=== PATIENT | female | born 1945 | race Caucasian/White ===

== ENCOUNTER 2017-11-14 07:54 | Outpatient (RCR) | payer MEDICARE, SELFPAY ==
[2017-11-13 00:48] VITALS: BP 144/70; PULSE 86; RESP 16; TEMP 36.2; BMI 36.4
[2017-11-14 08:23] VITALS: BP 171/61; PULSE 88; RESP 18; TEMP 36.6; BMI 36.4
--- NOTE | 2017-11-14 08:43 | HP.PCM_ITS ---
(1) Pressure ulcer of right buttock, stage 2 Status: Chronic Current Visit: Yes Code(s): L89.312 - Pressure ulcer of right buttock, stage 2 (2) Perianal fistula Status: Chronic Current Visit: Yes Code(s): K60.3 - Anal fistula (3) Back pain Status: Chronic Current Visit: No Code(s): M54.9 - Dorsalgia, unspecified (4) Chronic kidney disease, stage III (moderate) Status: Chronic Current Visit: No Code(s): N18.3 - Chronic kidney disease, stage 3 (moderate) (5) Obesity Status: Chronic Current Visit: No Code(s): E66.9 - Obesity, unspecified (6) Peripheral neuropathy Status: Chronic Current Visit: No Code(s): G62.9 - Polyneuropathy, unspecified (7) Hypertension Status: Chronic Current Visit: No Qualifiers: Hypertension type: essential hypertension Code(s): I10 - Essential (primary) hypertension (8) Type 2 diabetes mellitus Status: Chronic Current Visit: No Code(s): E11.9 - Type 2 diabetes mellitus without complications History of Present Illness Date of Service: 11/14/17 Chief Complaint: Stage II pressure ulceration of the right buttock History of Wound: This is a 72-year-old female who was recently hospitalized at [facility] for approximately 9 days in treatment for a right kidney stone, right pyelonephritis, right hydronephrosis, and sepsis. She underwent cystoscopy with right retrograde pyelogram and laser ablation of kidney stones with placement of a ureteral stent. During her hospital stay, she developed a stage II pressure ulceration on her right buttock. This had been treated with application of Telfa topically. The patient is known to be diabetic. She is obese, and suffers from hypertension and chronic kidney disease (stage III). Her last hemoglobin A1c, on 05/23/2017, was 6.6. A battery of laboratory diagnostics tests were obtained recently with results which are as follows: Sodium 139, potassium 3.6, chloride 104, BUN 31, creatinine 1.63, glucose 190, hemoglobin A1c 7.0, calcium 8.7, magnesium 2.1, albumin 2.9, total protein 7.5. Significant improvement has been noted in the status of the patient buttock ulceration. She is now completely healed and epithelialized. Past Medical History Past Medical History: Chronic Problems Pressure ulcer of right buttock, stage 2 (Chronic) Perianal fistula (Chronic) Back pain (Chronic) Hydronephrosis, right (Chronic) Chronic kidney disease, stage III (moderate) (Chronic) Obesity (Chronic) Peripheral neuropathy (Chronic) Hypertension (Chronic) Type 2 diabetes mellitus (Chronic) Surgical History: appendectomy, cholecystectomy, gastric bypass - 2003, - - Patient has undergone right ankle surgery and left wrist surgery. In addition, she has recently undergone cystoscopy with right retrograde pyelogram and laser ablation of kidney stones with placement of a ureteral stent. Patient is a Ab0. Allergies/Adverse Reactions: Allergies adhesive Allergy (Verified 06/27/17 22:31) Rash amoxicillin [From Augmentin] Allergy (Verified 06/28/17 00:13) Unknown carvedilol Allergy (Verified 06/28/17 00:13) Unknown ceftriaxone [From Rocephin] Allergy (Verified 06/28/17 00:13) Unknown chlorthalidone Allergy (Verified 07/25/17 09:24) Unknown ciprofloxacin Allergy (Verified 07/25/17 09:24) Rash clavulanic acid [From Augmentin] Allergy (Verified 07/25/17 09:24) Unknown doxycycline Allergy (Verified 07/25/17 09:24) Unknown fexofenadine Allergy (Verified 07/25/17 09:24) Unknown gatifloxacin [From Tequin] Allergy (Verified 07/25/17 09:24) Unknown hydrochlorothiazide Allergy (Verified 07/25/17 09:24) Unknown lisinopril Allergy (Verified 07/25/17 09:24) Unknown losartan Allergy (Verified 07/25/17 09:24) Unknown Penicillins Allergy (Verified 07/25/17 09:24) Rash pramipexole Allergy (Verified 07/25/17 09:24) Unknown Quinolones Allergy (Verified 07/25/17 09:24) Unknown ropinirole Allergy (Verified 07/25/17 09:24) Unknown aspirin Adverse Reaction (Verified 07/25/17 09:24) Vomiting Home Medications: Ambulatory Orders Medication Instructions Recorded Cholecalciferol (Vitamin D3) 1,000 unit PO DAILY 06/28/17 [Vitamin D3] Furosemide 40 mg PO DAILY 06/28/17 Gabapentin [Neurontin] 300 mg PO QODAY 06/28/17 Loratadine 10 mg PO DAILY 06/28/17 Losartan Potassium 50 mg PO DAILY 06/28/17 Nystatin Powder [Mycostatin Powder] 1 applic TOPICAL BID bottle 07/03/17 Oxycodone [Oxyir] 10 mg PO Q8H PRN PRN 07/03/17 Calcium Carb/Vitamin D [Os-Clemente 1 tablet PO DAILY@0800 tablet 07/07/17 500MG + D] Oxycodone [Oxyir] 10 mg PO Q8H PRN #30 tablet 07/07/17 Amlodipine [Norvasc] 5 mg PO DAILY 07/25/17 Diclofenac Sodium [Pennsaid] 2 gm TP 07/25/17 Insulin Glargine [Lantus SoloStar 30 07/25/17 Pen] Metformin HCl [Glucophage] 1,000 mg PO BIDCM 07/25/17 Metoprolol Tartrate [Lopressor 50 mg PO DAILY 07/25/17 (Beta Allie)] Sitagliptin Phosphate [Januvia] 100 mg PO 07/25/17 - Family History Maternal Heart Disease, No pertinent history, - Paternal Heart Disease, No pertinent history Smoking Status: Former smoker Tobacco Use: Non-smoker Review of Systems Constitutional: Denies: Chills, Fever, Weight Change Eyes: Denies: Pain, Vision Change HEENT: Denies: Difficulty Hearing, Difficulty Swallowing, Sinus Congestion Cardiovascular: Denies: Chest Pain, Palpitations Respiratory: Denies: Cough, Shortness of Breath Gastrointestinal: Denies: Diarrhea, Nausea, Vomiting Genitourinary: Denies: Dysuria, Hematuria Endocrine: Denies: Heat/ Cold Intolerance, Polydipsia, Polyuria Hematologic/ Lymphatic: Denies: Easy Bruising, Easy Bleeding - Physical Exam Vital Signs Temp Pulse Resp BP 97.8 F 88 18 171/61 H 11/14/17 08:23 11/14/17 08:23 11/14/17 08:23 11/14/17 08:23 General: Alert, Oriented x3, Cooperative, No apparent distress, Well developed, Well nourished HEENT: Atraumatic, PERRLA, EOMI, Normocephalic Oral: Moist Mucosa Neck: No JVD Lungs: Normal air movement Abdomen: Soft, Non Tender, Non-Distended, Obese Extremities: No clubbing, No cyanosis, No edema Skin: - - Patient's right buttock ulceration is now completely healed and epithelialized. There are no open wounds or ulcerations. There are no excoriations. There is no sign of infection or cellulitis. The small punctate opening is devoid of any drainage or signs of infection. Wound Measurements and Assessment JOSELITO - Nurse 1 - General Ulcer Measurement Start: 11/14/17 08:23 Freq: Status: Active Protocol: Activity Type Activity Date Activity User E-Sign Co-Sign Detail Recorded Client Recorded Date Recorded By Document 11/14/17 08:23 [email or web address] [id number] 11/14/17 08:28 DL 11/14/17 08:23 Wound Center Nurse 1 [Ulcer Assessment Protocol: JOSELITO.WD.LOC] #2 R-BUTTOCK FISTULA -Current Size (cm) - Length 0 -Current Size (cm) - Width 0 -Current Size (cm) - Depth 0 -Total Square Cm 0 -Photo Taken Yes -Exudate Amt None Present (0 %) -Wound Margin Flat & Intact -Granulation Amt None Present (0 %) -Granulation Quality Cut Off -Necrosis Amt None Present (0 %) -Structure Exposed N/A -Texture (Jessica-wound Skin Appearance) Scarring -Moisture (Jessica-wound Skin Appearance No Abnormality ) -Color (Jessica-wound Skin Appearance) Ecchymosis -Temperature (Jessica-wound Skin No Abnormality Appearance) (Pt Warm) -Tenderness on Palpation (Jessica-wound No Skin Appearance) -Ulcer Cleansing Rinsed/ Irrigated with Saline -Foul Odor after Cleansing No #1 R Buttocks -Current Size (cm) - Length 0 -Current Size (cm) - Width 0 -Current Size (cm) - Depth 0 -Total Square Cm 0 -Photo Taken Yes -Exudate Amt None Present (0 %) -Wound Margin Flat & Intact -Granulation Amt None Present (0 %) -Granulation Quality Cut Off -Necrosis Amt None Present (0 %) -Structure Exposed N/A -Texture (Jessica-wound Skin Appearance) Scarring -Moisture (Jessica-wound Skin Appearance No Abnormality ) -Color (Jessica-wound Skin Appearance) Ecchymosis -Temperature (Jessica-wound Skin No Abnormality Appearance) (Pt Warm) -Ulcer Cleansing Rinsed/ Irrigated with Saline -Foul Odor after Cleansing No JOSELITO - Nurse 2 - General Ulcer CM Notes Start: 11/14/17 08:23 Freq: Status: Active Protocol: Activity Type Activity Date Activity User E-Sign Co-Sign Detail Recorded Client Recorded Date Recorded By Document 11/14/17 08:34 [id number] 11/14/17 08:35 11/14/17 08:34 Wound Center Nurse 2 [Procedure/Treatment] #2 R-BUTTOCK FISTULA -Time 08:35 -Correct Patient Yes -Correct Side, Site, Position Yes -Correct Procedure Yes -Procedure Performed No -Post Debridement Size (cm) - Length 0 -Post Debridement Size (cm) - Width 0 -Post Debridement Size (cm) - Depth 0 -Total Square Cm 0 -Wound/Ulcer Outcome Healed- Epithelialized #1 R Buttocks -Time 08:35 -Correct Patient Yes -Correct Side, Site, Position Yes -Correct Procedure Yes -Procedure Performed No -Post Debridement Size (cm) - Length 0 -Post Debridement Size (cm) - Width 0 -Post Debridement Size (cm) - Depth 0 -Total Square Cm 0 -Wound/Ulcer Outcome Healed- Epithelialized [See Physician Procedure note for Specifics] Pain Scale: 0-10 Numeric [Pain] -Is Patient Pain Free? Yes Neurological: Cranial nerves II-XII grossly intact, Neuro grossly intact Psych/Mental Status: Normal Affect, Appropriate, Alert and oriented to time, place, person, mood and affect Debridement Note Post-Debridement Measurements/Treatment WC - Nurse 2 - General Ulcer CM Notes Start: 11/14/17 08:23 Freq: Status: Active Protocol: Activity Type Activity Date Activity User E-Sign Co-Sign Detail Recorded Client Recorded Date Recorded By Document 11/14/17 08:34 [id number] 11/14/17 08:35 11/14/17 08:34 Wound Center Nurse 2 #2 R-BUTTOCK FISTULA -Time 08:35 -Correct Patient Yes -Correct Side, Site, Position Yes -Correct Procedure Yes -Procedure Performed No -Post Debridement Size (cm) - Length 0 -Post Debridement Size (cm) - Width 0 -Post Debridement Size (cm) - Depth 0 -Total Square Cm 0 -Wound/Ulcer Outcome Healed- Epithelialized #1 R Buttocks -Time 08:35 -Correct Patient Yes -Correct Side, Site, Position Yes -Correct Procedure Yes -Procedure Performed No -Post Debridement Size (cm) - Length 0 -Post Debridement Size (cm) - Width 0 -Post Debridement Size (cm) - Depth 0 -Total Square Cm 0 -Wound/Ulcer Outcome Healed- Epithelialized Pain Scale: 0-10 Numeric Is Patient Pain Free? Yes No debridement was completed today Assessment/Plan Active Problems Pressure ulcer of right buttock, stage 2 (Chronic) Perianal fistula (Chronic) Assessment: This is a 72-year-old female with multiple medical problems, including morbid obesity, chronic kidney disease, hypertension, peripheral neuropathy, and diabetes mellitus. During a recent hospital stay, the patient developed a stage II pressure ulceration on her right buttock. There is also an apparent punctate opening between the patient's ulceration in her anus, which appears to represent a tract or fistula, possibly representing a perianal fistula. This may require referral to a general surgeon or a colorectal surgeon. Plan: The patient is now completely healed and epithelialized. Her buttock ulceration is healed. The patient is to be discharged. Offloading measures are to be continued. She has been discouraged from sleeping in a sitting position. The patient has been advised to optimize her nutritional status, and to optimize her glycemic control. She has been advised to avoid friction and shear forces, and to continue offloading measures. Weight loss has been recommended. Optimizing nutrition has been discussed. Optimization of the patient's diabetes mellitus has also been discussed. Patient will follow-up henceforth on an as-needed basis. She and her have been advised to monitor the buttock area, and that if any evidence of drainage from the possible fistula site is noted, that consultation with a general surgeon or a colon and rectal surgeon may be advisable. Influenza vaccine was not administered today. The patient does not smoke. The patient weighs 226 pounds. She stands 5 feet 6 inches tall. Her BMI is 36.5, which places her in an obese class II category. Weight loss has been recommended, and has been advised that the patient collaborate with her primary care physician in terms of weight loss options.
== END 2017-12-13 23:59 ==
LOC: WC 07:54
PROVIDERS: Family Provider Student in an Organized Health Care Education/Training Program; PCP Student in an Organized Health Care Education/Training Program; Visit Provider Surgery
DX: E11.622 Type 2 diabetes mellitus with other skin ulcer (principal); E11.22 Type 2 diabetes mellitus with diabetic chronic kidney disease; I12.9 Hypertensive chronic kidney disease with stage 1 through stage 4 chronic kidney disease, or unspecified chronic kidney disease; N18.3 Chronic kidney disease, stage 3 (moderate); E11.40 Type 2 diabetes mellitus with diabetic neuropathy, unspecified; L97.312 Non-pressure chronic ulcer of right ankle with fat layer exposed; E66.9 Obesity, unspecified; Z68.36 Body mass index [BMI] 36.0-36.9, adult; Z71.3 Dietary counseling and surveillance; Z79.899 Other long term (current) drug therapy; Z79.4 Long term (current) use of insulin; Z87.891 Personal history of nicotine dependence
CPT/HCPCS: 99211; G0463

== ENCOUNTER 2019-07-10 13:29 | Inpatient (IN) | payer MEDICARE, SELFPAY ==
[2019-07-10] VITALS (7 sets, daily range): BP systolic 154–189; BP diastolic 64–80; PULSE 59–75; RESP 18–20; TEMP 36.5–37.1; O2SAT 94–99; BMI 35.5; BMI 39.7; BMI 39.8
--- NOTE | 2019-07-10 13:54 | CT_ITS ---
STUDY: CT BRAIN WITHOUT CONTRAST REASON FOR EXAM: Female, 74 years old. History of fall. RADIATION DOSAGE (If Supplied By Facility): CTDIvol = ( 44.99 ) mGy, DLP = ( 745.49 ) mGycm TECHNIQUE: Transaxial CT imaging of the brain was performed without administration of intravenous contrast material. Individualized dose optimization techniques were used for this CT. COMPARISON: No relevant priors. FINDINGS: Normal soft tissue structures. Normal calvarium. There is mild cerebral atrophy with widening of the extra-axial spaces and ventricular dilatation. There are areas of decreased attenuation within the white matter tracts of the supratentorial brain, consistent with microvascular disease changes. Normal basal ganglia and thalami. Normal brainstem. Normal cerebellum. There is no intracranial hemorrhage. There are no findings of an acute ischemic infarction. Atherosclerotic calcification of the vertebral arteries and cavernous portions of the internal carotid arteries bilaterally. Normal visualized paranasal sinuses. CT/Brain/Head without Contrast IMPRESSION: Chronic involutional changes of the brain. Electronically Signed: Claudio Lewis, at 14:46 EDT , Service support ,
--- NOTE | 2019-07-10 13:55 | RAD_ITS ---
STUDY: X-RAY CHEST REASON FOR EXAM: Female, 74 years old. Weakness. Fall. TECHNIQUE: AP and lateral views of the chest. COMPARISON: None. FINDINGS: Mesentery congestion and mild degree of CHF. There is a 2.3 cm x 1.4 cm nodule in the right middle lobe. There is no demonstrated pleural abnormality. There is mild cardiac enlargement. Normal mediastinum and jonathan. Normal visualized pulmonary arteries. There is atherosclerotic calcification of the aortic arch with tortuosity. There is demineralization of the osseous structures. Normal visualized ribs, clavicles, and shoulders. There is no demonstrated abnormality of the visualized soft tissue structures of the upper abdomen. RAD/Chest PA and Lateral IMPRESSION: Findings suggestive of CHF. 2.3 cm x 1.4 cm right middle lobe nodule. Electronically Signed: Claudio Lewis, at 14:53 EDT , Service support ,
--- NOTE | 2019-07-10 14:18 | ED.DCSUM_ITS ---
History of Present Illness Narrative: 74-year-old female presents with general weakness. She has had progressive weakness for the past several months, she has had multiple falls in her garage when trying to get into the car with her . She typically walks with a cane but is now requiring a fair amount of assistance even for that. She fell today in the garage but denies any associated injuries. She feels quite fatigued but denies any lateralizing weakness, slurred speech, or facial droop. Current severity is moderate. She does have a history of chronic back pain and reports that she had an injection in her lower spine 2 months ago. Since then, she has felt somewhat more fatigued and had more trouble with walking. She denies fever, chills, or night sweats. <Bharat Mccarthy - Last Filed: 07/10/19 14:18> <Graeme Chicas - Last Filed: 07/10/19 17:23> Chief Complaint: Weakness Past Medical History Surgical History: appendectomy, cholecystectomy, gastric bypass - 2003, - - Patient has undergone right ankle surgery and left wrist surgery. In addition, she has recently undergone cystoscopy with right retrograde pyelogram and laser ablation of kidney stones with placement of a ureteral stent. Patient is a Ab0. Smoking Status: Never smoker - Family History Maternal Family History: Reports: Heart Disease, No pertinent history, - Paternal Family History: Reports: Heart Disease, No pertinent history <Bharat Mccarthy - Last Filed: 07/10/19 14:18> <Graeme Chicas - Last Filed: 07/10/19 17:23> - Allergies and Home Meds Allergies/Adverse Reactions: Allergies adhesive Allergy (Verified 07/10/19 13:36) Rash amoxicillin [From Augmentin] Allergy (Verified 07/10/19 13:36) Unknown carvedilol Allergy (Verified 07/10/19 13:36) Unknown ceftriaxone [From Rocephin] Allergy (Verified 07/10/19 13:36) Unknown chlorthalidone Allergy (Verified 07/10/19 13:36) Unknown ciprofloxacin Allergy (Verified 07/10/19 13:36) Rash clavulanic acid [From Augmentin] Allergy (Verified 07/10/19 13:36) Unknown doxycycline Allergy (Verified 07/10/19 13:36) Unknown fexofenadine Allergy (Verified 07/10/19 13:36) Unknown gatifloxacin [From Tequin] Allergy (Verified 07/10/19 13:36) Unknown hydrochlorothiazide Allergy (Verified 07/10/19 13:36) Unknown lisinopril Allergy (Verified 07/10/19 13:36) Unknown losartan Allergy (Verified 07/10/19 13:36) Unknown Penicillins Allergy (Verified 07/10/19 13:36) Rash pramipexole Allergy (Verified 07/10/19 13:36) Unknown Quinolones Allergy (Verified 07/10/19 13:36) Unknown ropinirole Allergy (Verified 07/10/19 13:36) Unknown aspirin Adverse Reaction (Verified 07/10/19 13:36) Vomiting Primary Care Physician: Law Quintana DO [Primary Care Provider] - Review of Systems General: Reports: Malaise. Denies: Chills, Fever, Sweats Eyes: Denies: Visual changes - bilaterally, Diplopia ENT: Denies: Rhinorrhea, Sore throat Cardiovascular: Denies: Chest pain, Palpitations Respiratory: Denies: Dyspnea, Cough, Dyspnea on exertion Gastrointestinal: Denies: Abdominal pain, Nausea, Vomiting, Diarrhea, Melena, Hematochezia Genitourinary: Denies: Dysuria, Hematuria, Frequency Musculoskeletal: Reports: Back pain. Denies: Extremity Pain Skin: Denies: Rash, Wounds Neurological: Reports: Weakness. Denies: Headache, Numbness Hematologic: Denies: Easy bleeding <Bharat Mccarthy - Last Filed: 07/10/19 14:18> Physical Exam Vital Signs/Narrative: Vital Signs Temp Pulse Resp BP Pulse Ox 07/10/19 13:31 98.8 F 60 18 160/64 H 94 General: - - Appears chronically ill Head: Normocephalic, Atraumatic Eyes: Perrl, EOMI ENT: No rhinorrhea, Dry mucous membranes Neck: Supple, Nontender Cardiovascular: Regular rate, Regular rhythm, No murmurs Respiratory: No distress, CTA bilaterally, Chest nontender Abdomen: Soft, Nontender, Nondistended, Normal bowel sounds Back: Nontender, Normal Inspection, - - There is no midline spinal tenderness, erythema, or fluctuance. No rash on her lower spine at the site of the injection. No tenderness. Extremities: Nontender, No edema Skin: Normal color, No rash Neurological: Alert, Oriented x3, Cranial nerves II-XII grossly intact, Normal Strength, Normal Sensation, - - Normal reflexes in the lower extremities. No weakness. Psychological: Normal affect, Normal Mood <Bharat Mccarthy - Last Filed: 07/10/19 14:18> Vital Signs/Narrative: Vital Signs Temp Pulse Resp BP Pulse Ox 07/10/19 15:48 97.7 F L 60 20 H 172/65 H 99 07/10/19 13:31 98.8 F 60 18 160/64 H 94 <Graeme Chicas - Last Filed: 07/10/19 17:23> Diagnostic/Tx/Re-eval Chest X-Ray - ED: Read by Radiologist CHF and lung nodule - Medical Decision Making Patient was endorsed to me by the outgoing physician. Laboratory work-up shows the patient have a leukocytosis as well as to have a urinary tract infection. Patient has multiple medication allergies, so she was given cefepime IV for treatment of urinary tract infection. At this point given the patient's leukocytosis, weakness, frequent falls, and urinary tract infection I believe she requires admission. I will discuss this with the hospitalist. <Graeme Chicas - Last Filed: 07/10/19 17:23> ED Disposition <Bharat Mccarthy - Last Filed: 07/10/19 14:18> <Graeme Chicas - Last Filed: 07/10/19 17:23> - Plan for ED Patient: Disposition: Acute Care Hospital [facility] Diagnosis: UTI (urinary tract infection), Frequent falls, Declining functional status
[2019-07-10 14:21] LABS: Absolute Lymphocyte Count 1.02 X10^3/uL (0.83-4.51); Absolute Neutrophil Count 14.3 X10^3/uL (2.0-7.7); Basophil# 0.05 X10^3/uL; Basophil% 0.3 % (0-1); Eosinophil# 0.16 X10^3/uL; Hematocrit 35.6 % (37-47); Hemoglobin 10.9 g/dL (12.0-15.0); Lymphocyte # 1.02 X10^3/ul (4.0); Lymphocyte % 6.2 % (19-41); Mean Corp Hgb Conc 30.6 g/dL (32-36); Mean Corpuscular Volume 91.5 fL (81-99); Mean Platelet Vol. 10.9 fl (6.2-12.0); Monocyte# 0.73 X10^3/uL; Monocyte% 4.5 % (0-10); NRBC Flagged by Analyzer 0 % (0-5); Neutrophil # 14.31 X10^3/uL (2.7-7.7); Neutrophil % 87.3 % (47-70); Platelet Count 230 K/mm3 (150-450); RBC Distribution Width SD 49.9 fl (35.1-43.9); Red Blood Count 3.89 M/mm3 (4.2-5.4); White Blood Count 16.4 K/mm3 (4.4-11.0)
[2019-07-10 14:28] LABS: International Normalized Ratio 1.1; Prothrombin Time (Protime)PT. 13.9 SECONDS (11.7-14.9)
[2019-07-10 14:42] LABS: Anion Gap 11 (5-15); BUN 44 mg/dL (7-18); Calcium,Total 8.3 mg/dL (8.5-10.1); Chloride 116 mmol/L (98-107); EST Glomerular Filtration Rate 25 mL/min (>60); Est Glom Filt Rate - Afr Amer 30 mL/min (>60); Estimated Creatinine Clearance 22.34 ml/min; Glucose 69 mg/dL (74-106); Potassium 3.9 mmol/L (3.5-5.1); Sodium Level 149 mmol/L (136-145)
[2019-07-10 16:07] LABS: Lactic Acid 1.3 mmol/L (0.4-2.0)
[2019-07-10 16:07] LABS: BNP,B-Type NATRIURETIC PEPTIDE 213.1 pg/mL (0-100)
[2019-07-10 16:14] LABS: Mucous, Urine 0 SEEN /hpf (<or=2+); Red Blood Cells-Urine 0 SEEN /hpf (0-5)
[2019-07-10 16:52] LABS: Color, Urine Yellow (Yellow); Glucose, Dipstick Normal (Normal); Ketone-Dipstick Negative (Negative); Leukocyte Esterase-Dipstick 500 /ul (Negative); Nitrite-Dipstick Positive (Negative); Occult Blood-Urine 10 /ul (Negative); Protein-Dipstick 30 mg/dl (Negative); Specific Gravity, Urine 1.015 (1.002-1.030); Urine Bilirubin Dipstick Negative (Negative); Urine Clarity Clear (Clear); Urine Urobilinogen Normal (Normal)
[2019-07-10 17:02] LABS: White Blood Cells 25-50 SEEN /hpf (0-5)
[2019-07-10 17:03] LABS: Bacteria 1+ /hpf (None Seen); Squamous Epithelial Cells - UA 0-5 SEEN /hpf (5-10)
--- NOTE | 2019-07-10 17:24 | NURSING ---
MED SURG UTI, FREQUENT FALLS [facility]
--- NOTE | 2019-07-10 17:42 | HP.PCM_ITS ---
<Lavelle Soriano - Last Filed: 07/10/19 17:42> Problem List (1) UTI (urinary tract infection) Status: Acute (2) IZA (acute kidney injury) Status: Acute (3) Debility Status: Chronic (4) Pulmonary nodule Status: Chronic (5) Chronic kidney disease, stage III (moderate) Status: Chronic (6) Hypertension Status: Chronic Qualifiers: Hypertension type: essential hypertension (7) Obesity Status: Chronic (8) Peripheral neuropathy Status: Chronic (9) Pressure ulcer of right buttock, stage 2 Status: Chronic (10) Type 2 diabetes mellitus Status: Chronic History of Present Illness Date of Admission: 07/10/19 Chief Complaint: Fall The patient is a 74 year old F with pmhx of DMt2, CKDIII, HTN, HLD, obesity, multiple UTIs, who presents to the ER with fall. The patient states she felt in her normal state of health today, when she inexplicably became weak while walking in the garage. Her tried to help hold her up, however he could not support her and lowered her to the ground. She also fell last week. She denies feeling dizzy or LH. She denies feeling ill. She has no fevers/chills, no cough or SOB, she has no nausea vomiting, diarrhea or abdominal pain, and no burning, urgency, increased frequency, or incontinence. She has some LE edema. She came to the ER and was found to have leukocytosis and + urine and acute kidney injury. Her CXR shows a pulmonary nodue, we do not have prior CXRs on file. [] Past Medical History Past Medical History (Chronic Problems): Chronic Problems Debility (Chronic) Pulmonary nodule (Chronic) Back pain (Chronic) 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, stage 2 (Chronic) Hydronephrosis, right (Chronic) Chronic kidney disease, stage III (moderate) (Chronic) Obesity (Chronic) Peripheral neuropathy (Chronic) Hypertension (Chronic) Type 2 diabetes mellitus (Chronic) Allergies adhesive Allergy (Verified 07/10/19 13:36) Rash amoxicillin [From Augmentin] Allergy (Verified 07/10/19 13:36) Unknown carvedilol Allergy (Verified 07/10/19 13:36) Unknown ceftriaxone [From Rocephin] Allergy (Verified 07/10/19 13:36) Unknown chlorthalidone Allergy (Verified 07/10/19 13:36) Unknown ciprofloxacin Allergy (Verified 07/10/19 13:36) Rash clavulanic acid [From Augmentin] Allergy (Verified 07/10/19 13:36) Unknown doxycycline Allergy (Verified 07/10/19 13:36) Unknown fexofenadine Allergy (Verified 07/10/19 13:36) Unknown gatifloxacin [From Tequin] Allergy (Verified 07/10/19 13:36) Unknown hydrochlorothiazide Allergy (Verified 07/10/19 13:36) Unknown lisinopril Allergy (Verified 07/10/19 13:36) Unknown losartan Allergy (Verified 07/10/19 13:36) Unknown Penicillins Allergy (Verified 07/10/19 13:36) Rash pramipexole Allergy (Verified 07/10/19 13:36) Unknown Quinolones Allergy (Verified 07/10/19 13:36) Unknown ropinirole Allergy (Verified 07/10/19 13:36) Unknown aspirin Adverse Reaction (Verified 07/10/19 13:36) Vomiting Home Medications: Ambulatory Orders Medication Instructions Recorded Amlodipine [Norvasc] 10 mg PO DAILY 07/25/17 Insulin Glargine [Lantus SoloStar 34 units SQ DAILY 07/25/17 Pen] Metoprolol Tartrate [Lopressor 25 mg PO BID 07/25/17 (Beta Allie)] Sitagliptin Phosphate [Januvia] 100 mg PO DAILY 07/25/17 Loratadine 10 mg PO DAILY 07/10/19 Metformin HCl 500 mg PO BIDCM 07/10/19 Oxycodone HCl/Acetaminophen 1 tab PO Q8H PRN PRN 07/10/19 [Oxycodone-Acetaminophen 10-325] Pravastatin Sodium 40 mg PO DAILY 07/10/19 Pregabalin [Lyrica] 50 mg PO 4X/DAY 07/10/19 Surgical History: appendectomy, cholecystectomy, gastric bypass - 2003, - - Patient has undergone right ankle surgery and left wrist surgery. In addition, she has recently undergone cystoscopy with right retrograde pyelogram and laser ablation of kidney stones with placement of a ureteral stent. Patient is a Ab0. Psychiatric History: No pertinent psych hx PODIATRIC SURGEON History: No pertinent PODIATRIC SURGEON history Lives: Spouse/ Significant Other Smoking Status: Never smoker Tobacco Use: Non-smoker Alcohol: None Drugs: None - *Family History Maternal History Items: Heart Disease, Hypertension Paternal History Items: Heart Disease, Hypertension Review of Systems Constitutional: Reports: Weakness. Denies: Chills, Fever, Weight Change, Fatigue HEENT: Denies: Head Aches, Sinus Congestion, Sinus Drainage Cardiovascular: Reports: Edema. Denies: Chest Pain, Chest Pressure, Heaviness, Light Headedness, Palpitations, Syncope Respiratory: Denies: Cough, Shortness of Breath, Shortness of breath at rest, Sputum production Gastrointestinal: Denies: Abdominal Pain, Diarrhea, Nausea, Vomiting Genitourinary: Denies: Dysuria Musculoskeletal: Denies: Joint Pain, Joint Tenderness Skin: Denies: Lesions, Rash, Skin Changes, Wounds Neurological: Denies: Balance problems, Focal weakness, Numbness, Tingling, Seizures Psychiatric: Denies: Anxiety, Depression, Homicidal Ideations, Suicidal Ideations Hematologic/ Lymphatic: Denies: Easy Bruising, Easy Bleeding VTE Information - Inpt Only VTE Present on Admission: No VTE Mechan Device Prophylaxis: None VTE Pharm Prophylaxis ordered?: Yes Patient Problems: Active and Suspected Problems UTI (urinary tract infection) (Acute) Frequent falls (Acute) Declining functional status (Acute) - Physical Exam General: Alert, Oriented x3, Cooperative HEENT: Atraumatic, PERRLA, EOMI, Normocephalic Neck: Supple, No JVD, Negative Carotid Bruits Lungs: Clear to auscultation, Normal air movement Cardiovascular: Regular rate, No murmurs Abdomen: Bowel Sounds Present, Soft, Non Tender, Obese Extremities: Capillary Refill Less than 3 Seconds, Edema - 2-3+ pitting edema BLE up to knees. compressive leggings on proximal legs Skin: No rashes, No breakdown Musculoskeletal: No Tenderness to Palpation of Joints or Extremities Neurological: Cranial nerves II-XII grossly intact Psych/Mental Status: Normal Affect, Appropriate, Alert and oriented to time, place, person, mood and affect Vital Signs Temp Pulse Resp BP Pulse Ox 97.7 F L 60 20 H 172/65 H 99 07/10/19 15:48 07/10/19 15:48 07/10/19 15:48 07/10/19 15:48 07/10/19 15:48 Oxygen Delivery Method Room Air Weight: 220 lb Body Mass Index (BMI) 35.5 Intake and Output for Last 24 Hours 07/08/19 07/09/19 07/10/19 23:59 23:59 23:59 Intake Total 500 / 500 Balance 500 / 500 Laboratory Tests Past 24 Hrs 07/10/19 07/10/19 07/10/19 14:10 14:10 14:10 WBC 16.4 H RBC 3.89 L Hgb 10.9 L Hct 35.6 L MCV 91.5 MCH 28.0 MCHC 30.6 L RDW Std Deviation 49.9 H RDW Coeff of Chrissy 15.0 H Plt Count 230 MPV 10.9 Immature Gran % (Auto) 0.700 Neut % (Auto) 87.3 H Lymph % (Auto) 6.2 L [place] % (Auto) 4.5 Eos % (Auto) 1.0 Baso % (Auto) 0.3 Absolute Neuts (auto) 14.3 H Absolute Lymphs (auto) 1.02 Nucleated RBC % 0 PT 13.9 INR 1.1 Sodium 149 H Potassium 3.9 Chloride 116 H Carbon Dioxide 22.0 Anion Gap 11 BUN 44 H Creatinine 2.10 H Estim Creat Clear Calc 22.34 Est GFR (MDRD) Af Amer 30 L Est GFR (MDRD) Non-Af 25 L BUN/Creatinine Ratio 21.0 H Glucose 69 L Lactic Acid Calcium 8.3 L Troponin I < 0.015 B-Natriuretic Peptide Urine Color Urine Clarity Urine pH Ur Specific [place] Urine Protein Urine Glucose (UA) Urine Ketones Urine Occult Blood Urine Nitrite Urine Bilirubin Urine Urobilinogen Ur Leukocyte Esterase Urine RBC Urine WBC Ur Squamous Epith Cells Urine Bacteria Urine Mucus 07/10/19 07/10/19 07/10/19 14:10 15:20 16:05 WBC RBC Hgb Hct MCV MCH MCHC RDW Std Deviation RDW Coeff of Chrissy Plt Count MPV Immature Gran % (Auto) Neut % (Auto) Lymph % (Auto) [place] % (Auto) Eos % (Auto) Baso % (Auto) Absolute Neuts (auto) Absolute Lymphs (auto) Nucleated RBC % PT INR Sodium Potassium Chloride Carbon Dioxide Anion Gap BUN Creatinine Estim Creat Clear Calc Est GFR (MDRD) Af Amer Est GFR (MDRD) Non-Af BUN/Creatinine Ratio Glucose Lactic Acid 1.3 Calcium Troponin I B-Natriuretic Peptide 213.1 H Urine Color Yellow Urine Clarity Clear Urine pH 5.0 Ur Specific [place] 1.015 Urine Protein 30 H Urine Glucose (UA) Normal Urine Ketones Negative Urine Occult Blood 10 H Urine Nitrite Positive H Urine Bilirubin Negative Urine Urobilinogen Normal Ur Leukocyte Esterase 500 H Urine RBC 0 SEEN Urine WBC 25-50 SEEN Ur Squamous Epith Cells 0-5 SEEN Urine Bacteria 1+ Urine Mucus 0 SEEN Assessment/Plan All Active Problems UTI (urinary tract infection) (Acute) Frequent falls (Acute) Declining functional status (Acute) 1. Acute cystitis - multiple allergies. Multiple prior UTIs and pyelo. Last culture with pansensitive E coli. Start cefepime. Follow cultures. 2. IZA - elevated BUN and Cr. Hold metformin, januvia, gentle IV fluids 3. Debility and fall - no acute musculoskeletal pain, no head strike. PTOT. 2nd fall this week 4. Incidental pulmonary nodule on CXR - consult pulmonary medicine 5. LE edema - KANE wrap. Mildly elevated BNP and some congestion on CXR however she has no respiratory symptoms 6. DMt2 with obesity and peripheral neuropathy - hold metformin, januvia. continue lantus and add SSI. Dietary consult. Lyrica. 7. HTN - stable 8. Chronic low back pain - oxycodone DVT ppx: heparin DC planning: PTOT This patient was seen by Lavelle Soriano PA-C under the supervision of Dr. Johnson. <Teofilo Johnson - Last Filed: 07/10/19 18:12> History of Present Illness The patient is a 74 year old F [] Past Medical History Allergies adhesive Allergy (Verified 07/10/19 13:36) Rash amoxicillin [From Augmentin] Allergy (Verified 07/10/19 13:36) Unknown carvedilol Allergy (Verified 07/10/19 13:36) Unknown ceftriaxone [From Rocephin] Allergy (Verified 07/10/19 13:36) Unknown chlorthalidone Allergy (Verified 07/10/19 13:36) Unknown ciprofloxacin Allergy (Verified 07/10/19 13:36) Rash clavulanic acid [From Augmentin] Allergy (Verified 07/10/19 13:36) Unknown doxycycline Allergy (Verified 07/10/19 13:36) Unknown fexofenadine Allergy (Verified 07/10/19 13:36) Unknown gatifloxacin [From Tequin] Allergy (Verified 07/10/19 13:36) Unknown hydrochlorothiazide Allergy (Verified 07/10/19 13:36) Unknown lisinopril Allergy (Verified 07/10/19 13:36) Unknown losartan Allergy (Verified 07/10/19 13:36) Unknown Penicillins Allergy (Verified 07/10/19 13:36) Rash pramipexole Allergy (Verified 07/10/19 13:36) Unknown Quinolones Allergy (Verified 07/10/19 13:36) Unknown ropinirole Allergy (Verified 07/10/19 13:36) Unknown aspirin Adverse Reaction (Verified 07/10/19 13:36) Vomiting - Physical Exam Vital Signs Temp Pulse Resp BP Pulse Ox 97.7 F L 61 20 H 182/80 H 97 07/10/19 15:48 07/10/19 17:55 07/10/19 17:55 07/10/19 17:55 07/10/19 17:55 Oxygen Delivery Method Room Air Weight: 220 lb Body Mass Index (BMI) 35.5 Intake and Output for Last 24 Hours 07/08/19 07/09/19 07/10/19 23:59 23:59 23:59 Intake Total 500 / 500 Balance 500 / 500 Laboratory Tests Past 24 Hrs 07/10/19 07/10/19 07/10/19 14:10 14:10 14:10 WBC 16.4 H RBC 3.89 L Hgb 10.9 L Hct 35.6 L MCV 91.5 MCH 28.0 MCHC 30.6 L RDW Std Deviation 49.9 H RDW Coeff of Chrissy 15.0 H Plt Count 230 MPV 10.9 Immature Gran % (Auto) 0.700 Neut % (Auto) 87.3 H Lymph % (Auto) 6.2 L [place] % (Auto) 4.5 Eos % (Auto) 1.0 Baso % (Auto) 0.3 Absolute Neuts (auto) 14.3 H Absolute Lymphs (auto) 1.02 Nucleated RBC % 0 PT 13.9 INR 1.1 Sodium 149 H Potassium 3.9 Chloride 116 H Carbon Dioxide 22.0 Anion Gap 11 BUN 44 H Creatinine 2.10 H Estim Creat Clear Calc 22.34 Est GFR (MDRD) Af Amer 30 L Est GFR (MDRD) Non-Af 25 L BUN/Creatinine Ratio 21.0 H Glucose 69 L Lactic Acid Calcium 8.3 L Troponin I < 0.015 B-Natriuretic Peptide Urine Color Urine Clarity Urine pH Ur Specific [place] Urine Protein Urine Glucose (UA) Urine Ketones Urine Occult Blood Urine Nitrite Urine Bilirubin Urine Urobilinogen Ur Leukocyte Esterase Urine RBC Urine WBC Ur Squamous Epith Cells Urine Bacteria Urine Mucus 07/10/19 07/10/19 07/10/19 14:10 15:20 16:05 WBC RBC Hgb Hct MCV MCH MCHC RDW Std Deviation RDW Coeff of Chrissy Plt Count MPV Immature Gran % (Auto) Neut % (Auto) Lymph % (Auto) [place] % (Auto) Eos % (Auto) Baso % (Auto) Absolute Neuts (auto) Absolute Lymphs (auto) Nucleated RBC % PT INR Sodium Potassium Chloride Carbon Dioxide Anion Gap BUN Creatinine Estim Creat Clear Calc Est GFR (MDRD) Af Amer Est GFR (MDRD) Non-Af BUN/Creatinine Ratio Glucose Lactic Acid 1.3 Calcium Troponin I B-Natriuretic Peptide 213.1 H Urine Color Yellow Urine Clarity Clear Urine pH 5.0 Ur Specific [place] 1.015 Urine Protein 30 H Urine Glucose (UA) Normal Urine Ketones Negative Urine Occult Blood 10 H Urine Nitrite Positive H Urine Bilirubin Negative Urine Urobilinogen Normal Ur Leukocyte Esterase 500 H Urine RBC 0 SEEN Urine WBC 25-50 SEEN Ur Squamous Epith Cells 0-5 SEEN Urine Bacteria 1+ Urine Mucus 0 SEEN Assessment/Plan Hospitalist note: I am seeing this patient in conjunction with Lavelle Soriano. I independently seen and examined the patient. History and physical, laboratory data and imaging studies reviewed and I concur with the above admission and treatment plan. Patient presented to the emergency room because of fall. She has been very weak in the last week or so, not able to ambulate as she used to and today, she was in the garage walking and she felt very weak and her lowered her down to the ground. She denies any other symptoms. She denies chest pain or shortness of breath. She denied cough or sputum production. She denied urinary symptoms. She denies fever or chills. She denies abdominal pain, nausea vomiting. She has history of type 2 diabetes mellitus and she has been on Januvia, Lantus and metformin and her blood sugar has been under fair control. She has history of hypertension and she has been on Norvasc and metoprolol. She is history of stage III chronic kidney disease with baseline creatinine of around 1.5 mg/dL, admission creatinine is 2.10 which is up from her baseline. In the emergency department, her blood pressure was elevated, other vital signs were stable. Her routine blood work was remarkable for leukocytosis, sodium of 149, BUN of 44 and creatinine from 2.10. Troponin was negative. Lactic acid was normal. Chest x- ray revealed cardiomegaly, right lower lobe nodule and minimal vascular congestion. Urinalysis revealed clear urine, positive for nitrite and leukocyte esterase, there was 25-50 RBCs and +1 bacteria. She is being admitted for acute cystitis, acute kidney injury double stage III chronic kidney disease, frequent falls, physical debility and functional decline as well as incidental right lung nodule. - Physical Exam General: Alert, Oriented x3, Cooperative, No apparent distress. HEENT: Atraumatic, PERRLA, EOMI. Neck: Supple, No JVD, Negative Carotid Bruits, Trachea Midline, Thyroid Normal. Lungs: Diminished breath sounds bilateral, otherwise clear no rhonchi, No wheeze, No rales. Cardiovascular: Regular rate, Regular Rhythm, Normal S1, Normal S2, PMI Normal. Abdomen: Bowel Sounds Present, Soft, Non Tender, obese, non-Distended, No Hepato-splenomegaly. Extremities: No clubbing, No cyanosis, ++ edema Skin: No rashes, No breakdown Neurological: Global weakness, cranial nerves are intact, neuro grossly intact Assessment and plan: #1 acute cystitis: Admit to MedSurg floor, gentle IV fluids for hydration, close monitoring of volume status, blood culture, urine culture, start IV cefepime, repeat CBC and BMP tomorrow morning, PT OT evaluation and treatment. #2 acute kidney injury on top of stage III chronic kidney disease: Likely because of infection in addition to medication side effects including metformin and Januvia. Baseline creatinine has been around 1.5. Admission creatinine is 2.1. Plan: Gentle IV fluids hydration, input output chart, hold metformin and Januvia, repeat BMP tomorrow morning. #3 hypernatremia: Probably hypovolemic hypernatremia. Plan to treat with IV fluids, repeat BMP tomorrow morning. #4 incidental right lung nodule: It is 2.3 x 1.4 cm. No previous chest x-ray to compare. Patient never smoked. Plan for pulmonary consult. #5 other chronic medical problems: Stable, continue current medications as above. This note was generated with [employer]ation software. It may contain incorrect words, spelling, and punctuation that were not noted in checking the note before signing. Code Visit Inpatient E&M: 71960 Init Hosp L3
[2019-07-10] MEDS: 0.9% Normal Saline 1,000 ML 75 ML IV (18:52)
[2019-07-10] MEDS: Pregabalin 50 MG Capsule PO ×2 (18:53→21:18)
[2019-07-10] MEDS: Insulin Lispro 100 UNIT/ML INSULN.PEN SC (21:11)
[2019-07-10] MEDS: amLODIPine 10 MG Tablet PO (21:12)
[2019-07-10] MEDS: Heparin Injection (Vial) 5,000 UNIT/ML VIAL 5000 UNIT SC (21:12)
[2019-07-10] MEDS: Metoprolol Tartrate 25 MG Tablet PO (21:13)
[2019-07-10] MEDS: Nystatin Powder 15gm Bottle 1 APPLIC TOPICAL (21:13)
[2019-07-10] MEDS: Pravastatin 40 MG Tablet PO (21:14)
[2019-07-10 22:20] LABS: Bedside Glucose 174 mg/dL (70-110)
[2019-07-11] VITALS (15 sets, daily range): BP systolic 125–176; BP diastolic 50–85; PULSE 56–75; RESP 18; TEMP 36.5–37; O2SAT 93–99
[2019-07-11] MEDS: hydrALAZINE 20 MG/ML Vial 10 MG IV ×2 (03:49→16:18)
[2019-07-11] MEDS: oxyCODONE 5 MG Tablet 10 MG PO ×3 (04:13→23:02)
[2019-07-11] MEDS: Nystatin Powder 15gm Bottle 1 APPLIC TOPICAL ×3 (04:14→22:57)
[2019-07-11 06:11] LABS: Anion Gap 9 (5-15); BUN 42 mg/dL (7-18); BUN/Creat Ratio 24.7 RATIO (10-20); Calcium,Total 7.5 mg/dL (8.5-10.1); Chloride 119 mmol/L (98-107); EST Glomerular Filtration Rate 31 mL/min (>60); Est Glom Filt Rate - Afr Amer 38 mL/min (>60); Estimated Creatinine Clearance 27.59 ml/min; Glucose 81 mg/dL (74-106); Potassium 3.9 mmol/L (3.5-5.1); Sodium Level 146 mmol/L (136-145)
[2019-07-11 06:31] LABS: Absolute Lymphocyte Count 1.34 X10^3/uL (0.83-4.51); Absolute Neutrophil Count 9.1 X10^3/uL (2.0-7.7); Basophil# 0.04 X10^3/uL; Basophil% 0.3 % (0-1); Eosinophils% 1.7 % (0-5); Hematocrit 31.7 % (37-47); Hemoglobin 9.7 g/dL (12.0-15.0); Lymphocyte # 1.34 X10^3/ul (4.0); Lymphocyte % 11.6 % (19-41); Mean Corp Hgb Conc 30.6 g/dL (32-36); Mean Corpuscular Hgb 27.3 pg (27.0-32.0); Mean Corpuscular Volume 89.3 fL (81-99); Mean Platelet Vol. 11.1 fl (6.2-12.0); Monocyte% 6.9 % (0-10); NRBC Flagged by Analyzer 0 % (0-5); Neutrophil # 9.14 X10^3/uL (2.7-7.7); Neutrophil % 79.2 % (47-70); Platelet Count 198 K/mm3 (150-450); RBC Distribution Width CV 14.9 % (11.6-14.6); RBC Distribution Width SD 48.4 fl (35.1-43.9); Red Blood Count 3.55 M/mm3 (4.2-5.4); White Blood Count 11.6 K/mm3 (4.4-11.0)
[2019-07-11 06:51] LABS: Bedside Glucose 79 mg/dL (70-110)
--- NOTE | 2019-07-11 07:01 | CT_ITS ---
STUDY: CT CHEST WITHOUT CONTRAST REASON FOR EXAM: Female, 74 years old. Stage III chronic renal disease. Right middle lobe pulmonary nodule RADIATION DOSAGE (If Supplied By Facility): CTDIvol = ( 20.15 ) mGy, DLP = ( 674.64 ) mGycm TECHNIQUE: Transaxial imaging was performed without the administration of intravenous contrast material. Multiplanar coronal and sagittal images were reformatted. Individualized dose optimization techniques were used for this CT. COMPARISON: Comparison is made with prior chest radiograph dated July 10, 2019. FINDINGS: There is a 2.5 cm x 1.3 cm slightly lobulated nodule in the posterior aspect of the right upper lobe. This abuts the minor fissure posteriorly. Increased markings at the lung bases worse on the right side suggestive of bibasilar atelectasis. No significant CHF is seen at this time. There is mild cardiac enlargement. There are calcifications of the coronary arteries. Calcification of the mitral valve annulus and aortic valve. There are multiple small lymph nodes within the mediastinum, which are normal in size and morphology most compatible with reactive lymph hyperplasia. Normal hilar regions. Normal unenhanced pulmonary arteries. There is atherosclerotic calcification of the aortic arch with tortuosity and elongation of the aortic arch and descending thoracic aorta. There are mild degenerative changes of the thoracic spine. There is no demonstrated abnormality of the visualized upper abdomen. CT/Chest without Contrast IMPRESSION: 2.5 cm x 1.3 cm slightly lobulated nodule in the posterior aspect of the right upper lobe abutting the right minor fissure. Increased markings at the lung bases more prominent on the right side suggestive of bibasilar atelectasis. Electronically Signed: Claudio Lewis, at 8:51 EDT , Service support ,
--- NOTE | 2019-07-11 07:40 | PCM.CONS.PUL ---
Reason for Consult Date of Consultation: 07/11/19 Reason for Consultation: Pulmonary nodule History of Present Illness: The patient is a 74-year-old female, with a history as outlined below, who presented to the emergency department on July 10 with complaints of generalized malaise and weakness. The patient has a very limited smoking history of 0.5 packs/day x 2 years, having quit completely decades ago. She did grow up in a smoking household as well. The patient denies a personal history of malignancy. She has never been told of any prior lung abnormalities. Her weight has been stable. Her appetite is good. She denies fevers, chills or night sweats. On presentation to the emergency department, the patient was noted to be afebrile and mildly hypertensive with a blood pressure of 160/64. She was, nevertheless, maintaining appropriate oxygen saturations on room air. Initial laboratory evaluation revealed an elevated white blood cell count to 16,000. Coags were within normal limits. Chemistry profile was notable for acute on chronic kidney disease with a creatinine of 2.10. Glucose was low at 69. Lactate was within normal limits. Troponin was negative. BNP was noted to be 213. Urinalysis obtained was positive for nitrites and leukocyte esterase. 25-50 white blood cells was noted along with 1+ urine bacteria. CT head revealed only chronic involutional changes of the brain. A plain film chest x-ray was obtained and revealed a pulmonary nodule within the right middle lobe measuring approximately 2.3 cm along with mild pulmonary vascular congestion. The patient was subsequently admitted to the medical surgical floor to be treated for acute cystitis. Due to the presence of the pulmonary nodule noted on plain film chest x-ray, I was consulted to evaluate the patient. On review of prior CT imaging studies, a CT abdomen/pelvis completed in October 2014 revealed findings of a right middle lobe pulmonary nodule, which was documented to measure 2.3 x 1.3 cm at that time. A follow-up dedicated chest CT obtained this morning was personally reviewed and revealed stability in the findings within the right middle lobe including a lobulated density measuring 2.5 x 1.3 cm. This lesion appears stable in size with compared to prior CT abdomen/pelvis from 2013. Past Medical History Past Medical History (Chronic Problems): Chronic Problems Debility (Chronic) Pulmonary nodule (Chronic) Back pain (Chronic) 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, stage 2 (Chronic) Hydronephrosis, right (Chronic) Chronic kidney disease, stage III (moderate) (Chronic) Obesity (Chronic) Peripheral neuropathy (Chronic) Hypertension (Chronic) Type 2 diabetes mellitus (Chronic) Allergies adhesive Allergy (Verified 07/10/19 13:36) Rash amoxicillin [From Augmentin] Allergy (Verified 07/10/19 13:36) Unknown carvedilol Allergy (Verified 07/10/19 13:36) Unknown ceftriaxone [From Rocephin] Allergy (Verified 07/10/19 13:36) Unknown chlorthalidone Allergy (Verified 07/10/19 13:36) Unknown ciprofloxacin Allergy (Verified 07/10/19 13:36) Rash clavulanic acid [From Augmentin] Allergy (Verified 07/10/19 13:36) Unknown doxycycline Allergy (Verified 07/10/19 13:36) Unknown fexofenadine Allergy (Verified 07/10/19 13:36) Unknown gatifloxacin [From Tequin] Allergy (Verified 07/10/19 13:36) Unknown hydrochlorothiazide Allergy (Verified 07/10/19 13:36) Unknown lisinopril Allergy (Verified 07/10/19 13:36) Unknown losartan Allergy (Verified 07/10/19 13:36) Unknown Penicillins Allergy (Verified 07/10/19 13:36) Rash pramipexole Allergy (Verified 07/10/19 13:36) Unknown Quinolones Allergy (Verified 07/10/19 13:36) Unknown ropinirole Allergy (Verified 07/10/19 13:36) Unknown aspirin Adverse Reaction (Verified 07/10/19 13:36) Vomiting Home Medications: Ambulatory Orders Medication Instructions Recorded Amlodipine [Norvasc] 10 mg PO DAILY 07/25/17 Insulin Glargine [Lantus SoloStar 34 units SQ DAILY 07/25/17 Pen] Metoprolol Tartrate [Lopressor 25 mg PO BID 07/25/17 (Beta Allie)] Sitagliptin Phosphate [Januvia] 100 mg PO DAILY 07/25/17 Loratadine 10 mg PO DAILY 07/10/19 Metformin HCl 500 mg PO BIDCM 07/10/19 Oxycodone HCl/Acetaminophen 1 tab PO Q8H PRN PRN 07/10/19 [Oxycodone-Acetaminophen 10-325] Pravastatin Sodium 40 mg PO DAILY 07/10/19 Pregabalin [Lyrica] 50 mg PO 4X/DAY 07/10/19 Surgical History: appendectomy, cholecystectomy, gastric bypass - 2003, - - Patient has undergone right ankle surgery and left wrist surgery. In addition, she has recently undergone cystoscopy with right retrograde pyelogram and laser ablation of kidney stones with placement of a ureteral stent. Patient is a Ab0. Psychiatric History: No pertinent psych hx SPA THERAPIST History: No pertinent SPA THERAPIST history Lives: Spouse/ Significant Other Smoking Status: Never smoker Tobacco Use: Non-smoker Alcohol: None Drugs: None - *Family History Maternal History Items: Heart Disease, Hypertension Paternal History Items: Heart Disease, Hypertension Review of Systems Constitutional: Reports: Weakness, Fatigue Eyes: Denies: Blurred vision, Double vision HEENT: Denies: Head Aches, Sinus Congestion, Sinus Drainage Cardiovascular: Denies: Chest Pain, Palpitations Respiratory: Denies: Cough, Shortness of breath at rest, Sputum production Gastrointestinal: Denies: Abdominal Pain, Nausea, Vomiting Genitourinary: Denies: Dysuria Musculoskeletal: Denies: Joint Pain, Joint Tenderness Skin: Denies: Rash, Wounds Neurological: Reports: Balance problems Psychiatric: Denies: Anxiety, Depression, Homicidal Ideations, Suicidal Ideations Hematologic/ Lymphatic: Denies: Easy Bruising, Easy Bleeding Patient Problems: Active and Suspected Problems UTI (urinary tract infection) (Acute) Frequent falls (Acute) Declining functional status (Acute) Objective: The patient's most recent lab work, culture data and imaging studies have all been personally reviewed. - Physical Exam General: Alert, Cooperative, No apparent distress HEENT: Atraumatic, PERRLA, Normocephalic Oral: No Gingival or Mucosal Lesions/ Ulcerations Neck: Supple, No Nodes, Trachea Midline Lungs: No rhonchi, No wheeze, No rales Cardiovascular: Regular rate, Regular Rhythm, Normal S1, Normal S2 Abdomen: Bowel Sounds Present, Soft, Non Tender, Obese Extremities: No clubbing, No cyanosis, Edema Skin: No breakdown Musculoskeletal: No Tenderness to Palpation of Joints or Extremities, No Muscle Wasting Lymphatic: No Cervical, Supraclavicular, or Inguinal Adenopathy Neurological: Cranial nerves II-XII grossly intact, Neuro grossly intact Psych/Mental Status: Alert and oriented to time, place, person, mood and affect Vital Signs Temp Pulse Resp BP Pulse Ox 98.4 F 66 18 176/70 H 95 07/11/19 03:49 07/11/19 04:01 07/11/19 03:49 07/11/19 03:49 07/11/19 03:49 Oxygen Delivery Method Room Air Weight: 246 lb 8 oz Body Mass Index (BMI) 39.7 Intake and Output for Last 24 Hours 07/09/19 07/10/19 07/11/19 23:59 23:59 23:59 Intake Total 550 / 850 300 / 300 Output Total 400 / 400 Balance 550 / 650 -100 / -100 Laboratory Tests Past 24 Hrs 07/10/19 07/10/19 07/10/19 14:10 14:10 14:10 WBC 16.4 H Corrected WBC RBC 3.89 L Hgb 10.9 L Hct 35.6 L MCV 91.5 MCH 28.0 MCHC 30.6 L RDW Std Deviation 49.9 H RDW Coeff of Chrissy 15.0 H Plt Count 230 MPV 10.9 Immature Gran % (Auto) 0.700 Neut % (Auto) 87.3 H Lymph % (Auto) 6.2 L [place] % (Auto) 4.5 Eos % (Auto) 1.0 Baso % (Auto) 0.3 Absolute Neuts (auto) 14.3 H Absolute Lymphs (auto) 1.02 Total Counted Neutrophils % (Manual) Band Neutrophils % Lymphocytes % (Manual) Monocytes % (Manual) Eosinophils % (Manual) Basophils % (Manual) Metamyelocytes % Myelocytes % Promyelocytes % Blast Cells % Plasma Cell % (Manual) Other Cells % Nucleated RBC % 0 Nucleated RBCs/100 WBC Differential Comment Diff Path Review Hypersegmented Neuts Atypical Lymphocytes Reactive Lymphocytes Smudge Cells Toxic Granulation Toxic Vacuolation Dohle Bodies Zandra Rods Platelet Estimate Plt Morphology Comment RBC Morphology Polychromasia Hypochromasia Poikilocytosis Basophilic Stippling Anisocytosis Microcytosis Macrocytosis Spherocytes Sickle Cells Target Cells Tear Drop Cells Ovalocytes Stomatocytes [place] Bodies [place] Cells Bite Cells Crenated Cell Acanthocytes (Spur) Rouleaux Schistocytes PT 13.9 INR 1.1 Sodium 149 H Potassium 3.9 Chloride 116 H Carbon Dioxide 22.0 Anion Gap 11 BUN 44 H Creatinine 2.10 H Estim Creat Clear Calc 22.34 Est GFR (MDRD) Af Amer 30 L Est GFR (MDRD) Non-Af 25 L BUN/Creatinine Ratio 21.0 H Glucose 69 L Lactic Acid Calcium 8.3 L Troponin I < 0.015 B-Natriuretic Peptide Urine Color Urine Clarity Urine pH Ur Specific [place] Urine Protein Urine Glucose (UA) Urine Ketones Urine Occult Blood Urine Nitrite Urine Bilirubin Urine Urobilinogen Ur Leukocyte Esterase Urine RBC Urine WBC Ur Squamous Epith Cells Urine Bacteria Urine Mucus 07/10/19 07/10/19 07/10/19 14:10 15:20 16:05 WBC Corrected WBC RBC Hgb Hct MCV MCH MCHC RDW Std Deviation RDW Coeff of Chrissy Plt Count MPV Immature Gran % (Auto) Neut % (Auto) Lymph % (Auto) [place] % (Auto) Eos % (Auto) Baso % (Auto) Absolute Neuts (auto) Absolute Lymphs (auto) Total Counted Neutrophils % (Manual) Band Neutrophils % Lymphocytes % (Manual) Monocytes % (Manual) Eosinophils % (Manual) Basophils % (Manual) Metamyelocytes % Myelocytes % Promyelocytes % Blast Cells % Plasma Cell % (Manual) Other Cells % Nucleated RBC % Nucleated RBCs/100 WBC Differential Comment Diff Path Review Hypersegmented Neuts Atypical Lymphocytes Reactive Lymphocytes Smudge Cells Toxic Granulation Toxic Vacuolation Dohle Bodies Zandra Rods Platelet Estimate Plt Morphology Comment RBC Morphology Polychromasia Hypochromasia Poikilocytosis Basophilic Stippling Anisocytosis Microcytosis Macrocytosis Spherocytes Sickle Cells Target Cells Tear Drop Cells Ovalocytes Stomatocytes [place] Bodies [place] Cells Bite Cells Crenated Cell Acanthocytes (Spur) Rouleaux Schistocytes PT INR Sodium Potassium Chloride Carbon Dioxide Anion Gap BUN Creatinine Estim Creat Clear Calc Est GFR (MDRD) Af Amer Est GFR (MDRD) Non-Af BUN/Creatinine Ratio Glucose Lactic Acid 1.3 Calcium Troponin I B-Natriuretic Peptide 213.1 H Urine Color Yellow Urine Clarity Clear Urine pH 5.0 Ur Specific [place] 1.015 Urine Protein 30 H Urine Glucose (UA) Normal Urine Ketones Negative Urine Occult Blood 10 H Urine Nitrite Positive H Urine Bilirubin Negative Urine Urobilinogen Normal Ur Leukocyte Esterase 500 H Urine RBC 0 SEEN Urine WBC 25-50 SEEN Ur Squamous Epith Cells 0-5 SEEN Urine Bacteria 1+ Urine Mucus 0 SEEN 07/11/19 07/11/19 07/11/19 05:25 05:25 06:24 WBC Cancelled 11.6 H Corrected WBC Cancelled RBC Cancelled 3.55 L Hgb Cancelled 9.7 L Hct Cancelled 31.7 L MCV Cancelled 89.3 MCH Cancelled 27.3 MCHC Cancelled 30.6 L RDW Std Deviation Cancelled 48.4 H RDW Coeff of Chrissy Cancelled 14.9 H Plt Count Cancelled 198 MPV Cancelled 11.1 Immature Gran % (Auto) Cancelled 0.300 Neut % (Auto) Cancelled 79.2 H Lymph % (Auto) Cancelled 11.6 L [place] % (Auto) Cancelled 6.9 Eos % (Auto) Cancelled 1.7 Baso % (Auto) Cancelled 0.3 Absolute Neuts (auto) Cancelled 9.1 H Absolute Lymphs (auto) Cancelled 1.34 Total Counted Cancelled Neutrophils % (Manual) Cancelled Band Neutrophils % Cancelled Lymphocytes % (Manual) Cancelled Monocytes % (Manual) Cancelled Eosinophils % (Manual) Cancelled Basophils % (Manual) Cancelled Metamyelocytes % Cancelled Myelocytes % Cancelled Promyelocytes % Cancelled Blast Cells % Cancelled Plasma Cell % (Manual) Cancelled Other Cells % Cancelled Nucleated RBC % Cancelled 0 Nucleated RBCs/100 WBC Cancelled Differential Comment Cancelled Diff Path Review Cancelled Hypersegmented Neuts Cancelled Atypical Lymphocytes Cancelled Reactive Lymphocytes Cancelled Smudge Cells Cancelled Toxic Granulation Cancelled Toxic Vacuolation Cancelled Dohle Bodies Cancelled Zandra Rods Cancelled Platelet Estimate Cancelled Plt Morphology Comment Cancelled RBC Morphology Cancelled Polychromasia Cancelled Hypochromasia Cancelled Poikilocytosis Cancelled Basophilic Stippling Cancelled Anisocytosis Cancelled Microcytosis Cancelled Macrocytosis Cancelled Spherocytes Cancelled Sickle Cells Cancelled Target Cells Cancelled Tear Drop Cells Cancelled Ovalocytes Cancelled Stomatocytes Cancelled [place] Bodies Cancelled [place] Cells Cancelled Bite Cells Cancelled Crenated Cell Cancelled Acanthocytes (Spur) Cancelled Rouleaux Cancelled Schistocytes Cancelled PT INR Sodium 146 H Potassium 3.9 Chloride 119 H Carbon Dioxide 18.0 L Anion Gap 9 BUN 42 H Creatinine 1.70 H Estim Creat Clear Calc 27.59 Est GFR (MDRD) Af Amer 38 L Est GFR (MDRD) Non-Af 31 L BUN/Creatinine Ratio 24.7 H Glucose 81 Lactic Acid Calcium 7.5 L Troponin I B-Natriuretic Peptide Urine Color Urine Clarity Urine pH Ur Specific [place] Urine Protein Urine Glucose (UA) Urine Ketones Urine Occult Blood Urine Nitrite Urine Bilirubin Urine Urobilinogen Ur Leukocyte Esterase Urine RBC Urine WBC Ur Squamous Epith Cells Urine Bacteria Urine Mucus POC Glucose 07/11/19 07/10/19 06:44 21:10 POC Glucose 79 174 H Clinical Impression(s) from Imaging Studies Brain CT 07/10/19 13:54 IMPRESSION: Chronic involutional changes of the brain. Electronically Signed: Claudio Lewis, at 14:46 EDT , Service support , Chest X-Ray 07/10/19 13:55 IMPRESSION: Findings suggestive of CHF. 2.3 cm x 1.4 cm right middle lobe nodule. Electronically Signed: Claudio Lewis, at 14:53 EDT , Service support , Assessment/Plan All Active Problems UTI (urinary tract infection) (Acute) Frequent falls (Acute) Declining functional status (Acute) RECOMMENDATIONS: 1. Orders for dedicated chest CT completed this morning. Imaging studies were personally reviewed. The patient's nodule appears similar in size and characteristic to that noted and CT abdomen/pelvis from 2013. The patient would be considered low risk. I do not feel that any additional inpatient work-up needs to be completed at this time. The patient can follow-up in the pulmonary medicine clinic following discharge, at which time, we will arrange to have a PET scan completed. 2. Outpatient follow-up in the pulmonary medicine clinic within 2 weeks of discharge. IMPRESSIONS: 1. Pulmonary nodule The patient had chest imaging performed in the emergency department in the form of a plain film chest x-ray which revealed the presence of a right-sided pulmonary nodule. The patient has an extremely limited, remote smoking history. She denies a personal history of malignancy. I did personally review a CT abdomen/pelvis from 2013 which did reveal the presence of a right-sided pulmonary nodule as well. I placed an order for noncontrasted chest CT this morning which was completed. That imaging study demonstrated the presence of a 2.5 x 1.3 cm nodule within the right mid lung, which appears grossly stable in appearance and size when compared to prior CT abdomen/pelvis from 2014. I strongly suspect that this lesion is likely benign given its lack of enlargement over the last 5 years. However, I did recommend that the patient should follow-up in the pulmonary medicine clinic upon discharge from the hospital, at which time, a PET scan can be completed for further evaluation. The patient requires no additional inpatient work-up from my perspective. She can be scheduled for a follow-up office visit within 2 weeks of her discharge from the hospital. 2. Acute cystitis Defer management to primary hospital team. 3. Acute kidney injury/anemia/obesity/diabetes mellitus/neuropathy/hyperlipidemia Complicates care, management, recovery and prognosis. Continue to hold nephrotoxic medications. Continue basal and sliding scale insulin coverage. This note was generated with Currently dictation software. It may contain incorrect words, spelling, and punctuation that were not noted in checking the note before signing. Code Visit Inpatient E&M: 85480 Init Hosp L3
[2019-07-11] MEDS: 0.9% NaCl Peripheral Flush Adult/Peds IV (08:55)
[2019-07-11] MEDS: Glucerna Shake 120 ML LIQUID PO ×2 (08:55→12:11)
[2019-07-11] MEDS: Pregabalin 50 MG Capsule PO ×4 (08:55→22:56)
[2019-07-11] MEDS: Loratadine 10 MG Tablet PO (09:26)
[2019-07-11] MEDS: Metoprolol Tartrate 25 MG Tablet PO ×2 (09:26→22:56)
[2019-07-11] MEDS: Heparin Injection (Vial) 5,000 UNIT/ML VIAL 5000 UNIT SC ×2 (09:27→22:56)
[2019-07-11] MEDS: Acetaminophen 325 MG Tablet 650 MG PO ×2 (09:35→17:51)
[2019-07-11 11:30] LABS: Bedside Glucose 134 mg/dL (70-110)
--- NOTE | 2019-07-11 11:55 | CASEMGMT ---
GERRY WEBER NOTE: To room to talk with pt and who is at bedside. Pt sitting up in recliner chair. A/0x3. Discussed discharge planning and PT/OT evals. Pt and made aware PT/OT recommending pt go to a SNF. Pt is agreeable and states her 1st choice is TCU, as she has been there in the past. Pt given a list of SNF's in the area that are in network with [facility] and asked her for 2nd and 3rd choices as well. JULIO Erika, made aware pt is agreeable to a SNF, that 1st preference is TCU and she is reviewing list for 2nd and 3rd choices. While in room talking with pt and , they began sharing with GERRY WEBER that their 47-yr-old daughter was just recently diagnosed with a brain tumor and went on Hospice last week. RN CM actively listened as they shared how difficult it has been for them and emotional support provided. They thanked RN GUS for listening and for the support. Erika KIM, made aware of pt's daughters recent diagnoses and hospice. Laura POTTER RN CM
--- NOTE | 2019-07-11 12:53 | PN_ITS ---
<Nithya White - Last Filed: 07/11/19 13:09> Patient Problems: Active and Suspected Problems UTI (urinary tract infection) (Acute) Frequent falls (Acute) Declining functional status (Acute) Subjective: Patient seen and examined. Denies fever, chills. Denies urinary symptoms, abdominal pain or flank pain. Reports generalized weakness. - Physical Exam General: Alert, Oriented x3, Cooperative HEENT: Atraumatic, PERRLA, EOMI, Normocephalic Neck: Supple, No JVD, Negative Carotid Bruits Lungs: Clear to auscultation, Normal air movement Cardiovascular: Regular rate, Regular Rhythm, Normal S1, Normal S2, No murmurs Abdomen: Bowel Sounds Present, Soft, Non Tender, Non-Distended, Obese Extremities: No clubbing, No cyanosis, Capillary Refill Less than 3 Seconds, Edema - Bilateral lower extremities Skin: No rashes, No breakdown Musculoskeletal: No Tenderness to Palpation of Joints or Extremities Neurological: Cranial nerves II-XII grossly intact, Neuro grossly intact Psych/Mental Status: Normal Affect, Appropriate Vital Signs Temp Pulse Resp BP Pulse Ox 98.6 F 56 L 18 125/63 H 97 07/11/19 12:19 07/11/19 12:19 07/11/19 12:19 07/11/19 12:19 07/11/19 12:19 Oxygen Delivery Method Room Air Weight: 246 lb 7.629 oz Body Mass Index (BMI) 39.7 Intake and Output for Last 24 Hours 07/09/19 07/10/19 07/11/19 23:59 23:59 23:59 Intake Total 550 / 850 1225 / 1225 Output Total 400 / 400 Balance 550 / 650 825 / 825 Laboratory Tests Past 24 Hrs 07/10/19 07/10/19 07/10/19 14:10 14:10 14:10 WBC 16.4 H Corrected WBC RBC 3.89 L Hgb 10.9 L Hct 35.6 L MCV 91.5 MCH 28.0 MCHC 30.6 L RDW Std Deviation 49.9 H RDW Coeff of Chrissy 15.0 H Plt Count 230 MPV 10.9 Immature Gran % (Auto) 0.700 Neut % (Auto) 87.3 H Lymph % (Auto) 6.2 L [place] % (Auto) 4.5 Eos % (Auto) 1.0 Baso % (Auto) 0.3 Absolute Neuts (auto) 14.3 H Absolute Lymphs (auto) 1.02 Total Counted Neutrophils % (Manual) Band Neutrophils % Lymphocytes % (Manual) Monocytes % (Manual) Eosinophils % (Manual) Basophils % (Manual) Metamyelocytes % Myelocytes % Promyelocytes % Blast Cells % Plasma Cell % (Manual) Other Cells % Nucleated RBC % 0 Nucleated RBCs/100 WBC Differential Comment Diff Path Review Hypersegmented Neuts Atypical Lymphocytes Reactive Lymphocytes Smudge Cells Toxic Granulation Toxic Vacuolation Dohle Bodies Zandra Rods Platelet Estimate Plt Morphology Comment RBC Morphology Polychromasia Hypochromasia Poikilocytosis Basophilic Stippling Anisocytosis Microcytosis Macrocytosis Spherocytes Sickle Cells Target Cells Tear Drop Cells Ovalocytes Stomatocytes [place] Bodies [place] Cells Bite Cells Crenated Cell Acanthocytes (Spur) Rouleaux Schistocytes PT 13.9 INR 1.1 Sodium 149 H Potassium 3.9 Chloride 116 H Carbon Dioxide 22.0 Anion Gap 11 BUN 44 H Creatinine 2.10 H Estim Creat Clear Calc 22.34 Est GFR (MDRD) Af Amer 30 L Est GFR (MDRD) Non-Af 25 L BUN/Creatinine Ratio 21.0 H Glucose 69 L Lactic Acid Calcium 8.3 L Troponin I < 0.015 B-Natriuretic Peptide Urine Color Urine Clarity Urine pH Ur Specific [place] Urine Protein Urine Glucose (UA) Urine Ketones Urine Occult Blood Urine Nitrite Urine Bilirubin Urine Urobilinogen Ur Leukocyte Esterase Urine RBC Urine WBC Ur Squamous Epith Cells Urine Bacteria Urine Mucus 07/10/19 07/10/19 07/10/19 14:10 15:20 16:05 WBC Corrected WBC RBC Hgb Hct MCV MCH MCHC RDW Std Deviation RDW Coeff of Chrissy Plt Count MPV Immature Gran % (Auto) Neut % (Auto) Lymph % (Auto) [place] % (Auto) Eos % (Auto) Baso % (Auto) Absolute Neuts (auto) Absolute Lymphs (auto) Total Counted Neutrophils % (Manual) Band Neutrophils % Lymphocytes % (Manual) Monocytes % (Manual) Eosinophils % (Manual) Basophils % (Manual) Metamyelocytes % Myelocytes % Promyelocytes % Blast Cells % Plasma Cell % (Manual) Other Cells % Nucleated RBC % Nucleated RBCs/100 WBC Differential Comment Diff Path Review Hypersegmented Neuts Atypical Lymphocytes Reactive Lymphocytes Smudge Cells Toxic Granulation Toxic Vacuolation Dohle Bodies Zadnra Rods Platelet Estimate Plt Morphology Comment RBC Morphology Polychromasia Hypochromasia Poikilocytosis Basophilic Stippling Anisocytosis Microcytosis Macrocytosis Spherocytes Sickle Cells Target Cells Tear Drop Cells Ovalocytes Stomatocytes [place] Bodies [place] Cells Bite Cells Crenated Cell Acanthocytes (Spur) Rouleaux Schistocytes PT INR Sodium Potassium Chloride Carbon Dioxide Anion Gap BUN Creatinine Estim Creat Clear Calc Est GFR (MDRD) Af Amer Est GFR (MDRD) Non-Af BUN/Creatinine Ratio Glucose Lactic Acid 1.3 Calcium Troponin I B-Natriuretic Peptide 213.1 H Urine Color Yellow Urine Clarity Clear Urine pH 5.0 Ur Specific [place] 1.015 Urine Protein 30 H Urine Glucose (UA) Normal Urine Ketones Negative Urine Occult Blood 10 H Urine Nitrite Positive H Urine Bilirubin Negative Urine Urobilinogen Normal Ur Leukocyte Esterase 500 H Urine RBC 0 SEEN Urine WBC 25-50 SEEN Ur Squamous Epith Cells 0-5 SEEN Urine Bacteria 1+ Urine Mucus 0 SEEN 07/11/19 07/11/19 07/11/19 05:25 05:25 06:24 WBC Cancelled 11.6 H Corrected WBC Cancelled RBC Cancelled 3.55 L Hgb Cancelled 9.7 L Hct Cancelled 31.7 L MCV Cancelled 89.3 MCH Cancelled 27.3 MCHC Cancelled 30.6 L RDW Std Deviation Cancelled 48.4 H RDW Coeff of Chrissy Cancelled 14.9 H Plt Count Cancelled 198 MPV Cancelled 11.1 Immature Gran % (Auto) Cancelled 0.300 Neut % (Auto) Cancelled 79.2 H Lymph % (Auto) Cancelled 11.6 L [place] % (Auto) Cancelled 6.9 Eos % (Auto) Cancelled 1.7 Baso % (Auto) Cancelled 0.3 Absolute Neuts (auto) Cancelled 9.1 H Absolute Lymphs (auto) Cancelled 1.34 Total Counted Cancelled Neutrophils % (Manual) Cancelled Band Neutrophils % Cancelled Lymphocytes % (Manual) Cancelled Monocytes % (Manual) Cancelled Eosinophils % (Manual) Cancelled Basophils % (Manual) Cancelled Metamyelocytes % Cancelled Myelocytes % Cancelled Promyelocytes % Cancelled Blast Cells % Cancelled Plasma Cell % (Manual) Cancelled Other Cells % Cancelled Nucleated RBC % Cancelled 0 Nucleated RBCs/100 WBC Cancelled Differential Comment Cancelled Diff Path Review Cancelled Hypersegmented Neuts Cancelled Atypical Lymphocytes Cancelled Reactive Lymphocytes Cancelled Smudge Cells Cancelled Toxic Granulation Cancelled Toxic Vacuolation Cancelled Dohle Bodies Cancelled Zandra Rods Cancelled Platelet Estimate Cancelled Plt Morphology Comment Cancelled RBC Morphology Cancelled Polychromasia Cancelled Hypochromasia Cancelled Poikilocytosis Cancelled Basophilic Stippling Cancelled Anisocytosis Cancelled Microcytosis Cancelled Macrocytosis Cancelled Spherocytes Cancelled Sickle Cells Cancelled Target Cells Cancelled Tear Drop Cells Cancelled Ovalocytes Cancelled Stomatocytes Cancelled [place] Bodies Cancelled [place] Cells Cancelled Bite Cells Cancelled Crenated Cell Cancelled Acanthocytes (Spur) Cancelled Rouleaux Cancelled Schistocytes Cancelled PT INR Sodium 146 H Potassium 3.9 Chloride 119 H Carbon Dioxide 18.0 L Anion Gap 9 BUN 42 H Creatinine 1.70 H Estim Creat Clear Calc 27.59 Est GFR (MDRD) Af Amer 38 L Est GFR (MDRD) Non-Af 31 L BUN/Creatinine Ratio 24.7 H Glucose 81 Lactic Acid Calcium 7.5 L Troponin I B-Natriuretic Peptide Urine Color Urine Clarity Urine pH Ur Specific [place] Urine Protein Urine Glucose (UA) Urine Ketones Urine Occult Blood Urine Nitrite Urine Bilirubin Urine Urobilinogen Ur Leukocyte Esterase Urine RBC Urine WBC Ur Squamous Epith Cells Urine Bacteria Urine Mucus POC Glucose 07/11/19 07/11/19 07/10/19 11:12 06:44 21:10 POC Glucose 134 H 79 174 H Medical Necessity - Tobacco Use Smoking Status: Never smoker Tobacco Use: Non-smoker Assessment/Plan All Active Problems UTI (urinary tract infection) (Acute) Frequent falls (Acute) Declining functional status (Acute) 1. Acute cystitis-UA positive, urine and blood cultures pending. Continue IV cefepime. Prior urine culture 2017 with E. coli. 2. Acute kidney injury on chronic kidney disease stage III with associated hypovolemic hypernatremia-improving, continue IV fluids. Trend BMP. 3. Debility with fall prior to admission-fall precautions. PT/OT. 4. Incidental finding of pulmonary nodule-chest x-ray admission demonstrated 2.3 cm x 1.4 cm right middle lobe nodule. Pulmonary medicine consulted. CT of chest demonstrated 2.5 cm x 1.3 cm lobulated nodule in the posterior aspect of the right upper lobe. Increased markings at the lung bases suggestive of bibasilar atelectasis. Pulmonary suspects lesion is benign. Outpatient follow- up with pulmonary medicine. 5. Lower extremity edema, chronic-[place] wraps bilateral lower extremities. Chest x-ray with mild CHF, minimally elevated BNP. Do not suspect acute CHF. Oxygen stable on room air. Patient denies shortness of breath. 6. Type 2 diabetes mellitus with peripheral neuropathy-hold home oral regimen. Accu-Cheks ACHS with sliding scale insulin. Continue home Lantus regimen. Continue Lyrica regimen. 7. Hypertension-stable, continue home amlodipine, metoprolol regimen. 8. Chronic back pain-continue home PRN pain regimen. 9. Obesity-encouraged diet and lifestyle modifications. Nutrition consult. 10. Hyperlipidemia-continue statin regimen. 11. Chronic normocytic anemia-mildly decreased from prior, trend CBC. DVT prophylaxis-heparin subcu This patient was seen by ENMA Gilbert under the supervision of Dr. Pittman. <Parker Pittman - Last Filed: 07/11/19 13:45> Subjective: Seen and examined. Patient admitted yesterday with fall with mild dizziness. Denies mechanical fall including DR hip joint instability. No loss of consciousness. Denies lower urinary tract symptoms including dysuria, change in frequency or urgency. No fever or chills. Patient has increased baseline creatinine secondary to partial nephrectomy for kidney stone. In the past about 30 years ago, her lithotripsy procedure was complicated and pushed kidney stone more distal into renal parenchyma for which she required partial nephrectomy. - Physical Exam General: Alert, Oriented x3, Cooperative HEENT: Atraumatic, PERRLA, EOMI, Normocephalic Neck: Supple, No JVD, Negative Carotid Bruits Lungs: Clear to auscultation, No rhonchi, No wheeze, No rales, Diminished - Air entry diminished mostly secondary to obesity hypoventilation syndrome. Cardiovascular: Regular rate, No murmurs Abdomen: Bowel Sounds Present, Soft, Non Tender, Non-Distended, Obese Extremities: Capillary Refill Less than 3 Seconds, Edema Skin: No rashes, No breakdown Musculoskeletal: No Tenderness to Palpation of Joints or Extremities, No Muscle Wasting, Arthritic Changes Lymphatic: No Cervical, Supraclavicular, or Inguinal Adenopathy Neurological: Cranial nerves II-XII grossly intact, Deep Tendon Reflexes 2+/4 and Symmetrical, Neuro grossly intact Psych/Mental Status: Normal Affect, Appropriate Vital Signs Temp Pulse Resp BP Pulse Ox 98.6 F 56 L 18 125/63 H 97 07/11/19 12:19 07/11/19 12:19 07/11/19 12:19 07/11/19 12:19 07/11/19 12:19 Oxygen Delivery Method Room Air Weight: 246 lb 7.629 oz Body Mass Index (BMI) 39.7 Intake and Output for Last 24 Hours 07/09/19 07/10/19 07/11/19 23:59 23:59 23:59 Intake Total 550 / 850 1300 / 1300 Output Total 400 / 400 Balance 550 / 650 900 / 900 Laboratory Tests Past 24 Hrs 07/10/19 07/10/19 07/10/19 14:10 14:10 14:10 WBC 16.4 H Corrected WBC RBC 3.89 L Hgb 10.9 L Hct 35.6 L MCV 91.5 MCH 28.0 MCHC 30.6 L RDW Std Deviation 49.9 H RDW Coeff of Chrissy 15.0 H Plt Count 230 MPV 10.9 Immature Gran % (Auto) 0.700 Neut % (Auto) 87.3 H Lymph % (Auto) 6.2 L [place] % (Auto) 4.5 Eos % (Auto) 1.0 Baso % (Auto) 0.3 Absolute Neuts (auto) 14.3 H Absolute Lymphs (auto) 1.02 Total Counted Neutrophils % (Manual) Band Neutrophils % Lymphocytes % (Manual) Monocytes % (Manual) Eosinophils % (Manual) Basophils % (Manual) Metamyelocytes % Myelocytes % Promyelocytes % Blast Cells % Plasma Cell % (Manual) Other Cells % Nucleated RBC % 0 Nucleated RBCs/100 WBC Differential Comment Diff Path Review Hypersegmented Neuts Atypical Lymphocytes Reactive Lymphocytes Smudge Cells Toxic Granulation Toxic Vacuolation Dohle Bodies Zandra Rods Platelet Estimate Plt Morphology Comment RBC Morphology Polychromasia Hypochromasia Poikilocytosis Basophilic Stippling Anisocytosis Microcytosis Macrocytosis Spherocytes Sickle Cells Target Cells Tear Drop Cells Ovalocytes Stomatocytes [place] Bodies [place] Cells Bite Cells Crenated Cell Acanthocytes (Spur) Rouleaux Schistocytes PT 13.9 INR 1.1 Sodium 149 H Potassium 3.9 Chloride 116 H Carbon Dioxide 22.0 Anion Gap 11 BUN 44 H Creatinine 2.10 H Estim Creat Clear Calc 22.34 Est GFR (MDRD) Af Amer 30 L Est GFR (MDRD) Non-Af 25 L BUN/Creatinine Ratio 21.0 H Glucose 69 L Lactic Acid Calcium 8.3 L Troponin I < 0.015 B-Natriuretic Peptide Urine Color Urine Clarity Urine pH Ur Specific [place] Urine Protein Urine Glucose (UA) Urine Ketones Urine Occult Blood Urine Nitrite Urine Bilirubin Urine Urobilinogen Ur Leukocyte Esterase Urine RBC Urine WBC Ur Squamous Epith Cells Urine Bacteria Urine Mucus 07/10/19 07/10/19 07/10/19 14:10 15:20 16:05 WBC Corrected WBC RBC Hgb Hct MCV MCH MCHC RDW Std Deviation RDW Coeff of Chrissy Plt Count MPV Immature Gran % (Auto) Neut % (Auto) Lymph % (Auto) [place] % (Auto) Eos % (Auto) Baso % (Auto) Absolute Neuts (auto) Absolute Lymphs (auto) Total Counted Neutrophils % (Manual) Band Neutrophils % Lymphocytes % (Manual) Monocytes % (Manual) Eosinophils % (Manual) Basophils % (Manual) Metamyelocytes % Myelocytes % Promyelocytes % Blast Cells % Plasma Cell % (Manual) Other Cells % Nucleated RBC % Nucleated RBCs/100 WBC Differential Comment Diff Path Review Hypersegmented Neuts Atypical Lymphocytes Reactive Lymphocytes Smudge Cells Toxic Granulation Toxic Vacuolation Dohle Bodies Zandra Rods Platelet Estimate Plt Morphology Comment RBC Morphology Polychromasia Hypochromasia Poikilocytosis Basophilic Stippling Anisocytosis Microcytosis Macrocytosis Spherocytes Sickle Cells Target Cells Tear Drop Cells Ovalocytes Stomatocytes [place] Bodies [place] Cells Bite Cells Crenated Cell Acanthocytes (Spur) Rouleaux Schistocytes PT INR Sodium Potassium Chloride Carbon Dioxide Anion Gap BUN Creatinine Estim Creat Clear Calc Est GFR (MDRD) Af Amer Est GFR (MDRD) Non-Af BUN/Creatinine Ratio Glucose Lactic Acid 1.3 Calcium Troponin I B-Natriuretic Peptide 213.1 H Urine Color Yellow Urine Clarity Clear Urine pH 5.0 Ur Specific [place] 1.015 Urine Protein 30 H Urine Glucose (UA) Normal Urine Ketones Negative Urine Occult Blood 10 H Urine Nitrite Positive H Urine Bilirubin Negative Urine Urobilinogen Normal Ur Leukocyte Esterase 500 H Urine RBC 0 SEEN Urine WBC 25-50 SEEN Ur Squamous Epith Cells 0-5 SEEN Urine Bacteria 1+ Urine Mucus 0 SEEN 07/11/19 07/11/19 07/11/19 05:25 05:25 06:24 WBC Cancelled 11.6 H Corrected WBC Cancelled RBC Cancelled 3.55 L Hgb Cancelled 9.7 L Hct Cancelled 31.7 L MCV Cancelled 89.3 MCH Cancelled 27.3 MCHC Cancelled 30.6 L RDW Std Deviation Cancelled 48.4 H RDW Coeff of Chrissy Cancelled 14.9 H Plt Count Cancelled 198 MPV Cancelled 11.1 Immature Gran % (Auto) Cancelled 0.300 Neut % (Auto) Cancelled 79.2 H Lymph % (Auto) Cancelled 11.6 L [place] % (Auto) Cancelled 6.9 Eos % (Auto) Cancelled 1.7 Baso % (Auto) Cancelled 0.3 Absolute Neuts (auto) Cancelled 9.1 H Absolute Lymphs (auto) Cancelled 1.34 Total Counted Cancelled Neutrophils % (Manual) Cancelled Band Neutrophils % Cancelled Lymphocytes % (Manual) Cancelled Monocytes % (Manual) Cancelled Eosinophils % (Manual) Cancelled Basophils % (Manual) Cancelled Metamyelocytes % Cancelled Myelocytes % Cancelled Promyelocytes % Cancelled Blast Cells % Cancelled Plasma Cell % (Manual) Cancelled Other Cells % Cancelled Nucleated RBC % Cancelled 0 Nucleated RBCs/100 WBC Cancelled Differential Comment Cancelled Diff Path Review Cancelled Hypersegmented Neuts Cancelled Atypical Lymphocytes Cancelled Reactive Lymphocytes Cancelled Smudge Cells Cancelled Toxic Granulation Cancelled Toxic Vacuolation Cancelled Dohle Bodies Cancelled Zandra Rods Cancelled Platelet Estimate Cancelled Plt Morphology Comment Cancelled RBC Morphology Cancelled Polychromasia Cancelled Hypochromasia Cancelled Poikilocytosis Cancelled Basophilic Stippling Cancelled Anisocytosis Cancelled Microcytosis Cancelled Macrocytosis Cancelled Spherocytes Cancelled Sickle Cells Cancelled Target Cells Cancelled Tear Drop Cells Cancelled Ovalocytes Cancelled Stomatocytes Cancelled [place] Bodies Cancelled [place] Cells Cancelled Bite Cells Cancelled Crenated Cell Cancelled Acanthocytes (Spur) Cancelled Rouleaux Cancelled Schistocytes Cancelled PT INR Sodium 146 H Potassium 3.9 Chloride 119 H Carbon Dioxide 18.0 L Anion Gap 9 BUN 42 H Creatinine 1.70 H Estim Creat Clear Calc 27.59 Est GFR (MDRD) Af Amer 38 L Est GFR (MDRD) Non-Af 31 L BUN/Creatinine Ratio 24.7 H Glucose 81 Lactic Acid Calcium 7.5 L Troponin I B-Natriuretic Peptide Urine Color Urine Clarity Urine pH Ur Specific [place] Urine Protein Urine Glucose (UA) Urine Ketones Urine Occult Blood Urine Nitrite Urine Bilirubin Urine Urobilinogen Ur Leukocyte Esterase Urine RBC Urine WBC Ur Squamous Epith Cells Urine Bacteria Urine Mucus POC Glucose 07/11/19 07/11/19 07/10/19 11:12 06:44 21:10 POC Glucose 134 H 79 174 H Assessment/Plan This patient was seen in conjunction with [employer]STRU[employer]ithya. I have independently interviewed and examined the patient and reviewed pertinent history, examination findings, laboratory and plan of management. I have reviewed the note and agree with the documented findings with the few additional points. In brief, patient is 74-year-old female is admitted with fall with no prodromal symptoms but felt weak. No fever or chills. UA is positive of pyuria 25-50 cells, leukocyte esterase and nitrite positive. Leukocytosis 16,000 which improved to 11,000. Patient is started on IV cefepime 1 g every 24 hourly adjusted to creatinine clearance. Patient has acute kidney injury on CKD stage III, most likely secondary to infection/UTI and medication side effects metformin and Januvia. Nephrotoxic medications are on hold. Mild hypernatremia, gradually improved most likely from hypovolemia. PT OT for fall. Incidental finding of pulmonary nodule about 2.3 x 1.4 cm in the right middle lobe nodule. Grey Percher was consulted. CT chest was done which shows 2.5 by 1.3 cm lobulated nodule in posterior aspect of right upper lobe. Bibasilar atelectasis. Other comorbidities include diabetes type 2 mellitus with peripheral neuropathy, hypertension, chronic back pain, obesity, dyslipidemia, chronic normocytic normochromic anemia and morbid obesity with degenerative joint disease. I have discussed my assessment with Nithya TALBERT and orders have been reviewed. Code Visit Inpatient E&M: 39552 Subs Hosp L3
[2019-07-11] MEDS: 0.9% Normal Saline 1,000 ML 75 ML IV (12:54)
--- NOTE | 2019-07-11 12:55 | CASEMGMT ---
Addendum entered by Erika Tabor 07/11/19 13:10: Pt's also updated on acceptance to TCU pending pre-cert. Original Note: Social Work Note RN GUS Bond updated this worker that pt is wanting a referral sent to TCU. Linda Bond provided pt with list of area SNF in network with insurance. SW placed a call to Swati with TCU and updated her on referral. Swati states she is able to accept pt and will submit for pre-cert. Pt updated. Plan: TCU pending pre-cert Erika Tabor ANIMAL THERAPIST, [employer]PERVISORY [employer] INTERCEPT CONTROLLER
[2019-07-11 17:30] LABS: Bedside Glucose 141 mg/dL (70-110)
[2019-07-11] MEDS: Pravastatin 40 MG Tablet PO (22:56)
[2019-07-11] MEDS: amLODIPine 10 MG Tablet PO (22:56)
[2019-07-11 23:15] LABS: Bedside Glucose 127 mg/dL (70-110)
[2019-07-12] VITALS (15 sets, daily range): BP systolic 114–149; BP diastolic 43–84; PULSE 55–73; RESP 16–18; TEMP 36.6–37.3; O2SAT 93–99
[2019-07-12] MEDS: 0.9% Normal Saline 1,000 ML 75 ML IV (02:06)
[2019-07-12] MEDS: Acetaminophen 325 MG Tablet 650 MG PO ×3 (03:55→21:34)
[2019-07-12] MEDS: Menthol/Lanolin/Calamine/Znox 113 GM Tube 1 APPLIC TOPICAL (04:29)
[2019-07-12 05:37] LABS: Hematocrit 30.5 % (37-47); Hemoglobin 9.3 g/dL (12.0-15.0); Mean Corp Hgb Conc 30.5 g/dL (32-36); Mean Corpuscular Hgb 27.5 pg (27.0-32.0); Mean Corpuscular Volume 90.2 fL (81-99); Mean Platelet Vol. 11.1 fl (6.2-12.0); Platelet Count 186 K/mm3 (150-450); RBC Distribution Width CV 15.2 % (11.6-14.6); RBC Distribution Width SD 50.3 fl (35.1-43.9); Red Blood Count 3.38 M/mm3 (4.2-5.4); White Blood Count 8.3 K/mm3 (4.4-11.0)
[2019-07-12] MEDS: Nystatin Powder 15gm Bottle 1 APPLIC TOPICAL ×3 (06:10→21:17)
[2019-07-12 06:14] LABS: Anion Gap 8 (5-15); BUN 41 mg/dL (7-18); BUN/Creat Ratio 18.3 RATIO (10-20); Calcium,Total 7.4 mg/dL (8.5-10.1); Chloride 116 mmol/L (98-107); Creatinine, Serum 2.24 mg/dL (0.55-1.02); EST Glomerular Filtration Rate 23 mL/min (>60); Est Glom Filt Rate - Afr Amer 28 mL/min (>60); Estimated Creatinine Clearance 20.94 ml/min; Glucose 78 mg/dL (74-106); Potassium 3.7 mmol/L (3.5-5.1); Sodium Level 143 mmol/L (136-145)
[2019-07-12 06:16] LABS: Magnesium 1.7 mg/dL (1.6-2.6)
[2019-07-12 06:50] LABS: Bedside Glucose 72 mg/dL (70-110)
[2019-07-12] MEDS: Pregabalin 50 MG Capsule PO (09:37)
[2019-07-12] MEDS: Heparin Injection (Vial) 5,000 UNIT/ML VIAL 5000 UNIT SC ×2 (09:39→21:18)
[2019-07-12] MEDS: Loratadine 10 MG Tablet PO (09:39)
[2019-07-12] MEDS: Metoprolol Tartrate 25 MG Tablet PO ×2 (09:39→21:17)
[2019-07-12] MEDS: oxyCODONE 5 MG Tablet 10 MG PO ×2 (09:49→18:32)
[2019-07-12 09:51] LABS: Bedside Glucose 210 mg/dL (70-110)
[2019-07-12 12:06] LABS: Bedside Glucose 138 mg/dL (70-110)
--- NOTE | 2019-07-12 12:09 | CASEMGMT ---
Addendum entered by Cha Roberts 07/12/19 15:03: Phone call to Swati in TCU. Precert has not yet been obtained. SW requested Swati call unit once precert is obtained. Green sheet placed on chart to follow for d/c instructions. MARC Tuttle Original Note: Social Work SW met with pt and spouse. Informed that TCU has accepted pt but are waiting on precert from [employer]. Once precert is obtained, it is good for 48 hours and if pt does not d/c within 48 hours of getting precert, new precert will need to be started. JULIO also spoke with pt and spouse regarding daughter. Pt dgt is 47 and was diagnosed with a brain tumor 2-3 weeks ago. Dgt choosing no surgery and to come home with hospice. Discussed with Pt and spouse feelings surrounding daughter's illness and emotional support provided. Encouraged pt to use hospice services for support and grief counseling. Spouse inquiring about services at home to assist pt. Sw explained home health and private duty aides. Also explained that SW will be following in TCU and assisting with resources upon d/c. Hand off given to Aida in TCU. Plan: TCU, pending insurance preauthorization MARC Tuttle
--- NOTE | 2019-07-12 12:33 | PCM.PROGNOTE ---
<Nithya White - Last Filed: 07/12/19 12:41> Patient Problems: Active and Suspected Problems UTI (urinary tract infection) (Acute) Frequent falls (Acute) Declining functional status (Acute) Subjective: Patient seen and examined. Denies fever, chills. Denies urinary symptoms. Does report her bladder felt full this morning and she was unable to void. Reports she has voided since that time. Bladder scan pending. Plan for TCU at discharge. - Physical Exam General: Alert, Oriented x3, Cooperative HEENT: Atraumatic, PERRLA, EOMI, Normocephalic Neck: Supple, No JVD, Negative Carotid Bruits Lungs: Clear to auscultation, Normal air movement Cardiovascular: Regular rate, Regular Rhythm, Normal S1, Normal S2, No murmurs Abdomen: Bowel Sounds Present, Soft, Non Tender, Non-Distended, Obese Extremities: No clubbing, No cyanosis, Edema - Bilateral lower extremities Skin: No rashes, No breakdown, - Musculoskeletal: No Tenderness to Palpation of Joints or Extremities Neurological: Cranial nerves II-XII grossly intact Psych/Mental Status: Normal Affect, Appropriate Vital Signs Temp Pulse Resp BP Pulse Ox 99.1 F 69 16 118/43 L 94 07/12/19 09:25 07/12/19 09:39 07/12/19 09:25 07/12/19 09:25 07/12/19 09:25 Oxygen Delivery Method Room Air Weight: 246 lb 7.629 oz Body Mass Index (BMI) 39.7 Intake and Output for Last 24 Hours 07/10/19 07/11/19 07/12/19 23:59 23:59 23:59 Intake Total 550 / 850 2571.25 / 2571.25 1532.50 / 1532.50 Output Total 950 / 950 600 / 600 Balance 550 / 650 1621.25 / 1621.25 932.50 / 932.50 Microbiology Past 72 Hours 07/10/19 16:05 Urine Culture - Preliminary Urine, Clean Catch Escherichia coli GNR lactose rehabilitation program coordinator Laboratory Tests Past 24 Hrs 07/12/19 07/12/19 07/12/19 05:14 05:14 05:14 WBC 8.3 RBC 3.38 L Hgb 9.3 L Hct 30.5 L MCV 90.2 MCH 27.5 MCHC 30.5 L RDW Std Deviation 50.3 H RDW Coeff of Chrissy 15.2 H Plt Count 186 MPV 11.1 Sodium 143 Potassium 3.7 Chloride 116 H Carbon Dioxide 19.0 L Anion Gap 8 BUN 41 H Creatinine 2.24 H Estim Creat Clear Calc 20.94 Est GFR (MDRD) Af Amer 28 L Est GFR (MDRD) Non-Af 23 L BUN/Creatinine Ratio 18.3 Glucose 78 Calcium 7.4 L Magnesium 1.7 POC Glucose 07/12/19 07/12/19 07/12/19 11:58 09:35 06:43 POC Glucose 138 H 210 H 72 07/11/19 07/11/19 22:50 16:23 POC Glucose 127 H 141 H Medical Necessity - Tobacco Use Smoking Status: Never smoker Tobacco Use: Non-smoker Assessment/Plan All Active Problems UTI (urinary tract infection) (Acute) Frequent falls (Acute) Declining functional status (Acute) 1. Acute E. coli cystitis-UA positive, urine culture preliminary showing E. coli and gram-negative halina organism. Blood culture pending. Continue IV cefepime. Prior urine culture 2016 with E. coli. Plan for transition to oral regimen tomorrow. 2. Acute kidney injury on chronic kidney disease stage III with associated hypovolemic hypernatremia-hyponatremia resolved. Kidney function worse today. Obtain renal ultrasound. Check urine sodium and creatinine. Nephrology consulted. DC IV fluids. Trend BMP. 3. Debility with fall prior to admission-fall precautions. PT/OT. 4. Incidental finding of pulmonary nodule-chest x-ray admission demonstrated 2.3 cm x 1.4 cm right middle lobe nodule. Pulmonary medicine consulted. CT of chest demonstrated 2.5 cm x 1.3 cm lobulated nodule in the posterior aspect of the right upper lobe. Increased markings at the lung bases suggestive of bibasilar atelectasis. Pulmonary suspects lesion is benign. Outpatient follow-up with pulmonary medicine. 5. Lower extremity edema, chronic-Santiago wraps bilateral lower extremities. Chest x-ray with mild CHF, minimally elevated BNP. Do not suspect acute CHF. Oxygen stable on room air. Patient denies shortness of breath. CT without acute findings as noted above. 6. Type 2 diabetes mellitus with peripheral neuropathy-hold home oral regimen. Accu-Cheks ACHS with sliding scale insulin. Continue home Lantus regimen. Continue Lyrica regimen. 7. Hypertension-stable, continue home amlodipine, metoprolol regimen. 8. Chronic back pain-continue home PRN pain regimen. 9. Obesity-encouraged diet and lifestyle modifications. Nutrition consult. 10. Hyperlipidemia-continue statin regimen. 11. Chronic normocytic anemia-mildly decreased from prior, trend CBC. DVT prophylaxis-heparin subcu Discharge planning: TCU pending pre-CERT and stabilization of renal function. This patient was seen by ENMA Gilbert under the supervision of Dr. Pittman. <Parker Pittman - Last Filed: 07/12/19 13:48> Subjective: Heart rate and blood pressure is controlled. Patient denies shortness of breath. Patient denies any change in the urine output in last 1 month. Intake and output 1500 mL/600; positive balance about 900 ml - Physical Exam General: Alert, Oriented x3, Cooperative HEENT: Atraumatic, PERRLA, EOMI, Normocephalic Neck: Supple, No JVD, Negative Carotid Bruits Lungs: Clear to auscultation, Normal air movement Cardiovascular: Regular rate, Regular Rhythm, Normal S1, Normal S2, No murmurs Abdomen: Bowel Sounds Present, Soft, Non Tender, Non-Distended, Obese Extremities: Capillary Refill Less than 3 Seconds, Edema Skin: No rashes, No breakdown Musculoskeletal: No Tenderness to Palpation of Joints or Extremities, Arthritic Changes Neurological: Cranial nerves II-XII grossly intact, Deep Tendon Reflexes 2+/4 and Symmetrical, Neuro grossly intact Psych/Mental Status: Normal Affect, Appropriate Vital Signs Temp Pulse Resp BP Pulse Ox 99.1 F 69 16 118/43 L 94 07/12/19 09:25 07/12/19 09:39 07/12/19 09:25 07/12/19 09:25 07/12/19 09:25 Oxygen Delivery Method Room Air Weight: 246 lb 7.629 oz Body Mass Index (BMI) 39.7 Intake and Output for Last 24 Hours 07/10/19 07/11/19 07/12/19 23:59 23:59 23:59 Intake Total 550 / 850 2571.25 / 2571.25 1532.50 / 1532.50 Output Total 950 / 950 600 / 600 Balance 550 / 650 1621.25 / 1621.25 932.50 / 932.50 Microbiology Past 72 Hours 07/10/19 16:05 Urine Culture - Preliminary Urine, Clean Catch Escherichia coli GNR lactose rehabilitation program coordinator Laboratory Tests Past 24 Hrs 07/12/19 07/12/19 07/12/19 05:14 05:14 05:14 WBC 8.3 RBC 3.38 L Hgb 9.3 L Hct 30.5 L MCV 90.2 MCH 27.5 MCHC 30.5 L RDW Std Deviation 50.3 H RDW Coeff of Chrissy 15.2 H Plt Count 186 MPV 11.1 Sodium 143 Potassium 3.7 Chloride 116 H Carbon Dioxide 19.0 L Anion Gap 8 BUN 41 H Creatinine 2.24 H Estim Creat Clear Calc 20.94 Est GFR (MDRD) Af Amer 28 L Est GFR (MDRD) Non-Af 23 L BUN/Creatinine Ratio 18.3 Glucose 78 Calcium 7.4 L Magnesium 1.7 POC Glucose 07/12/19 07/12/19 07/12/19 11:58 09:35 06:43 POC Glucose 138 H 210 H 72 07/11/19 07/11/19 22:50 16:23 POC Glucose 127 H 141 H Assessment/Plan This patient was seen in conjunction with PRINCIPAL QUALITY ENGINEER, Nithya. I have independently interviewed and examined the patient and reviewed pertinent history, examination findings, laboratory and plan of management. I have reviewed the note and agree with the documented findings with the few additional points. In brief, patient is 74-year-old female is admitted with fall with no prodromal symptoms but felt weak. No fever or chills. UA is positive of pyuria 25-50 cells, leukocyte esterase and nitrite positive. Leukocytosis 16,000 which improved to 11,000. Patient is started on IV cefepime 1 g every 24 hourly adjusted to creatinine clearance. Patient has acute kidney injury on CKD stage III, most likely secondary to infection/UTI and medication side effects metformin and Januvia. There is worsening of kidney function from 42/1 0.7-40 1/2.24 most likely seems ATN. Intake and output 1500 mL/600; positive balance about 900 ml. Cumulative positive fluid balance about 3 L. Discontinue IV fluid. Urine lites ordered. Kidney and bladder ultrasound. Give 1 dose of Lasix 40 mg IV for fluid overload/renal vein congestion. Nephrology consult. Nephrotoxic medications are on hold. Mild hypernatremia, improved. PT OT for fall. Incidental finding of pulmonary nodule about 2.3 x 1.4 cm in the right middle lobe nodule. Pulley Maintainer was consulted. CT chest was done which shows 2.5 by 1.3 cm lobulated nodule in posterior aspect of right upper lobe. Pulmonary nodule was also present from CT abdomen pelvis in 2013 although it is not 1-1 for review. Bibasilar atelectasis. Pulmonology recommended follow-up in pulmonary clinic for further [place] to be completed as an outpatient. Other comorbidities include diabetes type 2 mellitus with peripheral neuropathy, hypertension, chronic back pain, obesity, dyslipidemia, chronic normocytic normochromic anemia and morbid obesity with degenerative joint disease. I have discussed my assessment with PRINCIPAL QUALITY ENGINEERNithya and orders have been reviewed. Code Visit Inpatient E&M: 52111 Subs Hosp L3
--- NOTE | 2019-07-12 12:35 | US_ITS ---
STUDY: RENAL ULTRASOUND - COMPLETE REASON FOR EXAM: Female, 74 years old. Acute renal failure TECHNIQUE: Ultrasound evaluation of the kidneys was performed with real-time and static becerra-scale imaging. COMPARISON: None. FINDINGS: RIGHT KIDNEY: Normal location of the right kidney, which is normal in size. The right kidney measures 12.1 x 6.0 x 5.9 cm. There is poor cortical sinusoidal echogenic differentiation suggestive of medical renal disease. The renal cortex measures 1.2 cm. There is no right renal mass or cyst. There are no right renal calculi. There is no right hydronephrosis. DISTAL RIGHT URETER: There is non-visualization of the distal right ureter. There is no demonstrated right ureterovesical junction calculus. There is a visualized right ureteral jet. LEFT KIDNEY: Normal location of the left kidney, which is normal in size. The left kidney measures 10.0 x 6.0 x 7.2 cm. There is poor cortical sinusoidal echogenic differentiation suggestive of medical renal disease. The renal cortex measures 1.3 cm. There is no left renal mass or cyst. There are no left renal calculi. There is no left hydronephrosis. DISTAL LEFT URETER: There is non-visualization of the distal left ureter. There is no demonstrated left ureterovesical junction calculus. There is a visualized left ureteral jet. BLADDER: The distended urinary bladder has a volume of 192 ml. . There is mild diffuse bladder wall thickening, measuring up to 4 mm. There is no demonstrated mass within the urinary bladder. There are no demonstrated bladder calculi. US/Kidney and Bladder IMPRESSION: Poor cortical sinus several echogenic differentiation of the kidneys suggestive of medical renal disease. Mild diffuse bladder wall thickening. Electronically Signed: Otis Gagnon MD at 17:06 EDT , Service support ,
[2019-07-12] MEDS: Furosemide 40 MG/4 ML Vial IV (15:06)
--- NOTE | 2019-07-12 15:36 | CON.PCM_ITS ---
Problem List (1) IZA (acute kidney injury) Status: Acute (2) Chronic kidney disease, stage III (moderate) Status: Chronic Consultation - Renal 07/12/19 PCP/ Referring MD: Requesting physician: Dr Pittman Primary care physician: Law Quintana DO Reason for Consultation:: IZA - History of Present Illness History of Present Illness: The patient is a 74 year old F who presented to hospital with a mechanical fall. renal being consulted for IZA. PCP is Dr Law Quintana. CKD stage 3 with baseline creatinine around 1.5 or so. admitted with a creatinine of 2.2. improved to 1.7 and now better at 2.4 again. says she had kidney stones in the past. currently denies any urinary complaints. Bp is at goal now. has difficulty initiating urine. renal USG done, results pending. no fever, chills - Allergies Allergies: Allergies adhesive Allergy (Verified 07/10/19 13:36) Rash amoxicillin [From Augmentin] Allergy (Verified 07/10/19 13:36) Unknown carvedilol Allergy (Verified 07/10/19 13:36) Unknown ceftriaxone [From Rocephin] Allergy (Verified 07/10/19 13:36) Unknown chlorthalidone Allergy (Verified 07/10/19 13:36) Unknown ciprofloxacin Allergy (Verified 07/10/19 13:36) Rash clavulanic acid [From Augmentin] Allergy (Verified 07/10/19 13:36) Unknown doxycycline Allergy (Verified 07/10/19 13:36) Unknown fexofenadine Allergy (Verified 07/10/19 13:36) Unknown gatifloxacin [From Tequin] Allergy (Verified 07/10/19 13:36) Unknown hydrochlorothiazide Allergy (Verified 07/10/19 13:36) Unknown lisinopril Allergy (Verified 07/10/19 13:36) Unknown losartan Allergy (Verified 07/10/19 13:36) Unknown Penicillins Allergy (Verified 07/10/19 13:36) Rash pramipexole Allergy (Verified 07/10/19 13:36) Unknown Quinolones Allergy (Verified 07/10/19 13:36) Unknown ropinirole Allergy (Verified 07/10/19 13:36) Unknown aspirin Adverse Reaction (Verified 07/10/19 13:36) Vomiting - Current Medications Current Medications: Current Medications Acetaminophen (Tylenol) 650 mg PO Q6H PRN PRN PRN Reason: Mild Pain (1-3)/Temp > 100.7 F Last Admin: 07/12/19 03:55 Dose: 650 mg Documented by: Amlodipine Besylate (Norvasc) 10 mg PO QHS [facility] Last Admin: 07/11/19 22:56 Dose: 10 mg Documented by: Calamine/Phenol (Calmoseptine Ointment) 1 applic TOPICAL BID PRN; Protocol PRN Reason: ANAL/RECTAL IRRITATIONS Last Admin: 07/12/19 04:29 Dose: 1 applicatio Documented by: Dextrose (D50w Syringe) 0 gm IV X1 PRN; Protocol PRN Reason: Hypoglycemia Glucagon () 1 mg IM .X1 PRN PRN Reason: Hypoglycemia Heparin Sodium (Porcine) (Heparin Na) 5,000 unit SC Q12 [facility] Last Admin: 07/12/19 09:39 Dose: 5,000 unit Documented by: Hydralazine HCl (Apresoline Iv) 10 mg IV Q8H PRN PRN PRN Reason: for SBP>160 Last Admin: 07/11/19 16:18 Dose: 10 mg Documented by: Cefepime HCl 1 gm/ Sodium (Chloride) 50 mls @ 100 mls/hr IV Q24H [facility] Last Infusion: 07/11/19 18:21 Dose: Infused Documented by: Insulin Glargine (Lantus (Bkc)) 34 units SC DAILY [facility] Last Admin: 07/12/19 09:37 Dose: 34 units Documented by: Insulin Human Lispro (Humalog Kwikpen (Bkc)) 0 unit SC ACHS [facility]; Protocol Last Admin: 07/12/19 12:04 Dose: Not Given Documented by: Loratadine (Claritin) 10 mg PO DAILY [facility] Last Admin: 07/12/19 09:39 Dose: 10 mg Documented by: Metoprolol Tartrate (Lopressor (Beta Allie)) 25 mg PO BID [facility] Last Admin: 07/12/19 09:39 Dose: 25 mg Documented by: Nystatin (Mycostatin Powder) 1 applic TOPICAL TID [facility]; Protocol Last Admin: 07/12/19 15:05 Dose: 1 applicatio Documented by: Ondansetron HCl (Zofran) 4 mg IV Q8H PRN PRN PRN Reason: NAUSEA/VOMITING Oxycodone HCl (Oxyir) 10 mg PO Q8H PRN PRN PRN Reason: PAIN Last Admin: 07/12/19 09:49 Dose: 10 mg Documented by: Pravastatin Sodium (Pravachol) 40 mg PO DAILY@2200 [facility] Last Admin: 07/11/19 22:56 Dose: 40 mg Documented by: Pregabalin (Lyrica) 50 mg PO DAILY [facility] Last Admin: 07/12/19 09:37 Dose: 50 mg Documented by: Sodium Chloride () 10 - 40 ml IV UD PRN PRN Reason: SALINE FLUSH Last Admin: 07/11/19 08:55 Dose: 20 ml Documented by: - Past Medical History Past Medical History (Chronic Problems): Chronic Problems Debility (Chronic) Pulmonary nodule (Chronic) Back pain (Chronic) 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 In addition, she has recently undergone cystoscopy with right retrograde pyelogram and laser ablation of kidney stones with placement of a ureteral stent. Patient is a Ab0. - Social History Smoking Status: Never smoker Alcohol: None Drugs: None - Family History Maternal History Items: Heart Disease, Hypertension Paternal History Items: Heart Disease, Hypertension Review of Systems Constitutional: Denies: Chills, Fever, Weight Change HEENT: Denies: Head Aches, Sinus Congestion, Sinus Drainage Cardiovascular: Denies: Chest Pain, Palpitations Respiratory: Denies: Cough, Shortness of breath at rest, Sputum production Gastrointestinal: Denies: Abdominal Pain, Nausea, Vomiting Genitourinary: Denies: Dysuria Musculoskeletal: Denies: Joint Pain, Joint Tenderness Skin: Denies: Rash, Wounds Neurological: Denies: Numbness, Tingling, Focal weakness Psychiatric: Denies: Anxiety, Depression, Homicidal Ideations, Suicidal Ideations Hematologic/ Lymphatic: Denies: Easy Bruising, Easy Bleeding Patient Problems: Active and Suspected Problems IZA (acute kidney injury) (Acute) UTI (urinary tract infection) (Acute) Frequent falls (Acute) Declining functional status (Acute) - Physical Exam General: Alert, Oriented x3, Cooperative HEENT: Atraumatic, PERRLA, EOMI, Normocephalic Neck: Supple, No JVD, Negative Carotid Bruits Lungs: Clear to auscultation, Normal air movement Cardiovascular: Regular rate, No murmurs Abdomen: Bowel Sounds Present, Soft, Non Tender Extremities: No edema, Capillary Refill Less than 3 Seconds Skin: No rashes, No breakdown Musculoskeletal: No Tenderness to Palpation of Joints or Extremities Neurological: Cranial nerves II-XII grossly intact Psych/Mental Status: Normal Affect, Appropriate Vital Signs Temp Pulse Resp BP Pulse Ox 99.1 F 60 16 118/43 L 94 07/12/19 09:25 07/12/19 11:02 07/12/19 09:25 07/12/19 09:25 07/12/19 09:25 Oxygen Delivery Method Room Air Weight: 111.8 kg Body Mass Index (BMI) 39.7 Intake and Output for Last 24 Hours 07/10/19 07/11/19 07/12/19 23:59 23:59 23:59 Intake Total 550 / 850 2571.25 / 2571.25 1782.50 / 1782.50 Output Total 950 / 950 900 / 900 Balance 550 / 650 1621.25 / 1621.25 882.50 / 882.50 Microbiology Past 72 Hours 07/10/19 16:05 Urine Culture - Preliminary Urine, Clean Catch Escherichia coli GNR lactose fact checker Laboratory Tests Past 24 Hrs 07/12/19 07/12/19 07/12/19 05:14 05:14 05:14 WBC 8.3 RBC 3.38 L Hgb 9.3 L Hct 30.5 L MCV 90.2 MCH 27.5 MCHC 30.5 L RDW Std Deviation 50.3 H RDW Coeff of Chrissy 15.2 H Plt Count 186 MPV 11.1 Sodium 143 Potassium 3.7 Chloride 116 H Carbon Dioxide 19.0 L Anion Gap 8 BUN 41 H Creatinine 2.24 H Estim Creat Clear Calc 20.94 Est GFR (MDRD) Af Amer 28 L Est GFR (MDRD) Non-Af 23 L BUN/Creatinine Ratio 18.3 Glucose 78 Calcium 7.4 L Magnesium 1.7 POC Glucose 07/12/19 07/12/19 07/12/19 11:58 09:35 06:43 POC Glucose 138 H 210 H 72 07/11/19 07/11/19 22:50 16:23 POC Glucose 127 H 141 H Assessment/Plan All Active Problems IZA (acute kidney injury) (Acute) UTI (urinary tract infection) (Acute) Frequent falls (Acute) Declining functional status (Acute) IZA CKD stage 3 Baseline creatinine is around 1.5 or so. IZA ? ATN vs UTI related Bp is acceptable. no contrast. no NSAIDs as per staff she is having some difficulty initiating urine. renal USG done results pending continue current management UTI. on cefepime will follow Thank you
[2019-07-12 16:11] LABS: Urine Sodium 44 mmol/L (Not Establ.)
[2019-07-12 17:10] LABS: Bedside Glucose 118 mg/dL (70-110)
[2019-07-12] MEDS: 0.9% NaCl Peripheral Flush Adult/Peds IV (21:16)
[2019-07-12] MEDS: Insulin Lispro 100 UNIT/ML INSULN.PEN SC (21:17)
[2019-07-12] MEDS: amLODIPine 10 MG Tablet PO (21:17)
[2019-07-12] MEDS: Pravastatin 40 MG Tablet PO (21:17)
[2019-07-12 21:30] LABS: Bedside Glucose 159 mg/dL (70-110)
[2019-07-13] VITALS (16 sets, daily range): BP systolic 130–187; BP diastolic 59–71; PULSE 56–100; RESP 16–18; TEMP 36.8–38.2; O2SAT 93–97
[2019-07-13] MEDS: oxyCODONE 5 MG Tablet 10 MG PO (04:49)
[2019-07-13] MEDS: 0.9% NaCl Peripheral Flush Adult/Peds IV (04:49)
[2019-07-13] MEDS: hydrALAZINE 20 MG/ML Vial 10 MG IV (04:49)
[2019-07-13] MEDS: Nystatin Powder 15gm Bottle 1 APPLIC TOPICAL ×2 (06:45→21:51)
[2019-07-13 06:50] LABS: Bedside Glucose 95 mg/dL (70-110)
[2019-07-13 07:32] LABS: Hematocrit 38.2 % (37-47); Hemoglobin 11.5 g/dL (12.0-15.0); Mean Corp Hgb Conc 30.1 g/dL (32-36); Mean Corpuscular Hgb 27.3 pg (27.0-32.0); Mean Corpuscular Volume 90.7 fL (81-99); Mean Platelet Vol. 12.3 fl (6.2-12.0); Platelet Count 154 K/mm3 (150-450); RBC Distribution Width CV 15.5 % (11.6-14.6); RBC Distribution Width SD 50.9 fl (35.1-43.9); Red Blood Count 4.21 M/mm3 (4.2-5.4); White Blood Count 13.2 K/mm3 (4.4-11.0)
[2019-07-13 07:50] LABS: Anion Gap 10 (5-15); BUN 50 mg/dL (7-18); BUN/Creat Ratio 19.6 RATIO (10-20); Calcium,Total 7.7 mg/dL (8.5-10.1); Chloride 115 mmol/L (98-107); Creatinine, Serum 2.55 mg/dL (0.55-1.02); EST Glomerular Filtration Rate 20 mL/min (>60); Est Glom Filt Rate - Afr Amer 24 mL/min (>60); Estimated Creatinine Clearance 18.39 ml/min; Glucose 92 mg/dL (74-106); Potassium 4.7 mmol/L (3.5-5.1); Sodium Level 141 mmol/L (136-145)
[2019-07-13] MEDS: Pregabalin 50 MG Capsule PO (10:11)
[2019-07-13] MEDS: Metoprolol Tartrate 25 MG Tablet PO ×2 (10:12→21:51)
[2019-07-13] MEDS: Loratadine 10 MG Tablet PO (10:12)
[2019-07-13] MEDS: Heparin Injection (Vial) 5,000 UNIT/ML VIAL 5000 UNIT SC ×2 (10:13→21:50)
--- NOTE | 2019-07-13 11:51 | PN_ITS ---
<Nithya White - Last Filed: 07/13/19 12:06> Patient Problems: Active and Suspected Problems IZA (acute kidney injury) (Acute) UTI (urinary tract infection) (Acute) Frequent falls (Acute) Declining functional status (Acute) Subjective: Patient seen and examined. Denies current complaints. Awaiting pre-CERT to U. - Physical Exam General: Alert, Oriented x3, Cooperative HEENT: Atraumatic, PERRLA, EOMI, Normocephalic Neck: Supple, No JVD, Negative Carotid Bruits Lungs: Clear to auscultation, Normal air movement Cardiovascular: Regular rate, Regular Rhythm, Normal S1, Normal S2, No murmurs Abdomen: Bowel Sounds Present, Soft, Non Tender, Non-Distended, Obese Extremities: No clubbing, No cyanosis, Capillary Refill Less than 3 Seconds, Edema - Bilateral lower extremities Skin: No rashes, No breakdown Musculoskeletal: No Tenderness to Palpation of Joints or Extremities Neurological: Cranial nerves II-XII grossly intact, Neuro grossly intact Psych/Mental Status: Normal Affect, Appropriate Vital Signs Temp Pulse Resp BP Pulse Ox 99.5 F H 100 16 159/65 H 94 07/13/19 10:25 07/13/19 10:25 07/13/19 10:25 07/13/19 10:25 07/13/19 10:25 Oxygen Delivery Method Room Air Weight: 246 lb 7.629 oz Body Mass Index (BMI) 39.7 Intake and Output for Last 24 Hours 07/11/19 07/12/19 07/13/19 23:59 23:59 23:59 Intake Total 2571.25 / 2571.25 2182.50 / 2432.50 450 / 450 Output Total 950 / 950 1350 / 1650 1000 / 1000 Balance 1621.25 / 1621.25 832.50 / 782.50 -550 / -550 Microbiology Past 72 Hours 07/10/19 15:20 Blood Culture - Preliminary Blood Culture (Wb) - Anticubital Left No growth in 48 hours. 07/10/19 16:20 Blood Culture - Preliminary Blood Culture (Wb) - Anticubital Left No growth in 48 hours. 07/10/19 16:05 Urine Culture - Final Urine, Clean Catch Escherichia coli Klebsiella oxytoca Laboratory Tests Past 24 Hrs 07/12/19 07/12/19 07/13/19 15:30 15:30 06:54 WBC 13.2 H RBC 4.21 Hgb 11.5 L Hct 38.2 MCV 90.7 MCH 27.3 MCHC 30.1 L RDW Std Deviation 50.9 H RDW Coeff of Chrissy 15.5 H Plt Count 154 MPV 12.3 H Sodium Potassium Chloride Carbon Dioxide Anion Gap BUN Creatinine Estim Creat Clear Calc Est GFR (MDRD) Af Amer Est GFR (MDRD) Non-Af BUN/Creatinine Ratio Glucose Calcium Ur Random Sodium 44 Urine Creatinine 73.00 07/13/19 06:54 WBC RBC Hgb Hct MCV MCH MCHC RDW Std Deviation RDW Coeff of Chrissy Plt Count MPV Sodium 141 Potassium 4.7 Chloride 115 H Carbon Dioxide 16.0 L Anion Gap 10 BUN 50 H Creatinine 2.55 H Estim Creat Clear Calc 18.39 Est GFR (MDRD) Af Amer 24 L Est GFR (MDRD) Non-Af 20 L BUN/Creatinine Ratio 19.6 Glucose 92 Calcium 7.7 L Ur Random Sodium Urine Creatinine POC Glucose 07/13/19 07/12/19 07/12/19 06:43 21:11 17:03 POC Glucose 95 159 H 118 H 07/12/19 11:58 POC Glucose 138 H Medical Necessity - Tobacco Use Smoking Status: Never smoker Tobacco Use: Non-smoker Assessment/Plan All Active Problems IZA (acute kidney injury) (Acute) UTI (urinary tract infection) (Acute) Frequent falls (Acute) Declining functional status (Acute) 1. Acute E. coli cystitis-UA positive, urine culture shows E. coli and Klebsiella. Blood culture shows no growth. DC IV cefepime. Transition to oral Omnicef 300 mg daily, renally dosed. 2. Acute kidney injury on chronic kidney disease stage III with associated hypovolemic hypernatremia-hyponatremia resolved. Kidney function worse today. Renal ultrasound shows poor cortical sinus echogenic differentiation of the kidneys suggestive of medical renal disease. FENa 1.1%, intrinsic. Nephrology consulted. Trend BMP. 3. Debility with fall prior to admission-fall precautions. PT/OT. 4. Incidental finding of pulmonary nodule-chest x-ray admission demonstrated 2.3 cm x 1.4 cm right middle lobe nodule. Pulmonary medicine consulted. CT of chest demonstrated 2.5 cm x 1.3 cm lobulated nodule in the posterior aspect of the right upper lobe. Increased markings at the lung bases suggestive of bibasilar atelectasis. Pulmonary suspects lesion is benign. Outpatient follow- up with pulmonary medicine. 5. Lower extremity edema, chronic-Santiago wraps bilateral lower extremities. Chest x-ray with mild CHF, minimally elevated BNP. Do not suspect acute CHF. Oxygen stable on room air. Patient denies shortness of breath. CT without acute findings as noted above. 6. Type 2 diabetes mellitus with peripheral neuropathy-hold home oral regimen. Accu-Cheks ACHS with sliding scale insulin. Continue home Lantus regimen. Continue Lyrica regimen. 7. Hypertension-stable, continue home amlodipine, metoprolol regimen. 8. Chronic back pain-continue home PRN pain regimen. 9. Obesity-encouraged diet and lifestyle modifications. Nutrition consult. 10. Hyperlipidemia-continue statin regimen. 11. Chronic normocytic anemia-mildly decreased from prior, trend CBC. DVT prophylaxis-heparin subcu Discharge planning: TCU pending pre-CERT and stabilization of renal function. This patient was seen by ENMA Gilbert under the supervision of Dr. Pittman. <Parker Pittman - Last Filed: 07/14/19 15:20> Subjective: No fever last 24 hours. Patient denies any burning micturition. Had urine output about 1300 mL. As per nursing staff, there was concern for incomplete emptying of bladder and bladder scan. 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 Bilateral breast and abdominal fold yeast/candidal rash. Musculoskeletal: No Tenderness to Palpation of Joints or Extremities, Arthritic Changes Neurological: Cranial nerves II-XII grossly intact Psych/Mental Status: Normal Affect, Appropriate Vital Signs Temp Pulse Resp BP Pulse Ox 98.1 F 81 20 H 132/43 H 96 07/14/19 09:17 09/01/19 12:00 07/14/19 09:17 07/14/19 09:17 07/14/19 09:17 Oxygen Delivery Method Room Air Weight: 246 lb 7.629 oz Body Mass Index (BMI) 39.7 Intake and Output for Last 24 Hours 07/12/19 07/13/19 07/14/19 23:59 23:59 23:59 Intake Total 2182.50 / 2432.50 1161.66 / 1161.66 515 / 515 Output Total 1350 / 1650 1350 / 1350 150 / 150 Balance 832.50 / 782.50 -188.34 / -188.34 365 / 365 Microbiology Past 72 Hours 07/10/19 15:20 Blood Culture - Preliminary Blood Culture (Wb) - Anticubital Left No growth in 48 hours. 07/10/19 16:20 Blood Culture - Preliminary Blood Culture (Wb) - Anticubital Left No growth in 48 hours. 07/10/19 16:05 Urine Culture - Final Urine, Clean Catch Escherichia coli Klebsiella oxytoca Laboratory Tests Past 24 Hrs 07/14/19 05:24 Sodium 143 Potassium 4.1 Chloride 117 H Carbon Dioxide 14.0 L Anion Gap 12 BUN 60 H Creatinine 2.92 H Estim Creat Clear Calc 16.06 Est GFR (MDRD) Af Amer 20 L Est GFR (MDRD) Non-Af 17 L BUN/Creatinine Ratio 20.5 H Glucose 147 H Calcium 7.0 L POC Glucose 07/14/19 07/14/19 07/13/19 11:39 06:42 21:50 POC Glucose 181 H 147 H 128 H 07/13/19 16:42 POC Glucose 151 H Assessment/Plan This patient was seen in conjunction with SUPERVISOR ESTERS AND EMULSIFIERS, Nithya. I have independently interviewed and examined the patient and reviewed pertinent history, examination findings, laboratory and plan of management. I have reviewed the note and agree with the documented findings with the few additional points. In brief, patient is 74-year-old female is admitted with fall with no prodromal symptoms but felt weak. No fever or chills. UA is positive of pyuria 25-50 cells, leukocyte esterase and nitrite positive. Leukocytosis improved from 16,000-13,000. Patient is started on IV cefepime 1 g every 24 hourly adjusted to creatinine clearance. Patient has acute kidney injury on CKD stage III, most likely secondary to infection/UTI and medication side effects metformin and Januvia. There is worsening of kidney function from 44/2.1- 41/2.24 most likely seems ATN. This is negative fluid balance of about 180 mL. [employer] Supervisor consulted. Impression ATN probably secondary to UTI. Nephrotoxic medications are on hold. Mild hypernatremia, improved. Bicarb decreased to 16. Non-anion gap metabolic acidosis. PT OT for fall. Incidental finding of pulmonary nodule about 2.3 x 1.4 cm in the right middle lobe nodule. [employer] Vendor was consulted. CT chest was done which shows 2.5 by 1.3 cm lobulated nodule in posterior aspect of right upper lobe. Pulmonary nodule was also present from CT abdomen pelvis in 2013 although it is not 1-1 for review. Bibasilar atelectasis. Pulmonology recommended follow-up in pulmonary clinic for PET scan to be completed as an outpatient. Other comorbidities include diabetes type 2 mellitus with peripheral neuropathy, hypertension, chronic back pain, obesity, dyslipidemia, chronic normocytic normochromic anemia and morbid obesity with degenerative joint disease. I have discussed my assessment with SUPERVISOR ESTERS AND EMULSIFIERSNithya and orders have been reviewed. Code Visit Inpatient E&M: 31575 Subs Hosp L3
[2019-07-13] MEDS: Insulin Lispro 100 UNIT/ML INSULN.PEN SC (12:23)
[2019-07-13 12:30] LABS: Bedside Glucose 163 mg/dL (70-110)
[2019-07-13] MEDS: Cefdinir 300 MG Capsule PO (14:34)
[2019-07-13 14:56] LABS: Bedside Glucose 170 mg/dL (70-110)
[2019-07-13] MEDS: 0.9% Normal Saline 1,000 ML 100 ML IV (15:20)
[2019-07-13 16:50] LABS: Bedside Glucose 151 mg/dL (70-110)
[2019-07-13] MEDS: Acetaminophen 325 MG Tablet 650 MG PO (16:57)
--- NOTE | 2019-07-13 18:04 | PN.RENAL_ITS ---
Patient Problems: Active and Suspected Problems IZA (acute kidney injury) (Acute) UTI (urinary tract infection) (Acute) Frequent falls (Acute) Declining functional status (Acute) Subjective: Pt has no nausea No vomiting. No SOB No CP - Physical Exam General: Oriented x3 HEENT: Atraumatic Oral: Moist Mucosa Neck: Supple, No JVD Lungs: Clear to auscultation, Normal air movement, No rhonchi, No wheeze Cardiovascular: Regular rate, Regular Rhythm, Normal S1, Normal S2 Abdomen: Bowel Sounds Present, Soft, Non Tender, Non-Distended Extremities: Edema - +2 edema of LE Neurological: Cranial nerves II-XII grossly intact, Neuro grossly intact Psych/Mental Status: Appropriate Vital Signs Temp Pulse Resp BP Pulse Ox 99.4 F H 75 16 151/64 H 96 07/13/19 17:44 07/13/19 14:33 07/13/19 14:33 07/13/19 14:33 07/13/19 14:33 Oxygen Delivery Method Room Air Weight: 111.8 kg Body Mass Index (BMI) 39.7 Intake and Output for Last 24 Hours 07/11/19 07/12/19 07/13/19 23:59 23:59 23:59 Intake Total 2571.25 / 2571.25 2182.50 / 2432.50 663.33 / 663.33 Output Total 950 / 950 1350 / 1650 1350 / 1350 Balance 1621.25 / 1621.25 832.50 / 782.50 -686.67 / -686.67 Microbiology Past 72 Hours 07/10/19 15:20 Blood Culture - Preliminary Blood Culture (Wb) - Anticubital Left No growth in 48 hours. 07/10/19 16:20 Blood Culture - Preliminary Blood Culture (Wb) - Anticubital Left No growth in 48 hours. 07/10/19 16:05 Urine Culture - Final Urine, Clean Catch Escherichia coli Klebsiella oxytoca Laboratory Tests Past 24 Hrs 07/13/19 07/13/19 06:54 06:54 WBC 13.2 H RBC 4.21 Hgb 11.5 L Hct 38.2 MCV 90.7 MCH 27.3 MCHC 30.1 L RDW Std Deviation 50.9 H RDW Coeff of Chrissy 15.5 H Plt Count 154 MPV 12.3 H Sodium 141 Potassium 4.7 Chloride 115 H Carbon Dioxide 16.0 L Anion Gap 10 BUN 50 H Creatinine 2.55 H Estim Creat Clear Calc 18.39 Est GFR (MDRD) Af Amer 24 L Est GFR (MDRD) Non-Af 20 L BUN/Creatinine Ratio 19.6 Glucose 92 Calcium 7.7 L POC Glucose 07/13/19 07/13/19 07/13/19 16:42 14:48 12:18 POC Glucose 151 H 170 H 163 H 07/13/19 07/12/19 06:43 21:11 POC Glucose 95 159 H Medical Necessity - Tobacco Use Smoking Status: Never smoker Tobacco Use: Non-smoker Assessment/Plan All Active Problems IZA (acute kidney injury) (Acute) UTI (urinary tract infection) (Acute) Frequent falls (Acute) Declining functional status (Acute) IZA on CKD stage 3. Baseline Cr ~ 1.5 mg/dl UA showed 30 protein, WBC and LSE IZA ATN from sepsis. FeNa >1.0% Renal US is negative for hydro Cr continue to rise. No hyperkalemia. No uremic manifestation. No FO. No need for UNDERGRADUATE ADVISOR Will d/c IVF Check renal function in am 2- Metabolic acidosis from IZA and NS. Will d/c NS Monitor HC03 level 3- HTN: BP is elevated . d/c IVF. Continue amlodipine 4-UTI. on cefepime which is appropriately dosed for CrCl Thank you for allowing me to participate in Jenna Babin's care Renal team will continue to follow. Please call if any question at [phone] d/w STITCH BURNISHER- Nithya Acosta MD
[2019-07-13] MEDS: amLODIPine 10 MG Tablet PO (21:50)
[2019-07-13] MEDS: Pravastatin 40 MG Tablet PO (21:52)
[2019-07-14] VITALS (9 sets, daily range): BP systolic 132–157; BP diastolic 43–70; PULSE 66–88; RESP 18–20; TEMP 36.3–37.2; O2SAT 94–97
[2019-07-14 00:06] LABS: Bedside Glucose 128 mg/dL (70-110)
[2019-07-14] MEDS: Menthol/Lanolin/Calamine/Znox 113 GM Tube 1 APPLIC TOPICAL (01:50)
--- NOTE | 2019-07-14 02:48 | NURSING ---
Order received to st cath x1 due to bladder scan of over 788mls of urine. As student RN was setting up sterile field for procedure, patient became incontinent of a large amount of urine. Patient was bladder scanned again for approx 150mls of urine post void. This RN and student did not proceed with the st cath order at this time. Will continue to monitor.
[2019-07-14 06:09] LABS: Anion Gap 12 (5-15); BUN 60 mg/dL (7-18); BUN/Creat Ratio 20.5 RATIO (10-20); Chloride 117 mmol/L (98-107); Creatinine, Serum 2.92 mg/dL (0.55-1.02); EST Glomerular Filtration Rate 17 mL/min (>60); Est Glom Filt Rate - Afr Amer 20 mL/min (>60); Estimated Creatinine Clearance 16.06 ml/min; Glucose 147 mg/dL (74-106); Potassium 4.1 mmol/L (3.5-5.1); Sodium Level 143 mmol/L (136-145)
[2019-07-14] MEDS: Nystatin Powder 15gm Bottle 1 APPLIC TOPICAL ×3 (06:19→21:49)
[2019-07-14] MEDS: 0.9% NaCl Peripheral Flush Adult/Peds IV ×2 (06:19→20:49)
[2019-07-14] MEDS: Ondansetron 4 MG/2 ML Vial IV (06:20)
[2019-07-14 06:45] LABS: Bedside Glucose 147 mg/dL (70-110)
[2019-07-14] MEDS: Heparin Injection (Vial) 5,000 UNIT/ML VIAL 5000 UNIT SC ×2 (09:21→21:51)
[2019-07-14] MEDS: Loratadine 10 MG Tablet PO (09:21)
[2019-07-14] MEDS: Pregabalin 50 MG Capsule PO (09:24)
[2019-07-14] MEDS: oxyCODONE 5 MG Tablet 10 MG PO ×2 (09:25→17:32)
--- NOTE | 2019-07-14 09:32 | NURSING ---
Pt up to [facility] [place], had BM but no urine. Pt felt like she has to void. This nurse bladder scanned pt for 463. This nurse placed a purewhick b/c pt thought she could be incontinent. 20 min after pt back in bed and attempted to void, she was able to bear down and void with purewhick in place but only voided 100cc.
[2019-07-14] MEDS: Insulin Lispro 100 UNIT/ML INSULN.PEN SC ×3 (11:41→21:50)
[2019-07-14 11:56] LABS: Bedside Glucose 181 mg/dL (70-110)
[2019-07-14] MEDS: Acetaminophen 325 MG Tablet 650 MG PO (12:07)
--- NOTE | 2019-07-14 14:46 | PN_ITS ---
<Nithya White - Last Filed: 07/14/19 14:52> Patient Problems: Active and Suspected Problems IZA (acute kidney injury) (Acute) UTI (urinary tract infection) (Acute) Frequent falls (Acute) Declining functional status (Acute) Subjective: Patient seen and examined. Reports difficulty urinating. Denies other complai nts. - Physical Exam General: Alert, Oriented x3, Cooperative HEENT: Atraumatic, PERRLA, EOMI, Normocephalic Neck: Supple, No JVD, Negative Carotid Bruits Lungs: Clear to auscultation, Normal air movement Cardiovascular: Regular rate, Regular Rhythm, Normal S1, Normal S2, No murmurs Abdomen: Bowel Sounds Present, Soft, Non Tender, Non-Distended, Obese Extremities: No clubbing, No cyanosis, Capillary Refill Less than 3 Seconds, Edema - Bilateral lower extremities, improved Skin: No rashes, No breakdown Musculoskeletal: No Tenderness to Palpation of Joints or Extremities Neurological: Cranial nerves II-XII grossly intact, Neuro grossly intact Psych/Mental Status: Normal Affect, Appropriate Vital Signs Temp Pulse Resp BP Pulse Ox 98.1 F 81 20 H 132/43 H 96 07/14/19 09:17 07/14/19 12:00 07/14/19 09:17 07/14/19 09:17 07/14/19 09:17 Oxygen Delivery Method Room Air Weight: 246 lb 7.629 oz Body Mass Index (BMI) 39.7 Intake and Output for Last 24 Hours 07/12/19 07/13/19 07/14/19 23:59 23:59 23:59 Intake Total 2182.50 / 2432.50 1161.66 / 1161.66 515 / 515 Output Total 1350 / 1650 1350 / 1350 150 / 150 Balance 832.50 / 782.50 -188.34 / -188.34 365 / 365 Microbiology Past 72 Hours 07/10/19 15:20 Blood Culture - Preliminary Blood Culture (Wb) - Anticubital Left No growth in 48 hours. 07/10/19 16:20 Blood Culture - Preliminary Blood Culture (Wb) - Anticubital Left No growth in 48 hours. 07/10/19 16:05 Urine Culture - Final Urine, Clean Catch Escherichia coli Klebsiella oxytoca Laboratory Tests Past 24 Hrs 07/14/19 05:24 Sodium 143 Potassium 4.1 Chloride 117 H Carbon Dioxide 14.0 L Anion Gap 12 BUN 60 H Creatinine 2.92 H Estim Creat Clear Calc 16.06 Est GFR (MDRD) Af Amer 20 L Est GFR (MDRD) Non-Af 17 L BUN/Creatinine Ratio 20.5 H Glucose 147 H Calcium 7.0 L POC Glucose 07/14/19 07/14/19 07/13/19 11:39 06:42 21:50 POC Glucose 181 H 147 H 128 H 07/13/19 07/13/19 16:42 14:48 POC Glucose 151 H 170 H Medical Necessity - Tobacco Use Smoking Status: Never smoker Tobacco Use: Non-smoker Assessment/Plan All Active Problems IZA (acute kidney injury) (Acute) UTI (urinary tract infection) (Acute) Frequent falls (Acute) Declining functional status (Acute) 1. Acute E. coli cystitis-UA positive, urine culture shows E. coli and Klebsiella. Blood culture shows no growth. DC IV cefepime. Transition to oral Omnicef 300 mg daily, renally dosed. 2. Acute kidney injury on chronic kidney disease stage III- Kidney function worse today. Renal ultrasound shows poor cortical sinus echogenic differentiation of the kidneys suggestive of medical renal disease. FENa 1.1%, intrinsic. Nephrology consulted. Trend BMP. 3. Debility with fall prior to admission-fall precautions. PT/OT. 4. Incidental finding of pulmonary nodule-chest x-ray admission demonstrated 2.3 cm x 1.4 cm right middle lobe nodule. Pulmonary medicine consulted. CT of chest demonstrated 2.5 cm x 1.3 cm lobulated nodule in the posterior aspect of the right upper lobe. Increased markings at the lung bases suggestive of bibasilar atelectasis. Pulmonary suspects lesion is benign. Outpatient follow- up with pulmonary medicine. 5. Lower extremity edema, chronic-Santiago wraps bilateral lower extremities. Chest x-ray with mild CHF, minimally elevated BNP. Do not suspect acute CHF. Oxygen stable on room air. Patient denies shortness of breath. CT without acute findings as noted above. 6. Type 2 diabetes mellitus with peripheral neuropathy-hold home oral regimen. Accu-Cheks ACHS with sliding scale insulin. Continue home Lantus regimen. Continue Lyrica regimen. 7. Hypertension-stable, continue home amlodipine, metoprolol regimen. 8. Chronic back pain-continue home PRN pain regimen. 9. Obesity-encouraged diet and lifestyle modifications. Nutrition consult. 10. Hyperlipidemia-continue statin regimen. 11. Chronic normocytic anemia-mildly decreased from prior, trend CBC. DVT prophylaxis-heparin subcu Discharge planning: TCU pending pre-CERT and stabilization of renal function. This patient was seen by ENMA Gilbert under the supervision of Dr. Pittman. <Parker Pittman - Last Filed: 07/14/19 15:25> Subjective: Patient has sometimes difficulty in emptying the bladder. Patient had fever 100.3, T-max 100.7 yesterday afternoon yesterday with heart rate in 100s. Repeat blood culture was ordered. Patient was also have decreased responsiveness and alertness at that time. Currently she is back to her baseline. Objective: General: Alert, Oriented x3, Cooperative HEENT: Atraumatic, PERRLA, EOMI, Normocephalic Neck: Supple, No JVD, Negative Carotid Bruits Lungs: Clear to auscultation, Normal air movement Cardiovascular: Regular rate, Regular Rhythm, Normal S1, Normal S2, No murmurs Abdomen: Bowel Sounds Present, Soft, Non Tender, Non-Distended, Obese Extremities: Capillary Refill Less than 3 Seconds, Edema Skin: No rashes, No breakdown Musculoskeletal: No Tenderness to Palpation of Joints or Extremities, Arthritic Changes Neurological: Cranial nerves II-XII grossly intact, Deep Tendon Reflexes 2+/4 and Symmetrical, Neuro grossly intact Psych/Mental Status: Normal Affect, Appropriate - Physical Exam Vital Signs Temp Pulse Resp BP Pulse Ox 98.1 F 81 20 H 132/43 H 96 07/14/19 09:17 07/14/19 12:00 07/14/19 09:17 07/14/19 09:17 07/14/19 09:17 Oxygen Delivery Method Room Air Weight: 246 lb 7.629 oz Body Mass Index (BMI) 39.7 Intake and Output for Last 24 Hours 07/12/19 07/13/19 07/14/19 23:59 23:59 23:59 Intake Total 2182.50 / 2432.50 1161.66 / 1161.66 515 / 515 Output Total 1350 / 1650 1350 / 1350 150 / 150 Balance 832.50 / 782.50 -188.34 / -188.34 365 / 365 Microbiology Past 72 Hours 07/10/19 15:20 Blood Culture - Preliminary Blood Culture (Wb) - Anticubital Left No growth in 48 hours. 07/10/19 16:20 Blood Culture - Preliminary Blood Culture (Wb) - Anticubital Left No growth in 48 hours. 07/10/19 16:05 Urine Culture - Final Urine, Clean Catch Escherichia coli Klebsiella oxytoca Laboratory Tests Past 24 Hrs 07/14/19 05:24 Sodium 143 Potassium 4.1 Chloride 117 H Carbon Dioxide 14.0 L Anion Gap 12 BUN 60 H Creatinine 2.92 H Estim Creat Clear Calc 16.06 Est GFR (MDRD) Af Amer 20 L Est GFR (MDRD) Non-Af 17 L BUN/Creatinine Ratio 20.5 H Glucose 147 H Calcium 7.0 L POC Glucose 07/14/19 07/14/19 07/13/19 11:39 06:42 21:50 POC Glucose 181 H 147 H 128 H 07/13/19 16:42 POC Glucose 151 H Assessment/Plan This patient was seen in conjunction with SUPERINTENDENT [employer]PERATIONS DIV[employer], Nithya. I have independently interviewed and examined the patient and reviewed pertinent history, examination findings, laboratory and plan of management. I have reviewed the note and agree with the documented findings with the few additional points. In brief, patient is 74-year-old female is admitted with fall with no prodromal symptoms but felt weak. No fever or chills. UA is positive of pyuria 25-50 cells, leukocyte esterase and nitrite positive. Leukocytosis improved from 16,000-13,000. Patient is started on IV cefepime 1 g every 24 hourly adjusted to creatinine clearance. Patient has acute kidney injury on CKD stage III, most likely secondary to infection/UTI and medication side effects metformin and Januvia. There is worsening of kidney function from 44/2.1- 41/2.24 most likely seems ATN. There is negative fluid balance of about 200 mL of last 24 hours but cumulative about 3 L positive fluid balance. Hand Tool Lapper is following the patient. 1 Impression ATN probably secondary to UTI. Patient was also discussed with ID Dr. Swan and he agree with the current plan of antibiotic. He is suggested if there is no severe allergy with ceftriaxone, can narrow the antibiotic to ceftriaxone. 2. Acute kidney injury on CKD stage III: Nephrotoxic medications are on hold. Mild hypernatremia, improved. Bicarb decreased to 14, anion gap 12. Non-anion gap metabolic acidosis. We will leave the decision for starting bicarb tablet but generally not recommended if it is non-anion gap metabolic acidosis. PT OT for fall. 3. Incidental finding of pulmonary nodule about 2.3 x 1.4 cm in the right middle lobe nodule. Medical Front Desk Specialist was consulted. CT chest was done which shows 2.5 by 1.3 cm lobulated nodule in posterior aspect of right upper lobe. Pulmonary nodule was also present from CT abdomen pelvis in 2013 although it is not 1-1 for review. Bibasilar atelectasis. Pulmonology recommended follow-up in pulmonary clinic for PET scan to be completed as an outpatient. Other comorbidities include diabetes type 2 mellitus with peripheral neuropathy, hypertension, chronic back pain, obesity, dyslipidemia, chronic normocytic normochromic anemia and morbid obesity with degenerative joint disease. I have discussed my assessment with SUPERINTENDENT OPERATIONS DIVISIONNithya and orders have been reviewed. Code Visit Inpatient E&M: 67308 Subs Hosp L3
[2019-07-14 16:31] LABS: Bedside Glucose 181 mg/dL (70-110)
[2019-07-14 16:33] LABS: Mucous, Urine 0 SEEN /hpf (<or=2+); Red Blood Cells-Urine 0 SEEN /hpf (0-5)
[2019-07-14 16:35] LABS: Color, Urine Yellow (Yellow); Glucose, Dipstick Normal (Normal); Ketone-Dipstick Negative (Negative); Leukocyte Esterase-Dipstick Negative /ul (Negative); Nitrite-Dipstick Negative (Negative); Occult Blood-Urine Negative /ul (Negative); Protein-Dipstick 30 mg/dl (Negative); Specific Gravity, Urine 1.015 (1.002-1.030); Urine Bilirubin Dipstick Negative (Negative); Urine Clarity Clear (Clear); Urine Urobilinogen Normal (Normal)
[2019-07-14 16:41] LABS: Squamous Epithelial Cells - UA 0-5 SEEN /hpf (5-10); White Blood Cells 0-5 SEEN /hpf (0-5)
[2019-07-14 16:42] LABS: Bacteria 1+ /hpf (None Seen)
--- NOTE | 2019-07-14 17:15 | PN.RENAL_ITS ---
Patient Problems: Active and Suspected Problems IZA (acute kidney injury) (Acute) UTI (urinary tract infection) (Acute) Frequent falls (Acute) Declining functional status (Acute) Subjective: Pt is awake alert oriented x3 No nausea No vomiting. No SOB Churchill cath was placed with immediate urine return of 800 cc - Physical Exam General: Alert, Oriented x3 HEENT: Atraumatic Oral: Moist Mucosa Neck: Supple, No JVD Lungs: Clear to auscultation, Normal air movement, No rhonchi, No wheeze Cardiovascular: Regular rate, Regular Rhythm, Normal S1, Normal S2 Abdomen: Bowel Sounds Present, Soft, Non Tender Extremities: No clubbing, No cyanosis, Edema - +2 edema of LE Musculoskeletal: No Tenderness to Palpation of Joints or Extremities Lymphatic: No Cervical, Supraclavicular, or Inguinal Adenopathy Neurological: Cranial nerves II-XII grossly intact, Neuro grossly intact Psych/Mental Status: Appropriate Vital Signs Temp Pulse Resp BP Pulse Ox 98.6 F 76 18 157/70 H 97 07/14/19 15:58 07/14/19 15:58 07/14/19 15:58 07/14/19 15:58 07/14/19 15:58 Oxygen Delivery Method Room Air Weight: 111.8 kg Body Mass Index (BMI) 39.7 Intake and Output for Last 24 Hours 07/12/19 07/13/19 07/14/19 23:59 23:59 23:59 Intake Total 2182.50 / 2432.50 1161.66 / 1161.66 515 / 515 Output Total 1350 / 1650 1350 / 1350 150 / 150 Balance 832.50 / 782.50 -188.34 / -188.34 365 / 365 Microbiology Past 72 Hours 07/10/19 15:20 Blood Culture - Preliminary Blood Culture (Wb) - Anticubital Left No growth in 48 hours. 07/10/19 16:20 Blood Culture - Preliminary Blood Culture (Wb) - Anticubital Left No growth in 48 hours. 07/10/19 16:05 Urine Culture - Final Urine, Clean Catch Escherichia coli Klebsiella oxytoca Laboratory Tests Past 24 Hrs 07/14/19 07/14/19 05:24 16:15 Sodium 143 Potassium 4.1 Chloride 117 H Carbon Dioxide 14.0 L Anion Gap 12 BUN 60 H Creatinine 2.92 H Estim Creat Clear Calc 16.06 Est GFR (MDRD) Af Amer 20 L Est GFR (MDRD) Non-Af 17 L BUN/Creatinine Ratio 20.5 H Glucose 147 H Calcium 7.0 L Urine Color Yellow Urine Clarity Clear Urine pH 6.0 Ur Specific [place] 1.015 Urine Protein 30 H Urine Glucose (UA) Normal Urine Ketones Negative Urine Occult Blood Negative Urine Nitrite Negative Urine Bilirubin Negative Urine Urobilinogen Normal Ur Leukocyte Esterase Negative Urine RBC 0 SEEN Urine WBC 0-5 SEEN Ur Squamous Epith Cells 0-5 SEEN Urine Bacteria 1+ Urine Mucus 0 SEEN POC Glucose 07/14/19 07/14/19 07/14/19 16:23 11:39 06:42 POC Glucose 181 H 181 H 147 H 07/13/19 21:50 POC Glucose 128 H Medical Necessity - Tobacco Use Smoking Status: Never smoker Tobacco Use: Non-smoker Assessment/Plan All Active Problems IZA (acute kidney injury) (Acute) UTI (urinary tract infection) (Acute) Frequent falls (Acute) Declining functional status (Acute) IZA on CKD stage 3. Baseline Cr ~ 1.5 mg/dl UA showed 30 protein, WBC and LSE IZA ATN from sepsis. FeNa >1.0% Renal US is negative for hydro Cr continue to rise. this is most probably from post renal obstruction at the bladder level. Continue urine drain via churchill cath No need for GRINDING WHEEL FACER Will d/c IVF Check renal function in am 2- Metabolic acidosis from IZA and NS.worsening from worsening kidney function Should improve if kidney function improves with churchill cath placement Monitor HC03 level 3- HTN: BP is well controlled. d/c IVF. Continue amlodipine 4-UTI. on Omnicef oral Thank you for allowing me to participate in Jenna Babin's care Renal team will continue to follow. Please call if any question at [phone] d/w TAPE FASTENER MACHINE OPERATOR- Nithya Acosta MD
--- NOTE | 2019-07-14 20:04 | PCM.HOSP.N ---
Hospitalist Note Patient with rash following abx transition to omnicef. She does per review have unclear allergy to cephalosporin but cannot recall event. She has several allergies listed with notable kidney disease. Discussed options and she does not tolerance of bactrim prior with issue and sensitivity confirmed on culture. Will discontinue omnicef. Discussed with pharmacy given renal disease and will administer bactrim DS 1 tab now and then transition in AM to 1/2 tab BID.l
[2019-07-14] MEDS: DiphenhydrAMINE 50 MG/ML Syringe IV (20:49)
[2019-07-14] MEDS: Smz/Tmp Ds Tablet 1 TABLET PO (20:55)
[2019-07-14] MEDS: amLODIPine 10 MG Tablet PO (21:49)
[2019-07-14] MEDS: Metoprolol Tartrate 25 MG Tablet PO (21:49)
[2019-07-14] MEDS: Pravastatin 40 MG Tablet PO (21:50)
[2019-07-14 22:06] LABS: Bedside Glucose 229 mg/dL (70-110)
[2019-07-15 01:51] VITALS: BP 133/54; PULSE 64; RESP 18; TEMP 37.4; O2SAT 97
[2019-07-15 06:41] LABS: Bedside Glucose 81 mg/dL (70-110)
[2019-07-15] MEDS: DiphenhydrAMINE 50 MG/ML Syringe 25 MG IV ×2 (06:48→11:57)
[2019-07-15 06:50] LABS: Hematocrit 31.4 % (37-47); Hemoglobin 9.3 g/dL (12.0-15.0); Mean Corp Hgb Conc 29.6 g/dL (32-36); Mean Corpuscular Volume 91.3 fL (81-99); Platelet Count 182 K/mm3 (150-450); RBC Distribution Width CV 15.8 % (11.6-14.6); RBC Distribution Width SD 51.5 fl (35.1-43.9); Red Blood Count 3.44 M/mm3 (4.2-5.4); White Blood Count 9.5 K/mm3 (4.4-11.0)
[2019-07-15] MEDS: 0.9% NaCl Peripheral Flush Adult/Peds IV (06:54)
[2019-07-15] MEDS: oxyCODONE 5 MG Tablet 10 MG PO (07:02)
[2019-07-15 07:14] LABS: Anion Gap 10 (5-15); BUN 62 mg/dL (7-18); BUN/Creat Ratio 21.5 RATIO (10-20); Calcium,Total 7.2 mg/dL (8.5-10.1); Chloride 117 mmol/L (98-107); Creatinine, Serum 2.88 mg/dL (0.55-1.02); EST Glomerular Filtration Rate 17 mL/min (>60); Est Glom Filt Rate - Afr Amer 21 mL/min (>60); Estimated Creatinine Clearance 16.29 ml/min; Glucose 70 mg/dL (74-106); Sodium Level 146 mmol/L (136-145)
[2019-07-15 08:30] VITALS: BP 125/65; PULSE 79; RESP 18; TEMP 37.3; O2SAT 94
--- NOTE | 2019-07-15 08:41 | PCM.PROGNOTE ---
Patient Problems: Active and Suspected Problems IZA (acute kidney injury) (Acute) UTI (urinary tract infection) (Acute) Frequent falls (Acute) Declining functional status (Acute) Subjective: Chief complaint: Follow-up after admission for acute cystitis, acute kidney injury double stage III chronic kidney disease, frequent falls, debility and incidental pulmonary nodule. Patient seen and examined. Overnight, patient developed skin rash after transition to Omnicef. She does have a history of allergy to cephalosporins but unclear type of allergy. She has a very long list of allergies to antibiotics. Patient was switched to oral Bactrim, renally adjusted dose. Patient still complained of itching but improved. She denies any pain. She denies chest pain or shortness of breath. Denied abdominal pain, nausea or vomiting. Her vital signs are stable. - Physical Exam General: Alert, Oriented x3, Cooperative, No apparent distress HEENT: Atraumatic, PERRLA, EOMI, Normocephalic Oral: Moist Mucosa, No Gingival or Mucosal Lesions/ Ulcerations Neck: Supple, No JVD, Negative Carotid Bruits, Trachea Midline, Thyroid Normal Size and Texture Lungs: Clear to auscultation, No rhonchi, No wheeze, No rales, Diminished Cardiovascular: Regular rate, Regular Rhythm, Normal S1, Normal S2, PMI Normal Abdomen: Bowel Sounds Present, Soft, Non Tender, Non-Distended, No Hepato-splenomegaly, Obese Extremities: No clubbing, No cyanosis, Edema - Trace edema. Skin: No breakdown, Rash Present Lymphatic: No Cervical, Supraclavicular, or Inguinal Adenopathy Neurological: Cranial nerves II-XII grossly intact, Motor Exam 5/5 strength throughout Psych/Mental Status: Normal Affect, Appropriate, Alert and oriented to time, place, person, mood and affect Vital Signs Temp Pulse Resp BP Pulse Ox 99.3 F H 64 18 133/54 H 97 07/15/19 01:51 07/15/19 01:51 07/15/19 01:51 07/15/19 01:51 07/15/19 01:51 Oxygen Delivery Method Room Air Weight: 246 lb 7.629 oz Body Mass Index (BMI) 39.7 Intake and Output for Last 24 Hours 07/13/19 07/14/19 07/15/19 23:59 23:59 23:59 Intake Total 1161.66 / 1161.66 651.25 / 851.25 500 / 500 Output Total 1350 / 1350 1150 / 1375 425 / 425 Balance -188.34 / -188.34 -498.75 / -523.75 75 / 75 Microbiology Past 72 Hours 07/10/19 15:20 Blood Culture - Preliminary Blood Culture (Wb) - Anticubital Left No growth in 48 hours. 07/10/19 16:20 Blood Culture - Preliminary Blood Culture (Wb) - Anticubital Left No growth in 48 hours. 07/10/19 16:05 Urine Culture - Final Urine, Clean Catch Escherichia coli Klebsiella oxytoca Laboratory Tests Past 24 Hrs 07/14/19 07/15/19 07/15/19 16:15 05:20 05:20 WBC 9.5 RBC 3.44 L Hgb 9.3 L Hct 31.4 L MCV 91.3 MCH 27.0 MCHC 29.6 L RDW Std Deviation 51.5 H RDW Coeff of Chrissy 15.8 H Plt Count 182 MPV 12.0 Sodium 146 H Potassium 4.0 Chloride 117 H Carbon Dioxide 19.0 L Anion Gap 10 BUN 62 H Creatinine 2.88 H Estim Creat Clear Calc 16.29 Est GFR (MDRD) Af Amer 21 L Est GFR (MDRD) Non-Af 17 L BUN/Creatinine Ratio 21.5 H Glucose 70 L Calcium 7.2 L Urine Color Yellow Urine Clarity Clear Urine pH 6.0 Ur Specific [place] 1.015 Urine Protein 30 H Urine Glucose (UA) Normal Urine Ketones Negative Urine Occult Blood Negative Urine Nitrite Negative Urine Bilirubin Negative Urine Urobilinogen Normal Ur Leukocyte Esterase Negative Urine RBC 0 SEEN Urine WBC 0-5 SEEN Ur Squamous Epith Cells 0-5 SEEN Urine Bacteria 1+ Urine Mucus 0 SEEN POC Glucose 07/15/19 07/14/19 07/14/19 06:35 21:46 16:23 POC Glucose 81 229 H 181 H 07/14/19 11:39 POC Glucose 181 H Microbiology 07/10/19 15:20 Blood Culture (Wb) - Anticubital Left Blood Culture - Preliminary No growth in 48 hours. 07/10/19 16:20 Blood Culture (Wb) - Anticubital Left Blood Culture - Preliminary No growth in 48 hours. 07/10/19 16:05 Urine, Clean Catch Urine Culture - Final Escherichia coli Klebsiella oxytoca Medical Necessity - Tobacco Use Smoking Status: Never smoker Tobacco Use: Non-smoker Assessment/Plan All Active Problems IZA (acute kidney injury) (Acute) UTI (urinary tract infection) (Acute) Frequent falls (Acute) Declining functional status (Acute) This is a 73 years old female patient presented to the emergency room because of fall, weakness and debility and she was found to have acute cystitis, acute kidney injury on top of stage III chronic kidney disease, functional decline and physical debility. #1 E. coli/Klebsiella oxytoca acute cystitis: Patient was switched from IV cefepime to oral Omnicef last night but she developed skin rash with itching. She does have a history of unknown allergy to see response. She was started on renally adjusted dose of Bactrim last night. She has been afebrile, no leukocytosis. Initial blood cultures showed no growth in 48 hours. Repeat blood culture and urine culture pending. Plan to continue Bactrim, monitor kidney function. #2 acute kidney injury on top of stage III chronic: Baseline creatinine has been around 1.5 mg/dL. On admission, creatinine was 2.1, went up to 2.92 yesterday, and it came down to 2.88 today. Nephrology consulted, IV fluids continued. This worsening kidney function attributed to ATN from sepsis. Kidney ultrasound revealed no evidence of obstructive uropathy, revealed findings consistent with medical renal disease, mild diffuse bladder wall thickening. If urgent the case, plan to repeat BMP tomorrow morning. #3 hypernatremia: Probably hypovolemic hypernatremia. She is off IV fluids, sodium improved but again slightly went up but better than sodium admission. Plan as above. #4 incidental right lung nodule: It is 2.3 x 1.4 cm. No previous chest x-ray to compare. CT scan chest without contrast revealed 2.5 cm x 1.2 cm lobulated nodule in the posterior aspect of the right upper lobe. Pulmonary consulted, suspected benign lesion, plan follow-up as outpatient with pulmonology. #5 Type 2 diabetes mellitus: Blood sugars been stable, continue Lantus insulin sliding scale. #6 hypertension: Blood pressure stable, continue Norvasc and metoprolol, IV hydralazine PRN. #7 hyperlipidemia: Continue statins. #8 chronic back pain: Continue Lyrica and OxyIR PRN. #9 DVT prophylaxis: Subcu heparin. This note was generated with [employer] software. It may contain incorrect words, spelling, and punctuation that were not noted in checking the note before signing. Code Visit Inpatient E&M: 49795 Subs Hosp L2
[2019-07-15] MEDS: Nystatin Powder 15gm Bottle 1 APPLIC TOPICAL ×3 (08:59→22:03)
[2019-07-15] MEDS: Heparin Injection (Vial) 5,000 UNIT/ML VIAL 5000 UNIT SC ×2 (09:04→22:03)
[2019-07-15] MEDS: Loratadine 10 MG Tablet PO (09:04)
[2019-07-15] MEDS: Smz/Tmp Ds Tablet 0.5 TABLET PO (09:05)
[2019-07-15 09:08] VITALS: BP 125/65; PULSE 79
[2019-07-15] MEDS: Metoprolol Tartrate 25 MG Tablet PO (09:08)
[2019-07-15] MEDS: Pregabalin 50 MG Capsule PO (09:12)
[2019-07-15 09:26] LABS: Bedside Glucose 143 mg/dL (70-110)
[2019-07-15 12:36] LABS: Bedside Glucose 113 mg/dL (70-110)
--- NOTE | 2019-07-15 15:45 | NURSING ---
received call from Dora in TCU called to inform Rubia stating that we have Precert for TCU.
[2019-07-15 16:34] VITALS: BP 135/42; PULSE 74; RESP 16; TEMP 37; O2SAT 94
[2019-07-15 16:51] LABS: Bedside Glucose 138 mg/dL (70-110)
--- NOTE | 2019-07-15 17:15 | PN.RENAL_ITS ---
Patient Problems: Active and Suspected Problems IZA (acute kidney injury) (Acute) UTI (urinary tract infection) (Acute) Frequent falls (Acute) Declining functional status (Acute) Subjective: Patient developed skin rash and antibiotics was changed to Bactrim. No shortness of breath. No nausea no vomiting. No chest pain - Physical Exam General: Alert, Oriented x3 HEENT: Atraumatic Oral: Moist Mucosa Neck: Supple, No JVD Lungs: Clear to auscultation, Normal air movement, No rhonchi, No wheeze Cardiovascular: Regular rate, Regular Rhythm, Normal S1, Normal S2 Abdomen: Bowel Sounds Present, Soft, Non Tender, Non-Distended Extremities: No clubbing, No cyanosis, Edema - +2 lower extremities edema Musculoskeletal: No Tenderness to Palpation of Joints or Extremities Lymphatic: No Cervical, Supraclavicular, or Inguinal Adenopathy Neurological: Cranial nerves II-XII grossly intact, Neuro grossly intact Psych/Mental Status: Appropriate Vital Signs Temp Pulse Resp BP Pulse Ox 98.6 F 74 16 135/42 H 94 07/15/19 16:34 07/15/19 16:34 07/15/19 16:34 07/15/19 16:34 07/15/19 16:34 Oxygen Delivery Method Room Air Weight: 111.8 kg Body Mass Index (BMI) 39.7 Intake and Output for Last 24 Hours 07/13/19 07/14/19 07/15/19 23:59 23:59 23:59 Intake Total 1161.66 / 1161.66 651.25 / 851.25 820 / 820 Output Total 1350 / 1350 1150 / 1375 650 / 650 Balance -188.34 / -188.34 -498.75 / -523.75 170 / 170 Microbiology Past 72 Hours 07/10/19 15:20 Blood Culture - Preliminary Blood Culture (Wb) - Anticubital Left No growth in 48 hours. 07/10/19 16:20 Blood Culture - Preliminary Blood Culture (Wb) - Anticubital Left No growth in 48 hours. 07/10/19 16:05 Urine Culture - Final Urine, Clean Catch Escherichia coli Klebsiella oxytoca Laboratory Tests Past 24 Hrs 07/15/19 07/15/19 05:20 05:20 WBC 9.5 RBC 3.44 L Hgb 9.3 L Hct 31.4 L MCV 91.3 MCH 27.0 MCHC 29.6 L RDW Std Deviation 51.5 H RDW Coeff of Chrissy 15.8 H Plt Count 182 MPV 12.0 Sodium 146 H Potassium 4.0 Chloride 117 H Carbon Dioxide 19.0 L Anion Gap 10 BUN 62 H Creatinine 2.88 H Estim Creat Clear Calc 16.29 Est GFR (MDRD) Af Amer 21 L Est GFR (MDRD) Non-Af 17 L BUN/Creatinine Ratio 21.5 H Glucose 70 L Calcium 7.2 L POC Glucose 07/15/19 07/15/19 07/15/19 16:31 11:47 09:17 POC Glucose 138 H 113 H 143 H 07/15/19 07/14/19 06:35 21:46 POC Glucose 81 229 H Medical Necessity - Tobacco Use Smoking Status: Never smoker Tobacco Use: Non-smoker Assessment/Plan All Active Problems IZA (acute kidney injury) (Acute) UTI (urinary tract infection) (Acute) Frequent falls (Acute) Declining functional status (Acute) IZA on CKD stage 3. Baseline Cr ~ 1.5 mg/dl UA showed 30 protein, WBC and LSE IZA ATN from sepsis. FeNa >1.0% Renal US is negative for hydro Bladder scan showed high urine residual. Churchill catheter was placed yesterday. Creatinine slightly better. Patient is making enough amount of urine Continue urine drain via churchill cath No need for OPERATIONS MANAGER/COORDINATOR Check renal function in am 2- Metabolic acidosis from IZA and NS.worsening from worsening kidney function Improved. Bicarb today is 19. Monitor HC03 level 3- HTN: BP is well controlled. 4-UTI. Antibiotics changed to Bactrim. Follow potassium level and kidney function while in Bactrim Thank you for allowing me to participate in Jenna Babin's care Renal team will continue to follow. Please call if any question at [phone] d/w RESEARCH INSTRUMENTATION TECHNICIAN- Nithya Acosta MD
[2019-07-15 21:51] VITALS: BP 157/55; PULSE 75; RESP 16; TEMP 36.9; O2SAT 97
[2019-07-15 22:10] LABS: Bedside Glucose 102 mg/dL (70-110)
[2019-07-16 03:50] VITALS: BP 155/46; PULSE 75; RESP 16; TEMP 36.6; O2SAT 97
[2019-07-16] MEDS: DiphenhydrAMINE 50 MG/ML Syringe 25 MG IV (04:13)
[2019-07-16] MEDS: 0.9% NaCl Peripheral Flush Adult/Peds IV (04:13)
[2019-07-16] MEDS: oxyCODONE 5 MG Tablet 10 MG PO (04:14)
[2019-07-16 05:57] LABS: Absolute Lymphocyte Count 1.09 X10^3/uL (0.83-4.51); Absolute Neutrophil Count 8.9 X10^3/uL (2.0-7.7); Basophil# 0.02 X10^3/uL; Basophil% 0.2 % (0-1); Eosinophil# 0.68 X10^3/uL; Hematocrit 34.6 % (37-47); Hemoglobin 10.3 g/dL (12.0-15.0); Lymphocyte # 1.09 X10^3/ul (4.0); Lymphocyte % 9.5 % (19-41); Mean Corp Hgb Conc 29.8 g/dL (32-36); Mean Corpuscular Hgb 27.3 pg (27.0-32.0); Mean Corpuscular Volume 91.8 fL (81-99); Mean Platelet Vol. 11.4 fl (6.2-12.0); Monocyte# 0.71 X10^3/uL; Monocyte% 6.2 % (0-10); NRBC Flagged by Analyzer 0 % (0-5); Neutrophil # 8.85 X10^3/uL (2.7-7.7); Neutrophil % 77.5 % (47-70); Platelet Count 197 K/mm3 (150-450); RBC Distribution Width CV 15.9 % (11.6-14.6); Red Blood Count 3.77 M/mm3 (4.2-5.4); White Blood Count 11.4 K/mm3 (4.4-11.0)
[2019-07-16 06:06] LABS: Anion Gap 11 (5-15); BUN 68 mg/dL (7-18); BUN/Creat Ratio 24.1 RATIO (10-20); Calcium,Total 7.6 mg/dL (8.5-10.1); Chloride 115 mmol/L (98-107); Creatinine, Serum 2.82 mg/dL (0.55-1.02); EST Glomerular Filtration Rate 17 mL/min (>60); Est Glom Filt Rate - Afr Amer 21 mL/min (>60); Estimated Creatinine Clearance 16.63 ml/min; Glucose 81 mg/dL (74-106); Potassium 3.9 mmol/L (3.5-5.1); Sodium Level 143 mmol/L (136-145)
[2019-07-16] MEDS: Nystatin Powder 15gm Bottle 1 APPLIC TOPICAL (06:59)
[2019-07-16 07:05] LABS: Bedside Glucose 77 mg/dL (70-110)
[2019-07-16 09:36] VITALS: BP 158/79; PULSE 77; RESP 16; TEMP 37.2; O2SAT 97
--- NOTE | 2019-07-16 09:40 | CASEMGMT ---
Addendum entered by Erika Tabor 07/16/19 14:06: JULIO updated pt and pt's on approval to go to TCU and that pt will be discharged to TCU today. Addendum entered by Erika Tabor 07/16/19 13:38: JULIO received call from Swati with TCU stating pre-cert is still good today and pt can discharge to TCU today. JULIO informed Swati that pt will be discharged to TCU today. Physician updated. RN updated. Plan: TCU today Original Note: Social Work Note JULIO placed a call to Swati with TCU and left message asking if pre-cert is still good for today. JULIO waiting for call back. Erika Tabor ALL ROUND LOGGER, MATERIAL LISTER
[2019-07-16] MEDS: Smz/Tmp Ds Tablet 0.5 TABLET PO (09:55)
[2019-07-16] MEDS: Heparin Injection (Vial) 5,000 UNIT/ML VIAL 5000 UNIT SC (10:06)
[2019-07-16] MEDS: Loratadine 10 MG Tablet PO (10:06)
[2019-07-16 10:08] VITALS: PULSE 77
[2019-07-16] MEDS: Metoprolol Tartrate 25 MG Tablet PO (10:08)
[2019-07-16] MEDS: Pregabalin 50 MG Capsule PO (10:09)
--- NOTE | 2019-07-16 11:23 | PCM.EXTCARCO ---
- Diet 07/10/19 18:19 Diet: Calorie Controlled Food consistency:: Regular Liquid Consistency:: Regular/Thin Is pt able to select menu?: Yes How many daily calories?: 1800 calorie Diet: Cardiac/Low Cholesterol Food consistency:: Regular Liquid Consistency:: Regular/Thin - Routine Orders/Code Status Enema Type: Fleetz Enema Frequency: Daily PRN Suppository Type: Dulcolax 10mg Suppository Frequency: Daily PRN O2 Liters per Minute: 2 O2 Frequency: PRN Keep PO Greater than or Equal to (%): 90 Routine Lab Work: - - CBC, BMP daily X3 days and then Q Week. - Wound(s) left coccyx Wound Type: Pressure Injury right coccyx Wound Type: Pressure Injury mid back Wound Type: Abrasion left elbow Wound Type: Abrasion coccyx Wound Type: Pressure Injury - Suggestions for Active Care Change Position every (hours): 2 Times a day to sit in chair: 3 - Therapies Physical Therapy: Eval and Treat Occupational Therapy: Eval and Treat - Problem/Diagnosis (1) IZA (acute kidney injury) Status: Acute Current Visit: Yes (2) UTI (urinary tract infection) Status: Acute Current Visit: Yes (3) Debility Status: Chronic Current Visit: Yes (4) Hypertension Status: Chronic Current Visit: No (5) Type 2 diabetes mellitus Status: Chronic Current Visit: No - Allergies/Procedures Done in Hospital Allergies/Adverse Reactions: Allergies adhesive Allergy (Verified 07/10/19 13:36) Rash amoxicillin [From Augmentin] Allergy (Verified 07/10/19 13:36) Unknown carvedilol Allergy (Verified 07/10/19 13:36) Unknown ceftriaxone [From Rocephin] Allergy (Verified 07/10/19 13:36) Unknown chlorthalidone Allergy (Verified 07/10/19 13:36) Unknown ciprofloxacin Allergy (Verified 07/10/19 13:36) Rash clavulanic acid [From Augmentin] Allergy (Verified 07/10/19 13:36) Unknown doxycycline Allergy (Verified 07/10/19 13:36) Unknown fexofenadine Allergy (Verified 07/10/19 13:36) Unknown gatifloxacin [From Tequin] Allergy (Verified 07/10/19 13:36) Unknown hydrochlorothiazide Allergy (Verified 07/10/19 13:36) Unknown lisinopril Allergy (Verified 07/10/19 13:36) Unknown losartan Allergy (Verified 07/10/19 13:36) Unknown Penicillins Allergy (Verified 07/10/19 13:36) Rash pramipexole Allergy (Verified 07/10/19 13:36) Unknown Quinolones Allergy (Verified 07/10/19 13:36) Unknown ropinirole Allergy (Verified 07/10/19 13:36) Unknown aspirin Adverse Reaction (Verified 07/10/19 13:36) Vomiting Procedures: None - Type of Care/Length of Stay Estimated LOS: Convalescent Care Less Than 30 days Type of Care Needed: Skilled Rehab Potential: Fair Prognosis: Fair - Additional Orders/Day of Discharge Additional Orders: Please consult nephrology upon admission to TCU for further renal monitoring. H&P will serve as current which was dated: 07/10/19 Day of Discharge: 07/16/19 - Dietary and Speech Recommendations Dietitian Recommendations/Changes: Recommend continue cardiac/1800 calorie controlled diet. May benefit from Liang 1 packet BID to help promote wound healing - order from pharmacy. - Follow Up Care Primary Care Physician: Law Quintana DO [Primary Care Provider] - Please follow up with your Primary Care Physician in: 1 Week Please Follow Up With: Cristiano Agosto DO When: 2 Weeks following DC from TCU Please Follow Up With: Nephrology When: Consult, to follow at TCU
--- NOTE | 2019-07-16 11:30 | PCM.DC.SUM ---
<Nithya White - Last Filed: 07/16/19 11:43> Discharge Date and Diagnosis Date of Admission: 07/10/19 Date of Discharge: 07/16/19 - Primary Discharge Diagnosis Active and Suspected Problems 1. Acute E. coli cystitis 2. Acute kidney injury on chronic kidney disease stage III 3. Debility with fall prior to admission 4. Incidental finding of pulmonary nodule 5. Lower extremity edema, chronic 6. Type 2 diabetes mellitus with peripheral neuropathy 7. Hypertension 8. Chronic back pain 9. Obesity 10. Hyperlipidemia 11. 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 Electronically Signed: Claudio Lewis, at 14:46 EDT , Service support , Chest X-Ray 07/10/19 13:55 IMPRESSION: Findings suggestive of CHF. 2.3 cm x 1.4 cm right middle lobe nodule. Electronically Signed: Claudio Lewis, at 14:53 EDT , Service support , Chest CT 07/11/19 07:01 IMPRESSION: 2.5 cm x 1.3 cm slightly lobulated nodule in the posterior aspect of the right upper lobe abutting the right minor fissure. Increased markings at the lung bases more prominent on the right side suggestive of bibasilar atelectasis. Electronically Signed: Claudio Lewis, at 8:51 EDT , Service support , Renal Ultrasound 07/12/19 12:35 IMPRESSION: Poor cortical sinus several echogenic differentiation of the kidneys suggestive of medical renal disease. Mild diffuse bladder wall thickening. Electronically Signed: Otis Gagnon MD at 17:06 EDT , Service support , Dr. Agosto- Pulmonary medicine Dr. Acosta- Nephrology Operations: None Procedures: None Summary of Care Provided: The patient is a 74 year old F admitted 07/10/2019 due to fall. 1. Acute E. coli cystitis-UA positive, urine culture shows E. coli and Klebsiella. Blood culture shows no growth. IV cefepime during admission. Transition to renally dose Bactrim to complete course of antibiotics. Patient initially placed on Omnicef however she developed rash and itching. Patient had repeat urine culture 07/14/2019 which shows no growth. 2. Acute kidney injury on chronic kidney disease stage III- Renal ultrasound shows poor cortical sinus echogenic differentiation of the kidneys suggestive of medical renal disease. FENa 1.1%, intrinsic. Nephrology consulted. Ojeda in place due to suspicion for retention as a result of #1. Nephrology to follow at TCU for further monitoring. Continue to trend BMP. 3. Debility with fall prior to admission-fall precautions. PT/OT. TCU at discharge. 4. Incidental finding of pulmonary nodule-chest x-ray admission demonstrated 2.3 cm x 1.4 cm right middle lobe nodule. Pulmonary medicine consulted. CT of chest demonstrated 2.5 cm x 1.3 cm lobulated nodule in the posterior aspect of the right upper lobe. Increased markings at the lung bases suggestive of bibasilar atelectasis. Pulmonary suspects lesion is benign. Outpatient follow-up with pulmonary medicine in 2 weeks. 5. Lower extremity edema, chronic-Santiago wraps bilateral lower extremities. Chest x-ray with mild CHF, minimally elevated BNP. No acute CHF. Oxygen stable on room air. Patient denies shortness of breath. CT without acute findings as noted above. 6. Type 2 diabetes mellitus with peripheral neuropathy-hold home oral regimen. Accu-Cheks ACHS with sliding scale insulin. Continue home Lantus regimen. Continue Lyrica regimen. 7. Hypertension-stable, continue home amlodipine, metoprolol regimen. 8. Chronic back pain-continue home PRN pain regimen. 9. Obesity-encouraged diet and lifestyle modifications. 10. Hyperlipidemia-continue statin regimen. 11. Chronic normocytic anemia-Stable. General: Alert, Oriented x3, Cooperative HEENT: Atraumatic, PERRLA, EOMI, Normocephalic Neck: Supple, No JVD, Negative Carotid Bruits Lungs: Clear to auscultation, Normal air movement Cardiovascular: Regular rate, Regular Rhythm, Normal S1, Normal S2, No murmurs Abdomen: Bowel Sounds Present, Soft, Non Tender, Non-Distended, Obese Extremities: No clubbing, No cyanosis, Capillary Refill Less than 3 Seconds, Edema - Bilateral lower extremities, improved Skin: No rashes, No breakdown Musculoskeletal: No Tenderness to Palpation of Joints or Extremities Neurological: Cranial nerves II-XII grossly intact, Neuro grossly intact Psych/Mental Status: Normal Affect, Appropriate Patient seen and examined prior to discharge. Physical assessment as noted above. Patient is stable for discharge with follow up recommendations as noted above. This patient was seen by ENMA Gilbert under the supervision of Dr. Johnson. - Physical Exam Vital Signs Temp Pulse Resp BP Pulse Ox 99.0 F 77 16 158/79 H 97 07/16/19 09:36 07/16/19 10:08 07/16/19 09:36 07/16/19 09:36 07/16/19 09:36 Oxygen Delivery Method Room Air Weight: 246 lb 7.629 oz Body Mass Index (BMI) 39.7 Intake and Output for Last 24 Hours 07/14/19 07/15/19 07/16/19 23:59 23:59 23:59 Intake Total 651.25 / 851.25 820 / 820 100 / 100 Output Total 1150 / 1375 900 / 1175 675 / 675 Balance -498.75 / -523.75 -80 / -355 -575 / -575 Microbiology Past 72 Hours 07/14/19 16:15 Urine Culture - Preliminary Urine Catheter - O[place]eda Culture exhibits no growth. 07/10/19 16:20 Blood Culture - Final Blood Culture (Wb) - Anticubital Left No growth in 5 days. 07/10/19 15:20 Blood Culture - Final Blood Culture (Wb) - Anticubital Left No growth in 5 days. 07/10/19 16:05 Urine Culture - Final Urine, Clean Catch Escherichia coli Klebsiella oxytoca Laboratory Tests Past 24 Hrs 07/16/19 07/16/19 05:25 05:25 WBC 11.4 H RBC 3.77 L Hgb 10.3 L Hct 34.6 L MCV 91.8 MCH 27.3 MCHC 29.8 L RDW Std Deviation 53.0 H RDW Coeff of Chrissy 15.9 H Plt Count 197 MPV 11.4 Immature Gran % (Auto) 0.600 Neut % (Auto) 77.5 H Lymph % (Auto) 9.5 L [place] % (Auto) 6.2 Eos % (Auto) 6.0 H Baso % (Auto) 0.2 Absolute Neuts (auto) 8.9 H Absolute Lymphs (auto) 1.09 Nucleated RBC % 0 Sodium 143 Potassium 3.9 Chloride 115 H Carbon Dioxide 17.0 L Anion Gap 11 BUN 68 H Creatinine 2.82 H Estim Creat Clear Calc 16.63 Est GFR (MDRD) Af Amer 21 L Est GFR (MDRD) Non-Af 17 L BUN/Creatinine Ratio 24.1 H Glucose 81 Calcium 7.6 L POC Glucose 07/16/19 07/15/19 07/15/19 06:57 21:53 16:31 POC Glucose 77 102 138 H 07/15/19 11:47 POC Glucose 113 H Home Medications: Medications to take at Discharge Amlodipine [Norvasc] 10 mg PO DAILY 07/25/17 Insulin Glargine [Lantus SoloStar Pen] 34 units SQ DAILY 07/25/17 Metoprolol Tartrate [Lopressor (beta beau)] 25 mg PO BID 07/25/17 Sitagliptin Phosphate [Januvia] 100 mg PO DAILY 07/25/17 Loratadine 10 mg PO DAILY 07/10/19 Metformin HCl 500 mg PO BIDCM 07/10/19 Oxycodone HCl/Acetaminophen [Oxycodone-Acetaminophen 10-325] 1 tab PO Q8H PRN PRN 07/10/19 Pravastatin Sodium 40 mg PO DAILY 07/10/19 Pregabalin [Lyrica] 50 mg PO 4X/DAY 07/10/19 Menthol/Lanolin/Calamine/Znox [Calmoseptine Ointment] 1 applic TOPICAL BID PRN tube 07/16/19 Smz/Tmp Ds [Bactrim Ds] 0.5 tab PO BID 2 Days tab 07/16/19 Primary Care Physician: Law Quintana DO [Primary Care Provider] - Please follow up with your Primary Care Physician in: 1 Week Please Follow Up With: Cristiano Agosto DO When: 2 Weeks following DC from TCU Please Follow Up With: Nephrology When: Consult, to follow at TCU Disposition: Custodial facility Minutes spent on discharge:: 35 Patient Condition:: Stable Medical Necessity - Tobacco Use Smoking Status: Never smoker Tobacco Use: Non-smoker Meaningful Use Info Meaningful Use Diagnoses (Choose all that apply): None applicable <Teofilo Johnson E - Last Filed: 07/16/19 12:16> Discharge Date and Diagnosis - Secondary Discharge Diagnosis Chronic Problems Debility (Chronic) Pulmonary nodule (Chronic) Back pain (Chronic) 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 Patient was admitted because of fall, weakness and debility and she was found to have acute cystitis, acute kidney injury on top of stage III chronic kidney disease as well as functional decline in physical debility. Patient was found to have incidental right lung nodule on chest x-ray. On admission, CT scan brain done and showed no acute findings. Chest x-ray revealed minimal pulmonary vascular congestion and right middle lobe nodule. She was treated with IV cefepime for acute cystitis. Patient did respond to treatment and up on switching her IV antibiotic to oral Omnicef, she developed skin rash with itching. She has a long list of allergy to antibiotics. After she developed skin rash to Omnicef, she was started on renally adjusted dose of Bactrim twice daily. Urine culture revealed E. coli and Klebsiella oxytoca. Repeat urine culture showed no growth. Blood culture showed no growth in 5 days. Patient was found to have acute kidney injury on top of stage III chronic kidney disease. On admission, her creatinine was 2.1 mg/dL and her baseline has been around 1.5 mg/dL. Her creatinine went up to 2.92 mg/dL. Nephrology consulted and recommended an ultrasound that showed no evidence of obstructive uropathy, no kidney stones or hydronephrosis. Worsening kidney function attributed to acute tubular necrosis from infection. Patient initially received IV fluids which was discontinued later. Her kidney function started to improve very slowly. Patient tolerated Bactrim renally adjusted dose. Regarding the incidental right lung nodule, CT scan chest done and revealed 2.5 cm x 1.2 cm lobulated nodule in the posterior aspect of the right upper lobe. Pulmonary consulted and suspect that this is a benign lesion and recommended follow-up with pulmonology as outpatient. Patient discharged to TCU in a stable medical condition, discharged on renally adjusted dose of Bactrim twice daily for 2 days more to complete total 5 days of treatment, recommended to consult nephrology upon admission to TCU for monitoring of her kidney function, continued on her previous home medications without any changes, recommended follow-up with PCP in 1 week. - Physical Exam General: Alert, Oriented x3, Cooperative, No apparent distress HEENT: Atraumatic, PERRLA, EOMI, Normocephalic Oral: Moist Mucosa, No Gingival or Mucosal Lesions/ Ulcerations Neck: Supple, No JVD, Negative Carotid Bruits, Trachea Midline, Thyroid Normal Size and Texture Lungs: Diminished breath sounds bilateral, otherwise clear, no wheeze, No rales, Diminished Cardiovascular: Regular rate, Regular Rhythm, Normal S1, Normal S2, PMI Normal Abdomen: Bowel Sounds Present, Soft, Non Tender, Non-Distended, No Hepato-splenomegaly, Obese Extremities: No clubbing, No cyanosis, Edema - Trace edema. Skin: No breakdown, Rash Present Lymphatic: No Cervical, Supraclavicular, or Inguinal Adenopathy Neurological: Cranial nerves II-XII grossly intact, Motor Exam 5/5 strength throughout Psych/Mental Status: Normal Affect, Appropriate, Alert and oriented to time, place, person, mood and affect. This note was generated with [employer] software. It may contain incorrect words, spelling, and punctuation that were not noted in checking the note before signing. - Physical Exam Vital Signs Temp Pulse Resp BP Pulse Ox 99.0 F 77 16 158/79 H 97 07/16/19 09:36 07/16/19 10:08 07/16/19 09:36 07/16/19 09:36 07/16/19 09:36 Oxygen Delivery Method Room Air Weight: 246 lb 7.629 oz Body Mass Index (BMI) 39.7 Intake and Output for Last 24 Hours 07/14/19 07/15/19 07/16/19 23:59 23:59 23:59 Intake Total 651.25 / 851.25 820 / 820 100 / 100 Output Total 1150 / 1375 900 / 1175 675 / 675 Balance -498.75 / -523.75 -80 / -355 -575 / -575 Microbiology Past 72 Hours 07/14/19 16:15 Urine Culture - Preliminary Urine Catheter - Ojeda Culture exhibits no growth. 07/10/19 16:20 Blood Culture - Final Blood Culture (Wb) - Anticubital Left No growth in 5 days. 07/10/19 15:20 Blood Culture - Final Blood Culture (Wb) - Anticubital Left No growth in 5 days. Laboratory Tests Past 24 Hrs 07/16/19 07/16/19 05:25 05:25 WBC 11.4 H RBC 3.77 L Hgb 10.3 L Hct 34.6 L MCV 91.8 MCH 27.3 MCHC 29.8 L RDW Std Deviation 53.0 H RDW Coeff of Chrissy 15.9 H Plt Count 197 MPV 11.4 Immature Gran % (Auto) 0.600 Neut % (Auto) 77.5 H Lymph % (Auto) 9.5 L [place] % (Auto) 6.2 Eos % (Auto) 6.0 H Baso % (Auto) 0.2 Absolute Neuts (auto) 8.9 H Absolute Lymphs (auto) 1.09 Nucleated RBC % 0 Sodium 143 Potassium 3.9 Chloride 115 H Carbon Dioxide 17.0 L Anion Gap 11 BUN 68 H Creatinine 2.82 H Estim Creat Clear Calc 16.63 Est GFR (MDRD) Af Amer 21 L Est GFR (MDRD) Non-Af 17 L BUN/Creatinine Ratio 24.1 H Glucose 81 Calcium 7.6 L POC Glucose 07/16/19 07/16/19 07/15/19 11:23 06:57 21:53 POC Glucose 132 H 77 102 07/15/19 07/15/19 16:31 11:47 POC Glucose 138 H 113 H Disposition: Custodial facility Minutes spent on discharge:: 32 Patient Condition:: Stable Meaningful Use Info Meaningful Use Diagnoses (Choose all that apply): None applicable Code Visit Inpatient E&M: 29861 Disch Hosp
[2019-07-16 11:41] LABS: Bedside Glucose 132 mg/dL (70-110)
--- NOTE | 2019-07-16 13:17 | PN.RENAL_ITS ---
Subjective: No new complaints - Physical Exam General: Alert, Oriented x3, Cooperative HEENT: Atraumatic, PERRLA, EOMI, Normocephalic Neck: Supple, No JVD, Negative Carotid Bruits Lungs: Clear to auscultation, Normal air movement Cardiovascular: Regular rate, No murmurs Abdomen: Bowel Sounds Present, Soft, Non Tender Extremities: No edema, Capillary Refill Less than 3 Seconds Skin: No rashes, No breakdown Musculoskeletal: No Tenderness to Palpation of Joints or Extremities Neurological: Cranial nerves II-XII grossly intact Psych/Mental Status: Normal Affect, Appropriate Vital Signs Temp Pulse Resp BP Pulse Ox 99.0 F 77 16 158/79 H 97 07/16/19 09:36 07/16/19 10:08 07/16/19 09:36 07/16/19 09:36 07/16/19 09:36 Oxygen Delivery Method Room Air Weight: 111.8 kg Body Mass Index (BMI) 39.7 Intake and Output for Last 24 Hours 07/14/19 07/15/19 07/16/19 23:59 23:59 23:59 Intake Total 651.25 / 851.25 820 / 820 100 / 100 Output Total 1150 / 1375 900 / 1175 1025 / 1025 Balance -498.75 / -523.75 -80 / -355 -925 / -925 Microbiology Past 72 Hours 07/14/19 16:15 Urine Culture - Preliminary Urine Catheter - Ojeda Culture exhibits no growth. 07/10/19 16:20 Blood Culture - Final Blood Culture (Wb) - Anticubital Left No growth in 5 days. 07/10/19 15:20 Blood Culture - Final Blood Culture (Wb) - Anticubital Left No growth in 5 days. Laboratory Tests Past 24 Hrs 07/16/19 07/16/19 05:25 05:25 WBC 11.4 H RBC 3.77 L Hgb 10.3 L Hct 34.6 L MCV 91.8 MCH 27.3 MCHC 29.8 L RDW Std Deviation 53.0 H RDW Coeff of Chrissy 15.9 H Plt Count 197 MPV 11.4 Immature Gran % (Auto) 0.600 Neut % (Auto) 77.5 H Lymph % (Auto) 9.5 L [place] % (Auto) 6.2 Eos % (Auto) 6.0 H Baso % (Auto) 0.2 Absolute Neuts (auto) 8.9 H Absolute Lymphs (auto) 1.09 Nucleated RBC % 0 Sodium 143 Potassium 3.9 Chloride 115 H Carbon Dioxide 17.0 L Anion Gap 11 BUN 68 H Creatinine 2.82 H Estim Creat Clear Calc 16.63 Est GFR (MDRD) Af Amer 21 L Est GFR (MDRD) Non-Af 17 L BUN/Creatinine Ratio 24.1 H Glucose 81 Calcium 7.6 L POC Glucose 07/16/19 07/16/19 07/15/19 11:23 06:57 21:53 POC Glucose 132 H 77 102 07/15/19 16:31 POC Glucose 138 H Medical Necessity - Tobacco Use Smoking Status: Never smoker Tobacco Use: Non-smoker Assessment/Plan All Active Problems IZA (acute kidney injury) (Acute) UTI (urinary tract infection) (Acute) Frequent falls (Acute) Declining functional status (Acute) IZA CKD stage 3 Baseline creatinine is around 1.5 or so. IZA ? ATN Creatinine is about the same as yesterday. Overall stable but still higher than baseline. Discharge today. Will arrange labs later this week
== END 2019-07-16 16:00 | disposition skilled nursing facility (03) | DRG 689 ==
LOC: ED 17:23 → MS3 17:45
PROVIDERS: Emergency Medicine; Family Medicine; Internal Medicine; Nurse Practitioner Family; Admitting Provider Hospitalist; Emergency Provider Emergency Medicine; Family Provider Student in an Organized Health Care Education/Training Program; PCP Student in an Organized Health Care Education/Training Program; Visit Provider Hospitalist
DX: N30.00 Acute cystitis without hematuria (principal); N17.0 Acute kidney failure with tubular necrosis; E87.0 Hyperosmolality and hypernatremia; I13.0 Hypertensive heart and chronic kidney disease with heart failure and stage 1 through stage 4 chronic kidney disease, or unspecified chronic kidney disease; E87.2 Acidosis; R91.1 Solitary pulmonary nodule; N18.3 Chronic kidney disease, stage 3 (moderate); E11.22 Type 2 diabetes mellitus with diabetic chronic kidney disease; B96.20 Unspecified Escherichia coli [E. coli] as the cause of diseases classified elsewhere; E11.42 Type 2 diabetes mellitus with diabetic polyneuropathy; R53.81 Other malaise; G89.29 Other chronic pain; E78.5 Hyperlipidemia, unspecified; D64.9 Anemia, unspecified; M54.9 Dorsalgia, unspecified; B96.1 Klebsiella pneumoniae [K. pneumoniae] as the cause of diseases classified elsewhere; Z79.4 Long term (current) use of insulin; Z68.39 Body mass index [BMI] 39.0-39.9, adult; R29.6 Repeated falls; E66.01 Morbid (severe) obesity due to excess calories; I50.9 Heart failure, unspecified; L89.151 Pressure ulcer of sacral region, stage 1; R21 Rash and other nonspecific skin eruption; L29.9 Pruritus, unspecified
CPT/HCPCS: 36415; 70450; 71046; 71250; 76770; 80048; 81001; 82570; 82962; 83605; 83735; 83880; 84300; 84484; 85025; 85027; 85610; 87040; 87077; 87086; 87088; 87186; 97110; 97162; 97166; 97530; 97535; 97802; 99285; J7030; J7040; A4216; J1940; J2405

== ENCOUNTER 2019-07-16 16:28 | Inpatient (IN) | payer MEDICARE, SELFPAY ==
[2019-07-10 18:26] VITALS: BMI 39.7
[2019-07-16 16:47] VITALS: BP 140/55; PULSE 69; RESP 18; TEMP 36.8; O2SAT 98
[2019-07-16 17:43] VITALS: BMI 40.8
[2019-07-16 17:47] VITALS: BMI 40.8
--- NOTE | 2019-07-16 18:09 | NURSING ---
DISCUSSED CODE STATUS WITH R' AND , WISHES TO BE DNR-CC. PAPER SIGNED AND PURPLE BRACELET APPLIED.
[2019-07-16 18:10] VITALS: PULSE 69
[2019-07-16] MEDS: Smz/Tmp Ds Tablet 0.5 TABLET PO (18:10)
[2019-07-16] MEDS: Metoprolol Tartrate 25 MG Tablet PO (18:10)
[2019-07-16] MEDS: Pravastatin 40 MG Tablet PO (19:45)
--- NOTE | 2019-07-16 20:41 | HP.PCM_ITS ---
Problem List (1) Weakness Status: Acute (2) Falls Status: Acute (3) Lung mass Status: Chronic (4) Chronic kidney disease Status: Chronic (5) Diabetic polyneuropathy Status: Chronic (6) Allergic rhinitis Status: Chronic (7) Hyperlipidemia Status: Chronic (8) IZA (acute kidney injury) Status: Acute (9) UTI (urinary tract infection) Status: Acute (10) Debility Status: Chronic (11) Hypertension Status: Chronic Qualifiers: (12) Type 2 diabetes mellitus Status: Chronic History of Present Illness Date of Admission: 07/16/19 Chief Complaint: Here for rehabilitation, strenghthening, prior to disharge home with spouse. The patient is a 74 year old Female with below past medical history presented to [facility] Emergency Department 07/10/2019 with generalized weakness. 07/10/2019 CT head showed chronic involutional changes of brain. 07/10/2019 Chest X-ray showed congestive heart failure, right middle lobe nodule 2.3CM x 1.4CM. Progressive weakness x several months. Multiple falls getting into car. Walks with cane, but needing more assistance. Chronic low back pain, lumbar epidural steroid injection 2 months prior. Elevated WBC, UA consistent with UTI. Cefepime IV given for UTI. 07/10/2019 Admit to Hospital. Blood, urine cultures sent. Cefepime IV for UTI. IV fluids, hold Metformin, Januvia for acute kidney injury. Sliding scale insulin for diabetes mellitus. 07/11/2019 CT chest no CHF, right upper lobe lobulated nodule 2.5CM x 1.3CM. 07/11/2019 Dr. Agosto lung nodule likely benign, no change in size over 5 years. PET scan as outpatient to finish evaluation. 07/11/2019 Previous urine culture grew E. Coli, continue IV Cefepime. Acute kidney injury improving with IV fluids. KANE wraps to bilateral lower extremities for edema. 07/12/2019 Urine culture growing E. Coli and gram negative rods, blood culture pending. Continue IV Cefepime. Cr worse, order renal ultrasound, consult nephrology. Acute CHF unlikely. Urine culture grew E. Coli, Klebsiella, IV Cefepime transitioned to Cefdinir, Patient developed rash, then Bactrim renal dose to finish course. KANE wraps to bilateral lower extremity for edema. 07/16/2019 Admit to TCU with debility, here for rehabilitation, strengthening, prior to discharge home with spouse. Past Medical History Past Medical History (Chronic Problems): Chronic Problems Lung mass (Chronic) Chronic kidney disease (Chronic) Diabetic polyneuropathy (Chronic) Allergic rhinitis (Chronic) Hyperlipidemia (Chronic) Debility (Chronic) Pulmonary nodule (Chronic) Back pain (Chronic) 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, stage 2 (Chronic) Hydronephrosis, right (Chronic) Chronic kidney disease, stage III (moderate) (Chronic) Obesity (Chronic) Peripheral neuropathy (Chronic) Hypertension (Chronic) Type 2 diabetes mellitus (Chronic) Allergies adhesive Allergy (Verified 07/10/19 13:36) Rash amoxicillin [From Augmentin] Allergy (Verified 07/10/19 13:36) Unknown carvedilol Allergy (Verified 07/10/19 13:36) Unknown ceftriaxone [From Rocephin] Allergy (Verified 07/10/19 13:36) Unknown chlorthalidone Allergy (Verified 07/10/19 13:36) Unknown ciprofloxacin Allergy (Verified 07/10/19 13:36) Rash clavulanic acid [From Augmentin] Allergy (Verified 07/10/19 13:36) Unknown doxycycline Allergy (Verified 07/10/19 13:36) Unknown fexofenadine Allergy (Verified 07/10/19 13:36) Unknown gatifloxacin [From Tequin] Allergy (Verified 07/10/19 13:36) Unknown hydrochlorothiazide Allergy (Verified 07/10/19 13:36) Unknown lisinopril Allergy (Verified 07/10/19 13:36) Unknown losartan Allergy (Verified 07/10/19 13:36) Unknown Penicillins Allergy (Verified 07/10/19 13:36) Rash pramipexole Allergy (Verified 07/10/19 13:36) Unknown Quinolones Allergy (Verified 07/10/19 13:36) Unknown ropinirole Allergy (Verified 07/10/19 13:36) Unknown aspirin Adverse Reaction (Verified 07/10/19 13:36) Vomiting Home Medications: Ambulatory Orders Medication Instructions Recorded Amlodipine [Norvasc] 10 mg PO DAILY 07/25/17 Insulin Glargine [Lantus SoloStar 34 units SQ DAILY 07/25/17 Pen] Metoprolol Tartrate [Lopressor 25 mg PO BID 07/25/17 (beta beau)] Sitagliptin Phosphate [Januvia] 100 mg PO DAILY 07/25/17 Loratadine 10 mg PO DAILY 07/10/19 Metformin HCl 500 mg PO BIDCM 07/10/19 Oxycodone HCl/Acetaminophen 1 tab PO Q8H PRN PRN 07/10/19 [Oxycodone-Acetaminophen 10-325] Pravastatin Sodium 40 mg PO DAILY 07/10/19 Pregabalin [Lyrica] 50 mg PO 4X/DAY 07/10/19 Menthol/Lanolin/Calamine/Znox 1 applic TOPICAL BID PRN tube 07/16/19 [Calmoseptine Ointment] Smz/Tmp Ds [Bactrim Ds] 0.5 tab PO BID 07/16/19 Surgical History: appendectomy, cholecystectomy, gastric bypass - 2003, - - Patient has undergone right ankle surgery and left wrist surgery. In addition, she has recently undergone cystoscopy with right retrograde pyelogram and laser ablation of kidney stones with placement of a ureteral stent. Patient is a Ab0. 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 Denies: Chills, Fever, Weight Change HEENT: Denies: Head Aches, Sinus Congestion, Sinus Drainage Cardiovascular: Denies: Chest Pain, Palpitations Respiratory: Denies: Cough, Shortness of breath at rest, Sputum production Gastrointestinal: Denies: Abdominal Pain, Nausea, Vomiting Genitourinary: Denies: Dysuria Musculoskeletal: Denies: Joint Pain, Joint Tenderness Skin: Denies: Rash, Wounds Neurological: Denies: Numbness, Tingling, Focal weakness Psychiatric: Denies: Anxiety, Depression, Homicidal Ideations, Suicidal Ideations Hematologic/ Lymphatic: Denies: Easy Bruising, Easy Bleeding VTE Information - Inpt Only VTE Present on Admission: No VTE Mechan Device Prophylaxis: Knee High LEBRON Hose VTE Pharm Prophylaxis ordered?: Yes Patient Problems: Active and Suspected Problems Weakness (Acute) Falls (Acute) - Physical Exam General: Alert, Oriented x3, Cooperative HEENT: Atraumatic, PERRLA, EOMI, Normocephalic Neck: Supple, No JVD, Negative Carotid Bruits Lungs: Clear to auscultation, Normal air movement Cardiovascular: Regular rate, No murmurs Abdomen: Bowel Sounds Present, Soft, Non Tender Extremities: No edema, Capillary Refill Less than 3 Seconds Skin: No rashes, No breakdown Musculoskeletal: No Tenderness to Palpation of Joints or Extremities Neurological: Cranial nerves II-XII grossly intact Psych/Mental Status: Normal Affect, Appropriate Vital Signs Temp Pulse Resp BP Pulse Ox 98.3 F 69 18 140/55 H 98 07/16/19 16:47 07/16/19 18:10 07/16/19 16:47 07/16/19 16:47 07/16/19 16:47 Oxygen Delivery Method Room Air Weight: 115.2 kg Body Mass Index (BMI) 40.8 Intake and Output for Last 24 Hours 07/14/19 07/15/19 07/16/19 23:59 23:59 23:59 Intake Total 240 / 240 Balance 240 / 240 Assessment/Plan All Active Problems Weakness (Acute) Falls (Acute) IZA (acute kidney injury) (Acute) UTI (urinary tract infection) (Acute) Frequent falls (Acute) Declining functional status (Acute) 74 year old female with below past medical history hospitalized for weakness secondary to E. Coli, Klebsiella UTI, complicated by acute kidney injury, right middle lobe lung mass, allergic reaction to Cefdinir, admitted to TCU with debility, here for rehabilitation, strengthening, prior to discharge home with spouse. * Debility - PT/OT. * Pain - Tylenol 1000MG Q6H PRN mild pain, Oxycodone 10MG Q8H PRN moderate pain. * Bowel - Miralax 17GM daily, Senna/colace 2 tablets BID, Dulcolax 10MG ND daily PRN. * Pneumonia vaccination - Administer Prevnar 13 and/or Pneumovax 23 as necessar. * DVT prophylaxis - Lovenox 30MG SC daily. * Hypertension - Metoprolol 25MG BID, Amlodipine 10MG daily. * Nutrition - Glucerna shake 120ML PO TID. * Diabetes Mellitus II - Lantus 34 units daily, Tradjenta 5MG daily. * Allergic rhinitis - Loratadine 10MG daily. * Skin irritation - Calmoseptine BID PRN. * Hyperlipidemia - Pravastatin 80MG QHS. * Diabetic polyneuropathy - Lyrica 50MG daily. * E. Coli, Klebsiella UTI - Bactrim DS 1/2 tablet BID thru 07/18/2019. * Acute on chronic kidney disease - follow BMP. * Right middle lobe lung mass - order PET scan, follow up with Dr. Agosto.
[2019-07-16] MEDS: oxyCODONE 5 MG Tablet 10 MG PO (20:47)
[2019-07-16 21:11] LABS: Bedside Glucose 162 mg/dL (70-110)
[2019-07-17 06:08] LABS: Absolute Lymphocyte Count 1.64 X10^3/uL (0.83-4.51); Basophil# 0.01 X10^3/uL; Basophil% 0.1 % (0-1); Eosinophil# 0.63 X10^3/uL; Eosinophils% 6.2 % (0-5); Hematocrit 31.3 % (37-47); Hemoglobin 9.4 g/dL (12.0-15.0); Lymphocyte # 1.64 X10^3/ul (4.0); Lymphocyte % 16.2 % (19-41); Mean Corpuscular Hgb 27.6 pg (27.0-32.0); Mean Corpuscular Volume 91.8 fL (81-99); Mean Platelet Vol. 11.3 fl (6.2-12.0); Monocyte# 0.84 X10^3/uL; Monocyte% 8.3 % (0-10); NRBC Flagged by Analyzer 0 % (0-5); Neutrophil # 6.96 X10^3/uL (2.7-7.7); Neutrophil % 68.5 % (47-70); Platelet Count 187 K/mm3 (150-450); RBC Distribution Width CV 15.9 % (11.6-14.6); RBC Distribution Width SD 52.9 fl (35.1-43.9); Red Blood Count 3.41 M/mm3 (4.2-5.4); White Blood Count 10.2 K/mm3 (4.4-11.0)
[2019-07-17] MEDS: Polyethylene Glycol 3350 17 GM PACKET PO (06:14)
[2019-07-17] MEDS: Nystatin Powder 15gm Bottle 1 APPLIC TOPICAL ×2 (06:16→20:45)
[2019-07-17] MEDS: amLODIPine 5 MG Tablet 10 MG PO (06:16)
[2019-07-17] MEDS: LINAGLIPTIN 5 MG TABLET PO (06:16)
[2019-07-17] MEDS: Senna/Docusate Sodium 1 Tablet 2 TABLET PO ×2 (06:16→16:53)
[2019-07-17] MEDS: Loratadine 10 MG Tablet PO (06:16)
[2019-07-17 06:18] VITALS: BP 165/54; PULSE 75
[2019-07-17] MEDS: Metoprolol Tartrate 25 MG Tablet PO ×2 (06:18→16:52)
[2019-07-17] MEDS: Enoxaparin 30 MG/0.3 ML Syringe SC (06:18)
[2019-07-17] MEDS: Pregabalin 50 MG Capsule PO (06:18)
[2019-07-17 06:22] LABS: Anion Gap 10 (5-15); BUN 70 mg/dL (7-18); BUN/Creat Ratio 25.9 RATIO (10-20); Calcium,Total 7.5 mg/dL (8.5-10.1); Chloride 118 mmol/L (98-107); EST Glomerular Filtration Rate 18 mL/min (>60); Est Glom Filt Rate - Afr Amer 22 mL/min (>60); Estimated Creatinine Clearance 17.37 ml/min; Glucose 65 mg/dL (74-106); Potassium 4.2 mmol/L (3.5-5.1); Sodium Level 145 mmol/L (136-145)
[2019-07-17 06:31] LABS: Bedside Glucose 65 mg/dL (70-110)
[2019-07-17] MEDS: Acetaminophen 500 MG Tablet 1000 MG PO ×2 (06:34→14:57)
--- NOTE | 2019-07-17 06:56 | NURSING ---
Am blood sugar 65, OJ administered recheck 88. Pt scheduled Lantus, will update Dr Dong.
[2019-07-17 07:01] LABS: Bedside Glucose 88 mg/dL (70-110)
[2019-07-17 07:02] VITALS: O2SAT 94
[2019-07-17 07:16] LABS: Bedside Glucose 130 mg/dL (70-110)
[2019-07-17] MEDS: oxyCODONE 5 MG Tablet 10 MG PO ×2 (07:35→15:06)
[2019-07-17] MEDS: Smz/Tmp Ds Tablet 0.5 TABLET PO ×2 (08:45→16:53)
[2019-07-17] MEDS: Glucerna Shake 120 ML LIQUID PO (08:46)
[2019-07-17 12:05] LABS: Bedside Glucose 131 mg/dL (70-110)
[2019-07-17] MEDS: Tuberculin,Purif.prot.deriv. 50 TU/ML Vial 5 ML ID (14:52)
[2019-07-17] MEDS: Hydrocortisone 2.5% Crm 1 APPLIC TOPICAL ×2 (15:07→20:43)
[2019-07-17 16:00] VITALS: BP 143/54; PULSE 74; RESP 20; TEMP 36.4; O2SAT 92
[2019-07-17 16:52] VITALS: BP 143/54; PULSE 74
[2019-07-17 17:11] LABS: Bedside Glucose 201 mg/dL (70-110)
[2019-07-17] MEDS: Pravastatin 40 MG Tablet PO (20:41)
[2019-07-17 21:11] LABS: Bedside Glucose 247 mg/dL (70-110)
[2019-07-18] MEDS: oxyCODONE 5 MG Tablet 10 MG PO ×2 (00:26→11:42)
[2019-07-18] MEDS: Senna/Docusate Sodium 1 Tablet 2 TABLET PO (06:11)
[2019-07-18] MEDS: LINAGLIPTIN 5 MG TABLET PO (06:11)
[2019-07-18] MEDS: amLODIPine 5 MG Tablet 10 MG PO (06:11)
[2019-07-18] MEDS: Loratadine 10 MG Tablet PO (06:11)
[2019-07-18] MEDS: Pregabalin 50 MG Capsule PO (06:11)
[2019-07-18] MEDS: Polyethylene Glycol 3350 17 GM PACKET PO (06:11)
[2019-07-18] MEDS: Enoxaparin 30 MG/0.3 ML Syringe SC (06:11)
[2019-07-18 06:12] VITALS: BP 175/59; PULSE 79
[2019-07-18] MEDS: Metoprolol Tartrate 25 MG Tablet PO ×2 (06:12→17:18)
[2019-07-18] MEDS: Nystatin Powder 15gm Bottle 1 APPLIC TOPICAL ×2 (06:18→20:28)
[2019-07-18 06:25] LABS: Bedside Glucose 107 mg/dL (70-110)
[2019-07-18 07:25] VITALS: O2SAT 90
[2019-07-18] MEDS: Smz/Tmp Ds Tablet 0.5 TABLET PO ×2 (07:38→17:18)
[2019-07-18] MEDS: Iron Polysaccharide Complex 150 MG CAPSULE PO (07:39)
[2019-07-18 10:56] LABS: Bedside Glucose 90 mg/dL (70-110)
[2019-07-18] MEDS: Hydrocortisone 2.5% Crm 1 APPLIC TOPICAL ×2 (11:39→20:25)
[2019-07-18] MEDS: Menthol/Lanolin/Calamine/Znox 113 GM Tube 1 APPLIC TOPICAL (11:39)
[2019-07-18 15:34] VITALS: BP 155/43; PULSE 79; RESP 20; TEMP 36.7; O2SAT 98
--- NOTE | 2019-07-18 15:58 | PCM.PN.RX ---
<RoselyndrewRomi - Last Filed: 07/18/19 15:58> Progress Note - Pharmacy Subjective: TCU Admission Objective: Allergies adhesive Allergy (Verified 07/10/19 13:36) Rash amoxicillin [From Augmentin] Allergy (Verified 07/10/19 13:36) Unknown carvedilol Allergy (Verified 07/10/19 13:36) Unknown ceftriaxone [From Rocephin] Allergy (Verified 07/10/19 13:36) Unknown chlorthalidone Allergy (Verified 07/10/19 13:36) Unknown ciprofloxacin Allergy (Verified 07/10/19 13:36) Rash clavulanic acid [From Augmentin] Allergy (Verified 07/10/19 13:36) Unknown doxycycline Allergy (Verified 07/10/19 13:36) Unknown fexofenadine Allergy (Verified 07/10/19 13:36) Unknown gatifloxacin [From Tequin] Allergy (Verified 07/10/19 13:36) Unknown hydrochlorothiazide Allergy (Verified 07/10/19 13:36) Unknown lisinopril Allergy (Verified 07/10/19 13:36) Unknown losartan Allergy (Verified 07/10/19 13:36) Unknown Penicillins Allergy (Verified 07/10/19 13:36) Rash pramipexole Allergy (Verified 07/10/19 13:36) Unknown Quinolones Allergy (Verified 07/10/19 13:36) Unknown ropinirole Allergy (Verified 07/10/19 13:36) Unknown aspirin Adverse Reaction (Verified 07/10/19 13:36) Vomiting Current Medications Generic Name Dose Route Start Last Admin Trade Name Freq PRN Reason Stop Dose Admin Acetaminophen 1,000 mg 07/16/19 20:59 07/17/19 14:57 Tylenol PO 1,000 mg Q6H PRN PRN Administration MILD PAIN (1-3/10) Amlodipine Besylate 10 mg 07/17/19 06:00 07/18/19 06:11 Norvasc PO 10 mg DAILY CESIA Administration Bisacodyl 10 mg 07/16/19 16:55 Dulcolax RECTAL DAILY PRN Constipation Calamine/Phenol 1 applic 07/16/19 16:52 07/18/19 11:39 Calmoseptine Ointment TOPICAL 1 applicatio BID PRN Administration ANAL/RECTAL IRRITATIONS Protocol Emollient Ointment 1 applic 07/17/19 22:00 07/17/19 20:44 Eucerin Intensive Repair TOPICAL 1 applicatio QHS CESIA Administration Protocol Enoxaparin Sodium 30 mg 07/17/19 06:00 07/18/19 06:11 Lovenox SC 30 mg DAILY@0600 CESIA Administration Hydrocortisone 1 applic 07/17/19 13:08 07/18/19 11:39 Hytone TOPICAL 1 applicatio BID PRN PRN Administration RASH/TOPICAL IRRITATION Protocol Insulin Glargine 10 units 07/18/19 06:00 07/18/19 06:12 Lantus (Bkc) SC 10 u DAILY CESIA Administration Linagliptin 5 mg 07/17/19 06:00 07/18/19 06:11 Tradjenta PO 5 mg DAILY CESIA Administration Loratadine 10 mg 07/17/19 06:00 07/18/19 06:11 Claritin PO 10 mg DAILY CESIA Administration Metoprolol Tartrate 25 mg 07/16/19 18:00 07/18/19 06:12 Lopressor (Beta Allie) PO 25 mg BID CESIA Administration Nystatin 1 applic 07/17/19 06:00 07/18/19 06:18 Mycostatin Powder TOPICAL 1 applicatio 0600,2200 CESIA Administration Protocol Oxycodone HCl 10 mg 07/17/19 13:09 07/18/19 11:42 Oxyir PO 10 mg Q4H PRN PRN Administration MODERATE PAIN (4-5/10) Polyethylene Glycol 17 gm 07/17/19 06:00 07/18/19 06:11 Miralax PO 17 gm DAILY CESIA Administration Polysaccharide Iron Complex 150 mg 07/18/19 08:00 07/18/19 07:39 Ferrex 150 PO 150 mg DAILYCM CESIA Administration Pravastatin Sodium 40 mg 07/16/19 22:00 07/17/19 20:41 Pravachol PO 40 mg QHS CESIA Administration Pregabalin 50 mg 07/17/19 06:00 07/18/19 06:11 Lyrica PO 50 mg DAILY CESIA Administration Senna/Docusate Sodium 2 tablet 07/17/19 06:00 07/18/19 06:11 Senokot-S, Jessica-Colace PO 2 tablet BID CESIA Administration Trimethoprim/Sulfamethoxazole 0.5 tablet 07/16/19 17:00 07/18/19 07:38 Bactrim Ds PO 07/18/19 17:01 0.5 tablet BIDCM CESIA Administration Tuberculin PPD 5 tu 07/24/19 10:00 Tubersol, Aplisol, Ppd ID 07/24/19 10:01 X1 ONE Problem List Weakness (Acute) Falls (Acute) Lung mass (Chronic) Chronic kidney disease (Chronic) Diabetic polyneuropathy (Chronic) Allergic rhinitis (Chronic) Hyperlipidemia (Chronic) Vital Signs Temp Pulse Resp BP Pulse Ox 98.1 F 79 20 H 155/43 H 98 07/18/19 15:34 07/18/19 15:34 07/18/19 15:34 07/18/19 15:34 07/18/19 15:34 Oxygen Delivery Method Room Air Weight: 115.2 kg Body Mass Index (BMI) 40.8 Sodium 145 mmol/L (136-145) 07/17/19 05:30 Potassium 4.2 mmol/L (3.5-5.1) 07/17/19 05:30 Chloride 118 mmol/L (98-107) H 07/17/19 05:30 Carbon Dioxide 17.0 mmol/L (21.0-32.0) L 07/17/19 05:30 Anion Gap 10 (5-15) 07/17/19 05:30 BUN 70 mg/dL (7-18) H 07/17/19 05:30 Creatinine 2.70 mg/dL (0.55-1.02) H 07/17/19 05:30 Est GFR (MDRD) Af Amer 22 mL/min (>60) L 07/17/19 05:30 Est GFR (MDRD) Non-Af 18 mL/min (>60) L 07/17/19 05:30 BUN/Creatinine Ratio 25.9 RATIO (10-20) H 07/17/19 05:30 Glucose 65 mg/dL (74-106) L 07/17/19 05:30 Assessment/Plan: 1. E. coli/Klebsiella UTI: sulfamethoxazole/trimethoprim DS 0.5T PO BIDCM (last dose today 07/18/19). Please continue to monitor for signs of infection. 2. Pain: acetaminophen 1000mg PO Q6H mild pain (1-3/10), oxycodone 10mg PO Q8H PRN moderate pain (4-5/10). Please continue to monitor for increased pain and continued PRN usage. 3. Hypertension: amlodipine 10mg PO daily and metoprolol tartrate 25mg PO BID. Please continue to monitor BP and decreased HR. 4. DVT prophylaxis: enoxaparin 30mg SC daily. Please continue to monitor S/S bleeding, platelets and renal function. *5. Type II diabetes mellitus: insulin glargine 10units SC daily and linagliptin 5mg PO daily. Please continue to monitor POC glucose readings and S/S hypoglycemia. Last HbA1c was in 2017. Please consider drawing an A1c now and then every 3 months as appropriate. *6. Hyperlipidemia: pravastatin 80 mg PO QHS. Could not find a lipid panel in the EMR. Please consider drawing a lipid panel now and then annually as appropriate. ALT/AST WNL and appropriate for continued use. Please continue to monitor for S/S of muscle pain. 7. Diabetic neuropathy: pregabalin 50mg PO daily. Please continue to monitor renal function and signs of confusion. 8. Allergic rhinitis: loratadine 10mg PO daily. Please continue to monitor for S/S of allergic rhinitis. Psychotropic Medications: None Unnecessary Medications: Ferrex 150mg PO DAILYCM. Could not find an indication for this. Please consider D/C if clinically appropriate. Bowel Regimen: Miralax 17gm PO daily, senna/docusate 2T PO BID, bisacodyl suppository 10mg AL daily PRN constipation. Please continue to monitor for constipation and increased PRN use. Date of Note:: 07/18/19 - Provider Comments Provider responsibility: Provider responsible to enter orders to implement recommendations <Fab Dong Chi - Last Filed: 07/18/19 17:31> Progress Note - Pharmacy Subjective: [] Objective: Allergies adhesive Allergy (Verified 07/10/19 13:36) Rash amoxicillin [From Augmentin] Allergy (Verified 07/10/19 13:36) Unknown carvedilol Allergy (Verified 07/10/19 13:36) Unknown ceftriaxone [From Rocephin] Allergy (Verified 07/10/19 13:36) Unknown chlorthalidone Allergy (Verified 07/10/19 13:36) Unknown ciprofloxacin Allergy (Verified 07/10/19 13:36) Rash clavulanic acid [From Augmentin] Allergy (Verified 07/10/19 13:36) Unknown doxycycline Allergy (Verified 07/10/19 13:36) Unknown fexofenadine Allergy (Verified 07/10/19 13:36) Unknown gatifloxacin [From Tequin] Allergy (Verified 07/10/19 13:36) Unknown hydrochlorothiazide Allergy (Verified 07/10/19 13:36) Unknown lisinopril Allergy (Verified 07/10/19 13:36) Unknown losartan Allergy (Verified 07/10/19 13:36) Unknown Penicillins Allergy (Verified 07/10/19 13:36) Rash pramipexole Allergy (Verified 07/10/19 13:36) Unknown Quinolones Allergy (Verified 07/10/19 13:36) Unknown ropinirole Allergy (Verified 07/10/19 13:36) Unknown aspirin Adverse Reaction (Verified 07/10/19 13:36) Vomiting Current Medications Generic Name Dose Route Start Last Admin Trade Name Freq PRN Reason Stop Dose Admin Acetaminophen 1,000 mg 07/16/19 20:59 07/17/19 14:57 Tylenol PO 1,000 mg Q6H PRN PRN Administration MILD PAIN (1-310) Amlodipine Besylate 10 mg 07/17/19 06:00 07/18/19 06:11 Norvasc PO 10 mg DAILY CESIA Administration Bisacodyl 10 mg 07/16/19 16:55 Dulcolax RECTAL DAILY PRN Constipation Calamine/Phenol 1 applic 07/16/19 16:52 07/18/19 11:39 Calmoseptine Ointment TOPICAL 1 applicatio BID PRN Administration ANAL/RECTAL IRRITATIONS Protocol Emollient Ointment 1 applic 07/17/19 22:00 07/17/19 20:44 Eucerin Intensive Repair TOPICAL 1 applicatio QHS CESIA Administration Protocol Enoxaparin Sodium 30 mg 07/17/19 06:00 07/18/19 06:11 Lovenox SC 30 mg DAILY@0600 CESIA Administration Hydrocortisone 1 applic 07/17/19 13:08 07/18/19 11:39 Hytone TOPICAL 1 applicatio BID PRN PRN Administration RASH/TOPICAL IRRITATION Protocol Insulin Glargine 10 units 07/18/19 06:00 07/18/19 06:12 Lantus (Bkc) SC 10 u DAILY CESIA Administration Linagliptin 5 mg 07/17/19 06:00 07/18/19 06:11 Tradjenta PO 5 mg DAILY CESIA Administration Loratadine 10 mg 07/17/19 06:00 07/18/19 06:11 Claritin PO 10 mg DAILY CESIA Administration Metoprolol Tartrate 25 mg 07/16/19 18:00 07/18/19 17:18 Lopressor (Beta Allie) PO 25 mg BID CESIA Administration Nystatin 1 applic 07/17/19 06:00 07/18/19 06:18 Mycostatin Powder TOPICAL 1 applicatio 0600,2200 CESIA Administration Protocol Oxycodone HCl 10 mg 07/17/19 13:09 07/18/19 11:42 Oxyir PO 10 mg Q4H PRN PRN Administration MODERATE PAIN (4-5/10) Polyethylene Glycol 17 gm 07/17/19 06:00 07/18/19 06:11 Miralax PO 17 gm DAILY CESIA Administration Polysaccharide Iron Complex 150 mg 07/18/19 08:00 07/18/19 07:39 Ferrex 150 PO 150 mg DAILYCM CESIA Administration Pravastatin Sodium 40 mg 07/16/19 22:00 07/17/19 20:41 Pravachol PO 40 mg QHS CESIA Administration Pregabalin 50 mg 07/17/19 06:00 07/18/19 06:11 Lyrica PO 50 mg DAILY CESIA Administration Senna/Docusate Sodium 2 tablet 07/17/19 06:00 07/18/19 17:19 Senokot-S, Jessica-Colace PO Not Given BID [facility] Tuberculin PPD 5 tu 07/24/19 10:00 Tubersol, Aplisol, Ppd ID 07/24/19 10:01 X1 ONE Problem List Weakness (Acute) Falls (Acute) Lung mass (Chronic) Chronic kidney disease (Chronic) Diabetic polyneuropathy (Chronic) Allergic rhinitis (Chronic) Hyperlipidemia (Chronic) Vital Signs Temp Pulse Resp BP Pulse Ox 98.1 F 79 20 H 155/43 H 98 07/18/19 15:34 07/18/19 17:18 07/18/19 15:34 07/18/19 17:18 07/18/19 15:34 Oxygen Delivery Method Room Air Weight: 115.2 kg Body Mass Index (BMI) 40.8 Sodium 145 mmol/L (136-145) 07/17/19 05:30 Potassium 4.2 mmol/L (3.5-5.1) 07/17/19 05:30 Chloride 118 mmol/L (98-107) H 07/17/19 05:30 Carbon Dioxide 17.0 mmol/L (21.0-32.0) L 07/17/19 05:30 Anion Gap 10 (5-15) 07/17/19 05:30 BUN 70 mg/dL (7-18) H 07/17/19 05:30 Creatinine 2.70 mg/dL (0.55-1.02) H 07/17/19 05:30 Est GFR (MDRD) Af Amer 22 mL/min (>60) L 07/17/19 05:30 Est GFR (MDRD) Non-Af 18 mL/min (>60) L 07/17/19 05:30 BUN/Creatinine Ratio 25.9 RATIO (10-20) H 07/17/19 05:30 Glucose 65 mg/dL (74-106) L 07/17/19 05:30 Assessment/Plan: Psychotropic Medications: Unnecessary Medications: Bowel Regimen: - Provider Comments Provider responsibility: Provider responsible to enter orders to implement recommendations Provider Comments to Recommendations by Pharmacy: Agree
--- NOTE | 2019-07-18 16:54 | CASEMGMT ---
Addendum entered by Chana Green 07/19/19 11:51: Continued stay approved. Next review due 07/25/19. auth # [id number]. Original Note: Insurance: Continued stay review sent to [facility] this day Auth # [id number].
[2019-07-18 16:55] LABS: Bedside Glucose 155 mg/dL (70-110)
[2019-07-18 17:18] VITALS: BP 155/43; PULSE 79
[2019-07-18] MEDS: Pravastatin 40 MG Tablet PO (20:25)
[2019-07-18 22:41] LABS: Bedside Glucose 179 mg/dL (70-110)
[2019-07-19 05:56] LABS: Bedside Glucose 128 mg/dL (70-110)
[2019-07-19 06:30] VITALS: BP 150/78; PULSE 79; RESP 16; TEMP 36.8; O2SAT 96
[2019-07-19 06:31] LABS: Cholesterol 58 mg/dL (200); High Density Lipoprotein 27 mg/dL; Triglycerides 102 mg/dL; Very Low Density Lipoprotein 20 mg/dL (5-40)
[2019-07-19] MEDS: Enoxaparin 30 MG/0.3 ML Syringe SC (06:33)
[2019-07-19 06:34] VITALS: PULSE 79
[2019-07-19] MEDS: amLODIPine 5 MG Tablet 10 MG PO (06:34)
[2019-07-19] MEDS: Metoprolol Tartrate 25 MG Tablet PO ×2 (06:34→17:33)
[2019-07-19] MEDS: Senna/Docusate Sodium 1 Tablet 2 TABLET PO (06:34)
[2019-07-19] MEDS: LINAGLIPTIN 5 MG TABLET PO (06:35)
[2019-07-19] MEDS: Loratadine 10 MG Tablet PO (06:35)
[2019-07-19] MEDS: Nystatin Powder 15gm Bottle 1 APPLIC TOPICAL ×2 (06:36→20:58)
[2019-07-19] MEDS: Pregabalin 50 MG Capsule PO (06:38)
[2019-07-19] MEDS: Iron Polysaccharide Complex 150 MG CAPSULE PO (08:43)
[2019-07-19 09:13] LABS: Hemoglobin A1c 5.6 % (4.2-6.3)
[2019-07-19] MEDS: oxyCODONE 5 MG Tablet 10 MG PO (11:42)
[2019-07-19 11:45] LABS: Bedside Glucose 152 mg/dL (70-110)
[2019-07-19 13:38] VITALS: O2SAT 97
--- NOTE | 2019-07-19 13:54 | MDS.RN ---
Pain interview for valentín 07/23/19 completed.
--- NOTE | 2019-07-19 14:44 | NURSING ---
New order to D/C [facility].
[2019-07-19 15:10] VITALS: BP 147/74; PULSE 79; RESP 18; TEMP 36.6; O2SAT 96
--- NOTE | 2019-07-19 15:57 | CASEMGMT ---
Social Work Spoke with patient and about discharge plans. Pt feels things are going well and can see further improvement and denies needing any other placement. states he handles all of the meals, chores, etc., at home already so no private duty HHC would be necessary. Pt states he used to swim at the [facility] regularly and just needs to get back to that. Explained insurance is asking for discharge plans, NRD 07/25 with anticipated DC date 07/30. Care plan meeting will be held 07/24 to discuss further progress and determine referrals needed at DC. Explained HHC vs outpatient therapy - pt to decide based off therapy recommendations at time of discharge. Inquired about [facility] application - called and received the proper documentation. Physician and SW filled out and faxed to intake center. Will await outcome if pt is eligible for resources in the community. Will continue to follow. ALLAN LopezW
[2019-07-19 17:16] LABS: Bedside Glucose 226 mg/dL (70-110)
[2019-07-19 17:33] VITALS: BP 147/74; PULSE 79
[2019-07-19] MEDS: Pravastatin 40 MG Tablet PO (20:58)
[2019-07-20 06:30] VITALS: BP 165/56; PULSE 79
[2019-07-20] MEDS: Loratadine 10 MG Tablet PO (06:30)
[2019-07-20] MEDS: amLODIPine 5 MG Tablet 10 MG PO (06:30)
[2019-07-20] MEDS: Metoprolol Tartrate 25 MG Tablet PO ×2 (06:30→17:48)
[2019-07-20] MEDS: LINAGLIPTIN 5 MG TABLET PO (06:31)
[2019-07-20] MEDS: Pregabalin 50 MG Capsule PO (06:32)
[2019-07-20] MEDS: Nystatin Powder 15gm Bottle 1 APPLIC TOPICAL ×2 (06:32→21:22)
[2019-07-20] MEDS: Enoxaparin 30 MG/0.3 ML Syringe SC (06:32)
[2019-07-20 06:41] LABS: Bedside Glucose 165 mg/dL (70-110)
[2019-07-20] MEDS: Iron Polysaccharide Complex 150 MG CAPSULE PO (08:40)
[2019-07-20] MEDS: oxyCODONE 5 MG Tablet 10 MG PO (08:40)
[2019-07-20 12:50] LABS: Bedside Glucose 200 mg/dL (70-110)
[2019-07-20 16:00] VITALS: BP 154/77; PULSE 80; RESP 18; TEMP 36.2; O2SAT 96
[2019-07-20 17:16] LABS: Bedside Glucose 244 mg/dL (70-110)
[2019-07-20 17:48] VITALS: BP 154/77; PULSE 80
[2019-07-20] MEDS: Senna/Docusate Sodium 1 Tablet 2 TABLET PO (17:48)
[2019-07-20 21:06] LABS: Bedside Glucose 249 mg/dL (70-110)
[2019-07-20] MEDS: Pravastatin 40 MG Tablet PO (21:22)
[2019-07-21 06:26] VITALS: PULSE 84
[2019-07-21 06:26] LABS: Bedside Glucose 136 mg/dL (70-110)
[2019-07-21] MEDS: LINAGLIPTIN 5 MG TABLET PO (06:26)
[2019-07-21] MEDS: Loratadine 10 MG Tablet PO (06:26)
[2019-07-21] MEDS: Metoprolol Tartrate 25 MG Tablet PO ×2 (06:26→16:24)
[2019-07-21] MEDS: amLODIPine 5 MG Tablet 10 MG PO (06:26)
[2019-07-21] MEDS: Enoxaparin 30 MG/0.3 ML Syringe SC (06:26)
[2019-07-21] MEDS: Nystatin Powder 15gm Bottle 1 APPLIC TOPICAL ×2 (06:27→21:44)
[2019-07-21] MEDS: Pregabalin 50 MG Capsule PO (06:27)
[2019-07-21] MEDS: Menthol/Lanolin/Calamine/Znox 113 GM Tube 1 APPLIC TOPICAL ×2 (06:28→21:44)
[2019-07-21] MEDS: Iron Polysaccharide Complex 150 MG CAPSULE PO (08:14)
[2019-07-21 11:36] LABS: Bedside Glucose 176 mg/dL (70-110)
[2019-07-21 12:52] VITALS: RESP 18
[2019-07-21 16:00] VITALS: BP 161/77; PULSE 85; RESP 20; TEMP 36.9; O2SAT 96
[2019-07-21 16:24] VITALS: BP 161/77; PULSE 85
[2019-07-21 16:31] LABS: Bedside Glucose 287 mg/dL (70-110)
[2019-07-21] MEDS: Pravastatin 40 MG Tablet PO (21:42)
[2019-07-21 21:51] LABS: Bedside Glucose 281 mg/dL (70-110)
[2019-07-22 06:09] VITALS: BP 178/84; PULSE 80
[2019-07-22] MEDS: Pregabalin 50 MG Capsule PO (06:09)
[2019-07-22] MEDS: Loratadine 10 MG Tablet PO (06:09)
[2019-07-22] MEDS: LINAGLIPTIN 5 MG TABLET PO (06:09)
[2019-07-22] MEDS: amLODIPine 5 MG Tablet 10 MG PO (06:09)
[2019-07-22] MEDS: Metoprolol Tartrate 25 MG Tablet PO ×2 (06:09→17:00)
[2019-07-22] MEDS: Enoxaparin 30 MG/0.3 ML Syringe SC (06:10)
[2019-07-22] MEDS: Nystatin Powder 15gm Bottle 1 APPLIC TOPICAL ×2 (06:22→21:08)
[2019-07-22] MEDS: Menthol/Lanolin/Calamine/Znox 113 GM Tube 1 APPLIC TOPICAL ×2 (06:22→21:09)
[2019-07-22 06:36] LABS: Bedside Glucose 181 mg/dL (70-110)
[2019-07-22] MEDS: Iron Polysaccharide Complex 150 MG CAPSULE PO (09:12)
[2019-07-22 11:00] LABS: Bedside Glucose 206 mg/dL (70-110)
[2019-07-22] MEDS: oxyCODONE 5 MG Tablet 10 MG PO (11:56)
--- NOTE | 2019-07-22 13:24 | CASEMGMT ---
Social Work BIMS and PHQ-9 completed for MDS assessment. Aida Monk, AUTO BODY ESTIMATOR BOTANY PROFESSOR
--- NOTE | 2019-07-22 13:24 | CASEMGMT ---
Social Work Spoke with patient and whom are requesting to DC 07/27. Discussed patient's progress so far - pt states she feels comfortable discharging home and feels he can assist with all of her needs. Suggested complete therapy training to ensure he can assist with her needs. participated today and plans to continue throughout the week. Care Plan meeting will be held 07/24 to finalize DC plans. Will continue to follow. ALLAN LopezW
[2019-07-22 15:58] VITALS: BP 154/76; PULSE 75; RESP 20; TEMP 36.6; O2SAT 97
[2019-07-22 17:00] VITALS: BP 154/76; PULSE 75
[2019-07-22 17:01] LABS: Bedside Glucose 236 mg/dL (70-110)
[2019-07-22] MEDS: Pravastatin 40 MG Tablet PO (21:06)
[2019-07-22 21:15] LABS: Bedside Glucose 250 mg/dL (70-110)
[2019-07-23 05:47] LABS: Anion Gap 8 (5-15); BUN 45 mg/dL (7-18); BUN/Creat Ratio 26.8 RATIO (10-20); Calcium,Total 7.9 mg/dL (8.5-10.1); Chloride 117 mmol/L (98-107); Creatinine, Serum 1.68 mg/dL (0.55-1.02); EST Glomerular Filtration Rate 32 mL/min (>60); Est Glom Filt Rate - Afr Amer 38 mL/min (>60); Estimated Creatinine Clearance 27.92 ml/min; Glucose 181 mg/dL (74-106); Sodium Level 144 mmol/L (136-145)
[2019-07-23] MEDS: Senna/Docusate Sodium 1 Tablet 2 TABLET PO (06:25)
[2019-07-23] MEDS: LINAGLIPTIN 5 MG TABLET PO (06:26)
[2019-07-23 06:27] VITALS: BP 191/76; PULSE 80
[2019-07-23] MEDS: Loratadine 10 MG Tablet PO (06:27)
[2019-07-23] MEDS: amLODIPine 5 MG Tablet 10 MG PO (06:27)
[2019-07-23] MEDS: Metoprolol Tartrate 25 MG Tablet PO ×2 (06:27→17:03)
[2019-07-23] MEDS: Enoxaparin 30 MG/0.3 ML Syringe SC (06:27)
[2019-07-23] MEDS: Pregabalin 50 MG Capsule PO (06:29)
[2019-07-23] MEDS: Menthol/Lanolin/Calamine/Znox 113 GM Tube 1 APPLIC TOPICAL ×2 (06:31→21:26)
[2019-07-23] MEDS: Nystatin Powder 15gm Bottle 1 APPLIC TOPICAL ×2 (06:32→21:25)
[2019-07-23 07:30] LABS: Bedside Glucose 194 mg/dL (70-110)
[2019-07-23] MEDS: Iron Polysaccharide Complex 150 MG CAPSULE PO (09:03)
[2019-07-23 11:21] LABS: Bedside Glucose 226 mg/dL (70-110)
--- NOTE | 2019-07-23 13:52 | PN.RENAL_ITS ---
Patient Problems: Active and Suspected Problems Weakness (Acute) Falls (Acute) Subjective: Patient is doing well. No nausea no vomiting. No shortness of breath She is doing well with physical therapy - Physical Exam General: Alert, Oriented x3 HEENT: Atraumatic Oral: Moist Mucosa Neck: Supple, No JVD Lungs: Clear to auscultation, Normal air movement, No rhonchi, No wheeze Cardiovascular: Regular rate, Regular Rhythm, Normal S1, Normal S2 Abdomen: Bowel Sounds Present, Soft, Non Tender Extremities: No clubbing, No cyanosis Skin: No rashes Lymphatic: No Cervical, Supraclavicular, or Inguinal Adenopathy Neurological: Cranial nerves II-XII grossly intact, Neuro grossly intact Psych/Mental Status: Appropriate Vital Signs Temp Pulse Resp BP Pulse Ox 97.9 F 80 20 H 191/76 H 97 07/22/19 15:58 07/23/19 06:27 07/22/19 15:58 07/23/19 06:27 07/22/19 15:58 Oxygen Delivery Method Room Air Weight: 114.787 kg Body Mass Index (BMI) 40.8 Intake and Output for Last 24 Hours 07/21/19 07/22/19 07/23/19 23:59 23:59 23:59 Intake Total 1440 / 1440 840 / 840 720 / 720 Balance 1440 / 1440 840 / 840 720 / 720 Laboratory Tests Past 24 Hrs 07/23/19 05:10 Sodium 144 Potassium 4.0 Chloride 117 H Carbon Dioxide 19.0 L Anion Gap 8 BUN 45 H Creatinine 1.68 H Estim Creat Clear Calc 27.92 Est GFR (MDRD) Af Amer 38 L Est GFR (MDRD) Non-Af 32 L BUN/Creatinine Ratio 26.8 H Glucose 181 H Calcium 7.9 L POC Glucose 07/23/19 07/23/19 07/22/19 11:18 07:24 21:05 POC Glucose 226 H 194 H 250 H 07/22/19 16:49 POC Glucose 236 H Medical Necessity - Tobacco Use Smoking Status: Never smoker Tobacco Use: Non-smoker Assessment/Plan All Active Problems Weakness (Acute) Falls (Acute) IZA (acute kidney injury) (Acute) UTI (urinary tract infection) (Acute) Frequent falls (Acute) Declining functional status (Acute) IZA on CKD stage 3. Baseline Cr ~ 1.5 mg/dl UA showed 30 protein, WBC and LSE IZA ATN from sepsis. FeNa >1.0% Renal US is negative for hydro Creatinine is improving. 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 Last bicarb level is 19 Monitor HC03 level 3- HTN: BP is uncontrolled. I will add hydralazine 25 mg 3 times daily. Continue same other blood pressure medications Thank you for allowing me to participate in Jenna Babin's care Renal team will continue to follow. Please call if any question at [phone] Yecenia Acosta MD
--- NOTE | 2019-07-23 13:58 | NURSING ---
New order for Hydralazine 25mg PO TID.
[2019-07-23 16:00] VITALS: BP 178/68; PULSE 74; RESP 18; TEMP 36.8; O2SAT 94
[2019-07-23 17:00] LABS: Bedside Glucose 217 mg/dL (70-110)
[2019-07-23 17:03] VITALS: BP 178/68; PULSE 74
[2019-07-23] MEDS: hydrALAZINE 25 MG Tablet PO ×2 (17:03→21:23)
[2019-07-23] MEDS: oxyCODONE 5 MG Tablet 10 MG PO (17:06)
[2019-07-23 21:11] LABS: Bedside Glucose 219 mg/dL (70-110)
[2019-07-23 21:23] VITALS: BP 151/64; PULSE 73
[2019-07-23] MEDS: Pravastatin 40 MG Tablet PO (21:23)
--- NOTE | 2019-07-23 22:54 | DCINST_ITS ---
- Discharge Diagnoses Current Active Problems: Current Active and Chronic Problems Weakness (Acute) Falls (Acute) Lung mass (Chronic) Chronic kidney disease (Chronic) Diabetic polyneuropathy (Chronic) Allergic rhinitis (Chronic) Hyperlipidemia (Chronic) You will use the following diet at home:: No restrictions, Regular Your food should be the consistency of: Regular Your liquids should be the consistency of: Regular/Thin Discharge Activity: Return to Normal Activity, May Shower, Use Walker Weight Bearing Status: Weight bearing as tolerated Call your doctor if you observe: Fever of 101 or Higher, Inability to urinate, Inability to have a bowel movement, Shortness of breath, Chest pain, Uncontrolled pain Allergies/Adverse Reactions: Allergies adhesive Allergy (Verified 07/10/19 13:36) Rash amoxicillin [From Augmentin] Allergy (Verified 07/10/19 13:36) Unknown carvedilol Allergy (Verified 07/10/19 13:36) Unknown ceftriaxone [From Rocephin] Allergy (Verified 07/10/19 13:36) Unknown chlorthalidone Allergy (Verified 07/10/19 13:36) Unknown ciprofloxacin Allergy (Verified 07/10/19 13:36) Rash clavulanic acid [From Augmentin] Allergy (Verified 07/10/19 13:36) Unknown doxycycline Allergy (Verified 07/10/19 13:36) Unknown fexofenadine Allergy (Verified 07/10/19 13:36) Unknown gatifloxacin [From Tequin] Allergy (Verified 07/10/19 13:36) Unknown hydrochlorothiazide Allergy (Verified 07/10/19 13:36) Unknown lisinopril Allergy (Verified 07/10/19 13:36) Unknown losartan Allergy (Verified 07/10/19 13:36) Unknown Penicillins Allergy (Verified 07/10/19 13:36) Rash pramipexole Allergy (Verified 07/10/19 13:36) Unknown Quinolones Allergy (Verified 07/10/19 13:36) Unknown ropinirole Allergy (Verified 07/10/19 13:36) Unknown aspirin Adverse Reaction (Verified 07/10/19 13:36) Vomiting Medications to take at Discharge Amlodipine [Norvasc] 10 mg PO DAILY 07/25/17 Metoprolol Tartrate [Lopressor (beta beau)] 25 mg PO BID 07/25/17 Sitagliptin Phosphate [Januvia] 100 mg PO DAILY 07/25/17 Loratadine 10 mg PO DAILY 07/10/19 Pravastatin Sodium 40 mg PO DAILY 07/10/19 Pregabalin [Lyrica] 50 mg PO 4X/DAY 07/10/19 Menthol/Lanolin/Calamine/Znox [Calmoseptine Ointment] 1 applic TOPICAL BID PRN tube 07/16/19 Acetaminophen [Tylenol] 1,000 mg PO Q6H PRN PRN tablet 07/23/19 Emollient Combination No.72 [Eucerin Intensive Repair] 1 applic TOPICAL QHS lotion 07/23/19 Hydrocortisone 2.5% Crm [Hytone] 1 applic TOPICAL BID PRN PRN #1 tube 07/23/19 Insulin Glargine [Lantus SoloStar Pen] 10 units SC QHS pen 07/23/19 Iron Polysaccharide Complex [Ferrex 150] 150 mg PO DAILYCM #30 cap 07/23/19 Nystatin Powder [Mycostatin Powder] 1 applic TOPICAL 0600,2200 bottle 07/23/19 Oxycodone [Oxyir] 10 mg PO Q4H PRN PRN 7 Days #30 tab 07/23/19 Polyethylene Glycol 3350 [Miralax] 17 gm PO DAILY #30 packet 07/23/19 hydrALAZINE [Apresoline] 25 mg PO TID #90 tab 07/23/19 The following prescriptions were given: hydrALAZINE [Apresoline] 25 mg PO TID #90 tab Transmission Status: Pending to [facility] Iron Polysaccharide Complex [Ferrex 150] 150 mg PO DAILYCM #30 cap Transmission Status: Pending to [facility] Hydrocortisone 2.5% Crm [Hytone] 1 applic TOPICAL BID PRN PRN #1 tube PRN Reason: RASH/TOPICAL IRRITATION Transmission Status: Pending to [facility] Polyethylene Glycol 3350 [Miralax] 17 gm PO DAILY #30 packet Transmission Status: Pending to [facility] Oxycodone [Oxyir] 10 mg PO Q4H PRN PRN 7 Days #30 tab PRN Reason: Moderate Pain (4-5/10) Prescription Printed Primary Care Physician: Law Quintana DO [Primary Care Provider] - Please follow up with your Primary Care Physician in: 1 week. Test Results: Test results from this visit will be discussed in further detail at your follow- up appointment, if applicable. Please Follow Up With: Cristiano Agosto DO When: 2 weeks. Please Follow Up With: Law Quintana Please Follow Up With: Yecenia Acosta MD When: 2 weeks. Proposed Discharge Date: 07/27/19
--- NOTE | 2019-07-23 22:56 | PCM.DC.SUM ---
Discharge Date and Diagnosis - Problem List Patient Problems: Active and Suspected Problems Weakness (Acute) Falls (Acute) Date of Admission: 07/16/19 Date of Discharge: 07/27/19 - Primary Discharge Diagnosis Active and Suspected Problems Weakness (Acute) Falls (Acute) - Secondary Discharge Diagnosis Chronic Problems Lung mass (Chronic) Chronic kidney disease (Chronic) Diabetic polyneuropathy (Chronic) Allergic rhinitis (Chronic) Hyperlipidemia (Chronic) Debility (Chronic) Pulmonary nodule (Chronic) Back pain (Chronic) 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, stage 2 (Chronic) Hydronephrosis, right (Chronic) Chronic kidney disease, stage III (moderate) (Chronic) Obesity (Chronic) Peripheral neuropathy (Chronic) Hypertension (Chronic) Type 2 diabetes mellitus (Chronic) Hospital Course and Treatment Imaging Results: 07/16/19 16:55 Diet: Cardiac: Calorie-Controlled Food consistency:: Regular Liquid Consistency:: Regular/Thin Is pt able to select menu?: Yes How many daily calories?: 1800 calorie Labs (Last 48 Hours) 07/22/19 07/22/19 07/22/19 06:32 10:55 16:49 Sodium Potassium Chloride Carbon Dioxide Anion Gap BUN Creatinine Estim Creat Clear Calc Est GFR (MDRD) Af Amer Est GFR (MDRD) Non-Af BUN/Creatinine Ratio Glucose Calcium POC Glucose 181 H 206 H 236 H 07/22/19 07/23/19 07/23/19 21:05 05:10 07:24 Sodium 144 Potassium 4.0 Chloride 117 H Carbon Dioxide 19.0 L Anion Gap 8 BUN 45 H Creatinine 1.68 H Estim Creat Clear Calc 27.92 Est GFR (MDRD) Af Amer 38 L Est GFR (MDRD) Non-Af 32 L BUN/Creatinine Ratio 26.8 H Glucose 181 H Calcium 7.9 L POC Glucose 250 H 194 H 07/23/19 07/23/19 07/23/19 11:18 16:54 21:05 Sodium Potassium Chloride Carbon Dioxide Anion Gap BUN Creatinine Estim Creat Clear Calc Est GFR (MDRD) Af Amer Est GFR (MDRD) Non-Af BUN/Creatinine Ratio Glucose Calcium POC Glucose 226 H 217 H 219 H Operations: None Procedures: None Summary of Care Provided: The patient is a 74 year old Female with below past medical history hospitalized for weakness secondary to E. Coli, Klebsiella UTI, complicated by acute kidney injury, right middle lobe lung mass, allergic reaction to Cefdinir, admitted to TCU with debility, here for rehabilitation, strengthening, prior to discharge home with spouse. [] Discharge home with spouse, [facility] for PT/OT. Patient Problems: Active and Suspected Problems Weakness (Acute) Falls (Acute) - Physical Exam Vital Signs Temp Pulse Resp BP Pulse Ox 98.3 F 73 18 151/64 H 94 07/23/19 16:00 07/23/19 21:23 07/23/19 16:00 07/23/19 21:23 07/23/19 16:00 Oxygen Delivery Method Room Air Weight: 114.787 kg Body Mass Index (BMI) 40.8 Intake and Output for Last 24 Hours 07/21/19 07/22/19 07/23/19 23:59 23:59 23:59 Intake Total 1440 / 1440 840 / 840 960 / 960 Balance 1440 / 1440 840 / 840 960 / 960 Laboratory Tests Past 24 Hrs 07/23/19 05:10 Sodium 144 Potassium 4.0 Chloride 117 H Carbon Dioxide 19.0 L Anion Gap 8 BUN 45 H Creatinine 1.68 H Estim Creat Clear Calc 27.92 Est GFR (MDRD) Af Amer 38 L Est GFR (MDRD) Non-Af 32 L BUN/Creatinine Ratio 26.8 H Glucose 181 H Calcium 7.9 L POC Glucose 07/23/19 07/23/19 07/23/19 21:05 16:54 11:18 POC Glucose 219 H 217 H 226 H 07/23/19 07:24 POC Glucose 194 H Discharge Diet: No Restrictions Discharge Activity: Return to Normal Activity, May Shower, Use Walker Weight Bearing Status: Weight bearing as tolerated Call your doctor if you observe: Fever of 101 or Higher, Inability to urinate, Inability to have a bowel movement, Shortness of breath, Chest pain, Uncontrolled pain Home Medications: Medications to take at Discharge RX: Amlodipine [Norvasc] 10 mg PO DAILY 07/25/17 RX: Metoprolol Tartrate [Lopressor (beta beau)] 25 mg PO BID 07/25/17 RX: Sitagliptin Phosphate [Januvia] 100 mg PO DAILY 07/25/17 RX: Loratadine 10 mg PO DAILY 07/10/19 RX: Pravastatin Sodium 40 mg PO DAILY 07/10/19 RX: Pregabalin [Lyrica] 50 mg PO 4X/DAY 07/10/19 RX: Menthol/Lanolin/Calamine/Znox [Calmoseptine Ointment] 1 applic TOPICAL BID PRN tube 07/16/19 RX: Acetaminophen [Tylenol] 1,000 mg PO Q6H PRN PRN tablet 07/23/19 RX: Emollient Combination No.72 [Eucerin Intensive Repair] 1 applic TOPICAL QHS lotion 07/23/19 RX: Hydrocortisone 2.5% Crm [Hytone] 1 applic TOPICAL BID PRN PRN #1 tube 07/23/19 RX: Insulin Glargine [Lantus SoloStar Pen] 10 units SC QHS pen 07/23/19 RX: Iron Polysaccharide Complex [Ferrex 150] 150 mg PO DAILYCM #30 cap 07/23/19 RX: Nystatin Powder [Mycostatin Powder] 1 applic TOPICAL 0600,2200 bottle 07/23/19 RX: Oxycodone [Oxyir] 10 mg PO Q4H PRN PRN 7 Days #30 tab 07/23/19 RX: Polyethylene Glycol 3350 [Miralax] 17 gm PO DAILY #30 packet 07/23/19 RX: hydrALAZINE [Apresoline] 25 mg PO TID #90 tab 07/23/19 Following Prescrptions Were Given to Patient: RX: hydrALAZINE [Apresoline] 25 mg PO TID #90 tab Transmission Status: Pending to [facility] RX: Iron Polysaccharide Complex [Ferrex 150] 150 mg PO DAILYCM #30 cap Transmission Status: Pending to [facility] RX: Hydrocortisone 2.5% Crm [Hytone] 1 applic TOPICAL BID PRN PRN #1 tube PRN Reason: RASH/TOPICAL IRRITATION Transmission Status: Pending to [facility] RX: Polyethylene Glycol 3350 [Miralax] 17 gm PO DAILY #30 packet Transmission Status: Pending to [facility] [place] [address] RX: Oxycodone [Oxyir] 10 mg PO Q4H PRN PRN 7 Days #30 tab PRN Reason: Moderate Pain (4-5/10) Prescription Printed Primary Care Physician: Law Quintana DO [Primary Care Provider] - Please follow up with your Primary Care Physician in: 1 week. Please Follow Up With: Cristiano Agosto DO When: 2 weeks. Please Follow Up With: Law Quintana Please Follow Up With: Yecenia Acosta MD When: 2 weeks. Disposition: Home with Home Health Minutes spent on discharge:: 35 Patient Condition:: Stable Medical Necessity - Tobacco Use Smoking Status: Never smoker Tobacco Use: Non-smoker Meaningful Use Info Meaningful Use Diagnoses (Choose all that apply): None applicable
--- NOTE | 2019-07-23 22:58 | PCM.PN.HH ---
Home Health Note - Plan Overview of reason of hospitalization: The patient is a 74 year old Female with below past medical history hospitalized for weakness secondary to E. Coli, Klebsiella UTI, complicated by acute kidney injury, right middle lobe lung mass, allergic reaction to Cefdinir, admitted to TCU with debility, here for rehabilitation, strengthening, prior to discharge home with spouse. [] Discharge home with spouse, [facility] Home health Care for PT/OT. Problems: Patient was seen for Weakness (Acute) Falls (Acute) Lung mass (Chronic) Chronic kidney disease (Chronic) Diabetic polyneuropathy (Chronic) Allergic rhinitis (Chronic) Hyperlipidemia (Chronic) Complete List of Medical Problems Weakness (Acute) Falls (Acute) Lung mass (Chronic) Chronic kidney disease (Chronic) Diabetic polyneuropathy (Chronic) Allergic rhinitis (Chronic) Hyperlipidemia (Chronic) IZA (acute kidney injury) (Acute) UTI (urinary tract infection) (Acute) Frequent falls (Acute) Declining functional status (Acute) Debility (Chronic) Pulmonary nodule (Chronic) Back pain (Chronic) 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, stage 2 (Chronic) Hydronephrosis, right (Chronic) Chronic kidney disease, stage III (moderate) (Chronic) Obesity (Chronic) Peripheral neuropathy (Chronic) Hypertension (Chronic) Type 2 diabetes mellitus (Chronic) - Requirements and Reasons Disciplines Needed/Ordered: Physical Therapy Reason for Disciplines: Gait Training, Stair Training, Fall Prevention, Home Safety/Equipment Instruction, Balance and/or Posture Training, Transfer Training Related To: Change in Medical Treatment Plan, Limited/Poor Endurance, Shortness of Breath with Activity, Physical Impairments, Unsteady Gait/Balance, Intractable Pain, Fall Risk Patient is unable to leave the home: Without Aid of Supportive Devices (crutches, cane, wheelchair, walker), Without the assistance of another person - Additional Disciplines Additional Disciplines Needed/Ordered: Occupational Therapy
[2019-07-24] MEDS: Hydrocortisone 2.5% Crm 1 APPLIC TOPICAL ×3 (00:30→20:16)
[2019-07-24 05:30] VITALS: BP 161/75; PULSE 85
[2019-07-24] MEDS: hydrALAZINE 25 MG Tablet PO ×3 (05:30→20:17)
[2019-07-24] MEDS: amLODIPine 5 MG Tablet 10 MG PO (05:30)
[2019-07-24] MEDS: Menthol/Lanolin/Calamine/Znox 113 GM Tube 1 APPLIC TOPICAL ×2 (05:30→20:19)
[2019-07-24] MEDS: Loratadine 10 MG Tablet PO (05:30)
[2019-07-24] MEDS: LINAGLIPTIN 5 MG TABLET PO (05:30)
[2019-07-24] MEDS: Metoprolol Tartrate 25 MG Tablet PO ×2 (05:30→18:06)
[2019-07-24] MEDS: Nystatin Powder 15gm Bottle 1 APPLIC TOPICAL ×2 (05:32→20:18)
[2019-07-24] MEDS: Enoxaparin 30 MG/0.3 ML Syringe SC (05:32)
[2019-07-24] MEDS: Pregabalin 50 MG Capsule PO (05:35)
[2019-07-24 06:05] LABS: Absolute Lymphocyte Count 1.95 X10^3/uL (0.83-4.51); Absolute Neutrophil Count 6.5 X10^3/uL (2.0-7.7); Basophil# 0.06 X10^3/uL; Basophil% 0.6 % (0-1); Eosinophil# 0.68 X10^3/uL; Eosinophils% 6.9 % (0-5); Hematocrit 34.7 % (37-47); Hemoglobin 10.5 g/dL (12.0-15.0); Lymphocyte # 1.95 X10^3/ul (4.0); Lymphocyte % 19.8 % (19-41); Mean Corp Hgb Conc 30.3 g/dL (32-36); Mean Corpuscular Hgb 27.7 pg (27.0-32.0); Mean Corpuscular Volume 91.6 fL (81-99); Mean Platelet Vol. 10.5 fl (6.2-12.0); Monocyte# 0.62 X10^3/uL; Monocyte% 6.3 % (0-10); NRBC Flagged by Analyzer 0 % (0-5); Neutrophil # 6.49 X10^3/uL (2.7-7.7); Neutrophil % 65.9 % (47-70); Platelet Count 232 K/mm3 (150-450); RBC Distribution Width CV 16.3 % (11.6-14.6); RBC Distribution Width SD 53.7 fl (35.1-43.9); Red Blood Count 3.79 M/mm3 (4.2-5.4); White Blood Count 9.9 K/mm3 (4.4-11.0)
[2019-07-24 06:20] LABS: Bedside Glucose 174 mg/dL (70-110)
[2019-07-24 06:33] LABS: Anion Gap 8 (5-15); BUN 39 mg/dL (7-18); BUN/Creat Ratio 24.4 RATIO (10-20); Chloride 118 mmol/L (98-107); EST Glomerular Filtration Rate 34 mL/min (>60); Est Glom Filt Rate - Afr Amer 41 mL/min (>60); Estimated Creatinine Clearance 29.32 ml/min; Glucose 171 mg/dL (74-106); Potassium 3.6 mmol/L (3.5-5.1); Sodium Level 144 mmol/L (136-145)
[2019-07-24] MEDS: Iron Polysaccharide Complex 150 MG CAPSULE PO (07:59)
[2019-07-24] MEDS: Tuberculin,Purif.prot.deriv. 50 TU/ML Vial 5 ML ID (09:39)
--- NOTE | 2019-07-24 09:40 | NURSING ---
pt refusing kenalog injection for itching of back. pt & states that she does not do well with steroid injections and that hydrocortisone cream is working.
[2019-07-24] MEDS: oxyCODONE 5 MG Tablet 10 MG PO ×3 (11:03→20:23)
[2019-07-24 11:36] LABS: Bedside Glucose 211 mg/dL (70-110)
--- NOTE | 2019-07-24 13:38 | CASEMGMT ---
Addendum entered by Aida Monk 07/25/19 14:19: Provided patient list of [facility] agenices. Pt and chose [facility]. Referral made for PT/OT/SN. Original Note: Social Work IDT met with patient and for care plan meeting. Discussed patient's progress in therapy. Pt is max to total assist for bathing, min assist for bathing and dressing, mod toileting hygiene, CGA toilet transfers, walking 65 ft with FWW at CGA, 3 steps and min to mod for bed mobility. Pt has made improvements since admission, but pt is ready to discharge 07/27. is aware of the level of assist and is able to assist pt at home. Pt would like [facility] initially and follow up with outpatient therapy. Provided and explained [employer] CP. Ordered wheelchair and 3-in-1 commode through [facility]. Plan: DC home with 07/27 with [facility] and w/c and [facility]. Aida Monk, BLISTER RUST ERADICATOR [employer] DRILLER
[2019-07-24 13:55] VITALS: BP 134/62; PULSE 68
[2019-07-24 16:00] VITALS: BP 130/74; PULSE 85; RESP 18; TEMP 36.8; O2SAT 95
[2019-07-24 16:51] LABS: Bedside Glucose 253 mg/dL (70-110)
[2019-07-24 18:06] VITALS: BP 130/74; PULSE 85
[2019-07-24 20:17] VITALS: BP 137/74; PULSE 67
[2019-07-24] MEDS: Pravastatin 40 MG Tablet PO (20:17)
[2019-07-24 21:41] LABS: Bedside Glucose 214 mg/dL (70-110)
[2019-07-25] MEDS: LINAGLIPTIN 5 MG TABLET PO (05:27)
[2019-07-25] MEDS: Pregabalin 50 MG Capsule PO (05:27)
[2019-07-25] MEDS: amLODIPine 5 MG Tablet 10 MG PO (05:27)
[2019-07-25] MEDS: Enoxaparin 30 MG/0.3 ML Syringe SC (05:27)
[2019-07-25] MEDS: Loratadine 10 MG Tablet PO (05:27)
[2019-07-25 05:28] VITALS: BP 171/67; PULSE 80
[2019-07-25] MEDS: hydrALAZINE 25 MG Tablet PO ×3 (05:28→20:20)
[2019-07-25] MEDS: Metoprolol Tartrate 25 MG Tablet PO ×2 (05:28→17:26)
[2019-07-25] MEDS: Nystatin Powder 15gm Bottle 1 APPLIC TOPICAL ×2 (05:30→20:20)
[2019-07-25] MEDS: Menthol/Lanolin/Calamine/Znox 113 GM Tube 1 APPLIC TOPICAL ×2 (05:31→20:20)
[2019-07-25 06:45] LABS: Bedside Glucose 182 mg/dL (70-110)
[2019-07-25] MEDS: Iron Polysaccharide Complex 150 MG CAPSULE PO (08:19)
[2019-07-25] MEDS: oxyCODONE 5 MG Tablet 10 MG PO ×2 (09:43→20:58)
--- NOTE | 2019-07-25 11:04 | CASEMGMT ---
Insurance: continued stay review faxed to [facility] this day. Auth #[id number].
[2019-07-25 11:20] LABS: Bedside Glucose 171 mg/dL (70-110)
[2019-07-25 13:00] VITALS: BP 132/81; PULSE 82
[2019-07-25 15:32] VITALS: BP 152/67; PULSE 82; RESP 18; TEMP 36.6; O2SAT 95
[2019-07-25 17:01] LABS: Bedside Glucose 209 mg/dL (70-110)
[2019-07-25 17:26] VITALS: BP 152/67; PULSE 82
[2019-07-25] MEDS: Senna/Docusate Sodium 1 Tablet 2 TABLET PO (17:26)
[2019-07-25 20:20] VITALS: BP 146/71; PULSE 70
[2019-07-25] MEDS: Pravastatin 40 MG Tablet PO (20:20)
[2019-07-25 21:11] LABS: Bedside Glucose 241 mg/dL (70-110)
[2019-07-25] MEDS: Hydrocortisone 2.5% Crm 1 APPLIC TOPICAL (21:26)
[2019-07-26 05:08] VITALS: BP 148/55; PULSE 87
[2019-07-26] MEDS: hydrALAZINE 25 MG Tablet PO ×3 (05:08→21:14)
[2019-07-26] MEDS: Metoprolol Tartrate 25 MG Tablet PO ×2 (05:08→17:39)
[2019-07-26] MEDS: Loratadine 10 MG Tablet PO (05:08)
[2019-07-26] MEDS: Nystatin Powder 15gm Bottle 1 APPLIC TOPICAL ×2 (05:08→21:15)
[2019-07-26] MEDS: Menthol/Lanolin/Calamine/Znox 113 GM Tube 1 APPLIC TOPICAL ×2 (05:08→21:15)
[2019-07-26] MEDS: LINAGLIPTIN 5 MG TABLET PO (05:08)
[2019-07-26] MEDS: amLODIPine 5 MG Tablet 10 MG PO (05:08)
[2019-07-26] MEDS: Pregabalin 50 MG Capsule PO (05:11)
[2019-07-26] MEDS: Enoxaparin 30 MG/0.3 ML Syringe SC (05:18)
[2019-07-26 06:36] LABS: Bedside Glucose 154 mg/dL (70-110)
[2019-07-26] MEDS: Iron Polysaccharide Complex 150 MG CAPSULE PO (08:16)
--- NOTE | 2019-07-26 09:22 | MDS.RN ---
Information for the mds was obtained from review of the clinical record, interview of resident, staff, and direct observation of resident's care.
[2019-07-26 10:46] LABS: Bedside Glucose 169 mg/dL (70-110)
[2019-07-26 14:12] VITALS: BP 153/73; PULSE 84
[2019-07-26] MEDS: oxyCODONE 5 MG Tablet 10 MG PO ×2 (14:16→21:20)
[2019-07-26 16:00] VITALS: BP 119/43; PULSE 56; RESP 20; TEMP 37.3; O2SAT 96
[2019-07-26 16:55] LABS: Bedside Glucose 175 mg/dL (70-110)
[2019-07-26 17:39] VITALS: BP 153/73; PULSE 84
[2019-07-26] MEDS: Senna/Docusate Sodium 1 Tablet 2 TABLET PO (17:39)
[2019-07-26 21:14] VITALS: BP 157/78; PULSE 75
[2019-07-26] MEDS: Pravastatin 40 MG Tablet PO (21:14)
[2019-07-26 21:15] LABS: Bedside Glucose 225 mg/dL (70-110)
[2019-07-27] MEDS: Menthol/Lanolin/Calamine/Znox 113 GM Tube 1 APPLIC TOPICAL (05:56)
[2019-07-27 05:57] VITALS: BP 158/70; PULSE 77
[2019-07-27] MEDS: Metoprolol Tartrate 25 MG Tablet PO (05:57)
[2019-07-27] MEDS: Loratadine 10 MG Tablet PO (05:57)
[2019-07-27] MEDS: amLODIPine 5 MG Tablet 10 MG PO (05:57)
[2019-07-27 05:58] VITALS: BP 158/70; PULSE 77
[2019-07-27] MEDS: Enoxaparin 30 MG/0.3 ML Syringe SC (05:58)
[2019-07-27] MEDS: LINAGLIPTIN 5 MG TABLET PO (05:58)
[2019-07-27] MEDS: hydrALAZINE 25 MG Tablet PO (05:58)
[2019-07-27] MEDS: Nystatin Powder 15gm Bottle 1 APPLIC TOPICAL (05:59)
[2019-07-27] MEDS: Pregabalin 50 MG Capsule PO (06:03)
--- NOTE | 2019-07-27 06:33 | NURSING ---
KANE wraps not applied d/t packed them up in the car already in anticipation of discharge this morning.
[2019-07-27 06:50] LABS: Bedside Glucose 146 mg/dL (70-110)
[2019-07-27] MEDS: Iron Polysaccharide Complex 150 MG CAPSULE PO (08:54)
[2019-07-27] MEDS: oxyCODONE 5 MG Tablet 10 MG PO (08:56)
[2019-07-27 10:38] VITALS: BP 134/70; PULSE 64; RESP 18; TEMP 36.8; O2SAT 95
== END 2019-07-27 10:40 | disposition home health service (06) | DRG 948 ==
PROVIDERS: Internal Medicine Nephrology; Admitting Provider Family Medicine Geriatric Medicine; Family Provider Student in an Organized Health Care Education/Training Program; PCP Student in an Organized Health Care Education/Training Program; Referring Provider Family Medicine Geriatric Medicine; Visit Provider Family Medicine Geriatric Medicine
DX: R53.81 Other malaise (principal); N39.0 Urinary tract infection, site not specified; Z68.41 Body mass index [BMI] 40.0-44.9, adult; E87.2 Acidosis; E11.42 Type 2 diabetes mellitus with diabetic polyneuropathy; E11.22 Type 2 diabetes mellitus with diabetic chronic kidney disease; B96.1 Klebsiella pneumoniae [K. pneumoniae] as the cause of diseases classified elsewhere; I12.9 Hypertensive chronic kidney disease with stage 1 through stage 4 chronic kidney disease, or unspecified chronic kidney disease; E78.5 Hyperlipidemia, unspecified; N18.3 Chronic kidney disease, stage 3 (moderate); Z23 Encounter for immunization; B96.20 Unspecified Escherichia coli [E. coli] as the cause of diseases classified elsewhere; R29.6 Repeated falls; G89.29 Other chronic pain; L89.312 Pressure ulcer of right buttock, stage 2; E66.9 Obesity, unspecified; Z71.3 Dietary counseling and surveillance
CPT/HCPCS: 36415; 80048; 80061; 82962; 83036; 85025; 90732; 97110; 97116; 97163; 97166; 97530; 97535; 97802; G0009

== ENCOUNTER 2019-07-30 14:30 | Outpatient (RCR) | payer MEDICARE, SELFPAY ==
[2019-07-30 16:46] LABS: Albumin, Serum 1.9 g/dL (3.2-5.0); BUN 20 mg/dL (7-18); BUN/Creat Ratio 14.1 RATIO (10-20); Calcium,Total 7.7 mg/dL (8.5-10.1); Chloride 110 mmol/L (98-107); Cholesterol 87 mg/dL (200); Creatinine, Serum 1.42 mg/dL (0.55-1.02); EST Glomerular Filtration Rate 39 mL/min (>60); Est Glom Filt Rate - Afr Amer 47 mL/min (>60); Glucose 212 mg/dL (74-106); High Density Lipoprotein 38 mg/dL; Potassium 2.9 mmol/L (3.5-5.1); Sodium Level 145 mmol/L (136-145); Triglycerides 86 mg/dL; Very Low Density Lipoprotein 17 mg/dL (5-40)
[2019-07-30 16:51] LABS: Hemoglobin A1c 6.2 % (4.2-6.3)
== END 2019-08-12 23:59 ==
LOC: HHLAB 14:30
PROVIDERS: Family Provider Student in an Organized Health Care Education/Training Program; PCP Student in an Organized Health Care Education/Training Program; Referring Provider Internal Medicine Nephrology; Visit Provider Internal Medicine Nephrology
DX: N39.0 Urinary tract infection, site not specified (principal); I12.9 Hypertensive chronic kidney disease with stage 1 through stage 4 chronic kidney disease, or unspecified chronic kidney disease; N18.3 Chronic kidney disease, stage 3 (moderate); E78.1 Pure hyperglyceridemia; E11.65 Type 2 diabetes mellitus with hyperglycemia; Z79.4 Long term (current) use of insulin
CPT/HCPCS: 80061; 80069; 83036

== ENCOUNTER 2019-08-03 23:43 | Inpatient (IN) | payer MEDICARE, SELFPAY ==
[2019-08-03 23:45] VITALS: BP 138/60; PULSE 109; RESP 15; TEMP 37.2; O2SAT 95; BMI 49.2
--- NOTE | 2019-08-03 23:49 | EKG12_ITS ---
Test Reason : WEAKNESS Blood Pressure : / mmHG Vent. Rate : 104 BPM Atrial Rate : 100 BPM P-R Int : 000 ms QRS Dur : 106 ms QT Int : 346 ms P-R-T Axes : 000 004 143 degrees QTc Int : 454 ms Atrial fibrillation with rapid ventricular response ST & T wave abnormality, consider lateral ischemia Abnormal ECG Confirmed by CANDICE BURNETT, FLO ([id number]), tape editor NARGIS LANDON ([id number]) on 08/05/2019 9:03:21 AM Referred By: TYLER Confirmed By:FLO HARVEY MD
--- NOTE | 2019-08-03 23:49 | RAD_ITS ---
STUDY: X-RAY CHEST REASON FOR EXAM: Female, 74 years old. A weakness and cough TECHNIQUE: Single frontal view of the chest. COMPARISON: CT 07/11/2019, 07/10/2019 radiographs FINDINGS: Stable right lower lobe nodule measuring 2.2 x 1.6 cm. There is no demonstrated pleural abnormality. Stable cardiomediastinal silhouette. Normal mediastinum and jonathan. Normal visualized pulmonary arteries. Normal visualized aortic arch and descending thoracic aorta. Normal visualized thoracic spine. Normal visualized ribs, clavicles, and shoulders. There is no demonstrated abnormality of the visualized soft tissue structures of the upper abdomen. RAD/Chest 1 View (Portable) IMPRESSION: Stable right lower lobe nodule measuring 2.2 x 1.6 cm. No evidence of acute alveolar disease. Electronically Signed: Franky Tenorio MD at 0:20 EDT Tel , Service support ,
[2019-08-04] VITALS (19 sets, daily range): BP systolic 86–135; BP diastolic 46–95; PULSE 62–122; RESP 16–18; TEMP 36.6–38.8; O2SAT 92–96; BMI 39.0
[2019-08-04 00:08] LABS: Mucous, Urine 0 SEEN /hpf (<or=2+); Squamous Epithelial Cells - UA 0 SEEN /hpf (5-10)
[2019-08-04 00:21] LABS: Color, Urine Yellow (Yellow); Glucose, Dipstick Normal (Normal); Ketone-Dipstick Negative (Negative); Leukocyte Esterase-Dipstick 500 /ul (Negative); Nitrite-Dipstick Positive (Negative); Occult Blood-Urine 10 /ul (Negative); Protein-Dipstick 100 mg/dl (Negative); Urine Bilirubin Dipstick Negative (Negative); Urine Clarity Sl. Cloudy (Clear); Urine Urobilinogen Normal (Normal)
[2019-08-04 00:22] LABS: Absolute Lymphocyte Count 1.24 X10^3/uL (0.83-4.51); Absolute Neutrophil Count 13.2 X10^3/uL (2.0-7.7); Basophil# 0.04 X10^3/uL; Basophil% 0.3 % (0-1); Eosinophil# 0.09 X10^3/uL; Eosinophils% 0.6 % (0-5); Hematocrit 35.7 % (37-47); Lymphocyte # 1.24 X10^3/ul (4.0); Mean Corp Hgb Conc 30.8 g/dL (32-36); Mean Corpuscular Hgb 27.6 pg (27.0-32.0); Mean Corpuscular Volume 89.7 fL (81-99); Mean Platelet Vol. 11.4 fl (6.2-12.0); Monocyte# 0.74 X10^3/uL; Monocyte% 4.8 % (0-10); NRBC Flagged by Analyzer 0 % (0-5); Neutrophil # 13.24 X10^3/uL (2.7-7.7); Neutrophil % 85.8 % (47-70); Platelet Count 235 K/mm3 (150-450); RBC Distribution Width CV 15.4 % (11.6-14.6); RBC Distribution Width SD 50.9 fl (35.1-43.9); Red Blood Count 3.98 M/mm3 (4.2-5.4); White Blood Count 15.4 K/mm3 (4.4-11.0)
--- NOTE | 2019-08-04 00:23 | ED.DCSUM_ITS ---
History of Present Illness Chief Complaint: Weakness Narrative: Patient presenting for evaluation secondary to generalized weakness. Patient had a recent hospital admission secondary to a fall and generalized debility. She was discharged from the hospital approximately a week ago. Patient reports that she was so weak that she could not get out of her chair and she spent the last 30 hours in her chair. She does live with her , but she states that she did not want him to try to get her out of the chair because she felt as if she was just going to fall that she was so weak. She denies any laterality to her weakness. She denies any visual changes or numbness. She denies any nausea vomiting diarrhea dysuria hematuria, but the patient was incontinent of urine while she was sitting in the chair. She denies any chest pain. Past Medical History - Allergies and Home Meds Allergies/Adverse Reactions: Allergies adhesive Allergy (Verified 08/03/19 23:44) Rash amoxicillin [From Augmentin] Allergy (Verified 08/03/19 23:44) Unknown carvedilol Allergy (Verified 08/03/19 23:44) Unknown ceftriaxone [From Rocephin] Allergy (Verified 08/03/19 23:44) Unknown chlorthalidone Allergy (Verified 08/03/19 23:44) Unknown ciprofloxacin Allergy (Verified 08/03/19 23:44) Rash clavulanic acid [From Augmentin] Allergy (Verified 08/03/19 23:44) Unknown doxycycline Allergy (Verified 08/03/19 23:44) Unknown fexofenadine Allergy (Verified 08/03/19 23:44) Unknown gatifloxacin [From Tequin] Allergy (Verified 08/03/19 23:44) Unknown hydrochlorothiazide Allergy (Verified 08/03/19 23:44) Unknown lisinopril Allergy (Verified 08/03/19 23:44) Unknown losartan Allergy (Verified 08/03/19 23:44) Unknown Penicillins Allergy (Verified 08/03/19 23:44) Rash pramipexole Allergy (Verified 08/03/19 23:44) Unknown Quinolones Allergy (Verified 08/03/19 23:44) Unknown ropinirole Allergy (Verified 08/03/19 23:44) Unknown aspirin Adverse Reaction (Verified 08/03/19 23:44) Vomiting Primary Care Physician: Law Quintana DO [Primary Care Provider] - Past Medical History: - - Chronic kidney disease, diabetes, hypertension Surgical History: appendectomy, cholecystectomy, gastric bypass - 2003, - - Patient has undergone right ankle surgery and left wrist surgery. In addition, she has recently undergone cystoscopy with right retrograde pyelogram and laser ablation of kidney stones with placement of a ureteral stent. Patient is a Ab0. Smoking Status: Never smoker - Family History Maternal Family History: Reports: Heart Disease, Hypertension Paternal Family History: Reports: Heart Disease, Hypertension Review of Systems All systems negative except as indicated General: Denies: Fever Cardiovascular: Denies: Chest pain Respiratory: Denies: Dyspnea, Cough Gastrointestinal: Denies: Nausea, Vomiting Neurological: Reports: Weakness Physical Exam Vital Signs/Narrative: Vital Signs Temp Pulse Resp BP Pulse Ox 08/03/19 23:45 99.0 F 109 H 15 138/60 H 95 General: Obese, No Acute Distress, - - Unkempt and smells of urine Head: Normocephalic, Atraumatic Eyes: Perrl, EOMI ENT: Moist mucous membranes, No rhinorrhea Neck: Supple, Nontender Cardiovascular: Irregular, Tachycardia, - - 2+ radial pulses bilaterally symmetric Respiratory: No distress, CTA bilaterally, Chest nontender Abdomen: Soft, Nontender, Nondistended, Normal bowel sounds Extremities: Edema - +1 bilaterally symmetric with chronic skin changes over the lower legs Skin: Normal color, No rash Neurological: Alert, Oriented x3, Cranial nerves II-XII grossly intact, Normal Strength, Normal Sensation, - - NIH stroke scale is 0 Psychological: Normal affect, Normal Mood Diagnostic/Tx/Re-eval Chest X-Ray - ED: 1 View, Read by ED Physician, Read by Radiologist, - - 1 view chest x-ray demonstrates evidence of a stable lung mass no evidence of acute pathology by my personal review as well as radiology - EKG Follow-up EKG Interpretation: - - Atrial fibrillation with ventricular rate of 104. And lateral ST/T wave changes that appear old and consistent with prior EKG in 2017. No evidence of acute ischemia. New onset of arrhythmia. - Medical Decision Making Patient presented secondary to generalized weakness. EKG was obtained which shows new onset atrial fibrillation with controlled ventricular rate. Patient had laboratory studies and a urinalysis obtained as well as a chest x-ray. Chest x-ray demonstrates no evidence of acute pathology. CBC demonstrates a leukocytosis of 15. Chemistry shows evidence of mild hypokalemia with acute kidney injury. Patient's troponin was elevated to 0.06. Patient was given aspirin. Urinalysis demonstrates evidence of infection, urine was cultured. Patient has multiple medication allergies she was given cefepime. Patient was also given fluid resuscitation due to her acute kidney injury. I believe the patient requires admission at this point. Patient will be admitted on the hospitalist. - Critical Care Time Critical care time (excluding procedures): 30-74 minutes, Discussing w/Patient &/or Family/Veterans' Counselor, Discussing w/Consultants, Performing Direct Patient Care at Bedside ED Disposition - Plan for ED Patient: Disposition: Home or Assisted Living Diagnosis: Urinary tract infection, Declining functional status, Acute kidney injury, New onset atrial fibrillation, Elevated troponin, Severe sepsis
[2019-08-04 00:39] LABS: International Normalized Ratio 1.2; Prothrombin Time (Protime)PT. 15.1 SECONDS (11.7-14.9)
[2019-08-04 00:40] LABS: Partial Thromboplast Time 29.5 Seconds (24.1-36.2)
[2019-08-04 00:42] LABS: ALB/GLOB Ratio 0.4 RATIO (0.9-2.4); AST(SGOT) 13 U/L (15-37); Alanine Aminotransfer ALT/SGPT 13 U/L (13-56); Albumin, Serum 1.9 g/dL (3.2-5.0); Alkaline Phosphatase 175 U/L (45-117); Anion Gap 8 (5-15); BUN 48 mg/dL (7-18); BUN/Creat Ratio 16.8 RATIO (10-20); Calcium,Total 7.5 mg/dL (8.5-10.1); Chloride 108 mmol/L (98-107); Creatinine, Serum 2.86 mg/dL (0.55-1.02); EST Glomerular Filtration Rate 17 mL/min (>60); Est Glom Filt Rate - Afr Amer 21 mL/min (>60); Estimated Creatinine Clearance 12.58 ml/min; Globulin 4.7 g/dL (2.2-4.2); Glucose 248 mg/dL (74-106); Potassium 3.3 mmol/L (3.5-5.1); Protein, Total 6.6 g/dL (6.4-8.2); Sodium Level 137 mmol/L (136-145)
[2019-08-04 00:44] LABS: CPK Total, Creatine Kinase 55 U/L (26-192)
[2019-08-04 00:55] LABS: BNP,B-Type NATRIURETIC PEPTIDE 471.6 pg/mL (0-100)
[2019-08-04] MEDS: Ondansetron 4 MG/2 ML Vial IV (00:59)
[2019-08-04] MEDS: Aspirin 81 MG TAB.CHEW 324 MG PO (00:59)
[2019-08-04 01:32] LABS: Bacteria 2+ /hpf (None Seen); Red Blood Cells-Urine 5-10 SEEN /hpf (0-5); White Blood Cells >100 SEEN /hpf (0-5)
--- NOTE | 2019-08-04 01:33 | SEPSISNOTE ---
Sepsis Note - Physical Exam/Vitals Objective: Chest X-Ray 08/03/19 23:49 IMPRESSION: Stable right lower lobe nodule measuring 2.2 x 1.6 cm. No evidence of acute alveolar disease. Electronically Signed: Franky Tenorio MD at 0:20 EDT Tel , Service support , Temp Pulse Resp BP Pulse Ox 98.5 F 105 H 16 113/69 96 08/04/19 00:50 08/04/19 00:50 08/04/19 00:50 08/04/19 00:50 08/04/19 00:50 08/04/19 08/04/19 08/04/19 00:05 00:05 00:05 WBC RBC Hgb Hct MCV MCH MCHC RDW Std Deviation RDW Coeff of Chrissy Plt Count MPV Immature Gran % (Auto) Neut % (Auto) Lymph % (Auto) [place] % (Auto) Eos % (Auto) Baso % (Auto) Absolute Neuts (auto) Absolute Lymphs (auto) Nucleated RBC % PT INR APTT Sodium Potassium Chloride Carbon Dioxide Anion Gap BUN Creatinine Estim Creat Clear Calc Est GFR (MDRD) Af Amer Est GFR (MDRD) Non-Af BUN/Creatinine Ratio Glucose Lactic Acid Calcium Total Bilirubin AST ALT Alkaline Phosphatase Total Creatine Kinase 55 Troponin I B-Natriuretic Peptide 471.6 H Total Protein Albumin Globulin Albumin/Globulin Ratio Urine Color Yellow Urine Clarity Sl. Cloudy Urine pH 5.0 Ur Specific [place] 1.020 Urine Protein 100 H Urine Glucose (UA) Normal Urine Ketones Negative Urine Occult Blood 10 H Urine Nitrite Positive H Urine Bilirubin Negative Urine Urobilinogen Normal Ur Leukocyte Esterase 500 H Urine RBC 5-10 SEEN Urine WBC >100 SEEN Ur Squamous Epith Cells 0 SEEN Urine Bacteria 2+ Urine Mucus 0 SEEN 08/04/19 08/04/19 08/04/19 00:05 00:05 00:05 WBC RBC Hgb Hct MCV MCH MCHC RDW Std Deviation RDW Coeff of Chrissy Plt Count MPV Immature Gran % (Auto) Neut % (Auto) Lymph % (Auto) [place] % (Auto) Eos % (Auto) Baso % (Auto) Absolute Neuts (auto) Absolute Lymphs (auto) Nucleated RBC % PT 15.1 H INR 1.2 APTT 29.5 Sodium 137 Potassium 3.3 L Chloride 108 H Carbon Dioxide 21.0 Anion Gap 8 BUN 48 H Creatinine 2.86 H Estim Creat Clear Calc 12.58 Est GFR (MDRD) Af Amer 21 L Est GFR (MDRD) Non-Af 17 L BUN/Creatinine Ratio 16.8 Glucose 248 H Lactic Acid Pending Calcium 7.5 L Total Bilirubin 0.20 AST 13 L ALT 13 Alkaline Phosphatase 175 H Total Creatine Kinase Troponin I 0.061 H B-Natriuretic Peptide Total Protein 6.6 Albumin 1.9 L Globulin 4.7 H Albumin/Globulin Ratio 0.4 L Urine Color Urine Clarity Urine pH Ur Specific [place] Urine Protein Urine Glucose (UA) Urine Ketones Urine Occult Blood Urine Nitrite Urine Bilirubin Urine Urobilinogen Ur Leukocyte Esterase Urine RBC Urine WBC Ur Squamous Epith Cells Urine Bacteria Urine Mucus 08/04/19 00:05 WBC 15.4 H RBC 3.98 L Hgb 11.0 L Hct 35.7 L MCV 89.7 MCH 27.6 MCHC 30.8 L RDW Std Deviation 50.9 H RDW Coeff of Chrissy 15.4 H Plt Count 235 MPV 11.4 Immature Gran % (Auto) 0.500 Neut % (Auto) 85.8 H Lymph % (Auto) 8.0 L [place] % (Auto) 4.8 Eos % (Auto) 0.6 Baso % (Auto) 0.3 Absolute Neuts (auto) 13.2 H Absolute Lymphs (auto) 1.24 Nucleated RBC % 0 PT INR APTT Sodium Potassium Chloride Carbon Dioxide Anion Gap BUN Creatinine Estim Creat Clear Calc Est GFR (MDRD) Af Amer Est GFR (MDRD) Non-Af BUN/Creatinine Ratio Glucose Lactic Acid Calcium Total Bilirubin AST ALT Alkaline Phosphatase Total Creatine Kinase Troponin I B-Natriuretic Peptide Total Protein Albumin Globulin Albumin/Globulin Ratio Urine Color Urine Clarity Urine pH Ur Specific [place] Urine Protein Urine Glucose (UA) Urine Ketones Urine Occult Blood Urine Nitrite Urine Bilirubin Urine Urobilinogen Ur Leukocyte Esterase Urine RBC Urine WBC Ur Squamous Epith Cells Urine Bacteria Urine Mucus General: Alert, Oriented x3, Cooperative Lungs: Clear to auscultation Cardiovascular: Normal S1, Normal S2, Irregular Rate Capillary Refill: <3 seconds Peripheral Pulses: Normal Skin Color: [place] - Assessment/Plan Severe Sepsis secondary to probable UTI Lactic acid is normal Blood cultures and urine cultures were was obtained at the emergency department; follow Patient was started on cefepime in the emergency department We will continue cefepime.
--- NOTE | 2019-08-04 01:33 | PCM.HP.STD ---
Problem List (1) New onset atrial fibrillation Status: Acute (2) Elevated troponin Status: Acute (3) Severe sepsis Status: Acute (4) IZA (acute kidney injury) Status: Acute (5) UTI (urinary tract infection) Status: Acute History of Present Illness Date of Admission: 08/04/19 Chief Complaint: weakness The patient is a 74 year old F with a significant history of hypertension; CKD stage III and diabetes who presented to the emergency department because she was too weak to get up from a sitting position. Her Symptoms started on the same day of presentation. Reportedly she has not been able to get up to use the restroom so she has being urinating on herself. At the Emergency department a Oj[place] catheter was placed. Patient denies any urinary symptoms. Patient was noted to have atrial fibrillation; elevated troponin troponin; leukocytosis and severely elevated creatinine. Blood cultures was obtained at the emergency department and patient was started on antibiotics. Of note patient was getting treatment for acute bronchitis outpatient. She has 1 more dose of azithromycin to 250 mg left. Also she was taking cough syrup. Of note, patient was admitted on 07-10-19 and discharge on 07-16-2019 for acute E.coli and Klebsiella oxytoca cystitis; iza on ckd stage iii; and debility with fall. Patient spect some time at the TCU after Hospital discharge; and was further discharge with home health. Past Medical History Past Medical History (Chronic Problems): Chronic Problems Lung mass (Chronic) Chronic kidney disease (Chronic) Diabetic polyneuropathy (Chronic) Allergic rhinitis (Chronic) Hyperlipidemia (Chronic) Debility (Chronic) Pulmonary nodule (Chronic) Back pain (Chronic) 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, stage 2 (Chronic) Hydronephrosis, right (Chronic) Chronic kidney disease, stage III (moderate) (Chronic) Obesity (Chronic) Peripheral neuropathy (Chronic) Hypertension (Chronic) Type 2 diabetes mellitus (Chronic) Allergies adhesive Allergy (Verified 08/03/19 23:44) Rash amoxicillin [From Augmentin] Allergy (Verified 08/03/19 23:44) Unknown carvedilol Allergy (Verified 08/03/19 23:44) Unknown ceftriaxone [From Rocephin] Allergy (Verified 08/03/19 23:44) Unknown chlorthalidone Allergy (Verified 08/03/19 23:44) Unknown ciprofloxacin Allergy (Verified 08/03/19 23:44) Rash clavulanic acid [From Augmentin] Allergy (Verified 08/03/19 23:44) Unknown doxycycline Allergy (Verified 08/03/19 23:44) Unknown fexofenadine Allergy (Verified 08/03/19 23:44) Unknown gatifloxacin [From Tequin] Allergy (Verified 08/03/19 23:44) Unknown hydrochlorothiazide Allergy (Verified 08/03/19 23:44) Unknown lisinopril Allergy (Verified 08/03/19 23:44) Unknown losartan Allergy (Verified 08/03/19 23:44) Unknown Penicillins Allergy (Verified 08/03/19 23:44) Rash pramipexole Allergy (Verified 08/03/19 23:44) Unknown Quinolones Allergy (Verified 08/03/19 23:44) Unknown ropinirole Allergy (Verified 08/03/19 23:44) Unknown aspirin Adverse Reaction (Verified 08/03/19 23:44) Vomiting Home Medications: Ambulatory Orders Medication Instructions Recorded Amlodipine [Norvasc] 10 mg PO DAILY 07/25/17 Metoprolol Tartrate [Lopressor 25 mg PO BID 07/25/17 (beta beau)] Sitagliptin Phosphate [Januvia] 100 mg PO DAILY 07/25/17 Loratadine 10 mg PO DAILY 07/10/19 Pravastatin Sodium 40 mg PO DAILY 07/10/19 Pregabalin [Lyrica] 50 mg PO 4X/DAY 07/10/19 Menthol/Lanolin/Calamine/Znox 1 applic TOPICAL BID PRN tube 07/16/19 [Calmoseptine Ointment] Acetaminophen [Tylenol] 1,000 mg PO Q6H PRN PRN tab 07/23/19 Emollient Combination No.72 1 applic TOPICAL QHS lotion 07/23/19 [Eucerin Intensive Repair] Hydrocortisone 2.5% Crm [Hytone] 1 applic TOPICAL BID PRN PRN #1 07/23/19 tube Iron Polysaccharide Complex 150 mg PO DAILYCM #30 cap 07/23/19 [Ferrex 150] Nystatin Powder [Mycostatin Powder] 1 applic TOPICAL 0600,2200 bottle 07/23/19 Polyethylene Glycol 3350 [Miralax] 17 gm PO DAILY #30 packet 07/23/19 hydrALAZINE [Apresoline] 25 mg PO TID #90 tab 07/23/19 Insulin Glargine [Lantus SoloStar 35 units SQ DAILY 08/04/19 Pen] Surgical History: appendectomy, cholecystectomy, gastric bypass - 2003, - - Patient has undergone right ankle surgery and left wrist surgery. In addition, she has recently undergone cystoscopy with right retrograde pyelogram and laser ablation of kidney stones with placement of a ureteral stent. Patient is a Ab0. Psychiatric History: No pertinent psych hx CADD TECHNICIAN History: No pertinent CADD TECHNICIAN history Lives: Spouse/ Significant Other Smoking Status: Never smoker Alcohol: None - *Family History Maternal History Items: Heart Disease, Hypertension, - - Her mother from lymphoma Paternal History Items: Heart Disease, Hypertension Review of Systems Constitutional: Reports: Anorexia, Weakness. Denies: Chills, Fever HEENT: Reports: Difficulty Hearing Cardiovascular: Denies: Chest Pain, Palpitations Respiratory: Reports: Cough Gastrointestinal: Denies: Abdominal Pain, Nausea, Vomiting Genitourinary: Denies: Dysuria Musculoskeletal: Reports: Leg Pain - Bilateral lower extremity; chronic. Denies: Joint Pain, Joint Tenderness Skin: Denies: Rash, Wounds Neurological: Denies: Numbness, Tingling, Focal weakness Psychiatric: Denies: Anxiety, Depression, Homicidal Ideations, Suicidal Ideations Hematologic/ Lymphatic: Denies: Easy Bruising, Easy Bleeding VTE Information - Inpt Only VTE Present on Admission: No VTE Mechan Device Prophylaxis: None VTE Pharm Prophylaxis ordered?: No Reason prophylaxis not ordered:: Treatment Not Indicated - Patient will be started on therapeutic dose of Lovenox for A. fib Patient Problems: Active and Suspected Problems New onset atrial fibrillation (Acute) Elevated troponin (Acute) Severe sepsis (Acute) IZA (acute kidney injury) (Acute) UTI (urinary tract infection) (Acute) Declining functional status (Acute) - Physical Exam General: Alert, Oriented x3, Cooperative HEENT: Atraumatic, PERRLA, EOMI, Normocephalic Neck: Supple, No JVD, Negative Carotid Bruits Lungs: Clear to auscultation, Normal air movement, No rhonchi, No wheeze, No rales Cardiovascular: Normal S1, Normal S2, No murmurs, Irregular Rate, Tachycardic Abdomen: Bowel Sounds Present, Soft, Non Tender Extremities: Capillary Refill Less than 3 Seconds, Edema - 2-3+; bilateral lower extremities, Tenderness - Bilateral lower extremities Skin: - - Erythema of bilateral lower extremities Musculoskeletal: No Tenderness to Palpation of Joints or Extremities Neurological: Cranial nerves II-XII grossly intact Psych/Mental Status: Normal Affect, Appropriate Vital Signs Temp Pulse Resp BP Pulse Ox 98.5 F 105 H 16 113/69 96 08/04/19 00:50 08/04/19 00:50 08/04/19 00:50 08/04/19 00:50 08/04/19 00:50 Oxygen Delivery Method Room Air Weight: 114.4 kg Body Mass Index (BMI) 49.2 Laboratory Tests Past 24 Hrs 08/04/19 08/04/19 08/04/19 00:05 00:05 00:05 WBC 15.4 H RBC 3.98 L Hgb 11.0 L Hct 35.7 L MCV 89.7 MCH 27.6 MCHC 30.8 L RDW Std Deviation 50.9 H RDW Coeff of Chrissy 15.4 H Plt Count 235 MPV 11.4 Immature Gran % (Auto) 0.500 Neut % (Auto) 85.8 H Lymph % (Auto) 8.0 L [place] % (Auto) 4.8 Eos % (Auto) 0.6 Baso % (Auto) 0.3 Absolute Neuts (auto) 13.2 H Absolute Lymphs (auto) 1.24 Nucleated RBC % 0 PT 15.1 H INR 1.2 APTT 29.5 Sodium 137 Potassium 3.3 L Chloride 108 H Carbon Dioxide 21.0 Anion Gap 8 BUN 48 H Creatinine 2.86 H Estim Creat Clear Calc 12.58 Est GFR (MDRD) Af Amer 21 L Est GFR (MDRD) Non-Af 17 L BUN/Creatinine Ratio 16.8 Glucose 248 H Lactic Acid Calcium 7.5 L Total Bilirubin 0.20 AST 13 L ALT 13 Alkaline Phosphatase 175 H Total Creatine Kinase Troponin I 0.061 H B-Natriuretic Peptide Total Protein 6.6 Albumin 1.9 L Globulin 4.7 H Albumin/Globulin Ratio 0.4 L Urine Color Urine Clarity Urine pH Ur Specific [place] Urine Protein Urine Glucose (UA) Urine Ketones Urine Occult Blood Urine Nitrite Urine Bilirubin Urine Urobilinogen Ur Leukocyte Esterase Urine RBC Urine WBC Ur Squamous Epith Cells Urine Bacteria Urine Mucus 08/04/19 08/04/19 08/04/19 00:05 00:05 00:05 WBC RBC Hgb Hct MCV MCH MCHC RDW Std Deviation RDW Coeff of Chrissy Plt Count MPV Immature Gran % (Auto) Neut % (Auto) Lymph % (Auto) [place] % (Auto) Eos % (Auto) Baso % (Auto) Absolute Neuts (auto) Absolute Lymphs (auto) Nucleated RBC % PT INR APTT Sodium Potassium Chloride Carbon Dioxide Anion Gap BUN Creatinine Estim Creat Clear Calc Est GFR (MDRD) Af Amer Est GFR (MDRD) Non-Af BUN/Creatinine Ratio Glucose Lactic Acid Pending Calcium Total Bilirubin AST ALT Alkaline Phosphatase Total Creatine Kinase 55 Troponin I B-Natriuretic Peptide 471.6 H Total Protein Albumin Globulin Albumin/Globulin Ratio Urine Color Urine Clarity Urine pH Ur Specific [place] Urine Protein Urine Glucose (UA) Urine Ketones Urine Occult Blood Urine Nitrite Urine Bilirubin Urine Urobilinogen Ur Leukocyte Esterase Urine RBC Urine WBC Ur Squamous Epith Cells Urine Bacteria Urine Mucus 08/04/19 00:05 WBC RBC Hgb Hct MCV MCH MCHC RDW Std Deviation RDW Coeff of Chrissy Plt Count MPV Immature Gran % (Auto) Neut % (Auto) Lymph % (Auto) [place] % (Auto) Eos % (Auto) Baso % (Auto) Absolute Neuts (auto) Absolute Lymphs (auto) Nucleated RBC % PT INR APTT Sodium Potassium Chloride Carbon Dioxide Anion Gap BUN Creatinine Estim Creat Clear Calc Est GFR (MDRD) Af Amer Est GFR (MDRD) Non-Af BUN/Creatinine Ratio Glucose Lactic Acid Calcium Total Bilirubin AST ALT Alkaline Phosphatase Total Creatine Kinase Troponin I B-Natriuretic Peptide Total Protein Albumin Globulin Albumin/Globulin Ratio Urine Color Yellow Urine Clarity Sl. Cloudy Urine pH 5.0 Ur Specific [place] 1.020 Urine Protein 100 H Urine Glucose (UA) Normal Urine Ketones Negative Urine Occult Blood 10 H Urine Nitrite Positive H Urine Bilirubin Negative Urine Urobilinogen Normal Ur Leukocyte Esterase 500 H Urine RBC 5-10 SEEN Urine WBC >100 SEEN Ur Squamous Epith Cells 0 SEEN Urine Bacteria 2+ Urine Mucus 0 SEEN Assessment/Plan All Active Problems Weakness (Acute) New onset atrial fibrillation (Acute) Elevated troponin (Acute) Severe sepsis (Acute) IZA (acute kidney injury) (Acute) UTI (urinary tract infection) (Acute) Declining functional status (Acute) The patient is a 74 year old F with a significant history of hypertension; CKD stage III and diabetes who presented to the emergency department because she was too weak to get up from a sitting position found to have uncontrolled atrial fibrillation; leukocytosis; troponin; severely elevated creatinine and abnormal urinalysis consistent with severe sepsis second to probable UTI. Severe sepsis Meet SIRS criteria: Tachycardia with irregular heart rate more than 90: Leukocytosis with white count of 15.4 Abnormal urinalysis Probable source of infection: Urine Criteria for severe sepsis: IZA with creatinine of 2.86 Lactic acid: 1.5 Blood culture ?2 is pending; follow Urine culture is pending Antibiotics: Because of multiple allergies patient was started on cefepime which she has tolerated in the past. We will continue patient on cefepime. Urine culture on recent admission showed E. Coli and Klebsiella oxytoca bith of which were sensitive to Cefepime. She was transitioned to renally dose bactrim to complete antibiotics course. Of note she was initally placed on omnicef ad she developed rash with itching IV hydration: Received normal saline 500 mils bolus at the emergency department and was started on 250 mL's per hour. Will continue patient on normal saline 75 mL's per hour Trend CBC New onset A. fib Probable A. fib developed from infection. Treatments of sepsis as above Place on PCU on telemetry Serial cardiac enzymes Obtain echo Lovenox 1 mg per kilogram subcutaneous x 1. Of note patient has IZA No IV controlling medication has been started since patient's rate is less than 110. If patient continues to be in A. fib and ventricular rate is more than 110 consider IV rate controlling medication. Continue home metoprolol Potassium was 3.3. Potassium chloride 60 mEq given. Of note patient has IZA and is at risk of hyperkalemia. Check magnesium level Consult [facility] Trend BMP IZA on CKD stage III On presentation her creatinine was 2.86 Review of old records shows creatinine baseline around 1.64 BUN is 48 BUN over creatinine is 16.8 pointing towards intrinsic renal. Intrinsic renal could be from sepsis. Cannot rule out prerenal from hypovolemia. Received IV fluid from the emergency department. IV fluid continue as above Trend BMP Avoid nephrotoxic's. Elevated troponin Likely demand ischemia or poor clearance from IZA. However cannot rule out non-ST elevation MD. Received aspirin for 24 mg at the emergency department Trend troponin Cardiology consult Hypertension Stable. Amlodipine and metoprolol continued. Place parameters on blood pressure medications in the setting of sepsis. Trend blood pressure and adjust blood pressure meds. Hypokalemia Replaced Trend Check magnesium Acute bronchitis Patient is left with 1 dose of azithromycin to 250 mg that was started outpatient. And now patient has been started on cefepime which should suffice for acute bronchitis. Was on PRN cough syrup. Started on scheduled Mucinex. Debility PT and OT to work with patient. Diabetes mellitus On presentation her blood glucose was not within goal. Regular food if no concentrated sweets ordered Will de-escalate home long-acting insulin in the hospital setting. We will add correction scale insulin. Januvia continued. Right lower lobe nodule Stable Follow up with PCP after discharge. DVT Prophylaxis Not indicated since patient has been started on therapeutic dose of Lovenox for new onset A. fib. Code Visit Inpatient E&M: 18813 Init Hosp L3
[2019-08-04 01:36] LABS: Lactic Acid 1.5 mmol/L (0.4-2.0)
--- NOTE | 2019-08-04 01:52 | ECHOCS_ITS ---
Reason For Study: AFIB Procedure This was a 2D Doppler, Color Flow transthoracic echocardiogram. The study was technically difficult. The study was technically limited. PT was uncomfortable due to pain. Asked me to end exam at apical views. PT permitted Definity images. Exam performed portable in ED. Left Ventricle Normal LV size. Severe concentric left ventricular hypertrophy. Left ventricular systolic function is normal. The estimated ejection fraction is 70 %. No regional wall motion abnormalities noted. Right Ventricle Normal RV size. Normal systolic function. Mitral Valve There is mild mitral annular calcification. Tricuspid Valve Normal tricuspid valve. Mild (1+) tricuspid valve insufficiency. Pulmonary artery systolic pressure is 28 mmHg. Aortic Valve Trisinus/trileaflet aortic valve. Mild focal aortic valve calcification. Great Vessels Normal aortic root. Pericardium/Pleural No pericardial effusion. Medication Diluted definity 4.0ml given slow IV push to enhance endocardial definition. MMode/2D Measurements & Calculations LVIDd: 4.1 cm IVSd: 1.8 cm Ao root diam: 3.3 cm LVIDs: 2.2 cm LVPWd: 1.4 cm FS: 47.0 % LA dimension(2D): 4.1 cm Doppler Measurements & Calculations PA V2 max: 83.3 cm/sec TR max chivo: 247.7 cm/sec TR max P.5 mmHg Interpretation Summary Normal LV size. Severe concentric left ventricular hypertrophy. Left ventricular systolic function is normal. The estimated ejection fraction is 70 %. Mild (1+) tricuspid valve insufficiency. Pulmonary artery systolic pressure is 28 mmHg. Contrast injection was performed. Ordering Physician: Manuel Escudero Referring Physician: Law Miller Performed By: Ginette Brown, CHRYSTAL, RVT
[2019-08-04] MEDS: 0.9% Normal Saline 1,000 ML 75 ML IV (02:20)
[2019-08-04 02:47] LABS: Magnesium 1.4 mg/dL (1.6-2.6); Thyroid Stim Hormone (TSH) 1.49 uIU/mL (0.358-3.74)
[2019-08-04] MEDS: Enoxaparin 120 MG/0.8 ML Syringe 110 MG SC (03:05)
[2019-08-04] MEDS: Nystatin Powder 15gm Bottle 1 APPLIC TOPICAL ×2 (06:53→21:35)
[2019-08-04] MEDS: hydrALAZINE 25 MG Tablet PO ×2 (06:54→14:59)
[2019-08-04 07:01] LABS: Bedside Glucose 167 mg/dL (70-110)
[2019-08-04] MEDS: Iron Polysaccharide Complex 150 MG CAPSULE PO (07:57)
[2019-08-04] MEDS: Metoprolol Tartrate 25 MG Tablet PO ×2 (10:07→21:30)
[2019-08-04] MEDS: guaiFENesin 1,200 MG Tablet 1200 MG PO (10:07)
[2019-08-04] MEDS: Menthol/Lanolin/Calamine/Znox 113 GM Tube 1 APPLIC TOPICAL ×2 (10:08→21:35)
[2019-08-04] MEDS: Loratadine 10 MG Tablet PO (10:08)
[2019-08-04] MEDS: amLODIPine 10 MG Tablet PO (10:08)
[2019-08-04] MEDS: LINAGLIPTIN 5 MG TABLET PO (10:08)
[2019-08-04] MEDS: Pregabalin 50 MG Capsule PO ×3 (10:09→21:43)
[2019-08-04] MEDS: Insulin Lispro 100 UNIT/ML INSULN.PEN SC ×3 (11:30→21:31)
[2019-08-04 11:45] LABS: Bedside Glucose 220 mg/dL (70-110)
--- NOTE | 2019-08-04 12:04 | CON.PCM_ITS ---
Problem List (1) Weakness Status: Acute (2) Falls Status: Inactive (3) Lung mass Status: Chronic (4) Chronic kidney disease Status: Chronic (5) Diabetic polyneuropathy Status: Chronic (6) Hyperlipidemia Status: Chronic (7) New onset atrial fibrillation Status: Acute (8) Elevated troponin Status: Acute (9) IZA (acute kidney injury) Status: Acute (10) UTI (urinary tract infection) Status: Acute (11) Debility Status: Chronic (12) Back pain Status: Chronic (13) Pressure ulcer of right buttock, stage 2 Status: Chronic (14) Obesity Status: Chronic (15) Hypertension Status: Chronic Qualifiers: (16) Type 2 diabetes mellitus Status: Chronic Reason for Consult Date of Consultation: 08/04/19 Reason for Consultation: New onset atrial fibrillation History of Present Illness: The patient is a 74 year old F is significant multiple medical problems including history of hypertension, chronic kidney disease stage III possibly secondary diabetic nephropathy, history of chronic low back pain and diabetic and peripheral neuropathy from degenerative joint disease of lumbar spine has been receiving physical therapy and has seen pain management at [facility] in the past. She was at one time enrolled in water aerobics at the [facility] but lately she cannot able to transport herself or do much of any physical activity. She was in our hospital recently had extensive work-up done and was discharged to the care of her . Patient has been gradually going downhill in the form of fatigue tiredness not able to support herself and walk. Patient has been insidious to nurse and in spite of his efforts to get up and move patient was not able to ambulate and subsequently she was brought to the hospital with symptoms of fatigue weakness and frequent falls and was diagnosed to be having active UTI. Incidentally she was noted to be having atrial fibrillation with rate controlled ventricular response and she was on metoprolol 25 mg twice a day prior to this hospitalization. Patient also admits to me that she does have chronic pedal edema which she attributes to use of Neurontin patient denies any work-up for ischemic heart disease in the recent past. She informs me that approximately 15 years ago she had a partial nephrectomy done secondary to an impacted renal stone Pt was receiving treatment for acute bronchitis as outpatient and as documented she was admitted recently to our hospital for UTI and was treated with antibiotics. informs me that there is a great situational stress at home where their only daughter has diagnosed with the metastatic brain cancer and currently she is in hospice and this is adding additional stress to her current medical conditions Past Medical History Allergies/Adverse Reactions: Allergies adhesive Allergy (Verified 08/03/19 23:44) Rash amoxicillin [From Augmentin] Allergy (Verified 08/03/19 23:44) Unknown carvedilol Allergy (Verified 08/03/19 23:44) Unknown ceftriaxone [From Rocephin] Allergy (Verified 08/03/19 23:44) Unknown chlorthalidone Allergy (Verified 08/03/19 23:44) Unknown ciprofloxacin Allergy (Verified 08/03/19 23:44) Rash clavulanic acid [From Augmentin] Allergy (Verified 08/03/19 23:44) Unknown doxycycline Allergy (Verified 08/03/19 23:44) Unknown fexofenadine Allergy (Verified 08/03/19 23:44) Unknown gatifloxacin [From Tequin] Allergy (Verified 08/03/19 23:44) Unknown hydrochlorothiazide Allergy (Verified 08/03/19 23:44) Unknown lisinopril Allergy (Verified 08/03/19 23:44) Unknown losartan Allergy (Verified 08/03/19 23:44) Unknown Penicillins Allergy (Verified 08/03/19 23:44) Rash pramipexole Allergy (Verified 08/03/19 23:44) Unknown Quinolones Allergy (Verified 08/03/19 23:44) Unknown ropinirole Allergy (Verified 08/03/19 23:44) Unknown aspirin Adverse Reaction (Verified 08/03/19 23:44) Vomiting Home Medications: Ambulatory Orders Medication Instructions Recorded Amlodipine [Norvasc] 10 mg PO DAILY 07/25/17 Metoprolol Tartrate [Lopressor 25 mg PO BID 07/25/17 (beta beau)] Sitagliptin Phosphate [Januvia] 100 mg PO DAILY 07/25/17 Loratadine 10 mg PO DAILY 07/10/19 Pravastatin Sodium 40 mg PO DAILY 07/10/19 Pregabalin [Lyrica] 50 mg PO 4X/DAY 07/10/19 Menthol/Lanolin/Calamine/Znox 1 applic TOPICAL BID PRN tube 07/16/19 [Calmoseptine Ointment] Acetaminophen [Tylenol] 1,000 mg PO Q6H PRN PRN tab 07/23/19 Emollient Combination No.72 1 applic TOPICAL QHS lotion 07/23/19 [Eucerin Intensive Repair] Hydrocortisone 2.5% Crm [Hytone] 1 applic TOPICAL BID PRN PRN #1 07/23/19 tube Iron Polysaccharide Complex 150 mg PO DAILYCM #30 cap 07/23/19 [Ferrex 150] Nystatin Powder [Mycostatin Powder] 1 applic TOPICAL 0600,2200 bottle 07/23/19 Polyethylene Glycol 3350 [Miralax] 17 gm PO DAILY #30 packet 07/23/19 hydrALAZINE [Apresoline] 25 mg PO TID #90 tab 07/23/19 Insulin Glargine [Lantus SoloStar 35 units SQ DAILY 08/04/19 Pen] Oxycodone HCl/Acetaminophen 1 ea PO Q8H PRN PRN 08/04/19 [Oxycodone-Acetaminophen 10-325] Past Medical History (Chronic Problems): Chronic Problems Lung mass (Chronic) Chronic kidney disease (Chronic) Diabetic polyneuropathy (Chronic) Allergic rhinitis (Chronic) Hyperlipidemia (Chronic) Debility (Chronic) Pulmonary nodule (Chronic) Back pain (Chronic) 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 In addition, she has recently undergone cystoscopy with right retrograde pyelogram and laser ablation of kidney stones with placement of a ureteral stent. Patient is a Ab0.Had partial nephrectomy done in [place], [place] 15yrs ago for impacted renal stone. Psychiatric History: No pertinent psych hx [employer] History: No pertinent [employer] history - *Family History Maternal History Items: Heart Disease, Hypertension, - - Her mother from lymphoma Paternal History Items: Heart Disease, Hypertension Lives: Spouse/ Significant Other Smoking Status: Never smoker Alcohol: None Objective: Vital Signs Temp Pulse Resp BP Pulse Ox 98.6 F 106 H 18 108/54 L 92 08/04/19 10:02 08/04/19 10:07 08/04/19 10:02 08/04/19 10:02 08/04/19 10:02 Oxygen Delivery Method Room Air Weight: 241 lb 13.553 oz Body Mass Index (BMI) 39.0 Intake and Output for Last 24 Hours 08/02/19 08/03/19 08/04/19 23:59 23:59 23:59 Intake Total 1678.75 / 1678.75 Output Total 450 / 450 Balance 1228.75 / 1228.75 General: Oriented x 3, Obese HEENT: PERRL Oral: Dry Mucosa Neck: Supple Lungs: Clear to auscultation Cardiovascular: Irregular Rhythm Abdomen: Bowel Sounds Present, Soft, Non Tender, Non Distended Extremities: Bilateral Edema +2 Musculoskeletal: Tenderness Neurological: Decreased Motor Strength Psych/Mental Status: Appropriate, Normal Affect 08/04/19 00:05: WBC 15.4 H, RBC 3.98 L, Hgb 11.0 L, Hct 35.7 L, MCV 89.7, MCH 27.6, MCHC 30.8 L, Plt Count 235, MPV 11.4, Immature Gran % (Auto) 0.500, Neut % (Auto) 85.8 H, Lymph % (Auto) 8.0 L, [place] % (Auto) 4.8, Eos % (Auto) 0.6, Baso % (Auto) 0.3, Absolute Neuts (auto) 13.2 H, Nucleated RBC % 0 08/04/19 00:05: PT 15.1 H, INR 1.2, APTT 29.5 08/04/19 00:05: Sodium 137, Potassium 3.3 L, Chloride 108 H, Carbon Dioxide 21.0, Anion Gap 8, BUN 48 H, Creatinine 2.86 H, Est GFR (MDRD) Af Amer 21 L, Est GFR (MDRD) Non-Af 17 L, BUN/Creatinine Ratio 16.8, Glucose 248 H, Calcium 7.5 L, Total Bilirubin 0.20, Troponin I 0.061 H 08/04/19 00:05: Lactic Acid 1.5 08/04/19 00:05: B-Natriuretic Peptide 471.6 H 08/04/19 00:05: Urine Color Yellow, Urine Clarity Sl. Cloudy, Urine pH 5.0, Ur Specific [place] 1.020, Urine Protein 100 H, Urine Glucose (UA) Normal, Urine Ketones Negative, Urine Occult Blood 10 H, Urine Nitrite Positive H, Urine Bilirubin Negative, Urine Urobilinogen Normal, Ur Leukocyte Esterase 500 H, Urine RBC 5-10 SEEN, Urine WBC >100 SEEN 08/04/19 00:05: Magnesium 1.4 L 08/04/19 03:35: Troponin I 0.061 H 08/04/19 06:01: Troponin I 0.068 H Rhythm: EKG: ECHO: Stress Test: Cardiac Cath: PCI: CT Surgery: Holter monitor: EPS: PPM: CXR: Chest CT Scan: Assessment/Plan #1 new onset of atrial fibrillation rate controlled on small dose of short- acting metoprolol tartrate 25 mg twice daily. Patient was given Lovenox 40mg this morning for DVT prophylaxis but given her chronic kidney disease I would give 1 mg/kg body weight of Lovenox every 24 hours. Will arrange for an echocardiogram to be done tomorrow and then possibly RAMIRO guided cardioversion to aim sinus rhythm as there is no prior history of atrial fibrillation and. Atrial fibrillation begets atrial fibrillation our goal is to keep her in sinus rhythm if that can be achieved. We will keep her n.p.o. postmidnight. Last recorded rhythm strip in our hospital from 2016 showed normal sinus rhythm 2. 2+ edema in both lower extremities we will check an echocardiogram to assess her list I will function and probably patient would merit to be on this maintenance dose of diuretics to keep her euvolemic given her chronic kidney disease stage III-IV possibly from diabetic nephropathy and maintainence dosing will depend upon the LV systolic function. She would also merit to have workup for ischemic heart disease with lexiscan stress SPECT at some point given her mulitple risk factors. 3. severe deconditioning-pt would merit pt/ot and possibly rehab post hospital discharge. I will inform my colleague Dr Buckner regarding the plan of care. 4.nam-GAV-EI-will have her seen by nephrology.
--- NOTE | 2019-08-04 12:35 | PN_ITS ---
<Lavelle Soriano - Last Filed: 08/04/19 12:35> Patient Problems: Active and Suspected Problems New onset atrial fibrillation (Acute) Elevated troponin (Acute) Severe sepsis (Acute) IZA (acute kidney injury) (Acute) UTI (urinary tract infection) (Acute) Declining functional status (Acute) Subjective: Severe weakness. Incontinent at home. Denies dysuria. Denies fevers/chills. No palpitations or CP. No SOB. Ongoing productive cough (recently dx with bronchitis). Pt was unable to get out of her chair or take care of herself at home. Recently treated for UTI with cefdinir (had reaction - hives) then bactrim. No N/V. No flank pain. Tolerating churchill - cloudy yellow. - Physical Exam General: Alert, Oriented x3, Cooperative, Lethargic HEENT: Atraumatic, PERRLA, EOMI, Normocephalic Neck: Supple, No JVD, Negative Carotid Bruits Lungs: Clear to auscultation, Normal air movement Cardiovascular: Regular rate, No murmurs Abdomen: Bowel Sounds Present, Soft, Non Tender, Obese Extremities: Capillary Refill Less than 3 Seconds, Edema - 2-3+ pitting edema BLE Skin: No rashes, No breakdown Musculoskeletal: No Tenderness to Palpation of Joints or Extremities Neurological: Cranial nerves II-XII grossly intact Psych/Mental Status: Normal Affect, Appropriate, Alert and oriented to time, place, person, mood and affect Vital Signs Temp Pulse Resp BP Pulse Ox 98.6 F 106 H 18 108/54 L 92 08/04/19 10:02 08/04/19 10:07 08/04/19 10:02 08/04/19 10:02 08/04/19 10:02 Oxygen Delivery Method Room Air Weight: 241 lb 13.553 oz Body Mass Index (BMI) 39.0 Intake and Output for Last 24 Hours 08/02/19 08/03/19 08/04/19 23:59 23:59 23:59 Intake Total 1678.75 / 1678.75 Output Total 450 / 450 Balance 1228.75 / 1228.75 Laboratory Tests Past 24 Hrs 08/04/19 08/04/19 08/04/19 00:05 00:05 00:05 WBC 15.4 H RBC 3.98 L Hgb 11.0 L Hct 35.7 L MCV 89.7 MCH 27.6 MCHC 30.8 L RDW Std Deviation 50.9 H RDW Coeff of Chrissy 15.4 H Plt Count 235 MPV 11.4 Immature Gran % (Auto) 0.500 Neut % (Auto) 85.8 H Lymph % (Auto) 8.0 L [place] % (Auto) 4.8 Eos % (Auto) 0.6 Baso % (Auto) 0.3 Absolute Neuts (auto) 13.2 H Absolute Lymphs (auto) 1.24 Nucleated RBC % 0 PT 15.1 H INR 1.2 APTT 29.5 Sodium 137 Potassium 3.3 L Chloride 108 H Carbon Dioxide 21.0 Anion Gap 8 BUN 48 H Creatinine 2.86 H Estim Creat Clear Calc 12.58 Est GFR (MDRD) Af Amer 21 L Est GFR (MDRD) Non-Af 17 L BUN/Creatinine Ratio 16.8 Glucose 248 H Lactic Acid Calcium 7.5 L Magnesium Total Bilirubin 0.20 AST 13 L ALT 13 Alkaline Phosphatase 175 H Total Creatine Kinase Troponin I 0.061 H B-Natriuretic Peptide Total Protein 6.6 Albumin 1.9 L Globulin 4.7 H Albumin/Globulin Ratio 0.4 L TSH Urine Color Urine Clarity Urine pH Ur Specific [place] Urine Protein Urine Glucose (UA) Urine Ketones Urine Occult Blood Urine Nitrite Urine Bilirubin Urine Urobilinogen Ur Leukocyte Esterase Urine RBC Urine WBC Ur Squamous Epith Cells Urine Bacteria Urine Mucus 08/04/19 08/04/19 08/04/19 00:05 00:05 00:05 WBC RBC Hgb Hct MCV MCH MCHC RDW Std Deviation RDW Coeff of Chrissy Plt Count MPV Immature Gran % (Auto) Neut % (Auto) Lymph % (Auto) [place] % (Auto) Eos % (Auto) Baso % (Auto) Absolute Neuts (auto) Absolute Lymphs (auto) Nucleated RBC % PT INR APTT Sodium Potassium Chloride Carbon Dioxide Anion Gap BUN Creatinine Estim Creat Clear Calc Est GFR (MDRD) Af Amer Est GFR (MDRD) Non-Af BUN/Creatinine Ratio Glucose Lactic Acid 1.5 Calcium Magnesium Total Bilirubin AST ALT Alkaline Phosphatase Total Creatine Kinase 55 Troponin I B-Natriuretic Peptide 471.6 H Total Protein Albumin Globulin Albumin/Globulin Ratio TSH Urine Color Urine Clarity Urine pH Ur Specific [place] Urine Protein Urine Glucose (UA) Urine Ketones Urine Occult Blood Urine Nitrite Urine Bilirubin Urine Urobilinogen Ur Leukocyte Esterase Urine RBC Urine WBC Ur Squamous Epith Cells Urine Bacteria Urine Mucus 08/04/19 08/04/19 08/04/19 00:05 00:05 03:35 WBC RBC Hgb Hct MCV MCH MCHC RDW Std Deviation RDW Coeff of Chrissy Plt Count MPV Immature Gran % (Auto) Neut % (Auto) Lymph % (Auto) [place] % (Auto) Eos % (Auto) Baso % (Auto) Absolute Neuts (auto) Absolute Lymphs (auto) Nucleated RBC % PT INR APTT Sodium Potassium Chloride Carbon Dioxide Anion Gap BUN Creatinine Estim Creat Clear Calc Est GFR (MDRD) Af Amer Est GFR (MDRD) Non-Af BUN/Creatinine Ratio Glucose Lactic Acid Calcium Magnesium 1.4 L Total Bilirubin AST ALT Alkaline Phosphatase Total Creatine Kinase Troponin I 0.061 H B-Natriuretic Peptide Total Protein Albumin Globulin Albumin/Globulin Ratio TSH 1.49 Urine Color Yellow Urine Clarity Sl. Cloudy Urine pH 5.0 Ur Specific [place] 1.020 Urine Protein 100 H Urine Glucose (UA) Normal Urine Ketones Negative Urine Occult Blood 10 H Urine Nitrite Positive H Urine Bilirubin Negative Urine Urobilinogen Normal Ur Leukocyte Esterase 500 H Urine RBC 5-10 SEEN Urine WBC >100 SEEN Ur Squamous Epith Cells 0 SEEN Urine Bacteria 2+ Urine Mucus 0 SEEN 08/04/19 06:01 WBC RBC Hgb Hct MCV MCH MCHC RDW Std Deviation RDW Coeff of Chrissy Plt Count MPV Immature Gran % (Auto) Neut % (Auto) Lymph % (Auto) [place] % (Auto) Eos % (Auto) Baso % (Auto) Absolute Neuts (auto) Absolute Lymphs (auto) Nucleated RBC % PT INR APTT Sodium Potassium Chloride Carbon Dioxide Anion Gap BUN Creatinine Estim Creat Clear Calc Est GFR (MDRD) Af Amer Est GFR (MDRD) Non-Af BUN/Creatinine Ratio Glucose Lactic Acid Calcium Magnesium Total Bilirubin AST ALT Alkaline Phosphatase Total Creatine Kinase Troponin I 0.068 H B-Natriuretic Peptide Total Protein Albumin Globulin Albumin/Globulin Ratio TSH Urine Color Urine Clarity Urine pH Ur Specific [place] Urine Protein Urine Glucose (UA) Urine Ketones Urine Occult Blood Urine Nitrite Urine Bilirubin Urine Urobilinogen Ur Leukocyte Esterase Urine RBC Urine WBC Ur Squamous Epith Cells Urine Bacteria Urine Mucus POC Glucose 08/04/19 08/04/19 11:28 06:48 POC Glucose 220 H 167 H Medical Necessity - Tobacco Use Smoking Status: Never smoker Assessment/Plan All Active Problems Weakness (Acute) New onset atrial fibrillation (Acute) Elevated troponin (Acute) Severe sepsis (Acute) IZA (acute kidney injury) (Acute) UTI (urinary tract infection) (Acute) Declining functional status (Acute) 1. Acute severe sepsis 2/2 UTI - recurrent UTI. +leukocytosis, tachycardia, lactic acidosis on admission. Completed appropriate abx for prior infection. Had home urinary incontinence and now with evidence of recurrent UTI. [place] in place started here for urinary retention likely contributing to her development of repeat UTIs. Continue cefepime empirically. Leukocytosis-recheck in AM. Afebrile. Cultures pending. 2. New onset Afib - continue metoprolol and therapeutic renal dosed lovenox. Cardiology following. Echo pending. TSH normal. Replace K+. 3. IZA on CKDIII - consult Nephrololgy. Recent IZA. Hold IV fluids as she appears volume overloaded. She has had a partial nephrectomy in the past due to a large kidney stone. 4. Suspect underlying chronic CHF -at this time I do not feel this is an acute exacerbation as she has no shortness of breath. type unclear until echo is back. BL 2-3+ pitting edema. S[place] wrap, strict I/O. Probably worsened from underlying Urinary retention. Maintain churchill. BNP elevated. Lungs clear. No SOB. 5. Elevated trop - indeterminate, flat. cardiology recommends stress test. No CP. No hx CAD. 6. Hx pulmonary nodule - o/p follow up. 7. DMt2 with obesity - dietary consult. Continue SSI. 8. HTN - stable DVT prophylaxis: Lovenox Discharge planning PT OT, she remains severely debilitated and is unable to get out of bed, walk or take care of herself. She was recently in the TCU. This patient was seen by Lavelle Soriano PA-C under the supervision of Doctor Marx. <Ani Marx - Last Filed: 08/04/19 14:25> - Physical Exam Vital Signs Temp Pulse Resp BP Pulse Ox 98.6 F 106 H 18 108/54 L 92 08/04/19 10:02 08/04/19 10:07 08/04/19 10:02 08/04/19 10:02 08/04/19 10:02 Oxygen Delivery Method Room Air Weight: 109.7 kg Body Mass Index (BMI) 39.0 Intake and Output for Last 24 Hours 08/02/19 08/03/19 08/04/19 23:59 23:59 23:59 Intake Total 1678.75 / 1678.75 Output Total 450 / 450 Balance 1228.75 / 1228.75 Laboratory Tests Past 24 Hrs 08/04/19 08/04/19 08/04/19 00:05 00:05 00:05 WBC 15.4 H RBC 3.98 L Hgb 11.0 L Hct 35.7 L MCV 89.7 MCH 27.6 MCHC 30.8 L RDW Std Deviation 50.9 H RDW Coeff of Chrissy 15.4 H Plt Count 235 MPV 11.4 Immature Gran % (Auto) 0.500 Neut % (Auto) 85.8 H Lymph % (Auto) 8.0 L [place] % (Auto) 4.8 Eos % (Auto) 0.6 Baso % (Auto) 0.3 Absolute Neuts (auto) 13.2 H Absolute Lymphs (auto) 1.24 Nucleated RBC % 0 PT 15.1 H INR 1.2 APTT 29.5 Sodium 137 Potassium 3.3 L Chloride 108 H Carbon Dioxide 21.0 Anion Gap 8 BUN 48 H Creatinine 2.86 H Estim Creat Clear Calc 12.58 Est GFR (MDRD) Af Amer 21 L Est GFR (MDRD) Non-Af 17 L BUN/Creatinine Ratio 16.8 Glucose 248 H Lactic Acid Calcium 7.5 L Magnesium Total Bilirubin 0.20 AST 13 L ALT 13 Alkaline Phosphatase 175 H Total Creatine Kinase Troponin I 0.061 H B-Natriuretic Peptide Total Protein 6.6 Albumin 1.9 L Globulin 4.7 H Albumin/Globulin Ratio 0.4 L TSH Urine Color Urine Clarity Urine pH Ur Specific [place] Urine Protein Urine Glucose (UA) Urine Ketones Urine Occult Blood Urine Nitrite Urine Bilirubin Urine Urobilinogen Ur Leukocyte Esterase Urine RBC Urine WBC Ur Squamous Epith Cells Urine Bacteria Urine Mucus 08/04/19 08/04/19 08/04/19 00:05 00:05 00:05 WBC RBC Hgb Hct MCV MCH MCHC RDW Std Deviation RDW Coeff of Chrissy Plt Count MPV Immature Gran % (Auto) Neut % (Auto) Lymph % (Auto) [place] % (Auto) Eos % (Auto) Baso % (Auto) Absolute Neuts (auto) Absolute Lymphs (auto) Nucleated RBC % PT INR APTT Sodium Potassium Chloride Carbon Dioxide Anion Gap BUN Creatinine Estim Creat Clear Calc Est GFR (MDRD) Af Amer Est GFR (MDRD) Non-Af BUN/Creatinine Ratio Glucose Lactic Acid 1.5 Calcium Magnesium Total Bilirubin AST ALT Alkaline Phosphatase Total Creatine Kinase 55 Troponin I B-Natriuretic Peptide 471.6 H Total Protein Albumin Globulin Albumin/Globulin Ratio TSH Urine Color Urine Clarity Urine pH Ur Specific [place] Urine Protein Urine Glucose (UA) Urine Ketones Urine Occult Blood Urine Nitrite Urine Bilirubin Urine Urobilinogen Ur Leukocyte Esterase Urine RBC Urine WBC Ur Squamous Epith Cells Urine Bacteria Urine Mucus 08/04/19 08/04/19 08/04/19 00:05 00:05 03:35 WBC RBC Hgb Hct MCV MCH MCHC RDW Std Deviation RDW Coeff of Chrissy Plt Count MPV Immature Gran % (Auto) Neut % (Auto) Lymph % (Auto) [place] % (Auto) Eos % (Auto) Baso % (Auto) Absolute Neuts (auto) Absolute Lymphs (auto) Nucleated RBC % PT INR APTT Sodium Potassium Chloride Carbon Dioxide Anion Gap BUN Creatinine Estim Creat Clear Calc Est GFR (MDRD) Af Amer Est GFR (MDRD) Non-Af BUN/Creatinine Ratio Glucose Lactic Acid Calcium Magnesium 1.4 L Total Bilirubin AST ALT Alkaline Phosphatase Total Creatine Kinase Troponin I 0.061 H B-Natriuretic Peptide Total Protein Albumin Globulin Albumin/Globulin Ratio TSH 1.49 Urine Color Yellow Urine Clarity Sl. Cloudy Urine pH 5.0 Ur Specific [place] 1.020 Urine Protein 100 H Urine Glucose (UA) Normal Urine Ketones Negative Urine Occult Blood 10 H Urine Nitrite Positive H Urine Bilirubin Negative Urine Urobilinogen Normal Ur Leukocyte Esterase 500 H Urine RBC 5-10 SEEN Urine WBC >100 SEEN Ur Squamous Epith Cells 0 SEEN Urine Bacteria 2+ Urine Mucus 0 SEEN 08/04/19 06:01 WBC RBC Hgb Hct MCV MCH MCHC RDW Std Deviation RDW Coeff of Chrissy Plt Count MPV Immature Gran % (Auto) Neut % (Auto) Lymph % (Auto) [place] % (Auto) Eos % (Auto) Baso % (Auto) Absolute Neuts (auto) Absolute Lymphs (auto) Nucleated RBC % PT INR APTT Sodium Potassium Chloride Carbon Dioxide Anion Gap BUN Creatinine Estim Creat Clear Calc Est GFR (MDRD) Af Amer Est GFR (MDRD) Non-Af BUN/Creatinine Ratio Glucose Lactic Acid Calcium Magnesium Total Bilirubin AST ALT Alkaline Phosphatase Total Creatine Kinase Troponin I 0.068 H B-Natriuretic Peptide Total Protein Albumin Globulin Albumin/Globulin Ratio TSH Urine Color Urine Clarity Urine pH Ur Specific [place] Urine Protein Urine Glucose (UA) Urine Ketones Urine Occult Blood Urine Nitrite Urine Bilirubin Urine Urobilinogen Ur Leukocyte Esterase Urine RBC Urine WBC Ur Squamous Epith Cells Urine Bacteria Urine Mucus POC Glucose 08/04/19 08/04/19 11:28 06:48 POC Glucose 220 H 167 H Assessment/Plan This patient was seen in conjunction with CALIXTO Hopson. I have independently interviewed and examined the patient and reviewed pertinent historical, laboratory, and other data. Please refer to CALIXTO Hopson note for his patient's presentation, findings, and recommendations. I have reviewed and his note and concur with his documentation Patient was seen and examined. was at the bedside. She feels very weak. Denied any fever or chills. She has had progressive weakness since her discharge from TCU. No known history of atrial fibrillation. Remains in atrial fibrillation on telemetry. Physical Exam: Gen: Looks in some discomfort, morbidly obese, not pale, not jaundiced CVS:HS I +II, regular, no murmurs RESP: Diminished at lung bases GI: BS present and normal, soft, nontender, no palpable organs EXT: Bilateral pedal edema +3 ASSESSMENT: 1. Severe sepsis 2. Acute UTI 3. IZA on CKD stage III 4. Indeterminate troponin 5. New onset atrial fibrillation 6. Type II DM 7. Hypertension Plan: Appreciate cardiology consult We will discontinue IV fluids, allow patient to drink to her thirst Repeat blood work in a.m. Therapeutic Lovenox [place] wrap to lower extremities Continue home metoprolol for now Continue IV cefepime Follow-up on cultures Code Visit Inpatient E&M: [id number] [facility] Hosp L3
[2019-08-04] MEDS: oxyCODONE 5 MG Tablet 10 MG PO (15:00)
--- NOTE | 2019-08-04 17:27 | PCM.CONS.R ---
Problem List (1) IZA (acute kidney injury) Status: Acute Consultation - Renal PCP/ Referring MD: Requesting physician: [] Primary care physician: Law Quintana DO - History of Present Illness History of Present Illness: The patient is a 74 year old F. Pt was admitted recently to [facility] for UTI and treated with Abx . Pt developed IZA on CKD with baseline Cr ~ 1.5 mg/dL IZA was contributed to ATN. Cr then gradually improved to baseline. Pt was then discharged to TCU and then home Pt presented with physical deconditioning. Pt has not been able to get up from sitting position. In ED she was found to have Afib with RVR and sepsis from UTI Pt was treated recently for bronchitis with Azithromycin Renal team was consulted for again IZA. Cr increased to 2.8 mg/dL. Pt received 2 L of NS Pt is making urine. Denied urinary obstructive symptoms. No NSAIDs use. No IV contrast exposure ROS:12 systems review is negative except what mentioned in HPI [] - Allergies Allergies: Allergies adhesive Allergy (Verified 08/03/19 23:44) Rash amoxicillin [From Augmentin] Allergy (Verified 08/03/19 23:44) Unknown carvedilol Allergy (Verified 08/03/19 23:44) Unknown ceftriaxone [From Rocephin] Allergy (Verified 08/03/19 23:44) Unknown chlorthalidone Allergy (Verified 08/03/19 23:44) Unknown ciprofloxacin Allergy (Verified 08/03/19 23:44) Rash clavulanic acid [From Augmentin] Allergy (Verified 08/03/19 23:44) Unknown doxycycline Allergy (Verified 08/03/19 23:44) Unknown fexofenadine Allergy (Verified 08/03/19 23:44) Unknown gatifloxacin [From Tequin] Allergy (Verified 08/03/19 23:44) Unknown hydrochlorothiazide Allergy (Verified 08/03/19 23:44) Unknown lisinopril Allergy (Verified 08/03/19 23:44) Unknown losartan Allergy (Verified 08/03/19 23:44) Unknown Penicillins Allergy (Verified 08/03/19 23:44) Rash pramipexole Allergy (Verified 08/03/19 23:44) Unknown Quinolones Allergy (Verified 08/03/19 23:44) Unknown ropinirole Allergy (Verified 08/03/19 23:44) Unknown aspirin Adverse Reaction (Verified 08/03/19 23:44) Vomiting - Current Medications Current Medications: Current Medications Acetaminophen (Tylenol) 650 mg PO Q6H PRN PRN PRN Reason: FEVER Amlodipine Besylate (Norvasc) 10 mg PO DAILY [facility] Last Admin: 08/04/19 10:08 Dose: 10 mg Documented by: Calamine/Phenol (Calmoseptine Ointment) 1 applic TOPICAL BID [facility]; Protocol Last Admin: 08/04/19 10:08 Dose: 1 applicatio Documented by: Dextrose (D50w Syringe) 0 gm IV X1 PRN; Protocol PRN Reason: Hypoglycemia Enoxaparin Sodium (Lovenox) 110 mg SC DAILY [facility] Glucagon () 1 mg IM .X1 PRN PRN Reason: Hypoglycemia Hydralazine HCl (Apresoline) 25 mg PO TID [facility] Last Admin: 08/04/19 14:59 Dose: 25 mg Documented by: Cefepime HCl 2 gm/ Sodium (Chloride) 100 mls @ 200 mls/hr IV Q24H [facility] Last Infusion: 08/04/19 10:40 Dose: Infused Documented by: Sodium Chloride () 250 mls @ 15 mls/hr IV .[id number] PRN PRN Reason: SALINE FLUSH Insulin Glargine (Lantus (Bkc)) 25 units SC BREAKFAST [facility] Last Admin: 08/04/19 07:57 Dose: 25 units Documented by: Insulin Human Lispro (Humalog Kwikpen (Bkc)) 0 unit SC ACHS [facility]; Protocol Last Admin: 08/04/19 16:32 Dose: 2 units Documented by: Linagliptin (Tradjenta) 5 mg PO DAILY [facility] Last Admin: 08/04/19 10:08 Dose: 5 mg Documented by: Loratadine (Claritin) 10 mg PO DAILY [facility] Last Admin: 08/04/19 10:08 Dose: 10 mg Documented by: Melatonin (Melatonin) 3 mg PO QHS PRN PRN PRN Reason: INSOMNIA Metoprolol Tartrate (Lopressor (Beta Allie)) 25 mg PO BID [facility] Last Admin: 08/04/19 10:07 Dose: 25 mg Documented by: Nystatin (Mycostatin Powder) 1 applic TOPICAL 0600,2200 [facility]; Protocol Last Admin: 08/04/19 06:53 Dose: 1 applicatio Documented by: Ondansetron HCl (Zofran) 4 mg IV Q8H PRN PRN PRN Reason: NAUSEA/VOMITING Oxycodone HCl (Oxyir) 7.5 mg PO Q8H PRN PRN PRN Reason: SEVERE PAIN (6-10) Polyethylene Glycol (Miralax) 17 gm PO DAILY [facility] Last Admin: 08/04/19 10:06 Dose: Not Given Documented by: Polysaccharide Iron Complex (Ferrex 150) 150 mg PO DAILYCM [facility] Last Admin: 08/04/19 07:57 Dose: 150 mg Documented by: Pravastatin Sodium (Pravachol) 40 mg PO DAILY@2200 [facility] Pregabalin (Lyrica) 50 mg PO TID [facility] Sodium Chloride () 10 - 40 ml IV UD PRN PRN Reason: SALINE FLUSH - Past Medical History Past Medical History (Chronic Problems): Chronic Problems Lung mass (Chronic) Chronic kidney disease (Chronic) Diabetic polyneuropathy (Chronic) Allergic rhinitis (Chronic) Hyperlipidemia (Chronic) Debility (Chronic) Pulmonary nodule (Chronic) Back pain (Chronic) 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 In addition, she has recently undergone cystoscopy with right retrograde pyelogram and laser ablation of kidney stones with placement of a ureteral stent. Patient is a Ab0.Had partial nephrectomy done in [place], [place] 15yrs ago for impacted renal stone. - Social History Smoking Status: Never smoker Alcohol: None - Family History Maternal History Items: Heart Disease, Hypertension, - - Her mother from lymphoma Paternal History Items: Heart Disease, Hypertension Patient Problems: Active and Suspected Problems New onset atrial fibrillation (Acute) Elevated troponin (Acute) Severe sepsis (Acute) IZA (acute kidney injury) (Acute) UTI (urinary tract infection) (Acute) Declining functional status (Acute) - Physical Exam General: Alert, Oriented x3 HEENT: Atraumatic Oral: Moist Mucosa Neck: Supple, No JVD Lungs: Clear to auscultation, Normal air movement, No rhonchi Cardiovascular: Regular rate, Regular Rhythm Abdomen: Bowel Sounds Present, Soft, Non Tender Extremities: No cyanosis, Edema Skin: No rashes Neurological: Neuro grossly intact Psych/Mental Status: Appropriate Vital Signs Temp Pulse Resp BP Pulse Ox 100.6 F H 95 18 119/95 H 95 08/04/19 16:24 08/04/19 16:24 08/04/19 16:24 08/04/19 16:24 08/04/19 16:24 Oxygen Delivery Method Room Air Weight: 109.7 kg Body Mass Index (BMI) 39.0 Intake and Output for Last 24 Hours 08/02/19 08/03/19 08/04/19 23:59 23:59 23:59 Intake Total 1782.75 / 1782.75 Output Total 750 / 750 Balance 1032.75 / 1032.75 Laboratory Tests Past 24 Hrs 08/04/19 08/04/19 08/04/19 00:05 00:05 00:05 WBC 15.4 H RBC 3.98 L Hgb 11.0 L Hct 35.7 L MCV 89.7 MCH 27.6 MCHC 30.8 L RDW Std Deviation 50.9 H RDW Coeff of Chrissy 15.4 H Plt Count 235 MPV 11.4 Immature Gran % (Auto) 0.500 Neut % (Auto) 85.8 H Lymph % (Auto) 8.0 L [place] % (Auto) 4.8 Eos % (Auto) 0.6 Baso % (Auto) 0.3 Absolute Neuts (auto) 13.2 H Absolute Lymphs (auto) 1.24 Nucleated RBC % 0 PT 15.1 H INR 1.2 APTT 29.5 Sodium 137 Potassium 3.3 L Chloride 108 H Carbon Dioxide 21.0 Anion Gap 8 BUN 48 H Creatinine 2.86 H Estim Creat Clear Calc 12.58 Est GFR (MDRD) Af Amer 21 L Est GFR (MDRD) Non-Af 17 L BUN/Creatinine Ratio 16.8 Glucose 248 H Lactic Acid Calcium 7.5 L Magnesium Total Bilirubin 0.20 AST 13 L ALT 13 Alkaline Phosphatase 175 H Total Creatine Kinase Troponin I 0.061 H B-Natriuretic Peptide Total Protein 6.6 Albumin 1.9 L Globulin 4.7 H Albumin/Globulin Ratio 0.4 L TSH Urine Color Urine Clarity Urine pH Ur Specific [place] Urine Protein Urine Glucose (UA) Urine Ketones Urine Occult Blood Urine Nitrite Urine Bilirubin Urine Urobilinogen Ur Leukocyte Esterase Urine RBC Urine WBC Ur Squamous Epith Cells Urine Bacteria Urine Mucus 08/04/19 08/04/19 08/04/19 00:05 00:05 00:05 WBC RBC Hgb Hct MCV MCH MCHC RDW Std Deviation RDW Coeff of Chrissy Plt Count MPV Immature Gran % (Auto) Neut % (Auto) Lymph % (Auto) [place] % (Auto) Eos % (Auto) Baso % (Auto) Absolute Neuts (auto) Absolute Lymphs (auto) Nucleated RBC % PT INR APTT Sodium Potassium Chloride Carbon Dioxide Anion Gap BUN Creatinine Estim Creat Clear Calc Est GFR (MDRD) Af Amer Est GFR (MDRD) Non-Af BUN/Creatinine Ratio Glucose Lactic Acid 1.5 Calcium Magnesium Total Bilirubin AST ALT Alkaline Phosphatase Total Creatine Kinase 55 Troponin I B-Natriuretic Peptide 471.6 H Total Protein Albumin Globulin Albumin/Globulin Ratio TSH Urine Color Urine Clarity Urine pH Ur Specific [place] Urine Protein Urine Glucose (UA) Urine Ketones Urine Occult Blood Urine Nitrite Urine Bilirubin Urine Urobilinogen Ur Leukocyte Esterase Urine RBC Urine WBC Ur Squamous Epith Cells Urine Bacteria Urine Mucus 08/04/19 08/04/19 08/04/19 00:05 00:05 03:35 WBC RBC Hgb Hct MCV MCH MCHC RDW Std Deviation RDW Coeff of Chrissy Plt Count MPV Immature Gran % (Auto) Neut % (Auto) Lymph % (Auto) [place] % (Auto) Eos % (Auto) Baso % (Auto) Absolute Neuts (auto) Absolute Lymphs (auto) Nucleated RBC % PT INR APTT Sodium Potassium Chloride Carbon Dioxide Anion Gap BUN Creatinine Estim Creat Clear Calc Est GFR (MDRD) Af Amer Est GFR (MDRD) Non-Af BUN/Creatinine Ratio Glucose Lactic Acid Calcium Magnesium 1.4 L Total Bilirubin AST ALT Alkaline Phosphatase Total Creatine Kinase Troponin I 0.061 H B-Natriuretic Peptide Total Protein Albumin Globulin Albumin/Globulin Ratio TSH 1.49 Urine Color Yellow Urine Clarity Sl. Cloudy Urine pH 5.0 Ur Specific [place] 1.020 Urine Protein 100 H Urine Glucose (UA) Normal Urine Ketones Negative Urine Occult Blood 10 H Urine Nitrite Positive H Urine Bilirubin Negative Urine Urobilinogen Normal Ur Leukocyte Esterase 500 H Urine RBC 5-10 SEEN Urine WBC >100 SEEN Ur Squamous Epith Cells 0 SEEN Urine Bacteria 2+ Urine Mucus 0 SEEN 08/04/19 06:01 WBC RBC Hgb Hct MCV MCH MCHC RDW Std Deviation RDW Coeff of Chrissy Plt Count MPV Immature Gran % (Auto) Neut % (Auto) Lymph % (Auto) [place] % (Auto) Eos % (Auto) Baso % (Auto) Absolute Neuts (auto) Absolute Lymphs (auto) Nucleated RBC % PT INR APTT Sodium Potassium Chloride Carbon Dioxide Anion Gap BUN Creatinine Estim Creat Clear Calc Est GFR (MDRD) Af Amer Est GFR (MDRD) Non-Af BUN/Creatinine Ratio Glucose Lactic Acid Calcium Magnesium Total Bilirubin AST ALT Alkaline Phosphatase Total Creatine Kinase Troponin I 0.068 H B-Natriuretic Peptide Total Protein Albumin Globulin Albumin/Globulin Ratio TSH Urine Color Urine Clarity Urine pH Ur Specific [place] Urine Protein Urine Glucose (UA) Urine Ketones Urine Occult Blood Urine Nitrite Urine Bilirubin Urine Urobilinogen Ur Leukocyte Esterase Urine RBC Urine WBC Ur Squamous Epith Cells Urine Bacteria Urine Mucus POC Glucose 08/04/19 08/04/19 11:28 06:48 POC Glucose 220 H 167 H Assessment/Plan All Active Problems Weakness (Acute) New onset atrial fibrillation (Acute) Elevated troponin (Acute) Severe sepsis (Acute) IZA (acute kidney injury) (Acute) UTI (urinary tract infection) (Acute) Declining functional status (Acute) 1- IZA on CKD stage 3. Baseline CR 1.5 mg/dL. pt had recent IZA from sepsis induced ATN. UA showed UTI again. I suspect IZA is again from ATN Will check FeNa Pt received 2 L of NS . currently off IVF Continue UTI treatment No need for TOMBSTONE ERECTOR Avoid IV contrast. Check renal function in am 2- Afib with RVR. cardiology service is following. will need RAMIRO 3- HTN: BP is well controlled. continue home BP med Avoid ACEI/ARB for now 4- UTI: on cefepime. follow UC and S Thank you for allowing me to participate in Mrs. West's care .Please call if any question or concern at [phone] Yecenia Acosta M.D
[2019-08-04] MEDS: Acetaminophen 325 MG Tablet 650 MG PO (20:42)
[2019-08-04 21:20] LABS: Bedside Glucose 225 mg/dL (70-110)
[2019-08-04] MEDS: Pravastatin 40 MG Tablet PO (21:30)
[2019-08-04] MEDS: 0.9% NaCl Peripheral Flush Adult/Peds IV ×2 (21:40→21:52)
[2019-08-04] MEDS: dilTIAZem 25 MG/5 ML Vial 10 MG IV BOLUS (21:40)
[2019-08-04] MEDS: Metoprolol Tartrate 5 MG/5 ML Vial IV (21:40)
[2019-08-04 22:31] LABS: Bedside Glucose 236 mg/dL (70-110)
[2019-08-05] VITALS (10 sets, daily range): BP systolic 106–146; BP diastolic 47–89; PULSE 70–100; RESP 15–20; TEMP 36.6–37.3; O2SAT 92–98
[2019-08-05 00:16] LABS: Urine Sodium 20 mmol/L (Not Establ.)
[2019-08-05] MEDS: Nystatin Powder 15gm Bottle 1 APPLIC TOPICAL ×2 (05:55→22:37)
--- NOTE | 2019-08-05 05:55 | EKG12_ITS ---
Test Reason : MORNING EKG Blood Pressure : / mmHG Vent. Rate : 096 BPM Atrial Rate : 104 BPM P-R Int : 000 ms QRS Dur : 104 ms QT Int : 352 ms P-R-T Axes : 000 000 136 degrees QTc Int : 444 ms Atrial fibrillation Nonspecific ST-T Change Abnormal ECG When compared with ECG of 04-AUG-2019 00:06, MANUAL COMPARISON REQUIRED, DATA IS UNCONFIRMED Confirmed by JENNIFER BURNETT, JOE ([id number]), purchase request editor NARGIS LANDON ([id number]) on 08/09/2019 10:33:53 A M Referred By: Tobi Parr Confirmed By:NEMESIO RODRIGUEZ MD
[2019-08-05 06:22] LABS: Absolute Lymphocyte Count 0.62 X10^3/uL (0.83-4.51); Basophil# 0.02 X10^3/uL; Basophil% 0.1 % (0-1); Eosinophil# 0.37 X10^3/uL; Eosinophils% 2.8 % (0-5); Hematocrit 35.1 % (37-47); Hemoglobin 10.6 g/dL (12.0-15.0); Lymphocyte # 0.62 X10^3/ul (4.0); Lymphocyte % 4.6 % (19-41); Mean Corp Hgb Conc 30.2 g/dL (32-36); Mean Corpuscular Hgb 27.2 pg (27.0-32.0); Mean Corpuscular Volume 90.2 fL (81-99); Mean Platelet Vol. 11.4 fl (6.2-12.0); Monocyte% 2.2 % (0-10); NRBC Flagged by Analyzer 0 % (0-5); Neutrophil # 11.98 X10^3/uL (2.7-7.7); Neutrophil % 89.9 % (47-70); Platelet Count 230 K/mm3 (150-450); RBC Distribution Width CV 15.9 % (11.6-14.6); Red Blood Count 3.89 M/mm3 (4.2-5.4); White Blood Count 13.4 K/mm3 (4.4-11.0)
[2019-08-05 06:27] LABS: Anion Gap 11 (5-15); BUN 62 mg/dL (7-18); BUN/Creat Ratio 18.7 RATIO (10-20); Calcium,Total 7.3 mg/dL (8.5-10.1); Chloride 112 mmol/L (98-107); Creatinine, Serum 3.32 mg/dL (0.55-1.02); EST Glomerular Filtration Rate 14 mL/min (>60); Est Glom Filt Rate - Afr Amer 18 mL/min (>60); Estimated Creatinine Clearance 14.13 ml/min; Glucose 179 mg/dL (74-106); Potassium 3.8 mmol/L (3.5-5.1); Sodium Level 141 mmol/L (136-145)
[2019-08-05] MEDS: Insulin Lispro 100 UNIT/ML INSULN.PEN SC ×3 (07:00→22:33)
[2019-08-05 07:05] LABS: Bedside Glucose 166 mg/dL (70-110)
--- NOTE | 2019-08-05 07:20 | PN.CARD_ITS ---
Subjectve: Patient seen and evaluated. Appears to be rather somnolent Objective: Vital Signs Temp Pulse Resp BP Pulse Ox 99.2 F H 93 18 127/58 H 92 08/05/19 05:35 08/05/19 05:35 08/05/19 05:35 08/05/19 05:35 08/05/19 05:35 Oxygen Delivery Method Room Air Weight: 241 lb 13.553 oz Body Mass Index (BMI) 39.0 Intake and Output for Last 24 Hours 08/03/19 08/04/19 08/05/19 23:59 23:59 23:59 Intake Total 1782.75 / 1782.75 0 / 0 Output Total 950 / 950 100 / 100 Balance 832.75 / 832.75 -100 / -100 General: Awake, Lethargic HEENT: PERRL, EOMI, Sclera Non Icteric Neck: Supple, Good ROM, No Lymph Node Enlargement Lungs: Clear to auscultation Cardiovascular: Irregular Rhythm, Normal S1, Normal S2, No Murmurs, No Rubs, No Gallops Vascular: No Carotid Bruits, Normal Femoral Pulses, Normal Radial Pulses, Normal Dorsalis Pedal Pulse, Normal Posterior Tibial Pulses Abdomen: Bowel Sounds Present, Soft, Non Tender, No HSM, No Organomegaly Extremities: No Cyanosis, No Clubbing, Trace RLE Edema, Mild RLE Edema Neurological: No Focal Motor or Sensory Deficit Psych/Mental Status: Inappropriate 08/05/19 05:55: WBC 13.4 H, RBC 3.89 L, Hgb 10.6 L, Hct 35.1 L, MCV 90.2, MCH 27.2, MCHC 30.2 L, Plt Count 230, MPV 11.4, Immature Gran % (Auto) 0.400, Neut % (Auto) 89.9 H, Lymph % (Auto) 4.6 L, [place] % (Auto) 2.2, Eos % (Auto) 2.8, Baso % (Auto) 0.1, Absolute Neuts (auto) 12.0 H, Nucleated RBC % 0 08/05/19 05:55: Sodium 141, Potassium 3.8, Chloride 112 H, Carbon Dioxide 18.0 L , Anion Gap 11, BUN 62 H, Creatinine 3.32 H, Est GFR (MDRD) Af Amer 18 L, Est GFR (MDRD) Non-Af 14 L, BUN/Creatinine Ratio 18.7, Glucose 179 H, Calcium 7.3 L Rhythm: EKG: ECHO: Stress Test: Cardiac Cath: PCI: CT Surgery: Holter monitor: EPS: PPM: CXR: Chest CT Scan: Medical Necessity - Tobacco Use Smoking Status: Never smoker Assessment/Plan 1. Atrial fibrillation--controlled ventricular response rate. * Patient unaware of the current rhythm problem. Her ventricular response rate also appears to be preserved. * My recommendation at this time will be to continue anticoagulation with Lovenox and hopefully switch her to Eliquis within the next 24 hours. Depending on how her renal function stabilizes. * We will also obtain an echocardiogram to assess her left ventricular function. * Will increase her beta-beau with Lopressor to 50 mg twice a day. * At this point in time I do not think that it is imperative that we restore sinus rhythm. Rate control appears to be working quite well. We will reevaluate after her kidney function has stabilized. * Will hold off on RAMIRO cardioversion at this particular time. * At some point in time she may need to be evaluated for ischemic coronary disease.
[2019-08-05] MEDS: oxyCODONE 5 MG Tablet 7.5 MG PO (08:48)
[2019-08-05] MEDS: amLODIPine 10 MG Tablet PO (08:48)
[2019-08-05 09:01] LABS: Magnesium 1.9 mg/dL (1.6-2.6); Phosphorus 5.6 mg/dL (2.5-4.9)
[2019-08-05] MEDS: Menthol/Lanolin/Calamine/Znox 113 GM Tube 1 APPLIC TOPICAL ×2 (09:27→22:33)
--- NOTE | 2019-08-05 11:53 | CASEMGMT ---
Addendum entered by Cha Roberts 08/05/19 12:47: Pt spouse confirmed demographics and that pt does have a HCPOA and LW. At home pt uses lazy boy to sleep, does have a BSC, walker and wheelchair. D/C from TCU on 07/27 with [facility] PT/OT/SN. Spouse is primary caregiver. MARC Tuttle Original Note: Social Work SW met with pt , pt is currently out of room for testing. Pt stating pt d/c from TCU on 07/27. When pt returned home was able to care for pt and she was able to assist with self care. As days progressed, pt was unable to get out of chair even with assistance of her spouse. Pt aware that he is not able to care for pt at this time and needs assisted placement for more rehab. Discussed with pt different options including community SNF if pt would need halfway care. Pt expressing understanding of this but would prefer return to TCU as pt is familiar with therapists and staff there and worked well with them. VM left with Swati in TCU and referral left. If TCU is unable to accept pt next choice is [facility]. Written list of facilities in network with insurance left with pt . JULIO also talked with spouse regarding halfway placement and Medicaid benefit explained. Emotional support and active listening provided to spouse as he is having difficulty with caring for and need for SNF again. Will await return call from TCU for determination of acceptance. MARC Tuttle
[2019-08-05] MEDS: Metoprolol Tartrate 50 MG Tablet PO ×2 (13:56→22:34)
[2019-08-05] MEDS: Iron Polysaccharide Complex 150 MG CAPSULE PO (13:56)
[2019-08-05] MEDS: Loratadine 10 MG Tablet PO (13:56)
[2019-08-05] MEDS: Lidocaine 5% Patch 1 PATCH TOPICAL (13:57)
[2019-08-05] MEDS: Enoxaparin 120 MG/0.8 ML Syringe 110 MG SC (13:57)
[2019-08-05] MEDS: Polyethylene Glycol 3350 17 GM PACKET PO (13:57)
[2019-08-05] MEDS: LINAGLIPTIN 5 MG TABLET PO (13:58)
--- NOTE | 2019-08-05 14:07 | CASEMGMT ---
TCU is able to take patient. However, we will need to wait on insurance to see if they will authorize SNF again. Radha TORO MSW
[2019-08-05 14:11] LABS: Bedside Glucose 178 mg/dL (70-110)
--- NOTE | 2019-08-05 14:18 | PN_ITS ---
Patient Problems: Active and Suspected Problems New onset atrial fibrillation (Acute) Elevated troponin (Acute) Severe sepsis (Acute) IZA (acute kidney injury) (Acute) UTI (urinary tract infection) (Acute) Declining functional status (Acute) Subjective: C/O fatigue and lower back pain. No discomfort with churchill, little output. No fevers/chills. No abdominal pain. No CP, pressure, tightness, heaviness, palp. No LH/dizziness. - Physical Exam General: Alert, Oriented x3, Cooperative HEENT: Atraumatic, PERRLA, EOMI, Normocephalic Neck: Supple, No JVD, Negative Carotid Bruits Lungs: Clear to auscultation, Normal air movement Cardiovascular: No murmurs, Irregular Rate, Tachycardic Abdomen: Bowel Sounds Present, Soft, Non Tender Extremities: No edema, Capillary Refill Less than 3 Seconds Skin: No rashes, No breakdown Musculoskeletal: No Tenderness to Palpation of Joints or Extremities Neurological: Cranial nerves II-XII grossly intact Psych/Mental Status: Normal Affect, Appropriate, Alert and oriented to time, place, person, mood and affect Vital Signs Temp Pulse Resp BP Pulse Ox 98.5 F 95 18 106/47 L 98 08/05/19 12:46 08/05/19 13:56 08/05/19 12:46 08/05/19 12:46 08/05/19 12:46 Oxygen Delivery Method Room Air Weight: 241 lb 13.553 oz Body Mass Index (BMI) 39.0 Intake and Output for Last 24 Hours 08/03/19 08/04/19 08/05/19 23:59 23:59 23:59 Intake Total 1782.75 / 1782.75 100 / 100 Output Total 950 / 950 100 / 100 Balance 832.75 / 832.75 0 / 0 Microbiology Past 72 Hours 08/04/19 00:05 Urine Culture - Preliminary Urine Catheter - [place] GNR lactose orthopedics pediatric physician Laboratory Tests Past 24 Hrs 08/04/19 08/04/19 08/05/19 23:30 23:30 05:55 WBC 13.4 H RBC 3.89 L Hgb 10.6 L Hct 35.1 L MCV 90.2 MCH 27.2 MCHC 30.2 L RDW Std Deviation 53.0 H RDW Coeff of Chrissy 15.9 H Plt Count 230 MPV 11.4 Immature Gran % (Auto) 0.400 Neut % (Auto) 89.9 H Lymph % (Auto) 4.6 L [place] % (Auto) 2.2 Eos % (Auto) 2.8 Baso % (Auto) 0.1 Absolute Neuts (auto) 12.0 H Absolute Lymphs (auto) 0.62 L Nucleated RBC % 0 Sodium Potassium Chloride Carbon Dioxide Anion Gap BUN Creatinine Estim Creat Clear Calc Est GFR (MDRD) Af Amer Est GFR (MDRD) Non-Af BUN/Creatinine Ratio Glucose Calcium Phosphorus Magnesium Ur Random Sodium 20 Urine Creatinine 194.00 08/05/19 08/05/19 05:55 05:55 WBC RBC Hgb Hct MCV MCH MCHC RDW Std Deviation RDW Coeff of Chrissy Plt Count MPV Immature Gran % (Auto) Neut % (Auto) Lymph % (Auto) [place] % (Auto) Eos % (Auto) Baso % (Auto) Absolute Neuts (auto) Absolute Lymphs (auto) Nucleated RBC % Sodium 141 Potassium 3.8 Chloride 112 H Carbon Dioxide 18.0 L Anion Gap 11 BUN 62 H Creatinine 3.32 H Estim Creat Clear Calc 14.13 Est GFR (MDRD) Af Amer 18 L Est GFR (MDRD) Non-Af 14 L BUN/Creatinine Ratio 18.7 Glucose 179 H Calcium 7.3 L Phosphorus 5.6 H Magnesium 1.9 Ur Random Sodium Urine Creatinine POC Glucose 08/05/19 08/05/19 08/04/19 13:54 06:58 21:29 POC Glucose 178 H 166 H 236 H 08/04/19 16:30 POC Glucose 225 H Medical Necessity - Tobacco Use Smoking Status: Never smoker Assessment/Plan All Active Problems Weakness (Acute) New onset atrial fibrillation (Acute) Elevated troponin (Acute) Severe sepsis (Acute) IZA (acute kidney injury) (Acute) UTI (urinary tract infection) (Acute) Declining functional status (Acute) 1. Acute severe sepsis 2/2 UTI - recurrent UTI. +leukocytosis, tachycardia, lactic acidosis on admission. Continue cefepime. Fever last night 101.9. Cultures pending, prelim urine with GNR lactose orthopedics pediatric physician. ID following. 2. New onset Afib - continue metoprolol and therapeutic renal dosed lovenox. Cardiology following. Echo as below. TSH normal. Supplement mag. -Stress test pending. 3. IZA on CKDIII - consult Nephrololgy. Recent IZA. Worse. Poor output today. 4. Suspect underlying diastolic chronic CHF -at this time I do not feel this is an acute exacerbation as she has no shortness of breath. BL 2-3+ pitting edema. KANE wrap, strict I/O. Probably worsened from underlying Urinary retention. Maintain churchill. BNP elevated. Lungs clear. No SOB. Echo with severe LVH, normal systolic function, no wall motion abnormalities, 1+ TVI, PASP 28 mmHg 5. Elevated trop - indeterminate, flat. Stress pending No CP. No hx CAD. 6. Hx pulmonary nodule - o/p follow up. 7. DMt2 with obesity - dietary consult. Continue SSI. 8. HTN - stable DVT prophylaxis: Lovenox Discharge planning PT OT, she remains severely debilitated and is unable to get out of bed, walk or take care of herself. She was recently in the TCU. This patient was seen by Lavelle Soriano PA-C under the supervision of Doctor Aviles
--- NOTE | 2019-08-05 14:40 | CASEMGMT ---
SW attempted to talk with patient's about alternative plan if patient is not approved to go to TCU. He said they cannot private pay. He asked about what help he could get at home. JULIO told him what insurance pays for as far as home health. SW asked if they have completed a Medicaid application and he said they have not. He said he wants to take her home after rehab. He said this is all from an infection. He said she was fine when she first got home from TCU, but then she got another infection and went downhill again. They do not want her to live in a halfway yet. Radha TORO MSW
--- NOTE | 2019-08-05 15:06 | STRESSREP ---
Stress Test Report Pharmacologic myocardial perfusion stress test. 74-year-old lady with a history of atrial fibrillation. Stress protocol: Resting EKG demonstrates atrial for ablation with a rate of 97 bpm normal intervals are noted resting blood pressure 132/70 mmHg. 0.4 mg of regadenoson was infused per usual protocol. The maximum heart rate attained 109 bpm which was 74% of maximum predicted heart rate the maximum workload was 1 metabolic equivalent. At rest there were no ST or T wave changes noted suggest abnormal flow reserve at peak infusion nonspecific ST-T wave changes were noted. The patient maintained atrial fibrillation throughout the recording. Myocardial perfusion protocol. 15.0 mCi of technetium 99m sestamibi was injected at rest. 0.4 mg of adenosine was infused per usual protocol peak infusion 45.0 mCi of technetium 99m sestamibi was injected stress images were obtained stress and rest images were reconstructed and compared in the short axis vertical long horizontal long axis. Gated images were also obtained Perfusion SPECT analysis: There was motion artifact noted. The images demonstrated evidence of anterior breast wall attenuation as well as a possible previous inferior infarct or diaphragmatic attenuation. No obvious reversibility is noted suggest ischemia. The gated ejection fraction is noted to be 64%. No CT images were obtained. Conclusion: Probably normal pharmacologic myocardial perfusion stress test. Preserved ejection fraction. Atrial fibrillation noted.
--- NOTE | 2019-08-05 15:16 | PN.RENAL_ITS ---
Patient Problems: Active and Suspected Problems New onset atrial fibrillation (Acute) Elevated troponin (Acute) Severe sepsis (Acute) IZA (acute kidney injury) (Acute) UTI (urinary tract infection) (Acute) Declining functional status (Acute) Subjective: appetite is fair breathing is ok significant LE edema Echo reviewed - Physical Exam General: Alert, Oriented x3, Cooperative HEENT: Atraumatic, PERRLA, EOMI, Normocephalic Neck: Supple, No JVD, Negative Carotid Bruits Lungs: Clear to auscultation, Normal air movement Cardiovascular: Regular rate, No murmurs Abdomen: Bowel Sounds Present, Soft, Non Tender Extremities: Capillary Refill Less than 3 Seconds, Edema Skin: No rashes, No breakdown Musculoskeletal: No Tenderness to Palpation of Joints or Extremities Neurological: Cranial nerves II-XII grossly intact Psych/Mental Status: Normal Affect, Appropriate Vital Signs Temp Pulse Resp BP Pulse Ox 98.5 F 95 18 106/47 L 98 08/05/19 12:46 08/05/19 13:56 08/05/19 12:46 08/05/19 12:46 08/05/19 12:46 Oxygen Delivery Method Room Air Weight: 109.7 kg Body Mass Index (BMI) 39.0 Intake and Output for Last 24 Hours 08/03/19 08/04/19 08/05/19 23:59 23:59 23:59 Intake Total 1782.75 / 1782.75 100 / 100 Output Total 950 / 950 100 / 100 Balance 832.75 / 832.75 0 / 0 Microbiology Past 72 Hours 08/04/19 00:05 Urine Culture - Preliminary Urine Catheter - Ojeda GNR lactose production sanitizer Laboratory Tests Past 24 Hrs 08/04/19 08/04/19 08/05/19 23:30 23:30 05:55 WBC 13.4 H RBC 3.89 L Hgb 10.6 L Hct 35.1 L MCV 90.2 MCH 27.2 MCHC 30.2 L RDW Std Deviation 53.0 H RDW Coeff of Chrissy 15.9 H Plt Count 230 MPV 11.4 Immature Gran % (Auto) 0.400 Neut % (Auto) 89.9 H Lymph % (Auto) 4.6 L Steele % (Auto) 2.2 Eos % (Auto) 2.8 Baso % (Auto) 0.1 Absolute Neuts (auto) 12.0 H Absolute Lymphs (auto) 0.62 L Nucleated RBC % 0 Sodium Potassium Chloride Carbon Dioxide Anion Gap BUN Creatinine Estim Creat Clear Calc Est GFR (MDRD) Af Amer Est GFR (MDRD) Non-Af BUN/Creatinine Ratio Glucose Calcium Phosphorus Magnesium Ur Random Sodium 20 Urine Creatinine 194.00 08/05/19 08/05/19 05:55 05:55 WBC RBC Hgb Hct MCV MCH MCHC RDW Std Deviation RDW Coeff of Chrissy Plt Count MPV Immature Gran % (Auto) Neut % (Auto) Lymph % (Auto) Steele % (Auto) Eos % (Auto) Baso % (Auto) Absolute Neuts (auto) Absolute Lymphs (auto) Nucleated RBC % Sodium 141 Potassium 3.8 Chloride 112 H Carbon Dioxide 18.0 L Anion Gap 11 BUN 62 H Creatinine 3.32 H Estim Creat Clear Calc 14.13 Est GFR (MDRD) Af Amer 18 L Est GFR (MDRD) Non-Af 14 L BUN/Creatinine Ratio 18.7 Glucose 179 H Calcium 7.3 L Phosphorus 5.6 H Magnesium 1.9 Ur Random Sodium Urine Creatinine POC Glucose 08/05/19 08/05/19 08/04/19 13:54 06:58 21:29 POC Glucose 178 H 166 H 236 H 08/04/19 16:30 POC Glucose 225 H Medical Necessity - Tobacco Use Smoking Status: Never smoker Assessment/Plan All Active Problems Weakness (Acute) New onset atrial fibrillation (Acute) Elevated troponin (Acute) Severe sepsis (Acute) IZA (acute kidney injury) (Acute) UTI (urinary tract infection) (Acute) Declining functional status (Acute) IZA CKD 3 Creatinine at baseline was around 1.6. Recently was in hospital with UTI, IZA. Cr at the time of dc was in low 2s. creatinine is worsening now again UA is consistent with UTI again. she did get several antibitics, will check urine eos recent renal USG without hydronephrosis. Denies any obstructive symptoms now Echo with good EF but severe diastolic dysfunction BP is fairly low. FeNa is low. however she has significant LE edema BNP is in 400s fever spiked are better ? Cardiorenal syndrome vs UTI related ATN Plan dc amlodipine Urine eos if creatinine increases tomorrow as well, will do a trial of lasix
[2019-08-05] MEDS: Magnesium Oxide 400 MG Tablet 800 MG PO (15:45)
[2019-08-05] MEDS: Acetaminophen 325 MG Tablet 650 MG PO (15:45)
[2019-08-05 17:21] LABS: Bedside Glucose 161 mg/dL (70-110)
[2019-08-05 22:36] LABS: Bedside Glucose 202 mg/dL (70-110)
[2019-08-05] MEDS: Pravastatin 40 MG Tablet PO (22:38)
[2019-08-06] VITALS (11 sets, daily range): BP systolic 101–124; BP diastolic 39–65; PULSE 86–104; RESP 18; TEMP 36.4–36.8; O2SAT 94–100
[2019-08-06] MEDS: Nystatin Powder 15gm Bottle 1 APPLIC TOPICAL ×2 (06:50→21:45)
[2019-08-06 06:55] LABS: Bedside Glucose 124 mg/dL (70-110)
[2019-08-06 07:44] LABS: Absolute Lymphocyte Count 0.61 X10^3/uL (0.83-4.51); Absolute Neutrophil Count 10.1 X10^3/uL (2.0-7.7); Basophil# 0.02 X10^3/uL; Basophil% 0.2 % (0-1); Eosinophil# 1.25 X10^3/uL; Eosinophils% 9.7 % (0-5); Hematocrit 35.8 % (37-47); Lymphocyte # 0.61 X10^3/ul (4.0); Lymphocyte % 4.7 % (19-41); Mean Corp Hgb Conc 30.7 g/dL (32-36); Mean Corpuscular Hgb 27.2 pg (27.0-32.0); Mean Corpuscular Volume 88.4 fL (81-99); Mean Platelet Vol. 11.7 fl (6.2-12.0); Monocyte% 6.2 % (0-10); NRBC Flagged by Analyzer 0 % (0-5); Neutrophil # 10.13 X10^3/uL (2.7-7.7); Neutrophil % 78.5 % (47-70); POSITIVE COUNT YES; Platelet Count 133 K/mm3 (150-450); RBC Distribution Width CV 15.8 % (11.6-14.6); RBC Distribution Width SD 51.2 fl (35.1-43.9); Red Blood Count 4.05 M/mm3 (4.2-5.4); White Blood Count 12.9 K/mm3 (4.4-11.0)
[2019-08-06 08:04] LABS: Differential Comment SCANNED
--- NOTE | 2019-08-06 08:12 | PN.CARD_ITS ---
Subjectve: Patient seen and evaluated. Appears to be doing better today. Objective: Vital Signs Temp Pulse Resp BP Pulse Ox 98.3 F 104 H 18 101/60 97 08/06/19 04:00 08/06/19 07:09 08/06/19 04:00 08/06/19 04:00 08/06/19 04:00 Oxygen Delivery Method Room Air Weight: 241 lb 13.553 oz Body Mass Index (BMI) 39.0 Intake and Output for Last 24 Hours 08/04/19 08/05/19 08/06/19 23:59 23:59 23:59 Intake Total 1782.75 / 1782.75 340 / 720 380 / 380 Output Total 950 / 950 300 / 380 280 / 280 Balance 832.75 / 832.75 40 / 340 100 / 100 General: Awake, Alert, Oriented x 3 HEENT: PERRL, EOMI, Sclera Non Icteric Neck: Supple, Good ROM, No Lymph Node Enlargement Lungs: Clear to auscultation Cardiovascular: Irregular Rhythm, Normal S1, Normal S2, No Murmurs, No Rubs, No Gallops Vascular: No Carotid Bruits, Normal Femoral Pulses, Normal Radial Pulses, Normal Dorsalis Pedal Pulse, Normal Posterior Tibial Pulses Abdomen: Bowel Sounds Present, Soft, Non Tender, No HSM, No Organomegaly Extremities: No Cyanosis, No Clubbing, No edema Neurological: No Focal Motor or Sensory Deficit 08/05/19 05:55: Phosphorus 5.6 H, Magnesium 1.9 08/06/19 07:18: WBC 12.9 H, RBC 4.05 L, Hgb 11.0 L, Hct 35.8 L, MCV 88.4, MCH 27.2, MCHC 30.7 L, Plt Count 133 L, MPV 11.7, Immature Gran % (Auto) 0.700, Neut % (Auto) 78.5 H, Lymph % (Auto) 4.7 L, [place] % (Auto) 6.2, Eos % (Auto) 9.7 H, Baso % (Auto) 0.2, Absolute Neuts (auto) 10.1 H, Nucleated RBC % 0 Rhythm: EKG: ECHO: Stress Test: Cardiac Cath: PCI: CT Surgery: Holter monitor: EPS: PPM: CXR: Chest CT Scan: Medical Necessity - Tobacco Use Smoking Status: Never smoker Assessment/Plan 1. Atrial fibrillation--controlled ventricular response rate. * Patient unaware of the current rhythm problem. Her ventricular response rate also appears to be preserved. * My recommendation at this time will be to continue anticoagulation with Lovenox and hopefully switch her to Eliquis within the next 24 hours. Depending on how her renal function stabilizes. * echocardiogram to assess her left ventricular function demonstrated preserved ejection fraction. * Will increase her beta-beau with Lopressor to 50 mg twice a day. * At this point in time I do not think that it is imperative that we restore sinus rhythm. Rate control appears to be working quite well. We will reevaluate after her kidney function has stabilized. * At this time I do not think that any changes need to be made. We will consider anticoagulation when patient is ready for discharge. * At some point in time she may need to be evaluated for ischemic coronary disease. Stress test demonstrated no evidence of ischemia.
[2019-08-06 08:38] LABS: Anion Gap 15 (5-15); BUN 71 mg/dL (7-18); BUN/Creat Ratio 19.9 RATIO (10-20); Calcium,Total 7.2 mg/dL (8.5-10.1); Chloride 113 mmol/L (98-107); Creatinine, Serum 3.56 mg/dL (0.55-1.02); EST Glomerular Filtration Rate 13 mL/min (>60); Est Glom Filt Rate - Afr Amer 16 mL/min (>60); Estimated Creatinine Clearance 13.18 ml/min; Glucose 122 mg/dL (74-106); Sodium Level 138 mmol/L (136-145)
[2019-08-06] MEDS: Lidocaine 5% Patch 1 PATCH TOPICAL (09:31)
[2019-08-06] MEDS: Menthol/Lanolin/Calamine/Znox 113 GM Tube 1 APPLIC TOPICAL ×2 (09:31→21:46)
[2019-08-06] MEDS: Metoprolol Tartrate 50 MG Tablet PO ×2 (09:33→21:48)
[2019-08-06] MEDS: Iron Polysaccharide Complex 150 MG CAPSULE PO (09:33)
[2019-08-06] MEDS: Loratadine 10 MG Tablet PO (09:33)
[2019-08-06] MEDS: LINAGLIPTIN 5 MG TABLET PO (09:34)
[2019-08-06] MEDS: APIXABAN 2.5 MG TABLET PO ×2 (09:43→21:45)
--- NOTE | 2019-08-06 10:10 | CASEMGMT ---
JULOI received a message that patient was approved to go to TCU. SW notified physician and patient's . Plan: [facility] Radha LEMUS
--- NOTE | 2019-08-06 10:24 | RAD_ITS ---
STUDY: X-RAY CHEST REASON FOR EXAM: Female, 74 years old. Shortness of breath TECHNIQUE: Single frontal view of the chest. COMPARISON: August 05, 2019 chest x-ray FINDINGS: Previously noted right lower lobe pulmonary nodule is obscured by an electrode. The lungs are clear and expanded. There is no demonstrated pleural abnormality. Cardiomegaly and calcific mitral annulus. Normal mediastinum and jonathan. Normal visualized pulmonary arteries. Normal visualized aortic arch and descending thoracic aorta. Normal visualized thoracic spine. Normal visualized ribs, clavicles, and shoulders. There is no demonstrated abnormality of the visualized soft tissue structures of the upper abdomen. RAD/Chest 1 View (Portable) IMPRESSION: No acute disease. Right lower lobe nodule previously noted is obscured. Electronically Signed: Noe Neff MD at 16:55 EDT , Service support ,
--- NOTE | 2019-08-06 10:24 | RAD_ITS ---
STUDY: X-RAY - ABDOMEN/PELVIS REASON FOR EXAM: Female, 74 years old. Abdominal pain TECHNIQUE: Single AP view of the abdomen / pelvis. COMPARISON: July 04, 2017 FINDINGS: Normal visualized lung bases. Gas is noted throughout the colon. IVC filter present at L2-3. The visualized liver, spleen and kidneys are grossly normal in size and morphology. Normal soft tissue structures. Normal visualized osseous structures. RAD/Abdomen Single View (Portable) IMPRESSION: Colonic ileus Electronically Signed: Noe Neff MD at 16:58 EDT , Service support ,
--- NOTE | 2019-08-06 11:03 | NURSING ---
Blister to left lower leg open. Adaptic applied and wrapped with kerlix. IV out. Attempted to restart x2 unable to gain IV access.
[2019-08-06 11:45] LABS: Bedside Glucose 163 mg/dL (70-110)
--- NOTE | 2019-08-06 13:47 | PCM.PROGNOTE ---
Patient Problems: Active and Suspected Problems New onset atrial fibrillation (Acute) Elevated troponin (Acute) Severe sepsis (Acute) IZA (acute kidney injury) (Acute) UTI (urinary tract infection) (Acute) Declining functional status (Acute) Subjective: Today patient is complaining of abdominal pain and distention, loose stools and fecal incontinence. No fevers or chills. No shortness of breath. Ongoing productive cough. Ongoing lower extremity edema. She remains very lethargic. She was refusing to be moved overnight. Agreeable this morning. - Physical Exam General: Alert, Oriented x3, Cooperative, Lethargic, - - soiled HEENT: Atraumatic, PERRLA, EOMI, Normocephalic Neck: Supple, No JVD, Negative Carotid Bruits Lungs: Clear to auscultation, Normal air movement Cardiovascular: Regular rate, No murmurs Abdomen: Bowel Sounds Present, Distended, Tender Extremities: Capillary Refill Less than 3 Seconds, Edema Skin: No rashes, No breakdown Musculoskeletal: No Tenderness to Palpation of Joints or Extremities Neurological: Cranial nerves II-XII grossly intact Psych/Mental Status: Normal Affect, Appropriate, Alert and oriented to time, place, person, mood and affect Vital Signs Temp Pulse Resp BP Pulse Ox 98.2 F 98 18 121/65 H 95 08/06/19 09:09 08/06/19 09:33 08/06/19 09:09 08/06/19 09:09 08/06/19 09:09 Oxygen Delivery Method Room Air Weight: 241 lb 13.553 oz Body Mass Index (BMI) 39.0 Intake and Output for Last 24 Hours 08/04/19 08/05/19 08/06/19 23:59 23:59 23:59 Intake Total 1782.75 / 1782.75 340 / 720 840 / 840 Output Total 950 / 950 300 / 380 280 / 280 Balance 832.75 / 832.75 40 / 340 560 / 560 Microbiology Past 72 Hours 08/06/19 10:40 C. difficile DNA Amplification - Final Stool 08/04/19 00:05 Blood Culture - Preliminary Blood Culture (Wb) - Left Wrist No growth in 48 hours. 08/04/19 01:00 Blood Culture - Preliminary Blood Culture (Wb) - Right Forearm No growth in 48 hours. 08/04/19 00:05 Urine Culture - Final Urine Catheter - Churchill Klebsiella oxytoca Laboratory Tests Past 24 Hrs 08/04/19 08/06/19 08/06/19 23:30 07:18 07:18 WBC 12.9 H RBC 4.05 L Hgb 11.0 L Hct 35.8 L MCV 88.4 MCH 27.2 MCHC 30.7 L RDW Std Deviation 51.2 H RDW Coeff of Chrissy 15.8 H Plt Count 133 L MPV 11.7 Immature Gran % (Auto) 0.700 Neut % (Auto) 78.5 H Lymph % (Auto) 4.7 L Johnson % (Auto) 6.2 Eos % (Auto) 9.7 H Baso % (Auto) 0.2 Absolute Neuts (auto) 10.1 H Absolute Lymphs (auto) 0.61 L Nucleated RBC % 0 Differential Comment SCANNED Eos Smear Total Cells Pending Sodium 138 Potassium 4.0 Chloride 113 H Carbon Dioxide 10.0 L Anion Gap 15 BUN 71 H Creatinine 3.56 H Estim Creat Clear Calc 13.18 Est GFR (MDRD) Af Amer 16 L Est GFR (MDRD) Non-Af 13 L BUN/Creatinine Ratio 19.9 Glucose 122 H Calcium 7.2 L Magnesium 08/06/19 07:18 WBC RBC Hgb Hct MCV MCH MCHC RDW Std Deviation RDW Coeff of Chrissy Plt Count MPV Immature Gran % (Auto) Neut % (Auto) Lymph % (Auto) [place] % (Auto) Eos % (Auto) Baso % (Auto) Absolute Neuts (auto) Absolute Lymphs (auto) Nucleated RBC % Differential Comment Eos Smear Total Cells Sodium Potassium Chloride Carbon Dioxide Anion Gap BUN Creatinine Estim Creat Clear Calc Est GFR (MDRD) Af Amer Est GFR (MDRD) Non-Af BUN/Creatinine Ratio Glucose Calcium Magnesium Pending POC Glucose 08/06/19 08/06/19 08/05/19 11:32 06:49 22:30 POC Glucose 163 H 124 H 202 H 08/05/19 08/05/19 17:13 13:54 POC Glucose 161 H 178 H Medical Necessity - Tobacco Use Smoking Status: Never smoker Assessment/Plan All Active Problems Weakness (Acute) New onset atrial fibrillation (Acute) Elevated troponin (Acute) Severe sepsis (Acute) IZA (acute kidney injury) (Acute) UTI (urinary tract infection) (Acute) Declining functional status (Acute) 1. Acute severe sepsis 2/2 UTI - recurrent UTI. +leukocytosis, tachycardia, lactic acidosis on admission. Cultures with klebsiella oxytoca. Abx changed to rocephin. As this is recurrent UTI we will plan on extended 10-day course of antibiotics. Leukcoytosis improved. -the patient has developed stool incontinence and loose stools with abdominal pain and distention. C diff is negative. KUB is pending. -Blood cultures are negative to date. 2. New onset Afib - continue metoprolol and eliquis Cardiology following. Echo as below. TSH normal. Supplement mag. -Stress test pending. 3. IZA on CKDIII - consult Nephrololgy. Recent IZA. Likely 2/2 hypotension. Hydralazine was stopped. 4. Suspect underlying diastolic chronic CHF -at this time I do not feel this is an acute exacerbation as she has no shortness of breath. BL 2-3+ pitting edema. KANE wrap, strict I/O. Probably worsened from underlying Urinary retention. Maintain churchill. BNP elevated. Lungs clear. No SOB. Echo with severe LVH, normal systolic function, no wall motion abnormalities, 1+ TVI, PASP 28 mmHg -Repeat CXR appears improved. 5. Elevated trop - indeterminate, flat. Stress pending No CP. No hx CAD. Likely needs o/p stress test. 6. Hx pulmonary nodule - o/p follow up. 7. DMt2 with obesity - dietary consult. Continue SSI. 8. HTN - stable DVT prophylaxis: eliquis Discharge planning: TCU when stable. Trend renal function. This patient was seen by Lavelle Soriano PA-C under the supervision of Doctor Aviles
--- NOTE | 2019-08-06 13:51 | PN.RENAL_ITS ---
Patient Problems: Active and Suspected Problems New onset atrial fibrillation (Acute) Elevated troponin (Acute) Severe sepsis (Acute) IZA (acute kidney injury) (Acute) UTI (urinary tract infection) (Acute) Declining functional status (Acute) Subjective: no new complaints - Physical Exam General: Alert, Oriented x3, Cooperative HEENT: Atraumatic, PERRLA, EOMI, Normocephalic Neck: Supple, No JVD, Negative Carotid Bruits Lungs: Clear to auscultation, Normal air movement Cardiovascular: Regular rate, No murmurs Abdomen: Bowel Sounds Present, Soft, Non Tender Extremities: Capillary Refill Less than 3 Seconds, Edema Skin: No rashes, No breakdown Musculoskeletal: No Tenderness to Palpation of Joints or Extremities Neurological: Cranial nerves II-XII grossly intact Psych/Mental Status: Normal Affect, Appropriate Vital Signs Temp Pulse Resp BP Pulse Ox 98.2 F 98 18 121/65 H 95 08/06/19 09:09 08/06/19 09:33 08/06/19 09:09 08/06/19 09:09 08/06/19 09:09 Oxygen Delivery Method Room Air Weight: 109.7 kg Body Mass Index (BMI) 39.0 Intake and Output for Last 24 Hours 08/04/19 08/05/19 08/06/19 23:59 23:59 23:59 Intake Total 1782.75 / 1782.75 340 / 720 840 / 840 Output Total 950 / 950 300 / 380 280 / 280 Balance 832.75 / 832.75 40 / 340 560 / 560 Microbiology Past 72 Hours 08/06/19 10:40 C. difficile DNA Amplification - Final Stool 08/04/19 00:05 Blood Culture - Preliminary Blood Culture (Wb) - Left Wrist No growth in 48 hours. 08/04/19 01:00 Blood Culture - Preliminary Blood Culture (Wb) - Right Forearm No growth in 48 hours. 08/04/19 00:05 Urine Culture - Final Urine Catheter - Ojeda Klebsiella oxytoca Laboratory Tests Past 24 Hrs 08/04/19 08/06/19 08/06/19 23:30 07:18 07:18 WBC 12.9 H RBC 4.05 L Hgb 11.0 L Hct 35.8 L MCV 88.4 MCH 27.2 MCHC 30.7 L RDW Std Deviation 51.2 H RDW Coeff of Chrissy 15.8 H Plt Count 133 L MPV 11.7 Immature Gran % (Auto) 0.700 Neut % (Auto) 78.5 H Lymph % (Auto) 4.7 L [place] % (Auto) 6.2 Eos % (Auto) 9.7 H Baso % (Auto) 0.2 Absolute Neuts (auto) 10.1 H Absolute Lymphs (auto) 0.61 L Nucleated RBC % 0 Differential Comment SCANNED Eos Smear Total Cells Pending Sodium 138 Potassium 4.0 Chloride 113 H Carbon Dioxide 10.0 L Anion Gap 15 BUN 71 H Creatinine 3.56 H Estim Creat Clear Calc 13.18 Est GFR (MDRD) Af Amer 16 L Est GFR (MDRD) Non-Af 13 L BUN/Creatinine Ratio 19.9 Glucose 122 H Calcium 7.2 L Magnesium 08/06/19 07:18 WBC RBC Hgb Hct MCV MCH MCHC RDW Std Deviation RDW Coeff of Chrissy Plt Count MPV Immature Gran % (Auto) Neut % (Auto) Lymph % (Auto) [place] % (Auto) Eos % (Auto) Baso % (Auto) Absolute Neuts (auto) Absolute Lymphs (auto) Nucleated RBC % Differential Comment Eos Smear Total Cells Sodium Potassium Chloride Carbon Dioxide Anion Gap BUN Creatinine Estim Creat Clear Calc Est GFR (MDRD) Af Amer Est GFR (MDRD) Non-Af BUN/Creatinine Ratio Glucose Calcium Magnesium Pending POC Glucose 08/06/19 08/06/19 08/05/19 11:32 06:49 22:30 POC Glucose 163 H 124 H 202 H 08/05/19 08/05/19 17:13 13:54 POC Glucose 161 H 178 H Medical Necessity - Tobacco Use Smoking Status: Never smoker Assessment/Plan All Active Problems Weakness (Acute) New onset atrial fibrillation (Acute) Elevated troponin (Acute) Severe sepsis (Acute) IZA (acute kidney injury) (Acute) UTI (urinary tract infection) (Acute) Declining functional status (Acute) IZA CKD 3 Creatinine at baseline was around 1.6. Recently was in hospital with UTI, IZA. Cr at the time of dc was in low 2s. creatinine is worsening now again UA is consistent with UTI again. she did get several antibitics, urine eos pending recent renal USG without hydronephrosis. Denies any obstructive symptoms now Echo with good EF but severe diastolic dysfunction BP is fairly low. FeNa is low. however she has significant LE edema BNP is in 400s fever spikes are better ? Cardiorenal syndrome vs UTI related ATN has significant LE edema with now blisters. will give a dose of lasix iv
--- NOTE | 2019-08-06 14:32 | CASEMGMT ---
JULIO left a message on the referral line that patient is not ready today and asked how long the pre-cert is good. JULIO received a voice mail from Swati and she said if patient does not admit by tomorrow by 3 then we would have to get a new pre-cert. Plan: [facility] TCU pending patient being medically ready. Radha TORO MSW
[2019-08-06] MEDS: 0.9% NaCl Peripheral Flush Adult/Peds IV (15:02)
[2019-08-06] MEDS: Furosemide 40 MG/4 ML Vial IV (15:05)
[2019-08-06 16:31] LABS: Bedside Glucose 137 mg/dL (70-110)
[2019-08-06] MEDS: Pravastatin 40 MG Tablet PO (21:47)
[2019-08-06] MEDS: oxyCODONE 5 MG Tablet 7.5 MG PO (21:48)
[2019-08-06] MEDS: MELATONIN 3 MG TABLET PO (22:08)
[2019-08-06 22:15] LABS: Bedside Glucose 131 mg/dL (70-110)
[2019-08-07] VITALS (12 sets, daily range): BP systolic 110–146; BP diastolic 40–80; PULSE 77–101; RESP 14–18; TEMP 36.5–37.1; O2SAT 91–98
[2019-08-07] MEDS: Nystatin Powder 15gm Bottle 1 APPLIC TOPICAL ×2 (04:54→23:04)
--- NOTE | 2019-08-07 06:29 | NURSING ---
Called specimen accessioner for advise on Midline. Nicole communications electrician supervisor nurse called back, explained to her 2cm line was exposed at insertion time, when doing dressing change this am 1cm more is exposed for 3cm total. Explained midline does not return blood. She states ok to use.
[2019-08-07 06:41] LABS: Bedside Glucose 67 mg/dL (70-110)
[2019-08-07 06:44] LABS: Absolute Lymphocyte Count 0.74 X10^3/uL (0.83-4.51); Absolute Neutrophil Count 7.6 X10^3/uL (2.0-7.7); Basophil# 0.02 X10^3/uL; Basophil% 0.2 % (0-1); Eosinophil# 1.71 X10^3/uL; Eosinophils% 16.1 % (0-5); Hematocrit 33.4 % (37-47); Hemoglobin 10.2 g/dL (12.0-15.0); Lymphocyte # 0.74 X10^3/ul (4.0); Mean Corp Hgb Conc 30.5 g/dL (32-36); Mean Corpuscular Hgb 27.3 pg (27.0-32.0); Mean Corpuscular Volume 89.5 fL (81-99); Mean Platelet Vol. 11.6 fl (6.2-12.0); Monocyte# 0.56 X10^3/uL; Monocyte% 5.3 % (0-10); NRBC Flagged by Analyzer 0 % (0-5); Neutrophil # 7.55 X10^3/uL (2.7-7.7); Platelet Count 243 K/mm3 (150-450); RBC Distribution Width CV 15.9 % (11.6-14.6); RBC Distribution Width SD 52.4 fl (35.1-43.9); Red Blood Count 3.73 M/mm3 (4.2-5.4); White Blood Count 10.6 K/mm3 (4.4-11.0)
[2019-08-07 06:56] LABS: Anion Gap 9 (5-15); BUN 79 mg/dL (7-18); BUN/Creat Ratio 20.1 RATIO (10-20); Calcium,Total 7.4 mg/dL (8.5-10.1); Chloride 111 mmol/L (98-107); Creatinine, Serum 3.94 mg/dL (0.55-1.02); EST Glomerular Filtration Rate 12 mL/min (>60); Est Glom Filt Rate - Afr Amer 14 mL/min (>60); Glucose 66 mg/dL (74-106); Potassium 3.7 mmol/L (3.5-5.1); Sodium Level 138 mmol/L (136-145)
[2019-08-07] MEDS: oxyCODONE 5 MG Tablet 7.5 MG PO (06:59)
[2019-08-07 07:00] LABS: Bedside Glucose 89 mg/dL (70-110)
[2019-08-07 09:16] LABS: Bedside Glucose 72 mg/dL (70-110)
[2019-08-07] MEDS: Dextrose 50%-Water 25 GM/50 ML DISP.SYRIN IV ×2 (09:24→17:08)
[2019-08-07] MEDS: Ceftriaxone 1 GM/50 ML BAG IV (11:00)
[2019-08-07] MEDS: Lidocaine 5% Patch 1 PATCH TOPICAL (11:01)
[2019-08-07] MEDS: Metoprolol Tartrate 50 MG Tablet PO ×2 (11:01→22:58)
[2019-08-07] MEDS: APIXABAN 2.5 MG TABLET PO ×2 (11:02→22:59)
[2019-08-07] MEDS: Menthol/Lanolin/Calamine/Znox 113 GM Tube 1 APPLIC TOPICAL ×2 (11:02→23:05)
--- NOTE | 2019-08-07 11:06 | CASEMGMT ---
LW/POA forms both scanned into summary tab of e-chart, [facility] is listed as pt's POA for healthcare. JOSETTE Lowe
--- NOTE | 2019-08-07 11:36 | CASEMGMT ---
Patient is not ready for discharge. Her pre-cert for TCU with [employer] will today and we will need to get another pre-cert. SW called Swati on the referral line and let her know this information. Radha TORO MSW
--- NOTE | 2019-08-07 11:43 | NURSING ---
Called charge machine operator at this time to request assessment of midline due to leaking.
--- NOTE | 2019-08-07 12:02 | PCM.PROGNOTE ---
<Lavelle Soriano - Last Filed: 08/07/19 12:02> Subjective: Very lethargic this AM after receiving oxy. Minimal eye opening. Not speaking. Vitals stable. Sternal rub applied with moans. Pt has had 2 BM since yesterday and abdominal distention is resolved. She could not get out of bed yesterday. She has been minimally participating in therapy. Glucose in the 70s, 1/2 amp d50 given. - Physical Exam General: Alert, Oriented x3, Cooperative HEENT: Atraumatic, PERRLA, EOMI, Normocephalic Neck: Supple, No JVD, Negative Carotid Bruits Lungs: Clear to auscultation, Normal air movement Cardiovascular: Regular rate, No murmurs Abdomen: Bowel Sounds Present, Soft, Non Tender, Obese Extremities: No edema, Capillary Refill Less than 3 Seconds Skin: No rashes, No breakdown Musculoskeletal: No Tenderness to Palpation of Joints or Extremities Neurological: Cranial nerves II-XII grossly intact Psych/Mental Status: - - lethargic Vital Signs Temp Pulse Resp BP Pulse Ox 98.1 F 94 18 146/54 H 98 08/07/19 09:17 08/07/19 11:01 08/07/19 09:17 08/07/19 09:17 08/07/19 09:17 Oxygen Delivery Method Room Air Weight: 241 lb 13.553 oz Body Mass Index (BMI) 39.0 Intake and Output for Last 24 Hours 08/05/19 08/06/19 08/07/19 23:59 23:59 23:59 Intake Total 340 / 720 1380 / 1380 120 / 120 Output Total 300 / 380 1330 / 1330 200 / 200 Balance 40 / 340 50 / 50 -80 / -80 Microbiology Past 72 Hours 08/06/19 10:40 C. difficile DNA Amplification - Final Stool 08/04/19 00:05 Blood Culture - Preliminary Blood Culture (Wb) - Left Wrist No growth in 48 hours. 08/04/19 01:00 Blood Culture - Preliminary Blood Culture (Wb) - Right Forearm No growth in 48 hours. 08/04/19 00:05 Urine Culture - Final Urine Catheter - Ojeda Klebsiella oxytoca Laboratory Tests Past 24 Hrs 08/07/19 08/07/19 08/07/19 05:44 05:44 05:44 WBC 10.6 RBC 3.73 L Hgb 10.2 L Hct 33.4 L MCV 89.5 MCH 27.3 MCHC 30.5 L RDW Std Deviation 52.4 H RDW Coeff of Chrissy 15.9 H Plt Count 243 MPV 11.6 Immature Gran % (Auto) 0.400 Neut % (Auto) 71.0 H Lymph % (Auto) 7.0 L [place] % (Auto) 5.3 Eos % (Auto) 16.1 H Baso % (Auto) 0.2 Absolute Neuts (auto) 7.6 Absolute Lymphs (auto) 0.74 L Nucleated RBC % 0 Sodium 138 Potassium 3.7 Chloride 111 H Carbon Dioxide 18.0 L Anion Gap 9 BUN 79 H Creatinine 3.94 H Estim Creat Clear Calc 11.90 Est GFR (MDRD) Af Amer 14 L Est GFR (MDRD) Non-Af 12 L BUN/Creatinine Ratio 20.1 H Glucose 66 L Calcium 7.4 L Magnesium 2.0 POC Glucose 08/07/19 08/07/19 08/07/19 09:10 06:54 06:32 POC Glucose 72 89 67 L 08/06/19 08/06/19 21:36 16:25 POC Glucose 131 H 137 H Medical Necessity - Tobacco Use Smoking Status: Never smoker Assessment/Plan All Active Problems Elevated troponin (Acute) Severe sepsis (Acute) Adverse drug effect (Acute) Metabolic acidosis (Acute) Hyperphosphatemia (Acute) UTI due to Klebsiella species (Acute) Atrial fibrillation with rapid ventricular response (Acute) NSTEMI (non-ST elevated myocardial infarction) (Acute) IZA (acute kidney injury) (Acute) UTI (urinary tract infection) (Acute) Declining functional status (Acute) Hydronephrosis, right (Resolved) 1. Acute severe sepsis 2/2 UTI - recurrent UTI. +leukocytosis, tachycardia, lactic acidosis on admission. Cultures with klebsiella oxytoca. Continue rocephin total ten days of therapy needed. Voiding trial trial tomorrow. 2. New onset Afib - continue metoprolol and eliquis Cardiology following. Echo as below. TSH normal. Supplement mag. -Stress test negative. 3. IZA on CKDIII - BUN/Cr worse but output improved and CO2 improved. 4. Suspect underlying diastolic chronic CHF - stable. KANE wrap daily. Elevate legs once she is out of bed. 5. Elevated trop - indeterminate, flat. Stress pending No CP. No hx CAD. Likely needs o/p stress test. 6. Hx pulmonary nodule - o/p follow up. 7. DMt2 with obesity - dietary consult. Lantus. Continue SSI. Some hypoglycemia this AM. Decrease lantus. 8. HTN - stable DVT prophylaxis: eliquis Discharge planning: TCU when stable. Trend renal function. This patient was seen by Lavelle Soriano PA-C under the supervision of Doctor Stefan <Janee Aviles - Last Filed: 08/27/19 09:06> - Physical Exam Vital Signs Temp Pulse Resp BP Pulse Ox 98.3 F 77 18 109/55 L 97 08/08/19 15:44 08/08/19 15:44 08/08/19 15:44 08/08/19 15:44 08/08/19 15:44 Oxygen Delivery Method Room Air Weight: 241 lb 13.553 oz Body Mass Index (BMI) 39.0 Assessment/Plan HR is coming under better control. She is c/o being very fatigued and does not want to participate in PT. she is on appropriate antibiotic for Klebsiella Oxytoca and is currently afebrile. Since this is a recurrent UTI will tx with 10 days of antibiotics and then straight for UA following antibiotics to document resolution of the UTI. Will need to go to SNF [facility] [place]. Pt was encouraged to try and participate with PT/OT discussed with Lavelle and orders have been written. Code Visit Inpatient E&M: 03997 Subs Hosp L2
[2019-08-07 12:10] LABS: Bedside Glucose 72 mg/dL (70-110)
--- NOTE | 2019-08-07 12:44 | PN.RENAL_ITS ---
Patient Problems: Active and Suspected Problems New onset atrial fibrillation (Acute) Elevated troponin (Acute) Severe sepsis (Acute) IZA (acute kidney injury) (Acute) UTI (urinary tract infection) (Acute) Declining functional status (Acute) Subjective: no new complaints today - Physical Exam General: Alert, Oriented x3, Cooperative HEENT: Atraumatic, PERRLA, EOMI, Normocephalic Neck: Supple, No JVD, Negative Carotid Bruits Lungs: Clear to auscultation, Normal air movement Cardiovascular: Regular rate, No murmurs Abdomen: Bowel Sounds Present, Soft, Non Tender Extremities: No edema, Capillary Refill Less than 3 Seconds Skin: No rashes, No breakdown Musculoskeletal: No Tenderness to Palpation of Joints or Extremities Neurological: Cranial nerves II-XII grossly intact Psych/Mental Status: Normal Affect, Appropriate Vital Signs Temp Pulse Resp BP Pulse Ox 98.1 F 94 18 146/54 H 98 08/07/19 09:17 08/07/19 11:01 08/07/19 09:17 08/07/19 09:17 08/07/19 09:17 Oxygen Delivery Method Room Air Weight: 109.7 kg Body Mass Index (BMI) 39.0 Intake and Output for Last 24 Hours 08/05/19 08/06/19 08/07/19 23:59 23:59 23:59 Intake Total 340 / 720 1380 / 1380 128.33 / 128.33 Output Total 300 / 380 1330 / 1330 200 / 200 Balance 40 / 340 50 / 50 -71.67 / -71.67 Microbiology Past 72 Hours 08/06/19 10:40 C. difficile DNA Amplification - Final Stool 08/04/19 00:05 Blood Culture - Preliminary Blood Culture (Wb) - Left Wrist No growth in 48 hours. 08/04/19 01:00 Blood Culture - Preliminary Blood Culture (Wb) - Right Forearm No growth in 48 hours. 08/04/19 00:05 Urine Culture - Final Urine Catheter - [place] Klebsiella oxytoca Laboratory Tests Past 24 Hrs 08/07/19 08/07/19 08/07/19 05:44 05:44 05:44 WBC 10.6 RBC 3.73 L Hgb 10.2 L Hct 33.4 L MCV 89.5 MCH 27.3 MCHC 30.5 L RDW Std Deviation 52.4 H RDW Coeff of Chrissy 15.9 H Plt Count 243 MPV 11.6 Immature Gran % (Auto) 0.400 Neut % (Auto) 71.0 H Lymph % (Auto) 7.0 L [place] % (Auto) 5.3 Eos % (Auto) 16.1 H Baso % (Auto) 0.2 Absolute Neuts (auto) 7.6 Absolute Lymphs (auto) 0.74 L Nucleated RBC % 0 Sodium 138 Potassium 3.7 Chloride 111 H Carbon Dioxide 18.0 L Anion Gap 9 BUN 79 H Creatinine 3.94 H Estim Creat Clear Calc 11.90 Est GFR (MDRD) Af Amer 14 L Est GFR (MDRD) Non-Af 12 L BUN/Creatinine Ratio 20.1 H Glucose 66 L Calcium 7.4 L Magnesium 2.0 POC Glucose 08/07/19 08/07/19 08/07/19 11:54 09:10 06:54 POC Glucose 72 72 89 08/07/19 08/06/19 08/06/19 06:32 21:36 16:25 POC Glucose 67 L 131 H 137 H Medical Necessity - Tobacco Use Smoking Status: Never smoker Assessment/Plan All Active Problems Weakness (Acute) New onset atrial fibrillation (Acute) Elevated troponin (Acute) Severe sepsis (Acute) IZA (acute kidney injury) (Acute) UTI (urinary tract infection) (Acute) Declining functional status (Acute) IZA CKD 3 Creatinine at baseline was around 1.6. Recently was in hospital with UTI, IZA. Cr at the time of dc was in low 2s. creatinine is worsening now again UA is consistent with UTI again. she did get several antibitics, urine eos pending recent renal USG without hydronephrosis. Denies any obstructive symptoms now Echo with good EF but severe diastolic dysfunction FeNa is low. however she has significant LE edema BNP is in 400s fever spikes are better ? 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
[2019-08-07] MEDS: Iron Polysaccharide Complex 150 MG CAPSULE PO (14:57)
[2019-08-07 16:56] LABS: Bedside Glucose 61 mg/dL (70-110)
[2019-08-07 16:56] LABS: Bedside Glucose 52 mg/dL (70-110)
[2019-08-07 17:36] LABS: Bedside Glucose 149 mg/dL (70-110)
[2019-08-07] MEDS: Acetaminophen 325 MG Tablet 650 MG PO (22:55)
[2019-08-07] MEDS: Pravastatin 40 MG Tablet PO (22:58)
[2019-08-07 23:15] LABS: Bedside Glucose 83 mg/dL (70-110)
[2019-08-08] VITALS (8 sets, daily range): BP systolic 109–130; BP diastolic 44–58; PULSE 72–92; RESP 16–18; TEMP 36.7–36.8; O2SAT 96–97
[2019-08-08] MEDS: 0.9% NaCl Peripheral Flush Adult/Peds IV ×4 (05:24→12:04)
[2019-08-08] MEDS: Nystatin Powder 15gm Bottle 1 APPLIC TOPICAL (05:45)
[2019-08-08 07:01] LABS: Bedside Glucose 67 mg/dL (70-110)
[2019-08-08 07:36] LABS: Bedside Glucose 79 mg/dL (70-110)
[2019-08-08 08:04] LABS: Anion Gap 10 (5-15); BUN 79 mg/dL (7-18); BUN/Creat Ratio 21.7 RATIO (10-20); Calcium,Total 7.4 mg/dL (8.5-10.1); Chloride 113 mmol/L (98-107); Creatinine, Serum 3.64 mg/dL (0.55-1.02); EST Glomerular Filtration Rate 13 mL/min (>60); Est Glom Filt Rate - Afr Amer 16 mL/min (>60); Estimated Creatinine Clearance 12.89 ml/min; Glucose 86 mg/dL (74-106); Sodium Level 138 mmol/L (136-145)
[2019-08-08] MEDS: Ondansetron 4 MG/2 ML Vial IV (09:24)
[2019-08-08] MEDS: Iron Polysaccharide Complex 150 MG CAPSULE PO (09:36)
--- NOTE | 2019-08-08 10:47 | NURSING ---
Had talked with GERRY Mitchell. the sacral dressing was just recently changed d/t incontinence. recommend leaving the Mepilex off if it continues to get saturated with urine. calmoseptine has been ordered. patient is doing better about staying off her bottom. the open areas are a combination of pressure and moisture. there is some chronic purple discoloration noted to bilateral buttocks with a few scattered small open areas to bilateral buttocks. will continue to follow
[2019-08-08] MEDS: Ceftriaxone 1 GM/50 ML BAG IV (11:20)
[2019-08-08] MEDS: Metoprolol Tartrate 50 MG Tablet PO (11:22)
[2019-08-08] MEDS: APIXABAN 2.5 MG TABLET PO (11:22)
[2019-08-08] MEDS: Menthol/Lanolin/Calamine/Znox 113 GM Tube 1 APPLIC TOPICAL (11:25)
[2019-08-08] MEDS: Lidocaine 5% Patch 1 PATCH TOPICAL (11:35)
--- NOTE | 2019-08-08 11:57 | PCM.PN.REN ---
Patient Problems: Active and Suspected Problems New onset atrial fibrillation (Acute) Elevated troponin (Acute) Severe sepsis (Acute) IZA (acute kidney injury) (Acute) UTI (urinary tract infection) (Acute) Declining functional status (Acute) Subjective: no new events - Physical Exam General: Alert, Oriented x3, Cooperative HEENT: Atraumatic, PERRLA, EOMI, Normocephalic Neck: Supple, No JVD, Negative Carotid Bruits Lungs: Clear to auscultation, Normal air movement Cardiovascular: Regular rate, No murmurs Abdomen: Bowel Sounds Present, Soft, Non Tender Extremities: No edema, Capillary Refill Less than 3 Seconds Skin: No rashes, No breakdown Musculoskeletal: No Tenderness to Palpation of Joints or Extremities Neurological: Cranial nerves II-XII grossly intact Psych/Mental Status: Normal Affect, Appropriate Vital Signs Temp Pulse Resp BP Pulse Ox 98.1 F 92 16 127/58 H 96 08/08/19 06:30 08/08/19 11:22 08/08/19 06:30 08/08/19 06:30 08/08/19 06:30 Oxygen Delivery Method Room Air Weight: 109.7 kg Body Mass Index (BMI) 39.0 Intake and Output for Last 24 Hours 08/06/19 08/07/19 08/08/19 23:59 23:59 23:59 Intake Total 1380 / 1380 1120.00 / 1120.00 120 / 120 Output Total 1330 / 1330 550 / 550 Balance 50 / 50 570.00 / 570.00 120 / 120 Microbiology Past 72 Hours 08/06/19 10:40 C. difficile DNA Amplification - Final Stool 08/04/19 00:05 Blood Culture - Preliminary Blood Culture (Wb) - Left Wrist No growth in 48 hours. 08/04/19 01:00 Blood Culture - Preliminary Blood Culture (Wb) - Right Forearm No growth in 48 hours. 08/04/19 00:05 Urine Culture - Final Urine Catheter - [place] Klebsiella oxytoca Laboratory Tests Past 24 Hrs 08/08/19 07:12 Sodium 138 Potassium 4.0 Chloride 113 H Carbon Dioxide 15.0 L Anion Gap 10 BUN 79 H Creatinine 3.64 H Estim Creat Clear Calc 12.89 Est GFR (MDRD) Af Amer 16 L Est GFR (MDRD) Non-Af 13 L BUN/Creatinine Ratio 21.7 H Glucose 86 Calcium 7.4 L POC Glucose 08/08/19 08/08/19 08/07/19 07:30 06:54 23:07 POC Glucose 79 67 L 83 08/07/19 08/07/19 08/07/19 17:29 16:49 16:28 POC Glucose 149 H 61 L 52 L 08/07/19 11:54 POC Glucose 72 Medical Necessity - Tobacco Use Smoking Status: Never smoker Assessment/Plan All Active Problems Weakness (Acute) New onset atrial fibrillation (Acute) Elevated troponin (Acute) Severe sepsis (Acute) IZA (acute kidney injury) (Acute) UTI (urinary tract infection) (Acute) Declining functional status (Acute) IZA CKD 3 Creatinine at baseline was around 1.6. Recently was in hospital with UTI, IZA. Cr at the time of dc was in low 2s. creatinine is worsening now again UA is consistent with UTI again. she did get several antibitics, urine eos pending recent renal USG without hydronephrosis. Denies any obstructive symptoms now Echo with good EF but severe diastolic dysfunction FeNa is low. however she has significant LE edema BNP is in 400s fever spikes are better ? Cardiorenal syndrome vs UTI related ATN good response to lasix cr is better Bp is better
[2019-08-08 12:21] LABS: Bedside Glucose 140 mg/dL (70-110)
[2019-08-08] MEDS: Acetaminophen 325 MG Tablet 650 MG PO (14:49)
--- NOTE | 2019-08-08 15:09 | TREXTCAR_ITS ---
- Diet 08/07/19 09:17 Diet: Cardiac: Calorie-Controlled Is pt able to select menu?: Yes Diet Comments: No concentrated sweets How many daily calories?: 1800 calorie - Routine Orders/Code Status Enema Type: Fleetz Enema Frequency: Daily PRN Suppository Type: Dulcolax 10mg Suppository Frequency: Daily PRN O2 Liters per Minute: 2 O2 Frequency: PRN Keep PO Greater than or Equal to (%): 90 Routine Lab Work: - - BMP every other day X 3 starting Monday, CBC Sunday 08/12 UA (straight cath) with UA and urine culture on 08/21/19 hemoccult stool Code Status: [facility] - Wound(s) Left Breast Wound Type: Excoriated Coccyx Wound Type: Pressure Injury Left Ankle Wound Type: Blister - Suggestions for Active Care Times a day to sit in chair: 3 - with all meals - Therapies Weight Bearing: Full weight bearing Physical Therapy: Eval and Treat Occupational Therapy: Eval and Treat - Problem/Diagnosis (1) Adverse drug effect Status: Acute Comment: delirium and sedation due to combined effects of renal failure, Lyrica and narcotics. Current Visit: Yes (2) IZA (acute kidney injury) Status: Acute Current Visit: Yes (3) Declining functional status Status: Acute Current Visit: Yes (4) Elevated troponin Status: Acute Comment: indeterminate, not trending....more likely than not due to ARF Current Visit: Yes (5) Severe sepsis Status: Acute Comment: due to Klebsiella oxytoca complicated urinary tract infection Current Visit: Yes (6) UTI (urinary tract infection) Status: Acute Comment: Due to Klebsiella oxytoca Current Visit: Yes (7) Allergic rhinitis Status: Chronic Current Visit: No (8) Back pain Status: Chronic Current Visit: No (9) Chronic kidney disease, stage III (moderate) Status: Chronic Current Visit: No (10) Debility Status: Chronic Current Visit: No (11) Diabetic polyneuropathy Status: Chronic Current Visit: No (12) Hydronephrosis, right Status: Resolved Current Visit: No (13) Hyperlipidemia Status: Chronic Current Visit: No (14) Hypertension Status: Chronic Current Visit: No (15) Lung mass Status: Chronic Comment: 2.3 X 1.3 cm nodule in the RML...needs F/U with pulmonary as OP Current Visit: No (16) Obesity Status: Chronic Current Visit: No (17) Perianal fistula Status: Chronic Current Visit: No (18) Pressure ulcer of right buttock, stage 2 Status: Chronic Current Visit: No (19) Type 2 diabetes mellitus Status: Chronic Current Visit: No (20) Falls Status: Inactive Current Visit: No (21) Frequent falls Status: Inactive Current Visit: No (22) Metabolic acidosis Status: Acute Comment: due to acute renal failure Current Visit: Yes (23) Hyperphosphatemia Status: Acute Comment: Secondary to acute renal failure on chronic renal failure stage III Current Visit: Yes (24) Normochromic normocytic anemia Status: Chronic Comment: Etiology undetermined Current Visit: Yes (25) Chronic anticoagulation Status: Chronic Comment: for chronic AF Current Visit: Yes (26) Left ventricular hypertrophy Status: Chronic Comment: severe Current Visit: Yes - Allergies/Procedures Done in Hospital Allergies/Adverse Reactions: Allergies adhesive Allergy (Verified 08/03/19 23:44) Rash amoxicillin [From Augmentin] Allergy (Verified 08/03/19 23:44) Unknown carvedilol Allergy (Verified 08/03/19 23:44) Unknown ceftriaxone [From Rocephin] Allergy (Verified 08/03/19 23:44) Unknown chlorthalidone Allergy (Verified 08/03/19 23:44) Unknown ciprofloxacin Allergy (Verified 08/03/19 23:44) Rash clavulanic acid [From Augmentin] Allergy (Verified 08/03/19 23:44) Unknown doxycycline Allergy (Verified 08/03/19 23:44) Unknown fexofenadine Allergy (Verified 08/03/19 23:44) Unknown gatifloxacin [From Tequin] Allergy (Verified 08/03/19 23:44) Unknown hydrochlorothiazide Allergy (Verified 08/03/19 23:44) Unknown lisinopril Allergy (Verified 08/03/19 23:44) Unknown losartan Allergy (Verified 08/03/19 23:44) Unknown Penicillins Allergy (Verified 08/03/19 23:44) Rash pramipexole Allergy (Verified 08/03/19 23:44) Unknown Quinolones Allergy (Verified 08/03/19 23:44) Unknown ropinirole Allergy (Verified 08/03/19 23:44) Unknown aspirin Adverse Reaction (Verified 09/21/19 23:44) Vomiting Procedures: 2-D Echocardiogram - Interpretation Summary Normal LV size. Severe concentric left ventricular hypertrophy. Left ventricular systolic function is normal. The estimated ejection fraction is 70 %. Mild (1+) tricuspid valve insufficiency. Pulmonary artery systolic pressure is 28 mmHg. Contrast injection was performed., Stress Test - Conclusion: Probably normal pharmacologic myocardial perfusion stress test. Preserved ejection fraction. Atrial fibrillation noted. - Type of Care/Length of Stay Estimated LOS: Convalescent Care Less Than 30 days Type of Care Needed: Skilled Rehab Potential: Fair Prognosis: Fair - Additional Orders/Day of Discharge Additional Orders: Lyrica was stopped due to the acute severe renal failure. She has become more alert ....... if she starts to have delirium, agitation she may be having acute withdrawal symptoms and would need to restart Lyrica at a reduced dose of 25 mg once a day which is appropriate for her creatinine clearance H&P will serve as current which was dated: 08/04/19 Day of Discharge: 08/08/19 - Dietary and Speech Recommendations Dietitian Recommendations/Changes: Suggest diet change to 1800 calorie; cardiac/low sodium & liberalize to low sodium/FR as needed if PO regresses further. Suggest Liang 1 packet BID for wound healing--order from pharmacy. Current wt as able. - Follow Up Care Primary Care Physician: Law Quintana DO [Primary Care Provider] - Please follow up with your Primary Care Physician in: following discharge from TCU Please Follow Up With: pulmonary clinic When: 2 weeks -4 weeks after DC form TCU to F/U pulmonary nodule Please Follow Up With: Tobi Parr MD When: 2 weeks
[2019-08-08 15:10] LABS: Eosinophil Ct. Urine No Eosinophils Seen % (.)
--- NOTE | 2019-08-08 15:47 | DS.PCM_ITS ---
Discharge Date and Diagnosis - Problem List Patient Problems: Active and Suspected Problems UTI due to Klebsiella species (Acute) Atrial fibrillation with rapid ventricular response (Acute) NSTEMI (non-ST elevated myocardial infarction) (Acute) Date of Admission: 08/04/19 Date of Discharge: 08/08/19 - Primary Discharge Diagnosis Active and Suspected Problems Elevated troponin (Acute) indeterminate, not trending....more likely than not due to ARF Severe sepsis (Acute) due to Klebsiella oxytoca complicated urinary tract infection Adverse drug effect (Acute) delirium and sedation due to combined effects of renal failure, Lyrica and narcotics. Metabolic acidosis (Acute) due to acute renal failure Hyperphosphatemia (Acute) Secondary to acute renal failure on chronic renal failure stage III IZA (acute kidney injury) (Acute) UTI (urinary tract infection) (Acute) Due to Klebsiella oxytoca Declining functional status (Acute) - Secondary Discharge Diagnosis Chronic Problems Lung mass (Chronic) 2.3 X 1.3 cm nodule in the RML...needs F/U with pulmonary as OP Diabetic polyneuropathy (Chronic) Allergic rhinitis (Chronic) Hyperlipidemia (Chronic) Normochromic normocytic anemia (Chronic) Etiology undetermined Chronic anticoagulation (Chronic) for chronic AF Left ventricular hypertrophy (Chronic) severe Debility (Chronic) Back pain (Chronic) 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, stage 2 (Chronic) Chronic kidney disease, stage III (moderate) (Chronic) Obesity (Chronic) Hypertension (Chronic) Type 2 diabetes mellitus (Chronic) Hospital Course and Treatment Imaging Results: Clinical Impression(s) from Imaging Studies Chest X-Ray 08/03/19 23:49 IMPRESSION: Stable right lower lobe nodule measuring 2.2 x 1.6 cm. No evidence of acute alveolar disease. Electronically Signed: Franky Tenorio MD at 0:20 EDT Tel , Service support , Chest X-Ray 08/06/19 10:24 IMPRESSION: No acute disease. Right lower lobe nodule previously noted is obscured. Electronically Signed: Noe Neff MD at 16:55 EDT , Service support , KUB X-Ray 08/06/19 10:24 IMPRESSION: Colonic ileus Electronically Signed: Noe Neff MD at 16:58 EDT , Service support , Microbiology 08/04/19 00:05 Blood Culture (Wb) - Left Wrist Blood Culture - Final No growth in 5 days. 08/04/19 01:00 Blood Culture (Wb) - Right Forearm Blood Culture - Final No growth in 5 days. 08/06/19 10:40 Stool C. 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 She had been sitting in a chair, unable to get up from the chair, even with her husbands help, for a prolonged period of time and she had been incontinent. she denied any dysuria. In the ED she was noted to be in AF with an elevated troponin at 0.061. White blood cell count was elevated at 15.4 with a left shift. Hemoglobin was 11.0 with normochromic normocytic indices and platelets were within normal limits. The BUN was 48 and the creatinine was 2.86, up from 1.42 on 07/30/19. UA showed 5-10 RBCs per high- power field and greater than 100 WBCs per high-power field with 2+ bacteria. X- ray showed a stable right lower lobe nodule measuring 2.2 x 1.6 cm with no evidence of infiltrates, pleural effusions or pulmonary vascular congestion. She was admitted to a monitored bed on the progressive care unit with severe sepsis, acute kidney injury, new onset atrial fibrillation and elevated troponin. She was started on cefepime and urine and blood cultures were ordered. IV fluids were ordered and repeat lab the next morning was also ordered. Cardiology was consulted because of elevated troponin. The troponins did not trend. Cardiology recommended anticoagulation with Lovenox and eventual transition to Eliquis. An ECHO was ordered and showed a 70% ejection fraction with severe concentric left ventricular hypertrophy. Lopressor was increased to 50 mg BID for better rate control. A stress test was ordered to evaluate for ischemic heart disease. A pharmacologic nuclear stress test on 08/05/2019 was reported as probably normal pharmacologic myocardial perfusion stress test with preserved ejection fraction. Unfortunately the Creat continued to increase and on 08/05/2019 it was 3.32. She was nonoliguric. Dr. Acosta was consulted to participate in management. He suspected the acute kidney injury was secondary to ATN and a fractional excretion of sodium was ordered. FENA was low indicating probable prerenal azotemia. He ordered repeat lab for the following morning. Creatinine the following morning had increased to 3.56 and the serum bicarb was 10. Urine eosinophils were ordered to rule out interstitial nephritis and the urine was negative for eosinophils. She was seen by Dr. Parr on 08/06/19 and he discontinued Amlodipine and repeated the creat the following morning. On 08/07/2019 the creatinine was 3.94 with a serum bicarb of 18. She continued to be nonoliguric. Edema in the LE's was increasing and she developed a few blisters. She was started on Lasix. She had a good response to Lasix and the creat decreased to 3.64. She had become progressively more lethargic and less responsive as the creatinine increased and Narcotics and Lyrica were held. On 08/08/2019 she was significantly more alert and able to answer questions. She was cooperative with nursing. Urine culture had grown greater than 100,000 colonies of Klebsiella oxytoca which she had also grown on her previous admission for urinary tract infection. She was discharged to the transitional care unit for PT/OT prior to expected discharge home. She was transitioned to Cefdinir 300 mg p.o. daily for an additional 9 days to complete 14 days of treatment for recurrent urinary tract infection secondary to Klebsiella oxytoca. She will need a repeat straight cath UA and urine culture 5 days after completing Cefdinir. She will follow-up with the pulmonary clinic 2 to 4 weeks after discharge for follow-up on the pulmonary nodule. She will follow-up with Dr. Parr in the office in 2 weeks. She will follow-up with her primary care physician, Dr. Law Quintana, following discharge from the transitional care unit. PHYSICAL EXAM: GENERAL: alert, still somewhat confused and yelling out for her , Cooperative at times, NAD, making eye contact now ORAL: moist mucosa, no mucosal lesions NECK: supple, trachea midline LUNGS: CTA, symmetric chest expansion, diminished HEART: RRR, Normal S1 and S2, no rub, no gallop, distant heart sounds ABDOMEN: soft, NT, ND, BS present, no guarding with palpation, obese EXTREMITIES: edema, no cyanosis, no calf tenderness SKIN: No rashes, no breakdown NEUROLOGIC: no focal neurologic deficits PSYCH: appropriate, normal affect, pleasant This note was generated with B2[employer]rev dictation software. It may contain incorrect words, spelling, and punctuation that were not noted in checking the note before signing. Patient Problems: Active and Suspected Problems UTI due to Klebsiella species (Acute) Atrial fibrillation with rapid ventricular response (Acute) NSTEMI (non-ST elevated myocardial infarction) (Acute) - Physical Exam Vital Signs Temp Pulse Resp BP Pulse Ox 98.3 F 77 18 109/55 L 97 08/08/19 15:44 08/08/19 15:44 08/08/19 15:44 08/08/19 15:44 08/08/19 15:44 Oxygen Delivery Method Room Air Weight: 241 lb 13.553 oz Body Mass Index (BMI) 39.0 Intake and Output for Last 24 Hours 08/06/19 08/07/19 08/08/19 23:59 23:59 23:59 Intake Total 1380 / 1380 1120.00 / 1120.00 170 / 170 Output Total 1330 / 1330 550 / 550 Balance 50 / 50 570.00 / 570.00 170 / 170 Microbiology Past 72 Hours 08/06/19 10:40 C. difficile DNA Amplification - Final Stool 08/04/19 00:05 Blood Culture - Preliminary Blood Culture (Wb) - Left Wrist No growth in 48 hours. 08/04/19 01:00 Blood Culture - Preliminary Blood Culture (Wb) - Right Forearm No growth in 48 hours. 08/04/19 00:05 Urine Culture - Final Urine Catheter - Ojeda Klebsiella oxytoca Laboratory Tests Past 24 Hrs 08/04/19 08/08/19 23:30 07:12 Eos Smear Total Cells No Eosinophils Seen Sodium 138 Potassium 4.0 Chloride 113 H Carbon Dioxide 15.0 L Anion Gap 10 BUN 79 H Creatinine 3.64 H Estim Creat Clear Calc 12.89 Est GFR (MDRD) Af Amer 16 L Est GFR (MDRD) Non-Af 13 L BUN/Creatinine Ratio 21.7 H Glucose 86 Calcium 7.4 L POC Glucose 08/08/19 08/08/19 08/08/19 12:14 07:30 06:54 POC Glucose 140 H 79 67 L 08/07/19 08/07/19 08/07/19 23:07 17:29 16:49 POC Glucose 83 149 H 61 L 08/07/19 16:28 POC Glucose 52 L Home Medications: Medications to take at Discharge Pravastatin Sodium 40 mg PO DAILY 07/10/19 Menthol/Lanolin/Calamine/Znox [Calmoseptine Ointment] 1 applic TOPICAL BID PRN tube 07/16/19 Hydrocortisone 2.5% Crm [Hytone] 1 applic TOPICAL BID PRN PRN #1 tube 07/23/19 Acetaminophen [Tylenol Tablet] 650 mg PO Q6H PRN PRN tab 08/08/19 Apixaban [Eliquis] 2.5 mg PO BID 08/08/19 Cefdinir [Omnicef [equiv]] 300 mg PO DAILY 08/08/19 Emollient Combination No.72 [Eucerin Intensive Repair] 1 applic TOPICAL QHS 08/08/19 Insulin Glargine [Lantus SoloStar Pen] 10 units SUBCUT BREAKFAST 08/08/19 Insulin Lispro [Humalog KwikPen] See Protocol SUBCUT ACHS 08/08/19 Iron Polysaccharide Complex [Ferrex 150] 150 mg PO DAILYCM 08/08/19 Metoprolol Tartrate [Lopressor (beta beau)] 50 mg PO BID 08/08/19 Nystatin Powder [Mycostatin Powder] 1 applic TOPICAL 0600,2200 08/08/19 Polyethylene Glycol 3350 [Miralax] 17 gm PO DAILY 08/08/19 Primary Care Physician: Law Quintana DO [Primary Care Provider] - Please follow up with your Primary Care Physician in: following discharge from TCU Please Follow Up With: pulmonary clinic When: 2 weeks -4 weeks after DC form TCU to F/U pulmonary nodule Please Follow Up With: Tobi Parr MD When: 2 weeks Disposition: Long-Term facility Minutes spent on discharge:: 40 Patient Condition:: Stable Medical Necessity - Tobacco Use Smoking Status: Never smoker Tobacco Use: Non-smoker Meaningful Use Info Meaningful Use Diagnoses (Choose all that apply): None applicable Code Visit Inpatient E&M: 85969 Disch Hosp
== END 2019-08-08 16:16 | disposition skilled nursing facility (03) | DRG 871 ==
LOC: ED 08-04 00:59 → PCU 08-04 03:00
PROVIDERS: Internal Medicine; Internal Medicine Nephrology; Physician Assistant; Admitting Provider Hospitalist; Emergency Provider Emergency Medicine; Family Provider Student in an Organized Health Care Education/Training Program; PCP Student in an Organized Health Care Education/Training Program; Visit Provider Internal Medicine
DX: A41.9 Sepsis, unspecified organism (principal); N17.0 Acute kidney failure with tubular necrosis; Z68.42 Body mass index [BMI] 45.0-49.9, adult; N39.0 Urinary tract infection, site not specified; E87.2 Acidosis; I50.32 Chronic diastolic (congestive) heart failure; I13.0 Hypertensive heart and chronic kidney disease with heart failure and stage 1 through stage 4 chronic kidney disease, or unspecified chronic kidney disease; R65.20 Severe sepsis without septic shock; E78.5 Hyperlipidemia, unspecified; E11.22 Type 2 diabetes mellitus with diabetic chronic kidney disease; N18.3 Chronic kidney disease, stage 3 (moderate); D64.9 Anemia, unspecified; E66.01 Morbid (severe) obesity due to excess calories; E87.6 Hypokalemia; I48.91 Unspecified atrial fibrillation; R53.81 Other malaise; E11.42 Type 2 diabetes mellitus with diabetic polyneuropathy; R91.1 Solitary pulmonary nodule; B96.89 Other specified bacterial agents as the cause of diseases classified elsewhere; E83.39 Other disorders of phosphorus metabolism; Z79.01 Long term (current) use of anticoagulants; Z79.4 Long term (current) use of insulin
CPT/HCPCS: 36415; 51702; 71045; 74018; 78452; 80048; 80053; 81001; 82550; 82570; 82962; 83605; 83735; 83880; 84100; 84300; 84443; 84484; 85025; 85610; 85730; 87040; 87077; 87086; 87088; 87186; 87205; 87493; 93005; 93017; 93306; 97162; 97166; 97530; 97535; 99285; A9500; J7030; J7040; Q9957; A4216; C8929; J1940; J2405; J2785

== ENCOUNTER 2019-08-08 16:17 | Inpatient (IN) | payer MEDICARE, SELFPAY ==
[2019-08-04 02:03] VITALS: BMI 39.0
[2019-08-08 16:22] VITALS: BP 158/81; PULSE 76; RESP 17; TEMP 36.4; O2SAT 97
[2019-08-08 17:11] LABS: Bedside Glucose 144 mg/dL (70-110)
[2019-08-08 17:57] VITALS: BMI 42.6
[2019-08-08 18:08] VITALS: BMI 42.7
[2019-08-08 18:43] VITALS: BP 158/81; PULSE 76
[2019-08-08] MEDS: Metoprolol Tartrate 50 MG Tablet PO (18:43)
[2019-08-08] MEDS: Insulin Lispro 100 UNIT/ML INSULN.PEN SC (20:06)
[2019-08-08] MEDS: Nystatin Powder 15gm Bottle 1 APPLIC TOPICAL (20:07)
[2019-08-08] MEDS: APIXABAN 2.5 MG TABLET PO (20:39)
[2019-08-08] MEDS: Pravastatin 40 MG Tablet PO (20:39)
[2019-08-08 21:50] LABS: Bedside Glucose 194 mg/dL (70-110)
--- NOTE | 2019-08-08 22:19 | PCM.HP.STD ---
Problem List (1) UTI due to Klebsiella species Status: Acute (2) Atrial fibrillation with rapid ventricular response Status: Acute (3) NSTEMI (non-ST elevated myocardial infarction) Status: Acute (4) Diabetes mellitus Status: Chronic (5) Chronic kidney disease Status: Chronic (6) Diabetic neuropathy Status: Chronic (7) Iron deficiency anemia Status: Chronic (8) Allergic rhinitis Status: Chronic (9) Hyperlipidemia Status: Chronic (10) Severe sepsis Status: Acute Comment: due to Klebsiella oxytoca complicated urinary tract infection (11) IZA (acute kidney injury) Status: Acute (12) Debility Status: Chronic (13) Hypertension Status: Chronic Qualifiers: History of Present Illness Date of Admission: 08/08/19 Chief Complaint: Here for rehabilitation, strengthening, prior to [facility] [employer] care placement. The patient is a 74 year old Female with below past medical history recently discharged from TCU presented to [facility] Emergency Department 08/04/2019 with generalized weakness. 08/03/2019 EKG showed atrial fibrillation with rapid ventricular response, ST&T wave abnormality, consider lateral ischemia. Too weak to get out of chair. Chest X-ray okay, WBC 15, Mild hypokalemia, Acute kidney injury. Troponin 0.06. UA consistent with UTI, urine culture sent. Cefepime, IV fluids given. 08/04/2019 Admit to Hospital. Cefepime, IF fluids for severe sepsis from urinary tract infection. Serial cardiac enzymes for NSTEMI, consult cardiology. Replete potassium. IV fluids for acute kidney injury. Lovenox for atrial fibrillation. 08/05/2019 Echo Left ventricular systolic function normal. EF 70% PASP 28mm HG. 08/05/2019 Nuclear stress test NORMAL. 08/06/2019 X-ray of abdomen showed colonic ileus. Urine culture growing K. Oxytoca, treat with Rocephin for total of 10 days. Metoprolol, Eliquis for atrial fibrillation.. Acute kidney injury improved with IV fluid hydration. 08/08/2019 Admit to TCU with debility, here for rehabilitation, strengthening, prior to discharge to [facility] care facility. I discussed with resident, resident spouse that she cannot live at home due to her the amount of care she requires. I recommended custodial care placement to avoid revolving door of ER, Hospital, Rehab, Home, rinse repeat. Past Medical History Past Medical History (Chronic Problems): Chronic Problems Lung mass (Chronic) 2.3 X 1.3 cm nodule in the RML...needs F/U with pulmonary as OP Diabetic polyneuropathy (Chronic) Allergic rhinitis (Chronic) Hyperlipidemia (Chronic) Normochromic normocytic anemia (Chronic) Etiology undetermined Chronic anticoagulation (Chronic) for chronic AF Left ventricular hypertrophy (Chronic) severe Diabetes mellitus (Chronic) Chronic kidney disease (Chronic) Diabetic neuropathy (Chronic) Iron deficiency anemia (Chronic) Debility (Chronic) Back pain (Chronic) 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, stage 2 (Chronic) Chronic kidney disease, stage III (moderate) (Chronic) Obesity (Chronic) Hypertension (Chronic) Type 2 diabetes mellitus (Chronic) Allergies adhesive Allergy (Verified 08/03/19 23:44) Rash amoxicillin [From Augmentin] Allergy (Verified 08/03/19 23:44) Unknown carvedilol Allergy (Verified 08/03/19 23:44) Unknown ceftriaxone [From Rocephin] Allergy (Verified 08/03/19 23:44) Unknown chlorthalidone Allergy (Verified 08/03/19 23:44) Unknown ciprofloxacin Allergy (Verified 08/03/19 23:44) Rash clavulanic acid [From Augmentin] Allergy (Verified 08/03/19 23:44) Unknown doxycycline Allergy (Verified 08/03/19 23:44) Unknown fexofenadine Allergy (Verified 08/03/19 23:44) Unknown gatifloxacin [From Tequin] Allergy (Verified 08/03/19 23:44) Unknown hydrochlorothiazide Allergy (Verified 08/03/19 23:44) Unknown lisinopril Allergy (Verified 08/03/19 23:44) Unknown losartan Allergy (Verified 08/03/19 23:44) Unknown Penicillins Allergy (Verified 08/03/19 23:44) Rash pramipexole Allergy (Verified 08/03/19 23:44) Unknown Quinolones Allergy (Verified 08/03/19 23:44) Unknown ropinirole Allergy (Verified 08/03/19 23:44) Unknown aspirin Adverse Reaction (Verified 08/03/19 23:44) Vomiting Home Medications: Ambulatory Orders Medication Instructions Recorded Pravastatin Sodium 40 mg PO DAILY 07/10/19 Menthol/Lanolin/Calamine/Znox 1 applic TOPICAL BID PRN tube 07/16/19 [Calmoseptine Ointment] Hydrocortisone 2.5% Crm [Hytone] 1 applic TOPICAL BID PRN PRN #1 07/23/19 tube Acetaminophen [Tylenol Tablet] 650 mg PO Q6H PRN PRN tab 08/08/19 Apixaban [Eliquis] 2.5 mg PO BID 08/08/19 Cefdinir [Omnicef [equiv]] 300 mg PO DAILY 08/08/19 Emollient Combination No.72 1 applic TOPICAL QHS 08/08/19 [Eucerin Intensive Repair] Insulin Glargine [Lantus SoloStar 10 units SUBCUT BREAKFAST 08/08/19 Pen] Insulin Lispro [Humalog KwikPen] See Protocol SUBCUT ACHS 08/08/19 Iron Polysaccharide Complex 150 mg PO DAILYCM 08/08/19 [Ferrex 150] Metoprolol Tartrate [Lopressor 50 mg PO BID 08/08/19 (beta beau)] Nystatin Powder [Mycostatin Powder] 1 applic TOPICAL 0600,2200 08/08/19 Polyethylene Glycol 3350 [Miralax] 17 gm PO DAILY 08/08/19 Surgical History: appendectomy, cholecystectomy, gastric bypass - 2003, - - Patient has undergone right ankle surgery and left wrist surgery. In addition, she has recently undergone cystoscopy with right retrograde pyelogram and laser ablation of kidney stones with placement of a ureteral stent. Patient is a Ab0.Had partial nephrectomy done in [place], [place] 15yrs ago for impacted renal stone. Psychiatric History: No pertinent psych hx [employer]GEANT History: No pertinent [employer] S[employer]GEANT history Lives: Spouse/ Significant Other Smoking Status: Never smoker Tobacco Use: Non-smoker Alcohol: None, Rare Drugs: None - *Family History Maternal History Items: Heart Disease, Hypertension, - - Her mother from lymphoma Paternal History Items: Heart Disease, Hypertension Review of Systems Constitutional: Denies: Chills, Fever, Weight Change HEENT: Denies: Head Aches, Sinus Congestion, Sinus Drainage Cardiovascular: Denies: Chest Pain, Palpitations Respiratory: Denies: Cough, Shortness of breath at rest, Sputum production Gastrointestinal: Denies: Abdominal Pain, Nausea, Vomiting Genitourinary: Denies: Dysuria Musculoskeletal: Denies: Joint Pain, Joint Tenderness Skin: Denies: Rash, Wounds Neurological: Denies: Numbness, Tingling, Focal weakness Psychiatric: Denies: Anxiety, Depression, Homicidal Ideations, Suicidal Ideations Hematologic/ Lymphatic: Denies: Easy Bruising, Easy Bleeding VTE Information - Inpt Only VTE Present on Admission: No VTE Mechan Device Prophylaxis: Knee High LEBRON Hose VTE Pharm Prophylaxis ordered?: No Reason prophylaxis not ordered:: Treatment Not Indicated Patient Problems: Active and Suspected Problems UTI due to Klebsiella species (Acute) Atrial fibrillation with rapid ventricular response (Acute) NSTEMI (non-ST elevated myocardial infarction) (Acute) - Physical Exam General: Alert, Oriented x3, Cooperative HEENT: Atraumatic, PERRLA, EOMI, Normocephalic Neck: Supple, No JVD, Negative Carotid Bruits Lungs: Clear to auscultation, Normal air movement Cardiovascular: Regular rate, No murmurs Abdomen: Bowel Sounds Present, Soft, Non Tender Extremities: No edema, Capillary Refill Less than 3 Seconds Skin: No rashes, No breakdown Musculoskeletal: No Tenderness to Palpation of Joints or Extremities Neurological: Cranial nerves II-XII grossly intact Psych/Mental Status: Normal Affect, Appropriate Vital Signs Temp Pulse Resp BP Pulse Ox 97.6 F L 76 17 158/81 H 97 08/08/19 16:22 08/08/19 18:43 08/08/19 16:22 08/08/19 18:43 08/08/19 16:22 Weight: 119.9 kg Body Mass Index (BMI) 42.6 Intake and Output for Last 24 Hours 08/06/19 08/07/19 08/08/19 23:59 23:59 23:59 Intake Total 240 / 240 Output Total 50 / 50 Balance 190 / 190 POC Glucose 08/08/19 08/08/19 20:05 17:05 POC Glucose 194 H 144 H Assessment/Plan All Active Problems Elevated troponin (Acute) Severe sepsis (Acute) Adverse drug effect (Acute) Metabolic acidosis (Acute) Hyperphosphatemia (Acute) UTI due to Klebsiella species (Acute) Atrial fibrillation with rapid ventricular response (Acute) NSTEMI (non-ST elevated myocardial infarction) (Acute) IZA (acute kidney injury) (Acute) UTI (urinary tract infection) (Acute) Declining functional status (Acute) Hydronephrosis, right (Resolved) 74 year old female with below past medical history hospitalized for weakness secondary to K. Oxytoca urinary tract infection, complicated by atrial fibrillation with rapid ventricular response, NSTEMI, acute kidney injury, admitted to TCU with debility, here for rehabilitation, strengthening, prior to discharge to [facility] care facility. Debility - PT/OT. Pain - Tylenol 1000MG Q6H PRN mild pain. Bowel - Miralax 17GM daily, Senna/colace 1 tablet BID, Dulcolax 10MG daily PRN. Pneumonia vaccination - Administer Prevnar 13 and/or Pneumovax 23 as necessary. DVT prophylaxis - Not necessary, already on Eliquis. Atrial Fibrillation - Metoprolol 50MG BID, Eliquis 2.5MG BID. K. Oxytoca UTI - Cefdinir 300MG daily thru 08/14/2019. Skin irritation - Eucerin QHS, Calmoseptine BID PRN. Rash - Hytone 2.5% cream topical BID. Diabetes Mellitus II - Lantus 10 units QAM. Iron deficiency anemia - Ferrex 150MG daily. Nutrition - Liang 1 packet BID. Tinea Corporis - Nystatin powder BID. Hyperlipidemia - Pravastatin 40MG QHS.
[2019-08-09] MEDS: Senna/Docusate Sodium 1 Tablet PO ×2 (03:33→18:17)
[2019-08-09] MEDS: Acetaminophen 500 MG Tablet 1000 MG PO ×2 (03:33→14:56)
[2019-08-09 05:21] VITALS: PULSE 96
[2019-08-09] MEDS: Cefdinir 300 MG Capsule PO (05:21)
[2019-08-09] MEDS: Polyethylene Glycol 3350 17 GM PACKET PO (05:21)
[2019-08-09] MEDS: Metoprolol Tartrate 50 MG Tablet PO ×2 (05:21→18:17)
[2019-08-09] MEDS: Nystatin Powder 15gm Bottle 1 APPLIC TOPICAL ×2 (05:21→22:08)
[2019-08-09] MEDS: Menthol/Lanolin/Calamine/Znox 113 GM Tube 1 APPLIC TOPICAL ×2 (05:21→18:16)
[2019-08-09] MEDS: APIXABAN 2.5 MG TABLET PO ×2 (05:21→18:17)
[2019-08-09 05:56] LABS: Absolute Lymphocyte Count 1.15 X10^3/uL (0.83-4.51); Absolute Neutrophil Count 5.3 X10^3/uL (2.0-7.7); Basophil# 0.02 X10^3/uL; Basophil% 0.3 % (0-1); Eosinophil# 0.89 X10^3/uL; Eosinophils% 11.2 % (0-5); Hemoglobin 9.4 g/dL (12.0-15.0); Lymphocyte # 1.15 X10^3/ul (4.0); Lymphocyte % 14.4 % (19-41); Mean Corp Hgb Conc 30.3 g/dL (32-36); Mean Corpuscular Volume 89.1 fL (81-99); Mean Platelet Vol. 10.9 fl (6.2-12.0); Monocyte# 0.58 X10^3/uL; Monocyte% 7.3 % (0-10); NRBC Flagged by Analyzer 0 % (0-5); Neutrophil # 5.26 X10^3/uL (2.7-7.7); Platelet Count 213 K/mm3 (150-450); RBC Distribution Width CV 15.9 % (11.6-14.6); RBC Distribution Width SD 52.2 fl (35.1-43.9); Red Blood Count 3.48 M/mm3 (4.2-5.4)
[2019-08-09 06:02] LABS: Anion Gap 11 (5-15); BUN 78 mg/dL (7-18); BUN/Creat Ratio 22.6 RATIO (10-20); Calcium,Total 7.6 mg/dL (8.5-10.1); Chloride 113 mmol/L (98-107); Creatinine, Serum 3.45 mg/dL (0.55-1.02); EST Glomerular Filtration Rate 14 mL/min (>60); Est Glom Filt Rate - Afr Amer 17 mL/min (>60); Glucose 125 mg/dL (74-106); Potassium 3.9 mmol/L (3.5-5.1); Sodium Level 142 mmol/L (136-145)
[2019-08-09 06:31] LABS: Bedside Glucose 122 mg/dL (70-110)
[2019-08-09] MEDS: Iron Polysaccharide Complex 150 MG CAPSULE PO (09:03)
[2019-08-09] MEDS: Glucerna Shake 120 ML LIQUID PO (09:08)
--- NOTE | 2019-08-09 09:57 | PHA.CONS_ITS ---
<Romi Taylor - Last Filed: 08/09/19 10:13> Progress Note - Pharmacy Subjective: TCU Admission Objective: Allergies adhesive Allergy (Verified 08/03/19 23:44) Rash amoxicillin [From Augmentin] Allergy (Verified 08/03/19 23:44) Unknown carvedilol Allergy (Verified 08/03/19 23:44) Unknown ceftriaxone [From Rocephin] Allergy (Verified 08/03/19 23:44) Unknown chlorthalidone Allergy (Verified 08/03/19 23:44) Unknown ciprofloxacin Allergy (Verified 08/03/19 23:44) Rash clavulanic acid [From Augmentin] Allergy (Verified 08/03/19 23:44) Unknown doxycycline Allergy (Verified 08/03/19 23:44) Unknown fexofenadine Allergy (Verified 08/03/19 23:44) Unknown gatifloxacin [From Tequin] Allergy (Verified 08/03/19 23:44) Unknown hydrochlorothiazide Allergy (Verified 08/03/19 23:44) Unknown lisinopril Allergy (Verified 08/03/19 23:44) Unknown losartan Allergy (Verified 08/03/19 23:44) Unknown Penicillins Allergy (Verified 08/03/19 23:44) Rash pramipexole Allergy (Verified 08/03/19 23:44) Unknown Quinolones Allergy (Verified 08/03/19 23:44) Unknown ropinirole Allergy (Verified 08/03/19 23:44) Unknown aspirin Adverse Reaction (Verified 08/03/19 23:44) Vomiting Current Medications Generic Name Dose Route Start Last Admin Trade Name Freq PRN Reason Stop Dose Admin Acetaminophen 1,000 mg 08/08/19 22:35 08/09/19 03:33 Tylenol PO 1,000 mg Q6H PRN PRN Administration Pain Score 1-3/10 Apixaban 2.5 mg 08/08/19 18:00 08/09/19 05:21 Eliquis PO 2.5 mg BID CESIA Administration Bisacodyl 10 mg 08/08/19 22:35 Dulcolax PO DAILY PRN Constipation Calamine/Phenol 1 applic 08/08/19 16:50 Calmoseptine Ointment TOPICAL BID PRN ANAL/RECTAL IRRITATIONS Protocol Calamine/Phenol 1 applic 08/09/19 06:00 08/09/19 05:21 Calmoseptine Ointment TOPICAL 1 applicatio BID CESIA Administration Protocol Cefdinir 300 mg 08/09/19 06:00 08/09/19 05:21 Omnicef [Equiv] PO 08/14/19 23:59 300 mg DAILY CESIA Administration Emollient Ointment 1 applic 08/08/19 22:00 08/08/19 20:03 Eucerin Intensive Repair TOPICAL 1 applicatio QHS CESIA Administration Protocol Hydrocortisone 1 applic 08/08/19 16:50 Hytone TOPICAL BID PRN PRN RASH/TOPICAL IRRITATION Protocol Insulin Glargine 10 units 08/09/19 08:00 08/09/19 09:01 Lantus (Bkc) SC 10 u BREAKFAST CESIA Administration Melatonin 10 mg 08/09/19 08:03 Melatonin PO QHS PRN INSOMNIA Metoprolol Tartrate 50 mg 08/08/19 18:00 08/09/19 05:21 Lopressor (Beta Allie) PO 50 mg BID CESIA Administration Nutritional Formula 1 packet 08/09/19 08:00 08/09/19 09:02 Liang - [place] Flavor PO 1 packet BIDCM CESIA Administration Nutritional Formula (Lactose Free) 120 ml 08/09/19 07:45 08/09/19 09:08 Glucerna Shake PO 120 ml TIDCM CESIA Administration Nystatin 1 applic 08/08/19 22:00 08/09/19 05:21 Mycostatin Powder TOPICAL 1 applicatio 0600,2200 [facility] Administration Protocol Polyethylene Glycol 17 gm 08/09/19 06:00 08/09/19 05:21 Miralax PO 17 gm DAILY CESIA Administration Polysaccharide Iron Complex 150 mg 08/09/19 08:00 08/09/19 09:03 Ferrex 150 PO 150 mg DAILYCM CESIA Administration Pravastatin Sodium 40 mg 08/08/19 22:00 08/08/19 20:39 Pravachol PO 40 mg QHS CESIA Administration Senna/Docusate Sodium 1 tablet 08/09/19 06:00 08/09/19 03:33 Senokot-S, Jessica-Colace PO 1 tablet BID CESIA Administration Tuberculin PPD 5 tu 08/09/19 10:00 Tubersol, Aplisol, Ppd ID 08/09/19 10:01 X1 ONE Tuberculin PPD 5 tu 08/16/19 10:00 Tubersol, Aplisol, Ppd ID 08/16/19 10:01 X1 ONE Problem List UTI due to Klebsiella species (Acute) Atrial fibrillation with rapid ventricular response (Acute) NSTEMI (non-ST elevated myocardial infarction) (Acute) Diabetes mellitus (Chronic) Chronic kidney disease (Chronic) Diabetic neuropathy (Chronic) Iron deficiency anemia (Chronic) Vital Signs Temp Pulse Resp BP Pulse Ox 97.6 F L 96 17 158/81 H 97 08/08/19 16:22 08/09/19 05:21 08/08/19 16:22 08/08/19 18:43 08/08/19 16:22 Oxygen Delivery Method Room Air Weight: 119.9 kg Body Mass Index (BMI) 42.6 Sodium 142 mmol/L (136-145) 08/09/19 05:20 Potassium 3.9 mmol/L (3.5-5.1) 08/09/19 05:20 Chloride 113 mmol/L (98-107) H 08/09/19 05:20 Carbon Dioxide 18.0 mmol/L (21.0-32.0) L 08/09/19 05:20 Anion Gap 11 (5-15) 08/09/19 05:20 BUN 78 mg/dL (7-18) H 08/09/19 05:20 Creatinine 3.45 mg/dL (0.55-1.02) H 08/09/19 05:20 Est GFR (MDRD) Af Amer 17 mL/min (>60) L 08/09/19 05:20 Est GFR (MDRD) Non-Af 14 mL/min (>60) L 08/09/19 05:20 BUN/Creatinine Ratio 22.6 RATIO (10-20) H 08/09/19 05:20 Glucose 125 mg/dL (74-106) H 08/09/19 05:20 Assessment/Plan: 1. Pain: acetaminophen 1000mg PO Q6H PRN mild pain (1-3/10). Please continue to monitor for increased pain and PRN usage. 2. K. oxytoca UTI: cefdinir 300mg PO daily (thru 08/14/19). Please continue to monitor for S/S of infection and renal function. 3. Atrial Fibrillation: metoprolol tartrate 50mg PO BID and apixaban 2.5mg PO BID. Please continue to monitor for decreased HR, S/S of bleeding, platelets, and renal function. 4. Type II Diabetes Mellitus: insulin glargine 10units SC daily with breakfast. Please continue to monitor for hypo/hyperglycemia. 5. Hyperlipidemia: pravastatin 40mg PO QHS. Recent lipid panel in chart and LFTs slightly low but appropriate for continued use. Please continue to monitor for muscle pain. 6. Iron deficiency anemia: Ferrex 150mg PO DAILYCM. Please continue to monitor for anemia and dark stools. 7. Tinea Corporis: nystatin powder 1 application topically BID. Please continue to monitor for rash and itching. Psychotropic Medications: None Unnecessary Medications: Melatonin 10mg PO QHS PRN insomnia. Could not find documented indication for melatonin. Please consider D/C if clinically appropriate. Bowel Regimen: Miralax 17gm PO daily, senna/docusate 1T PO BID, and bisacodyl 10mg PO daily PRN constipation. Please continue to monitor for constipation and PRN usage. Date of Note:: 08/09/19 - Provider Comments Provider responsibility: Provider responsible to enter orders to implement recommendations <Fab Dong Chi - Last Filed: 08/09/19 13:35> Progress Note - Pharmacy Subjective: [] Objective: Allergies adhesive Allergy (Verified 08/03/19 23:44) Rash amoxicillin [From Augmentin] Allergy (Verified 08/03/19 23:44) Unknown carvedilol Allergy (Verified 08/03/19 23:44) Unknown ceftriaxone [From Rocephin] Allergy (Verified 08/03/19 23:44) Unknown chlorthalidone Allergy (Verified 08/03/19 23:44) Unknown ciprofloxacin Allergy (Verified 08/03/19 23:44) Rash clavulanic acid [From Augmentin] Allergy (Verified 08/03/19 23:44) Unknown doxycycline Allergy (Verified 08/03/19 23:44) Unknown fexofenadine Allergy (Verified 08/03/19 23:44) Unknown gatifloxacin [From Tequin] Allergy (Verified 08/03/19 23:44) Unknown hydrochlorothiazide Allergy (Verified 08/03/19 23:44) Unknown lisinopril Allergy (Verified 08/03/19 23:44) Unknown losartan Allergy (Verified 08/03/19 23:44) Unknown Penicillins Allergy (Verified 08/03/19 23:44) Rash pramipexole Allergy (Verified 08/03/19 23:44) Unknown Quinolones Allergy (Verified 08/03/19 23:44) Unknown ropinirole Allergy (Verified 08/03/19 23:44) Unknown aspirin Adverse Reaction (Verified 08/03/19 23:44) Vomiting Current Medications Generic Name Dose Route Start Last Admin Trade Name Freq PRN Reason Stop Dose Admin Acetaminophen 1,000 mg 08/08/19 22:35 08/09/19 03:33 Tylenol PO 1,000 mg Q6H PRN PRN Administration Pain Score 1-3/10 Apixaban 2.5 mg 08/08/19 18:00 08/09/19 05:21 Eliquis PO 2.5 mg BID CESIA Administration Bisacodyl 10 mg 08/08/19 22:35 Dulcolax PO DAILY PRN Constipation Calamine/Phenol 1 applic 08/08/19 16:50 Calmoseptine Ointment TOPICAL BID PRN ANAL/RECTAL IRRITATIONS Protocol Calamine/Phenol 1 applic 08/09/19 06:00 08/09/19 05:21 Calmoseptine Ointment TOPICAL 1 applicatio BID CESIA Administration Protocol Cefdinir 300 mg 08/09/19 06:00 08/09/19 05:21 Omnicef [Equiv] PO 08/14/19 23:59 300 mg DAILY CESIA Administration Emollient Ointment 1 applic 08/08/19 22:00 08/08/19 20:03 Eucerin Intensive Repair TOPICAL 1 applicatio QHS CESIA Administration Protocol Hydrocortisone 1 applic 08/08/19 16:50 Hytone TOPICAL BID PRN PRN RASH/TOPICAL IRRITATION Protocol Insulin Glargine 10 units 08/09/19 08:00 08/09/19 09:01 Lantus (Bkc) SC 10 u BREAKFAST CESIA Administration Melatonin 10 mg 08/09/19 08:03 Melatonin PO QHS PRN INSOMNIA Metoprolol Tartrate 50 mg 08/08/19 18:00 08/09/19 05:21 Lopressor (Beta Allie) PO 50 mg BID CESIA Administration Nutritional Formula 1 packet 08/09/19 08:00 08/09/19 09:02 Liang - [place] Flavor PO 1 packet BIDCM CESIA Administration Nystatin 1 applic 08/08/19 22:00 08/09/19 05:21 Mycostatin Powder TOPICAL 1 applicatio 0600,2200 CESIA Administration Protocol Polyethylene Glycol 17 gm 08/09/19 06:00 08/09/19 05:21 Miralax PO 17 gm DAILY CESIA Administration Polysaccharide Iron Complex 150 mg 08/09/19 08:00 08/09/19 09:03 Ferrex 150 PO 150 mg DAILYCM CESIA Administration Pravastatin Sodium 40 mg 08/08/19 22:00 08/08/19 20:39 Pravachol PO 40 mg QHS [facility] Administration Senna/Docusate Sodium 1 tablet 08/09/19 06:00 08/09/19 03:33 Senokot-S, Jessica-Colace PO 1 tablet BID CESIA Administration Tuberculin PPD 5 tu 08/16/19 10:00 Tubersol, Aplisol, Ppd ID 08/16/19 10:01 X1 ONE Problem List UTI due to Klebsiella species (Acute) Atrial fibrillation with rapid ventricular response (Acute) NSTEMI (non-ST elevated myocardial infarction) (Acute) Diabetes mellitus (Chronic) Chronic kidney disease (Chronic) Diabetic neuropathy (Chronic) Iron deficiency anemia (Chronic) Vital Signs Temp Pulse Resp BP Pulse Ox 97.6 F L 96 17 158/81 H 97 08/08/19 16:22 08/09/19 05:21 08/08/19 16:22 08/08/19 18:43 08/08/19 16:22 Oxygen Delivery Method Room Air Weight: 119.9 kg Body Mass Index (BMI) 42.6 Sodium 142 mmol/L (136-145) 08/09/19 05:20 Potassium 3.9 mmol/L (3.5-5.1) 08/09/19 05:20 Chloride 113 mmol/L (98-107) H 08/09/19 05:20 Carbon Dioxide 18.0 mmol/L (21.0-32.0) L 08/09/19 05:20 Anion Gap 11 (5-15) 08/09/19 05:20 BUN 78 mg/dL (7-18) H 08/09/19 05:20 Creatinine 3.45 mg/dL (0.55-1.02) H 08/09/19 05:20 Est GFR (MDRD) Af Amer 17 mL/min (>60) L 08/09/19 05:20 Est GFR (MDRD) Non-Af 14 mL/min (>60) L 08/09/19 05:20 BUN/Creatinine Ratio 22.6 RATIO (10-20) H 08/09/19 05:20 Glucose 125 mg/dL (74-106) H 08/09/19 05:20 Assessment/Plan: Psychotropic Medications: Unnecessary Medications: Bowel Regimen: - Provider Comments Provider responsibility: Provider responsible to enter orders to implement recommendations Provider Comments to Recommendations by Pharmacy: Agree
[2019-08-09] MEDS: Tuberculin,Purif.prot.deriv. 50 TU/ML Vial 5 ML ID (11:05)
[2019-08-09 11:30] LABS: Bedside Glucose 185 mg/dL (70-110)
--- NOTE | 2019-08-09 11:41 | CASEMGMT ---
Social Work Met with pt to complete initial assessment, upon entering the room, the pt was repeating the phrase I can't do it anymore. Inquired about the phrase, pt would only respond with it. Calmly attempted to inquire further, encourage pt to express her feelings and concerns. Pt would not maintain eye contact, kept turning her head back and forth. Pt finally responded, I can't do these exercises, and proceeded to forcefully push away her meal bedside table that was in front her over the bed. Pt had not had therapy yet today. Assured pt she did not have to do anything she didn't want to do, she is safe. Inquired if she had pain - pt began again repeating I can't do it anymore. Attempted to provide emotional and verbal support and active listening, but pt was unable to converse with SW. Nursing aware. Will continue to follow. Aida Monk, ALLAN TELESALES REPRESENTATIVE
--- NOTE | 2019-08-09 14:52 | NURSING ---
wound photo: buttocks
--- NOTE | 2019-08-09 14:53 | NURSING ---
wound photo: left anterior ankle
--- NOTE | 2019-08-09 14:55 | NURSING ---
wound photo: right lower leg
--- NOTE | 2019-08-09 14:55 | NURSING ---
wound photo: right medial heel
--- NOTE | 2019-08-09 14:56 | NURSING ---
wound photo: right lateral heel
--- NOTE | 2019-08-09 15:48 | NURSING ---
GERRY LIU INTO SEE PT TODAY. SEE ORDERS. THIS NURSE AND AID LOTIONED PT UP ALL OVER. PT SKIN SO DRY THATS ITS PEELING AND PT KEEPS SCRATCHING AND BRAKING SKIN OPEN. TURNED PT TO LEFT SIDE OFF BOTTOM,HEELS FLOATED. PT STILL VERY CONFUSED. REPORTED TO GERRY RAY
--- NOTE | 2019-08-09 15:53 | NURSING ---
THIS NURSE SAT DOWN WITH PT AND TALKED FOR A GOOD HALF HOUR ON HIM GETTING HIS REST AND THE KIND OF CARE HIS WILL NEED IN THE NEAR FUTURE. AGREED AND STATED HE HAS THOUGHT ABOUT IT RECENTLY AND HAS REALIZED THAT HE CAN NOT CARE FOR HIS LIKE HE USED TO. WAS LOOKING AT A DETENTION IN [place] AND WOULD LIKE TO TALK TO SOCIAL IOVNNE SANTANA. ALSO AGREED TO GO HOME EACH DAY AND GET HIS REST. VERY THANKFUL FOR THE TIME TO TALK. REPORTED TO SOCIAL IVONNE SANTANA AND GERRY RAY.
[2019-08-09 16:00] VITALS: BP 157/76; PULSE 84; RESP 20; TEMP 36.7; O2SAT 98
--- NOTE | 2019-08-09 16:34 | NURSING ---
MIDLINE FLUSHED,NO BLOOD RETURN. REPORTED TO GERRY RAY
--- NOTE | 2019-08-09 16:43 | CASEMGMT ---
Social Work Nursing notified SW pt admitted with blackened heels and buttock wounds. Pt was discharged from TCU 07/27 with [facility]. Contacted [facility] to discuss pt care in the home. Upon start of care 07/30 with nurse, pt heels were intact, but buttock was not. Although, pt told nurse she had no issues with buttock. Nurse observed medications scattered throughout the house. Pt was not taking medications as prescribed, not controlling blood sugars, not eating or drinking. called [facility] 08/03 to report pt change in condition. Pt was slow to respond, dry heaving from not eating or drinking, and stated he could not move her from the chair in the last 14 hours. Pt then presented to the ED. Acute SW held conversation with about possible Medicaid application and LTC facilities. in to visit - spoke with to schedule a meeting to discuss pt and future DC plans. agreed he needed to practice self-care, he will be going home at 6 pm every night and coming in at 10 am each day. He stated he understands he cannot care for pt at her current condition and agrees to looking into LTP. He would like [facility] as that is the closest facility to him so he could visit her daily. Spoke with about applying for Medicaid - agreed. Provided Medicaid application. Scheduled meeting with 08/12 at 1:30 pm to further discuss. Will continue to follow. ALLAN Lopez
[2019-08-09 17:00] LABS: Bedside Glucose 148 mg/dL (70-110)
[2019-08-09 18:17] VITALS: BP 157/76; PULSE 84
[2019-08-09 21:21] LABS: Bedside Glucose 162 mg/dL (70-110)
[2019-08-09] MEDS: Pravastatin 40 MG Tablet PO (22:11)
[2019-08-09 22:15] VITALS: PULSE 98; RESP 18; O2SAT 97
--- NOTE | 2019-08-09 22:33 | NURSING ---
Addendum entered by Janee Kearns 08/10/19 11:11: Dr Meneses updated, no new orders. here requesting hospice consult. Message left with JULIO Parra and updated Dr meneses. Original Note: This nurse went in resident room explained to her that I have a doctor order to put a churchill cathether in tonight. Explained to her why she was getting the churchill and resident understood at this time. Resident allowed nurse and hiv cts specialist to get her perpared for the churchill then stated, I don't want that. So at this time resident has a attend on. Will make Rn aware.
[2019-08-10] MEDS: Menthol/Lanolin/Calamine/Znox 113 GM Tube 1 APPLIC TOPICAL ×2 (05:44→17:53)
[2019-08-10 05:45] VITALS: BP 142/93; PULSE 100
[2019-08-10] MEDS: Cefdinir 300 MG Capsule PO (05:45)
[2019-08-10] MEDS: APIXABAN 2.5 MG TABLET PO ×2 (05:45→17:52)
[2019-08-10] MEDS: Metoprolol Tartrate 50 MG Tablet PO ×2 (05:45→17:52)
[2019-08-10] MEDS: Senna/Docusate Sodium 1 Tablet PO (05:45)
[2019-08-10] MEDS: Polyethylene Glycol 3350 17 GM PACKET PO (05:46)
[2019-08-10] MEDS: Nystatin Powder 15gm Bottle 1 APPLIC TOPICAL ×2 (05:46→20:39)
[2019-08-10] MEDS: Acetaminophen 500 MG Tablet 1000 MG PO ×2 (06:05→13:29)
[2019-08-10 06:51] LABS: Bedside Glucose 154 mg/dL (70-110)
[2019-08-10] MEDS: Iron Polysaccharide Complex 150 MG CAPSULE PO (08:11)
[2019-08-10 09:12] VITALS: BP 113/66; PULSE 81; RESP 20; O2SAT 97
[2019-08-10 11:21] LABS: Bedside Glucose 187 mg/dL (70-110)
--- NOTE | 2019-08-10 13:30 | NURSING ---
pt continues to refuse to have churchill cath plcaed per orders. benefits of churchill cath for wound healing explained to pt and pt continues to refuse. david mcgee made aware.
[2019-08-10] MEDS: 0.9% Saline Lock 10 ML Syringe IV (14:02)
[2019-08-10 16:00] VITALS: BP 147/72; PULSE 93; RESP 20; TEMP 36.8; O2SAT 97
[2019-08-10 17:36] VITALS: BP 178/78; PULSE 100; RESP 20; TEMP 36.6; O2SAT 95
[2019-08-10 17:52] VITALS: BP 178/78; PULSE 100
[2019-08-10 18:01] LABS: Bedside Glucose 145 mg/dL (70-110)
--- NOTE | 2019-08-10 18:05 | NURSING ---
Addendum entered by Janee Kearns 08/10/19 19:17: returned call & updated. Original Note: pt alarm Alma daniel LPN entered room & found pt sitting on blue mat next to bed, which was in lowest position to floor, on buttocks to the LT side of bed. Pt stated she was trying to stand up to use BR & slid to her butt. Pt noted to be incont of stool. pt cognition varies throughout day. pt had just been incont of urine and changed by staff at 1630. Jessica used with 3 staff members to get pt back to bed. Dr Dong notified, no new orders. Small abrasion noted to LT upper back. attempted to call Leon but no answer, message left to call nursing unit. Magali, supervisor cell operation notified. hi lo Bed back in low position with mats on each side of bed as before fall. call light in reach.
[2019-08-10] MEDS: Pravastatin 40 MG Tablet PO (20:49)
[2019-08-10 21:16] LABS: Bedside Glucose 163 mg/dL (70-110)
[2019-08-11 05:25] VITALS: BP 159/83; PULSE 99
[2019-08-11] MEDS: APIXABAN 2.5 MG TABLET PO ×2 (05:25→17:20)
[2019-08-11] MEDS: Senna/Docusate Sodium 1 Tablet PO (05:25)
[2019-08-11] MEDS: Metoprolol Tartrate 50 MG Tablet PO ×2 (05:25→16:34)
[2019-08-11] MEDS: Nystatin Powder 15gm Bottle 1 APPLIC TOPICAL ×2 (05:26→20:14)
[2019-08-11] MEDS: Cefdinir 300 MG Capsule PO (05:26)
[2019-08-11] MEDS: Menthol/Lanolin/Calamine/Znox 113 GM Tube 1 APPLIC TOPICAL ×2 (05:26→16:23)
[2019-08-11 06:26] LABS: Bedside Glucose 149 mg/dL (70-110)
[2019-08-11 06:47] LABS: Anion Gap 8 (5-15); BUN 76 mg/dL (7-18); BUN/Creat Ratio 32.3 RATIO (10-20); Calcium,Total 8.5 mg/dL (8.5-10.1); Chloride 117 mmol/L (98-107); Creatinine, Serum 2.35 mg/dL (0.55-1.02); EST Glomerular Filtration Rate 22 mL/min (>60); Est Glom Filt Rate - Afr Amer 26 mL/min (>60); Estimated Creatinine Clearance 19.96 ml/min; Glucose 148 mg/dL (74-106); Potassium 3.7 mmol/L (3.5-5.1); Sodium Level 144 mmol/L (136-145)
[2019-08-11] MEDS: Iron Polysaccharide Complex 150 MG CAPSULE PO (07:51)
[2019-08-11] MEDS: Acetaminophen 500 MG Tablet 1000 MG PO ×2 (07:55→16:22)
[2019-08-11 10:56] LABS: Bedside Glucose 189 mg/dL (70-110)
[2019-08-11] MEDS: 0.9% Saline Lock 10 ML Syringe IV ×2 (15:13→20:13)
[2019-08-11 16:00] VITALS: PULSE 97; RESP 20; TEMP 36.4; O2SAT 96
[2019-08-11 16:34] VITALS: BP 172/77; PULSE 100
[2019-08-11 17:06] LABS: Bedside Glucose 151 mg/dL (70-110)
[2019-08-11] MEDS: Pravastatin 40 MG Tablet PO (20:14)
[2019-08-11 20:22] VITALS: BP 162/71; RESP 18; O2SAT 96
[2019-08-11 21:21] LABS: Bedside Glucose 140 mg/dL (70-110)
[2019-08-12] MEDS: APIXABAN 2.5 MG TABLET PO ×2 (04:18→17:58)
[2019-08-12] MEDS: Nystatin Powder 15gm Bottle 1 APPLIC TOPICAL ×2 (04:18→20:07)
[2019-08-12] MEDS: Menthol/Lanolin/Calamine/Znox 113 GM Tube 1 APPLIC TOPICAL ×2 (04:18→17:58)
[2019-08-12] MEDS: Cefdinir 300 MG Capsule PO (04:18)
[2019-08-12 04:19] VITALS: BP 170/97; PULSE 102
[2019-08-12] MEDS: Metoprolol Tartrate 50 MG Tablet PO ×2 (04:19→17:57)
[2019-08-12] MEDS: Acetaminophen 500 MG Tablet 1000 MG PO (04:22)
[2019-08-12 06:20] LABS: Bedside Glucose 121 mg/dL (70-110)
--- NOTE | 2019-08-12 06:38 | NURSING ---
Pt heard at nurses station voicing Ow and moaning. RN entered room to find pt turning head side to side, visibly in discomfort. Pt resstless and facial grimacing. Vitals elevated. Pt turned and repositioned for comfort. Massage provided to pt. Patient provided fluids and incontinence care. Non-pharmacological interventions ineffective. Tylenol administered. Tylenol not effective, pt continue restlessness, moaning and facial grimacing. Will update Dr Dong.
[2019-08-12] MEDS: Iron Polysaccharide Complex 150 MG CAPSULE PO (08:57)
--- NOTE | 2019-08-12 09:15 | NURSING ---
Scheduled lantus held this AM d/t BS of 121 and pt refused breakfast. No s/s distress noted, resting in bed with eyes closed, will continue to monitor. Jb GARRETT made aware.
[2019-08-12 11:06] LABS: Bedside Glucose 137 mg/dL (70-110)
[2019-08-12] MEDS: oxyCODONE 5 MG Tablet PO (11:28)
--- NOTE | 2019-08-12 12:53 | NURSING ---
Hospice currently in room talking with patient's .
--- NOTE | 2019-08-12 13:46 | CASEMGMT ---
Social Work Met with pt who met with hospice today and has signed papers for pt to enter hospice services. Pt to be evaluated for transfer to hospice inpatient unit. Pt spouse stating he would like her to go to [facility] after time at [facility] and he requested SW fax medicaid christine and information to [facility]. Application and supporting documentation faxed to S. Emotional support provided to pt spouse. MARC Tuttle
--- NOTE | 2019-08-12 14:03 | MDS.RN ---
Pain assessment completed per staff obs/hospice in with res/spouse. unable to document in the MDS per information systems
--- NOTE | 2019-08-12 15:08 | CASEMGMT ---
BIMS and PHQ9 interviews attempted on this date. Pt did start to complete the BIMS and then stopped answering questions asked. When SW asked questions for PHQ9, pt stared at SW but did not speak to answer questions. Unable to enter information in MDS on this date due to request of Information Systems working on documentation system. MARC Tuttle
[2019-08-12 15:33] VITALS: BP 155/64; PULSE 106; RESP 21; TEMP 36.8; O2SAT 96
--- NOTE | 2019-08-12 15:42 | CHAPLAIN ---
Type of Pastoral Visit _x__ Initial Visit ___ Follow-up Visit ___ On-call Visit ___ General Patient Visit ___ Spiritual Assessment ___ Family Conference ___ Bereavement ___ Rapid Response ___ Code Blue ___ Other (describe below) Pastoral Care Referral From ___ Patient _x__ Family _x__ Nurse ___ Physician ___ Security Operations Analyst ___ Harp Action Assembler _x__ Other (describe below) Sacrament/Intervention ___ Active listening ___ Anointing ___ Yazdanism ___ Bereavement ___ Communion ___ Shaniqua exploration ___ ___ Life review ___ Prayer ___ Reconciliation ___ Sacrament of Sick ___ Supportive presence ___ Wedding _x__ Other (describe below) Pastoral Comments patient was sleeping; spoke with spouse and was able to offer support for him as caregiver and decision maker; pt will be going to hospice; spouse was receptive to support and was talkative; family of pt has been confronted by much illness of late and so timing of support is important now; pt does have a connection with a dye range operator cloth in the area and will be able to have follow up from hospice executive director
--- NOTE | 2019-08-12 15:56 | CASEMGMT ---
Insurance Clinical update faxed to [facility]. Auth#[id number] MARC Tuttle
[2019-08-12 17:57] VITALS: BP 155/64; PULSE 98
--- NOTE | 2019-08-12 19:37 | NURSING ---
Report called to Kaylie at [facility]
[2019-08-12] MEDS: Pravastatin 40 MG Tablet PO (20:07)
[2019-08-12] MEDS: 0.9% Saline Lock 10 ML Syringe IV (20:08)
[2019-08-12 20:10] VITALS: PULSE 92; RESP 18; O2SAT 98
--- NOTE | 2019-08-12 20:14 | DCINST_ITS ---
- Discharge Diagnoses Current Active Problems: Current Active and Chronic Problems UTI due to Klebsiella species (Acute) Atrial fibrillation with rapid ventricular response (Acute) NSTEMI (non-ST elevated myocardial infarction) (Acute) Diabetes mellitus (Chronic) Chronic kidney disease (Chronic) Diabetic neuropathy (Chronic) Iron deficiency anemia (Chronic) You will use the following diet at home:: No restrictions, Regular Your food should be the consistency of: Regular Your liquids should be the consistency of: Regular/Thin Discharge Activity: Return to Normal Activity, Use Walker Weight Bearing Status: Weight bearing as tolerated Call your doctor if you observe: Fever of 101 or Higher, Inability to urinate, Inability to have a bowel movement, Shortness of breath, Chest pain, Uncont rolled pain Allergies/Adverse Reactions: Allergies adhesive Allergy (Verified 08/03/19 23:44) Rash amoxicillin [From Augmentin] Allergy (Verified 08/03/19 23:44) Unknown carvedilol Allergy (Verified 08/03/19 23:44) Unknown ceftriaxone [From Rocephin] Allergy (Verified 08/03/19 23:44) Unknown chlorthalidone Allergy (Verified 08/03/19 23:44) Unknown ciprofloxacin Allergy (Verified 08/03/19 23:44) Rash clavulanic acid [From Augmentin] Allergy (Verified 08/03/19 23:44) Unknown doxycycline Allergy (Verified 08/03/19 23:44) Unknown fexofenadine Allergy (Verified 08/03/19 23:44) Unknown gatifloxacin [From Tequin] Allergy (Verified 08/03/19 23:44) Unknown hydrochlorothiazide Allergy (Verified 08/03/19 23:44) Unknown lisinopril Allergy (Verified 08/03/19 23:44) Unknown losartan Allergy (Verified 08/03/19 23:44) Unknown Penicillins Allergy (Verified 08/03/19 23:44) Rash pramipexole Allergy (Verified 08/03/19 23:44) Unknown Quinolones Allergy (Verified 08/03/19 23:44) Unknown ropinirole Allergy (Verified 08/03/19 23:44) Unknown aspirin Adverse Reaction (Verified 08/03/19 23:44) Vomiting Medications to take at Discharge Hydrocortisone 2.5% Crm [Hytone] 1 applic TOPICAL BID PRN PRN #1 tube 07/23/19 Emollient Combination No.72 [Eucerin Intensive Repair] 1 applic TOPICAL QHS 08/08/19 Insulin Glargine [Lantus SoloStar Pen] 10 units SUBCUT BREAKFAST 08/08/19 Metoprolol Tartrate [Lopressor (beta beau)] 50 mg PO BID 08/08/19 Nystatin Powder [Mycostatin Powder] 1 applic TOPICAL 0600,2200 08/08/19 Acetaminophen [Tylenol] 1,000 mg PO Q6H PRN PRN tab 08/12/19 Melatonin 10 mg PO QHS PRN tab 08/12/19 Menthol/Lanolin/Calamine/Znox [Calmoseptine Ointment] 1 applic TOPICAL BID PRN tube 08/12/19 Primary Care Physician: Law Quintana DO [Primary Care Provider] - Please follow up with your Primary Care Physician in: As needed. Test Results: Test results from this visit will be discussed in further detail at your follow- up appointment, if applicable. Proposed Discharge Date: 08/12/19
--- NOTE | 2019-08-12 20:15 | PCM.DC.SUM ---
Discharge Date and Diagnosis - Problem List Patient Problems: Active and Suspected Problems UTI due to Klebsiella species (Acute) Atrial fibrillation with rapid ventricular response (Acute) NSTEMI (non-ST elevated myocardial infarction) (Acute) Date of Admission: 08/08/19 Date of Discharge: 08/12/19 - Primary Discharge Diagnosis Active and Suspected Problems UTI due to Klebsiella species (Acute) Atrial fibrillation with rapid ventricular response (Acute) NSTEMI (non-ST elevated myocardial infarction) (Acute) - Secondary Discharge Diagnosis Chronic Problems Lung mass (Chronic) 2.3 X 1.3 cm nodule in the RML...needs F/U with pulmonary as OP Diabetic polyneuropathy (Chronic) Allergic rhinitis (Chronic) Hyperlipidemia (Chronic) Normochromic normocytic anemia (Chronic) Etiology undetermined Chronic anticoagulation (Chronic) for chronic AF Left ventricular hypertrophy (Chronic) severe Diabetes mellitus (Chronic) Chronic kidney disease (Chronic) Diabetic neuropathy (Chronic) Iron deficiency anemia (Chronic) Debility (Chronic) Back pain (Chronic) 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, stage 2 (Chronic) Chronic kidney disease, stage III (moderate) (Chronic) Obesity (Chronic) Hypertension (Chronic) Type 2 diabetes mellitus (Chronic) Hospital Course and Treatment Imaging Results: 08/08/19 16:53 Diet: Cardiac: Calorie-Controlled Food consistency:: Mechanical Soft/Ground Liquid Consistency:: Regular/Thin Diet Comments: meds whole with purees; upright in chair for meals How many daily calories?: 1800 calorie Labs (Last 48 Hours) 08/10/19 08/11/19 08/11/19 21:07 05:15 06:19 Sodium 144 Potassium 3.7 Chloride 117 H Carbon Dioxide 19.0 L Anion Gap 8 BUN 76 H Creatinine 2.35 H Estim Creat Clear Calc 19.96 Est GFR (MDRD) Af Amer 26 L Est GFR (MDRD) Non-Af 22 L BUN/Creatinine Ratio 32.3 H Glucose 148 H Calcium 8.5 POC Glucose 163 H 149 H 08/11/19 08/11/19 08/11/19 10:45 16:58 21:11 Sodium Potassium Chloride Carbon Dioxide Anion Gap BUN Creatinine Estim Creat Clear Calc Est GFR (MDRD) Af Amer Est GFR (MDRD) Non-Af BUN/Creatinine Ratio Glucose Calcium POC Glucose 189 H 151 H 140 H 08/12/19 08/12/19 06:15 11:00 Sodium Potassium Chloride Carbon Dioxide Anion Gap BUN Creatinine Estim Creat Clear Calc Est GFR (MDRD) Af Amer Est GFR (MDRD) Non-Af BUN/Creatinine Ratio Glucose Calcium POC Glucose 121 H 137 H Consultations 08/08/19 22:16 Consult: Onc/Wound/bioinformatics associate Routine Comment: buttocks and BLE Operations: None Procedures: None Summary of Care Provided: The patient is a 74 year old Female with below past medical history hospitalized for weakness secondary to K. Oxytoca urinary tract infection, complicated by atrial fibrillation with rapid ventricular response, NSTEMI, acute kidney injury, admitted to TCU with debility, here for rehabilitation, strengthening, prior to discharge to [facility]. Resident did not progress. Resident/Resident spouse requested hospice evaluation. Discharge to inpatient hospice facility for symptom control. Patient Problems: Active and Suspected Problems UTI due to Klebsiella species (Acute) Atrial fibrillation with rapid ventricular response (Acute) NSTEMI (non-ST elevated myocardial infarction) (Acute) - Physical Exam Vital Signs Temp Pulse Resp BP Pulse Ox 98.3 F 98 21 H 155/64 H 96 08/12/19 15:33 08/12/19 17:57 08/12/19 15:33 08/12/19 17:57 08/12/19 15:33 Oxygen Delivery Method Room Air Weight: 119.9 kg Body Mass Index (BMI) 42.6 Intake and Output for Last 24 Hours 08/10/19 08/11/19 08/12/19 23:59 23:59 23:59 Intake Total 120 / 120 360 / 360 0 / 0 Output Total / Balance 119 / 119 360 / 360 0 / 0 POC Glucose 08/12/19 08/12/19 08/11/19 11:00 06:15 21:11 POC Glucose 137 H 121 H 140 H Discharge Diet: No Restrictions Discharge Activity: Return to Normal Activity, Use Walker Weight Bearing Status: Weight bearing as tolerated Call your doctor if you observe: Fever of 101 or Higher, Inability to urinate, Inability to have a bowel movement, Shortness of breath, Chest pain, Uncontrolled pain Home Medications: Medications to take at Discharge Hydrocortisone 2.5% Crm [Hytone] 1 applic TOPICAL BID PRN PRN #1 tube 07/23/19 Emollient Combination No.72 [Eucerin Intensive Repair] 1 applic TOPICAL QHS 08/08/19 Insulin Glargine [Lantus SoloStar Pen] 10 units SUBCUT BREAKFAST 08/08/19 Metoprolol Tartrate [Lopressor (beta beau)] 50 mg PO BID 08/08/19 Nystatin Powder [Mycostatin Powder] 1 applic TOPICAL 0600,2200 08/08/19 Acetaminophen [Tylenol] 1,000 mg PO Q6H PRN PRN tab 08/12/19 Melatonin 10 mg PO QHS PRN tab 08/12/19 Menthol/Lanolin/Calamine/Znox [Calmoseptine Ointment] 1 applic TOPICAL BID PRN tube 08/12/19 Primary Care Physician: Law Quintana DO [Primary Care Provider] - Please follow up with your Primary Care Physician in: As needed. Disposition: Hospice Medical Facility Minutes spent on discharge:: 30 Patient Condition:: Poor Medical Necessity - Tobacco Use Smoking Status: Never smoker Tobacco Use: Non-smoker Meaningful Use Info Meaningful Use Diagnoses (Choose all that apply): None applicable
[2019-08-12 20:17] VITALS: BP 156/75; PULSE 91; RESP 18; TEMP 36.8; O2SAT 93
--- NOTE | 2019-08-12 21:23 | NURSING ---
Transport picked up pt via stretcher. All belongings sent with pt.
--- NOTE | 2019-08-19 09:45 | MDS.RN ---
Information for the mds was obtained from review of the clinical record, interview of resident, staff, and direct observation of resident's care
== END 2019-08-12 21:25 | disposition hospice, inpatient (51) | DRG 689 ==
PROVIDERS: Admitting Provider Family Medicine Geriatric Medicine; Family Provider Student in an Organized Health Care Education/Training Program; PCP Student in an Organized Health Care Education/Training Program; Visit Provider Family Medicine Geriatric Medicine
DX: N39.0 Urinary tract infection, site not specified (principal); I21.4 Non-ST elevation (NSTEMI) myocardial infarction; B96.89 Other specified bacterial agents as the cause of diseases classified elsewhere; B35.4 Tinea corporis; D50.9 Iron deficiency anemia, unspecified; E78.5 Hyperlipidemia, unspecified; I48.2 Chronic atrial fibrillation; E11.22 Type 2 diabetes mellitus with diabetic chronic kidney disease; N18.3 Chronic kidney disease, stage 3 (moderate); I12.9 Hypertensive chronic kidney disease with stage 1 through stage 4 chronic kidney disease, or unspecified chronic kidney disease; Z98.84 Bariatric surgery status; B96.1 Klebsiella pneumoniae [K. pneumoniae] as the cause of diseases classified elsewhere; E11.42 Type 2 diabetes mellitus with diabetic polyneuropathy; L89.312 Pressure ulcer of right buttock, stage 2
CPT/HCPCS: 36415; 80048; 82962; 85025; 92507; 92610; 97110; 97140; 97162; 97166; 97530; 97535; 97802; A4216